=== PATIENT | female | born 1955 | race Caucasian/White ===

== ENCOUNTER 2019-11-24 07:33 | Outpatient (CLI) | payer MEDICARE, OTHER, SELFPAY ==
--- NOTE | 2019-11-24 07:39 | XR_ITS ---
WS: [id number] Lumbar spine, 3 views, 11/24/2019 Clinical Data: PAIN IN LEFT HIP Comparison: Lumbar spine, 05/01/2014. Findings: No compression fractures or subluxation is seen. Minimal disc space narrowing at T12-L1, L1-L2 and L5 -S1 is seen.. The transverse processes and SI joints are normal. The S1 vertebral body shows lumbar c haracteristics. Minimal osteoarthritic spurring of the L1 and L2 vertebral bodies seen. There are clips in the region of the abdominal aorta from surgery. There are clips in the right upper quadrant from a cholecystect linette. XR/XR lumbar spine 2-3V* [id number] Impression: Moderate osteoarthritis of the L1 and L2 vertebral bodies. Degenerative disc narrowing at T12-L1, L1-L2 and L5-S1.
--- NOTE | 2019-11-24 07:40 | CT_ITS ---
WS: [id number] NONCONTRAST CT LEFT HIP TECHNIQUE: Noncontrast CT left with coronal and sagittal reformatted images. CLINICAL INFORMATION: LEFT HIP PAIN COMPARISON: None. DLP: 313.[address] scans at [facility] use at least one of these dose optimization techniques: automat ed exposure control; mA and/or kV adjustment per patient size (includes targeted exams where dose is matched to clinical indication); or iterative reconstruction. FINDINGS: Normal anatomic alignment. Normal femoral head and femoral neck. Normal superior and inferior pubic r ami. Proximal femoral shaft appears normal. Normal acetabulum. No acute fractures. No evidence of AVN or subchondral collapse. Degenerative arthritis left sacroiliac joint. Vascular calcification. Surgi herb clips left groin. Diverticulosis. Partially visualized left femoral graft. CT/CT hip LT wo con* [id number] IMPRESSION: 1. Mild degenerative narrowing left hip. No acute fractures. 2. No evidence of AVN or subchondral collapse. 3. Normal pubic rami. 4. Diverticulosis.
== END 2019-11-24 07:34 | disposition home or self-care (01) ==
PROVIDERS: Family Provider Nurse Practitioner Family; PCP Nurse Practitioner Family; Visit Provider Nurse Practitioner Family
DX: M16.12 Unilateral primary osteoarthritis, left hip (principal); K57.90 Diverticulosis of intestine, part unspecified, without perforation or abscess without bleeding; M47.896 Other spondylosis, lumbar region; M47.897 Other spondylosis, lumbosacral region; R26.89 Other abnormalities of gait and mobility; M25.552 Pain in left hip
CPT/HCPCS: 72100; 73700

== ENCOUNTER 2020-02-16 08:24 | Outpatient (CLI) | payer MEDICARE, OTHER, SELFPAY ==
--- NOTE | 2020-02-16 08:34 | XR_ITS ---
WS: [id number] LATERAL CERVICAL SPINE: 3 view. Lateral radiographs are performed in upright neutral, flexion and extension to the patient's toleranc e. HISTORY: Neck pain COMPARISON: 05/01/2014 Mild straightening of the normal cervical lordosis. No fractures. Minimal hypertrophic bone formation along the anterior vertebral bodies. With flexion and extension no instability. XR/XR cervical spine fl/ex [id number] IMPRESSION: No cervical spine instability.
--- NOTE | 2020-02-16 08:45 | MR_ITS ---
WS: [id number] MRI CERVICAL SPINE HISTORY: Neck pain COMPARISON: 12/21/2013, CT cervical spine 06/21/2019 Normal cervical alignment with no compression fracture or significant disc space narrowing. Signal within the cervical cord is normal. Visualized posterior fossa is unremarkable. Craniocervical junction, C1 and C2 relationship, odontoid process and soft tissues are normal. C2-C3: Tiny central disc protrusion with no cord contact. C3-C4: Normal. C4-C5: Small central disc protrusion. Mild deformity of the ventral surface of the cord. Small amount of fluid still surrounds the cord. No significant stenosis. C5-C6: Shallow central disc protrusion with mild deformity the ventral cord. No significant stenosis. C6-C7: Mild disc bulge. Small central disc protrusion and/or osteophyte. No significant stenosis. C7-T1: Normal. Paraspinal soft tissue are normal. MR/MR cervical spin wo con* [id number] IMPRESSION: 1. No significant central or foraminal stenosis. 2. Small central disc protrusions at C3-4, C4-5, C5-6 and C6-7. No significant stenosis. Most significant at C4-5. Similar appearance to the prior CT of 06/21.
== END 2020-02-16 08:25 | disposition home or self-care (01) ==
LOC: RADWPI 08:30
PROVIDERS: Family Provider Nurse Practitioner Family; PCP Nurse Practitioner Family; Visit Provider Licensed Practical Nurse
DX: M50.21 Other cervical disc displacement, high cervical region (principal)
CPT/HCPCS: 72040; 72141

== ENCOUNTER 2020-11-25 10:24 | Outpatient (CLI) | payer MEDICARE, OTHER, SELFPAY ==
--- NOTE | 2020-11-25 11:45 | USCV_ITS ---
Fernando Gregoria Age: 65 Gender: F : 1955 Exam Date: 11/25/2020 10:33 Ordering Phys: Erika Portillo MD ([email or web address]) Technologist: María Kraft Exam Location[place] [facility] [place] Indication: dizziness Risk Factors: Previous Vascular Surgery: Right Brachial BP: / Left Brachial BP: / Right Left Velocity (cm/s) Spectral Plaque Velocity (cm/s) Spectral Plaque Syst/Diast Broadening Syst/Diast Broadening 73.80/ 11.70 Prox CCA 75.20 / 11.10 54.40/ 13.20 Mid CCA 60.70 / 12.80 60.60/ 13.20 Distal CCA 53.00 / 13.70 199.70/48.60 Prox ICA 170.90/ 46.80 105.20/30.20 Mid ICA 158.50/ 38.00 68.90/ 22.40 Distal ICA 68.40 / 23.90 127.50 ECA 102.20 2.71 ICA/CCA 2.27 Antegrade Vertebral Antegrade 45.10/ 7.80 cm/s 79.50/ 19.70 cm/s Tri Subclavian Tri 96.60 105.8 0 FINDINGS Moderate to heavy heterogeneous plaques of the right bifurcation and proximal internal carotid artery. Moderate to heavy plaques of the left bifurcation and proximal to mid internal carotid artery. Intimal thickening in the common carotid arteries bilaterally. Antegrade flow in the vertebral arteries bilaterally. Normal Doppler waveforms and velocities in the subclavian arteries bilaterally Normal Doppler flow velocities in the external carotid arteries bilaterally CONCLUSIONS Moderate to heavy heterogeneous plaques at the right bifurcation and proximal internal carotid artery with velocity elevation consistent with 50-79% stenosis. Moderate to heavy heterogeneous plaques at the left bifurcation and proximal to mid internal carotid arterywith velocity elevation consistent with 50-79% stenosis. No evidence of any significant stenosis in the external, vertebral or subclavian arteries bilaterally Dr Erika Portillo MD [facility] (Electronically Signed) Final Date: 26 November 2020 21:14 S
== END 2020-11-25 10:25 | disposition home or self-care (01) ==
LOC: US 10:25
PROVIDERS: PCP Nurse Practitioner Family; Visit Provider Internal Medicine Cardiovascular Disease
DX: I65.23 Occlusion and stenosis of bilateral carotid arteries (principal)
CPT/HCPCS: 93880

== ENCOUNTER 2021-07-25 06:44 | Outpatient (CLI) | payer MEDICARE, OTHER, SELFPAY ==
--- NOTE | 2021-07-25 07:15 | USCV_ITS ---
Fernando Gregoria Age: 66 Gender: F : 1955 Exam Date: 07/25/2021 07:02 Ordering Phys: Erika Portillo MD ([email or web address]) Technologist: Deanna Davies [place] [facility] [place]ication: SWELLING RT ANKLE HISTORY: Swelling Rt. Ankle PROCEDURES: Venous duplex imaging was performed in only the right lower extremity. The following venous structures were evaluated: common femoral vein, profunda vein, proximal portion of the greater saphenous vein, superficial femoral vein, and the popliteal vein. In addition, the posterior tibial and peroneal trunk were evaluated. Serial compression, augmentation maneuvers, and spectral Doppler flow evaluation were performed. FINDINGS: Normal 2-D Doppler and augmentation and compressibility throughout the lower extremity venous structures. Additional imaging through the proximal calf veins also reveals no thrombus. Limited evaluation of the greater saphenous vein is patent with no thrombus.. CONCLUSIONS No evidence of DVT in the above-mentioned identifiable veins. Dr Erika Portillo MD [facility] (Electronically Signed) Final Date: 25 July 2021 17:37 S
== END 2021-07-25 06:45 | disposition home or self-care (01) ==
LOC: RAD 06:52
PROVIDERS: PCP Nurse Practitioner Family; Visit Provider Internal Medicine Cardiovascular Disease
DX: M79.89 Other specified soft tissue disorders (principal)
CPT/HCPCS: 93971

== ENCOUNTER → 2021-09-19 08:35 | Outpatient (BNVA) | payer MEDICARE, OTHER, SELFPAY | PROVIDERS: PCP Nurse Practitioner Family; Visit Provider Surgery | DX: Z20.822 Contact with and (suspected) exposure to COVID-19 (principal) | CPT/HCPCS: 87635 ==

== ENCOUNTER 2021-11-21 10:40 | Outpatient (CLI) | payer MEDICARE, OTHER, SELFPAY ==
--- NOTE | 2021-11-21 10:49 | FL_ITS ---
WS: [id number] DOUBLE CONTRAST UPPER GI EXAMINATION HISTORY: GASTRO-ESOPHAGEAL REFLUX DISEASE WITHOUT ESOPHAGITIS COMPARISON: None available. FLUOROSCOPY TIME: 2.5 minutes. Larry Operator film reveals normal distribution of gas throughout the GI tract. Moderate constipation. No susp icious masses or calcifications. Prior cholecystectomy. Barium mixture traversed normally throughout the esophagus. No filling defects within the stomach. Du odenal bulb was normally distensible and pliable. There was a brief delay in transit of the barium ta blet through the distal esophagus. This may have been due to mild esophageal spasm. Otherwise the eso phagus appeared patent. There was a small reducible hiatal hernia noted. There is also a duodenal div erticulum noted during this examination which did fill with contrast. The duodenal diverticulum exten ded greater to the RIGHT. No gastroesophageal reflux FL/FL upper GI w air* [id number] IMPRESSION: 1. Very small reducible hiatal hernia. 2. Small duodenal diverticulum. 3. Very brief delay in transit of the barium tablet at the GE junction. May be en due to spasm. No significant distal esophageal stenosis identified at this t suha.
== END 2021-11-21 10:41 | disposition home or self-care (01) ==
PROVIDERS: PCP Nurse Practitioner Family; Visit Provider Nurse Practitioner
DX: K21.9 Gastro-esophageal reflux disease without esophagitis (principal); K44.9 Diaphragmatic hernia without obstruction or gangrene; K57.10 Diverticulosis of small intestine without perforation or abscess without bleeding
CPT/HCPCS: 74246

== ENCOUNTER → 2021-12-01 08:47 | Outpatient (BNVA) | payer MEDICARE, OTHER, SELFPAY | PROVIDERS: PCP Nurse Practitioner Family; Visit Provider Surgery | DX: R10.13 Epigastric pain (principal); K92.1 Melena | CPT/HCPCS: 87635 ==

== ENCOUNTER 2021-12-05 08:45 | Day surgery (SDC) | payer MEDICARE, OTHER, SELFPAY ==
[2021-09-23 14:34] VITALS: BMI 26.6
--- NOTE | 2021-12-05 09:21 | ANES.PREANE2 ---
Pre-Anesthetic Assessment Height/Weight: Height 1.57 m Weight 66.224 kg Preop Diagnosis: diagnostic Operation Date: 12/05/21 10:30 Proposed Procedures p EGD 60623 R10.13 K92.1(Not Applicable) - Tucker Armstrong MD Familial anesthetic complications: none Was Beta Lidia taken within 24 hours: Yes Was Clonidine taken within 24 hours: N/A Last intake: 12/04 Social Tobacco and No alcohol Exam alert, oriented x 3, clear to auscultation bilaterally and regular rate & rhythm Airway Submandibular: within normal limits Cervical ROM: within normal limits Mallampati: Class I Dentition: false Pulmonary Exertional Dyspnea Sjorgens CV/HEM Peripheral Vascular Disease Carotid disease Symptomatic lower extremity PVD s/p arterial bypass DLD PAD METS < 4 Carotid Doppler 11/28 CONCLUSIONS ?Moderate to heavy heterogeneous plaques at the right bifurcation ?and proximal internal carotid artery with velocity elevation ?consistent with 50-79% stenosis. ?Moderate to heavy heterogeneous plaques at the left bifurcation ?and proximal to mid internal carotid arterywith velocity ?elevation consistent with 50-79% stenosis. ?No evidence of any significant stenosis in the external, ?vertebral or subclavian arteries bilaterally Hydronephrosis GI Gastroesophageal Reflux Disease Did not complete bowel prep Metabolic None reported Musc/skel None reported Cervical myelopathy Neuropsych Neuropathy Anesthetic Plan ASA status: 3E (66 year old female with peripheral vascular disease s/p arterial bypass of LE, carotid stenosis, functional limations, SOUZA, hydronephrosis, GERD, and HTN) Anesthesia: Anesthesia Evaluation and MAC Other: I discussed with the patient risks, goals, and benefits of MAC and general anesthesia. We discussed spectrum of MAC anesthesia including conversion to general as well as possibility of recall of intraoperative stimuli including discomfort/pain. Patient agrees to proceed with MAC. Risk of > 500 ml blood loss (7ml/kg in children): No Other Pertinent Information Did not complete bowel prep. EGD only per patient . Medications/Allergies Home Medications Medication Instructions Recorded Confirmed Last Taken Type Diabetic shoes #1 ea 12/11/19 12/03/21 Unknown Rx lisinopril 20 mg tablet 20 mg PO DAILY 12/11/19 12/03/21 Unknown History pantoprazole 40 mg tablet,delayed 40 mg PO DAILY 12/11/19 12/03/21 Unknown History release rosuvastatin 10 mg tablet (Crestor) 10 mg PO BEDTIME 12/11/19 12/03/21 Unknown History alprazolam 0.25 mg tablet (Xanax) 0.25 mg PO BID PRN 02/08/20 12/03/21 Unknown History aspirin 81 mg tablet,delayed 81 mg PO DAILY 02/08/20 12/03/21 Unknown History release hyoscyamine sulfate 0.375 mg 0.375 mg PO Q12H 02/08/20 12/03/21 Unknown History tablet,extended release,12 hr (Symax-SR) glipizide 10 mg tablet 10 mg PO BID tab 05/22/21 12/03/21 Unknown History dulaglutide 3 mg/0.5 mL 3 mg SUBCUT DIRECTED 08/15/21 12/03/21 Unknown History subcutaneous pen injector (Trulicity) amlodipine 5 mg tablet 5 mg PO DAILY 09/23/21 12/03/21 Unknown History carvedilol 25 mg tablet 25 mg PO BID 09/23/21 12/03/21 Unknown History Allergies Allergy/AdvReac Type Severity Reaction Status Date / Time codeine AdvReac nausea Verified 09/23/21 14:33 propoxyphene AdvReac Nausea Verified 09/23/21 14:33 [From Osvaldo-N] [facility] Anesthesia Medical History 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 Benign essential HTN Carotid artery stenosis, asymptomatic Cervical disc disorder with myelopathy of mid-cervical region Chronic distal aortic occlusion Chronic headache Chronic neck pain Degeneration of cervical disc without myelopathy Dyslipidemia GERD (gastroesophageal reflux disease) Hydronephrosis, right Hypertension Mixed hyperlipidemia Neuropathy PAD (peripheral artery disease) Sjogren's syndrome with keratoconjunctivitis sicca Surgical History H/O abdominal hysterectomy H/O esophagogastroduodenoscopy History of arterial bypass of lower extremity History of colonoscopy with polypectomy History of tonsillectomy and adenoidectomy Hx of cholecystectomy Family History Father Lung disease Cancer Grandmother Cancer Daughter Anesthesia complication Mother CAD (coronary artery disease) Chronic kidney disease (CKD) Family/Other Diabetes Stroke Denies family history of Clotting disorder Dementia Bleeding disorder Social History Alcohol intake: never Household members: children and other Details: grandson Marital status: / Current occupational status: unemployed 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
[2021-12-05 09:40] VITALS: BP 133/65; PULSE 68; RESP 16; TEMP 36.6; O2SAT 97
[2021-12-05] MEDS: sodium chloride 0.9% 1,000 ML 30 ML IV (09:54)
--- NOTE | 2021-12-05 10:33 | W.PM.OPSFHP ---
Same Day Surgery H&P Indication for Procedure/HPI DATE OF PROCEDURE: December 05, 2021 CHIEF COMPLAINT/INDICATIONFOR SURGICAL PROCEDURE: Epigastric pain-EGD PREOP DIAGNOSIS: diagnostic PLANNED PROCEDURE: Operation Date: 12/05/21 10:30 Proposed Procedures p EGD 26524 R10.13 K92.1(Not Applicable) - Tucker Armstrong MD Medications/Allergies* Home Medications Medication Instructions Recorded Confirmed Type lisinopril 20 mg tablet 20 mg PO DAILY 12/11/19 12/05/21 History pantoprazole 40 mg tablet,delayed 40 mg PO DAILY 12/11/19 12/05/21 History release rosuvastatin 10 mg tablet (Crestor) 10 mg PO BEDTIME 12/11/19 12/05/21 History alprazolam 0.25 mg tablet (Xanax) 0.25 mg PO BID PRN 02/08/20 12/05/21 History aspirin 81 mg tablet,delayed 81 mg PO DAILY 02/08/20 12/05/21 History release hyoscyamine sulfate 0.375 mg 0.375 mg PO Q12H 02/08/20 12/05/21 History tablet,extended release,12 hr (Symax-SR) glipizide 10 mg tablet 10 mg PO BID tab 05/22/21 12/05/21 History dulaglutide 3 mg/0.5 mL 3 mg SUBCUT DIRECTED 08/15/21 12/05/21 History subcutaneous pen injector (Trulicity) amlodipine 5 mg tablet 5 mg PO DAILY 09/23/21 12/05/21 History carvedilol 25 mg tablet 25 mg PO BID 09/23/21 12/05/21 History Allergies/Adverse Reactions Allergy/AdvReac Type Severity Reaction Status Date / Time codeine AdvReac nausea Verified 12/05/21 09:37 propoxyphene AdvReac Nausea Verified 12/05/21 09:37 [From Charley] Current Medications: Generic Name Dose Route Start Last Admin Trade Name Freq PRN Reason Stop Dose Admin Sodium Chloride 1,000 mls @ 30 mls/hr 12/05/21 09:15 12/05/21 09:54 Sodium Chloride 0.9% IV 12/06/21 09:14 30 mls/hr .Q24H AURELIO Administration Pertinent History/Comorbid Conditions* Medical History (Updated 08/15/21 @ 08:26 by Tucker Armstrong MD) 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 Benign essential HTN Carotid artery stenosis, asymptomatic Cervical disc disorder with myelopathy of mid-cervical region Chronic distal aortic occlusion Chronic headache Chronic neck pain Degeneration of cervical disc without myelopathy Dyslipidemia GERD (gastroesophageal reflux disease) Hydronephrosis, right Hypertension Mixed hyperlipidemia Neuropathy PAD (peripheral artery disease) Sjogren's syndrome with keratoconjunctivitis sicca Surgical History (Updated 08/15/21 @ 08:30 by Tucker Armstrong MD) H/O abdominal hysterectomy H/O esophagogastroduodenoscopy History of arterial bypass of lower extremity History of colonoscopy with polypectomy History of tonsillectomy and adenoidectomy Hx of cholecystectomy Family History (Updated 11/13/20 @ 10:04 by Maddie Edmond RN) Diabetes Family/Other CAD (coronary artery disease) Mother Chronic kidney disease (CKD) Mother Anesthesia complication Daughter Lung disease Father Cancer Father Grandmother Stroke Family/Other Denies family history of Clotting disorder Dementia Bleeding disorder Social History Alcohol intake: never Household members: children and other Details: grandson Marital status: / Current occupational status: unemployed 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
[2021-12-05 10:59] VITALS: BP 113/58; PULSE 63; RESP 14; TEMP 36.5; O2SAT 92
[2021-12-05 11:15] VITALS: BP 123/60; PULSE 61; RESP 18; O2SAT 94
== END 2021-12-05 11:25 | disposition home or self-care (01) ==
PROVIDERS: PCP Nurse Practitioner Family; Visit Provider Surgery
PROC: 0DJ08ZZ Inspection of Upper Intestinal Tract, Via Natural or Artificial Opening Endoscopic (ICD-10-PCS; CPT 43235; principal; 2021-12-05 10:30)
DX: K92.1 Melena (principal); R10.13 Epigastric pain; K29.70 Gastritis, unspecified, without bleeding; K52.9 Noninfective gastroenteritis and colitis, unspecified; K21.9 Gastro-esophageal reflux disease without esophagitis; I25.110 Atherosclerotic heart disease of native coronary artery with unstable angina pectoris; I10 Essential (primary) hypertension; E78.2 Mixed hyperlipidemia; Z82.49 Family history of ischemic heart disease and other diseases of the circulatory system; Z83.3 Family history of diabetes mellitus; Z82.3 Family history of stroke
CPT/HCPCS: 43239; 88305; 88342; J2704; J7030

== ENCOUNTER → 2022-02-17 08:45 | Outpatient (BNVA) | payer MEDICARE, OTHER, SELFPAY | PROVIDERS: PCP Nurse Practitioner Family; Referring Provider Nurse Practitioner Family; Visit Provider Orthopaedic Surgery | DX: M25.512 Pain in left shoulder (principal); M54.2 Cervicalgia; G89.29 Other chronic pain | CPT/HCPCS: 72050; 99204 ==

== ENCOUNTER 2022-03-30 12:24 | Outpatient (CLI) | payer MEDICARE, OTHER, SELFPAY ==
--- NOTE | 2022-03-30 12:36 | USCV_ITS ---
Gregoria King Age: 66 Gender: F : 1955 Exam Date: 03/30/2022 13:01 Ordering Phys: Juliette Winchester Technologist: RENEA Exam Location: [facility] – [place] Indication: Dizziness, giddiness Risk Factors: Previous Vascular Surgery: Right Brachial BP: / Left Brachial BP: / Right Left Velocity (cm/s) Spectral Plaque Velocity (cm/s) Spectral Plaque Syst/Diast Broadening Syst/Diast Broadening 103.60/4.40 Prox CCA 70.30 / 6.00 50.00/ 10.50 Mid CCA 52.60 / 6.00 36.10/ 8.20 Distal CCA 41.10 / 8.50 174.70/32.20 Prox ICA 150.53/ 33.23 118.00/21.50 Mid ICA 144.20/ 39.55 56.30/ 13.20 Distal ICA 133.80/ 26.00 79.90 ECA 86.20 3.50 ICA/CCA 2.99 Antegrade Vertebral Antegrade 35.80/ 8.00 cm/s 82.00/ 17.90 cm/s Bi Subclavian Bi 84.90 99.10 FINDINGS Comparison:. 11/25/20. Diffuse bilateral scattered calcified plaque and intimal thickening throughout the common carotid arteries and extending through the bifurcation. Greatest plaque in the bifurcations. Antegrade vertebral arteries. CONCLUSIONS Right ICA stenosis 50-69%. Left ICA stenosis 50-69%. No interval change in stenosis since prior exam. Dr. Leyda Cui DO (Electronically Signed) Final Date: 30 Mar 2022 14:01 S
== END 2022-03-30 12:25 | disposition home or self-care (01) ==
LOC: RAD 12:27
PROVIDERS: PCP Nurse Practitioner Family; Visit Provider Nurse Practitioner Family
DX: M75.01 Adhesive capsulitis of right shoulder (principal); M75.02 Adhesive capsulitis of left shoulder; M25.512 Pain in left shoulder; M25.511 Pain in right shoulder; I65.23 Occlusion and stenosis of bilateral carotid arteries; I25.10 Atherosclerotic heart disease of native coronary artery without angina pectoris; M79.89 Other specified soft tissue disorders; I10 Essential (primary) hypertension; F17.200 Nicotine dependence, unspecified, uncomplicated
CPT/HCPCS: 73030; 93880; 99203; 99204; 99214

== ENCOUNTER 2022-04-02 08:06 | Outpatient (CLI) | payer MEDICARE, OTHER, SELFPAY ==
--- NOTE | 2022-04-02 08:00 | MR_ITS ---
WS: [id number] MRI LEFT SHOULDER NONCONTRAST TECHNIQUE: Sagittal T2, coronal T1, T2 and proton density imaging. Axial gradient PDE imaging. CLINICAL INFORMATION: left arm and shoulder numbness COMPARISON: None. FINDINGS: Moderate degenerative arthritis AC joint. Mild downsloping acromion. Slight subacromial spurring. Sma ll amount of subacromial/subdeltoid fluid. Intrasubstance tear involving the distal supraspinatus. Ad ditional tear at the supraspinatus insertion. No tendon retraction. Tendinopathy in the distal supraspinatus. Normal infraspinatus. Normal teres minor. Normal subscapula ris. Normal biceps tendon in the bicipital groove. Normal biceps labral anchor. Glenoid labrum is oneyda ssly normal. Normal bone marrow signal in the humerus and glenoid. MR/MR shoulder LT con* [id number] IMPRESSION: 1. Moderate degenerative arthritis AC joint with mild downsloping acromion. Sm all amount of subacromial spurring. 2. Intrasubstance tear involving the distal supraspinatus. Additional tear at the insertion. No tendon retraction. Tendinopathy distal supraspinatus. 3. Rotator cuff is otherwise intact. 4. Normal biceps tendon in the bicipital groove. Normal biceps labral anchor. 5. No other acute findings.
--- NOTE | 2022-04-02 08:45 | MR_ITS ---
WS: [id number] MRI CERVICAL SPINE noncontrast. HISTORY: Chronic pain LEFT shoulder and neck. Fell 1 week ago. COMPARISON: 02/16/2020 Technique: Multiplanar, multisequence noncontrast imaging of the cervical spine. Normal posterior alignment. No fracture or marrow edema. Facet joints are normally aligned. Signal within the cervical cord is normal. Visualized posterior fossa is unremarkable. Craniocervical junction, C1 and C2 relationship, odontoid process and soft tissues are normal. C2-C3: Tiny central disc protrusion with no stenosis. C3-C4: No disc protrusion identified today. No stenosis. C4-C5: Shallow central disc protrusion as seen on the prior study with near effacement of the CSF. Sl ight for many of the CSF but no contact on the ventral cord. Small bilateral foraminal osteophytes. C5-C6: Mild osteophytic ridging. No significant disc protrusion identified today. No stenosis. C6-C7: Mild osteophytic ridging with a small central disc protrusion as seen on the prior study. No s ignificant stenosis. C7-T1: Normal. Paraspinal soft tissue are normal. MR/MR cervical spin wo con* [id number] IMPRESSION: 1. No high-grade central stenosis or large disc protrusion. 2. Shallow central disc protrusion at C4-5 mild effacement of CSF. No cord con tact. 3. Small foraminal osteophytes at C4-5 with no high-grade stenosis. 4. Small central disc protrusion at C6-7 similar to the prior study. 5. No significant facet joint fluid or arthritis.
== END 2022-04-02 08:07 | disposition home or self-care (01) ==
LOC: RAD 08:14
PROVIDERS: PCP Nurse Practitioner Family; Visit Provider Orthopaedic Surgery
DX: M50.020 Cervical disc disorder with myelopathy, mid-cervical region, unspecified level (principal); M25.512 Pain in left shoulder; G89.29 Other chronic pain; M50.221 Other cervical disc displacement at C4-C5 level; M50.223 Other cervical disc displacement at C6-C7 level; M19.012 Primary osteoarthritis, left shoulder
CPT/HCPCS: 72141; 73221

== ENCOUNTER → 2022-04-14 07:22 | Outpatient (BNVA) | payer MEDICARE, OTHER, SELFPAY | PROVIDERS: PCP Nurse Practitioner Family; Visit Provider Physician Assistant | DX: M47.812 Spondylosis without myelopathy or radiculopathy, cervical region (principal); M75.42 Impingement syndrome of left shoulder; M47.22 Other spondylosis with radiculopathy, cervical region | CPT/HCPCS: 20610; 99213; J1100; J2795 ==

== ENCOUNTER → 2022-04-23 08:32 | Outpatient (BNVA) | payer MEDICARE, OTHER, SELFPAY | PROVIDERS: PCP Nurse Practitioner Family; Visit Provider Anesthesiology Pain Medicine | DX: G89.29 Other chronic pain (principal); M51.17 Intervertebral disc disorders with radiculopathy, lumbosacral region; M47.812 Spondylosis without myelopathy or radiculopathy, cervical region; M47.22 Other spondylosis with radiculopathy, cervical region; M50.90 Cervical disc disorder, unspecified, unspecified cervical region; M75.42 Impingement syndrome of left shoulder; M79.601 Pain in right arm; M79.602 Pain in left arm; F17.210 Nicotine dependence, cigarettes, uncomplicated | CPT/HCPCS: 99204 ==

== ENCOUNTER → 2022-05-06 12:26 | Outpatient (BNVA) | payer MEDICARE, OTHER, SELFPAY | PROVIDERS: PCP Nurse Practitioner Family; Visit Provider Anesthesiology Pain Medicine | DX: G89.29 Other chronic pain (principal); E11.42 Type 2 diabetes mellitus with diabetic polyneuropathy; F17.210 Nicotine dependence, cigarettes, uncomplicated; Z79.84 Long term (current) use of oral hypoglycemic drugs; M54.12 Radiculopathy, cervical region | CPT/HCPCS: 36416; 62321; 82962; J1100 ==

== ENCOUNTER → 2022-05-21 07:55 | Outpatient (BNVA) | payer MEDICARE, OTHER, SELFPAY | PROVIDERS: PCP Nurse Practitioner Family; Visit Provider Anesthesiology Pain Medicine | DX: G89.29 Other chronic pain (principal); M47.812 Spondylosis without myelopathy or radiculopathy, cervical region; M47.22 Other spondylosis with radiculopathy, cervical region; M50.90 Cervical disc disorder, unspecified, unspecified cervical region; M75.42 Impingement syndrome of left shoulder; M79.602 Pain in left arm; F17.210 Nicotine dependence, cigarettes, uncomplicated | CPT/HCPCS: 99214 ==

== ENCOUNTER → 2022-06-02 13:45 | Outpatient (BNVA) | payer MEDICARE, OTHER, SELFPAY | PROVIDERS: PCP Nurse Practitioner Family; Visit Provider Internal Medicine Cardiovascular Disease | DX: I25.118 Atherosclerotic heart disease of native coronary artery with other forms of angina pectoris (principal); I65.23 Occlusion and stenosis of bilateral carotid arteries; M79.89 Other specified soft tissue disorders; E78.2 Mixed hyperlipidemia; I10 Essential (primary) hypertension; I74.09 Other arterial embolism and thrombosis of abdominal aorta; F17.200 Nicotine dependence, unspecified, uncomplicated | CPT/HCPCS: 93005; 99214 ==

== ENCOUNTER 2022-07-02 06:40 | Outpatient (CLI) | payer MEDICARE, OTHER, SELFPAY ==
--- NOTE | 2022-07-02 | ECG_ITS ---
[facility] Test Date: 2022-07-02 Pat Name: Gregoria King Department: Room: Gender: Female Elevated Motorman: Morenaliya SquiresDiya : 1955 Requested By: Erika Portillo Order Number: [id number] Reading MD: Erika Portillo M.D. Interpretive Statements NAME OF STUDY: LEXISCAN SESTAMIBI STRESS TEST INDICATION: Chest Pain PROCEDURE: At the baseline, the EKG revealed normal sinus rhythm with a poor R wave progression. The baseline blood pressure was 117/65 mm Hg with a heart rate of 69 beats/min. Lexiscan was infused over a period of 20 seconds. A total of 0.4 milligrams of Lexiscan was infused. The stress phase was continued for a total of 5 minutes. Heart rate at the end of the stress phase was 76 with a blood pressure until over 58. The EKG at the peak infusion revealed no significant changes. Sestamibi was injected 20 seconds after the Lexiscan infusion. Blood pressure at the end of the recovery phase was 118/61 with a heart rate of 73 per minute. CONCLUSION: 1. No significant EKG changes with the LexiScan infusion 2. No LexiScan induced chest pain or cardiac arrhythmia 3. Normal blood pressure and heart rate response 4. Sestamibi/sestamibi perfusion scan pending; see separate report. Electronically Signed On 07-03-2022 16:08:19 CDT by Erika Portillo M.D. [id number]
[2022-07-02 07:08] VITALS: BMI 26.6
--- NOTE | 2022-07-02 07:09 | NMCV_ITS ---
NM sharri perf SPECT r/s* [id number] Gregoria King Age: 67 Gender: F : 1955 Exam Date: 07/02/2022 08:08 Ordering Phys: Erika Portillo MD ([email or web address]) Technologist: JULIANA Blackwood Exam Location: [facility] Indications: CORONARY ANGIOPLASTY STATUS STRESS TEST Please see separate stress test report in [facility] for full findings IMAGE PROTOCOL Rest/Stress 1 Lexiscan Day Radiopharmaceutical Dose (mCi) Administration Site Administered by Rest: Tc-99m 10.8 IV JULIANA Carey Sestamibi Stress:Tc-99m 32.9 IV JULIANA Carey Sestamibi Rest: 02-Jul-2022 60 Discovery 630 Stress: 02-Jul-2022 30 Discovery 630 0.4mg Lexiscan. Supine position only as patient was unable to lay prone. SPECT RESULTS Technical Quality: Excellent Raw Data Analysis: Normal Image Corrections: No attenuation or motion correction applied Summed Stress Score: 0 Summed Rest Score: 0 Summed Difference Score: 0 PERFUSION FINDINGS Fairly uniform myocardial tracer uptake. No significant perfusion normalities. FUNCTIONAL RESULTS (calculated via Gated SPECT) Stress Image LV EF (%): 77 Stress EDV (mL):64 TID: 1.16 Stress ESV (mL):15 FUNCTIONAL FINDINGS: Segmental wall motion analysis revealing no gross wall motion normalities. IMPRESSIONS 1. Myocardial perfusion imaging revealing fairly uniform myocardial tracer uptake with no significant perfusion abnormalities. 2. Normal LV ejection fraction. 3. LV wall motion analysis revealing no gross wall motion abnormalities. 4. Normal LV volume Slightly elevated transient ischemic dilatation ratio of 1.16 may suggest endocardial ischemia. But the positive predictive value of this isolated finding is low Low probability for coronary ischemia, based on the above findings Dr Erika Portillo MD [facility] (Electronically Signed) Final Date: 02 July 2022 21:10 S
[2022-07-02] MEDS: regadenoson 0.4 Mg/5 ml Syringe IVP (08:43)
[2022-07-02 08:53] VITALS: BP 118/61; PULSE 74
== END 2022-07-02 06:41 | disposition home or self-care (01) ==
LOC: CDL 06:41
PROVIDERS: PCP Nurse Practitioner Family; Visit Provider Internal Medicine Cardiovascular Disease
DX: R07.9 Chest pain, unspecified (principal); Z98.61 Coronary angioplasty status
CPT/HCPCS: 78452; 93017; A9500; J2785

== ENCOUNTER 2022-07-09 13:14 | Outpatient (CLI) | payer MEDICARE, OTHER, SELFPAY ==
--- NOTE | 2022-07-09 13:19 | XR_ITS ---
WS: [id number] DEXA (DUAL ENERGY X-RAY ABSORPTIOMETRY) Bone mineral density was performed using a Xunlei machine. HISTORY: ASYMPTOMATIC MENOPAUSAL STATE COMPARISON: None available. Lumbar spine BMD (L1-L4): 1.039 g/cm2 T score: -1.2 Z score: 0.3 Total hip BMD: Left: 0.682 g/cm2. T score: -2.6 Z score: -1.5 Right: 0.702 g/cm2. T score: -2.4 Z score: -1.3 10 year probability of a major osteoporotic fracture is 17.1%. XR/XR DEXA axial skeleton* [id number] IMPRESSION: OSTEOPOROSIS based upon the WHO classification for females.
== END 2022-07-09 13:15 | disposition home or self-care (01) ==
LOC: RAD 13:15
PROVIDERS: PCP Nurse Practitioner Family; Visit Provider Nurse Practitioner Family
DX: Z78.0 Asymptomatic menopausal state (principal); M81.0 Age-related osteoporosis without current pathological fracture; G89.29 Other chronic pain; M47.812 Spondylosis without myelopathy or radiculopathy, cervical region; M47.22 Other spondylosis with radiculopathy, cervical region; M50.90 Cervical disc disorder, unspecified, unspecified cervical region; M75.42 Impingement syndrome of left shoulder; F17.200 Nicotine dependence, unspecified, uncomplicated
CPT/HCPCS: 77080; 99213; 99214

== ENCOUNTER → 2022-09-03 14:20 | Outpatient (BNVA) | payer MEDICARE, OTHER, SELFPAY | PROVIDERS: PCP Nurse Practitioner Family; Visit Provider Nurse Practitioner Family | DX: K92.1 Melena (principal); Z86.010 Personal history of colon polyps; R19.7 Diarrhea, unspecified; I25.118 Atherosclerotic heart disease of native coronary artery with other forms of angina pectoris; I10 Essential (primary) hypertension | CPT/HCPCS: 99213; 99214 ==

== ENCOUNTER → 2022-10-26 14:54 | Outpatient (BNVA) | payer MEDICARE, OTHER, SELFPAY | PROVIDERS: PCP Nurse Practitioner Family; Visit Provider Surgery | DX: R19.7 Diarrhea, unspecified (principal) | CPT/HCPCS: 99212 ==

== ENCOUNTER → 2022-12-22 11:12 | Outpatient (BNVA) | payer MEDICARE, OTHER, SELFPAY | PROVIDERS: PCP Nurse Practitioner Family; Visit Provider Internal Medicine | DX: E11.42 Type 2 diabetes mellitus with diabetic polyneuropathy (principal); E78.2 Mixed hyperlipidemia; Z79.84 Long term (current) use of oral hypoglycemic drugs | CPT/HCPCS: 99204 ==

== ENCOUNTER 2022-12-24 06:54 | Outpatient (CLI) | payer MEDICARE, OTHER, SELFPAY ==
[2022-12-24 07:38] LABS: Estmated Average Glucose 157; Hemoglobin A1C 7.1 % (4.0-6.0)
[2022-12-24 07:40] LABS: Alanine Aminotransferase 9 U/L (0-33); Albumin Level 3.7 g/dL (3.5-5.2); Alkaline Phosphatase 131 U/L (35-105); Anion Gap 14.7 (5-19); Aspartate Amino Transferase 15 U/L (0-32); Blood Urea Nitrogen 12 mg/dL (8-23); Calcium 8.1 mg/dL (8.5-10.5); Carbon Dioxide 22 mmol/L (22-29); Chloride 106 mmol/L (98-107); Chol HDL Ratio 7.48 mg/dL (0.0-4.40); Cholesterol 187 mg/dL (0-200); Globulin 3.5 g/dL (1.3-4.6); Glucose 155 mg/dL (65-115); HDL Cholesterol 25 mg/dL (60-100); LDL Cholesterol Calculated 88 mg/dL (50-129); LDL HDL Ratio 3.52 RATIO (0.00-3.22); Osmolality Calculated 289 mOsm/kg (285-295); Potassium 4.7 mmol/L (3.5-5.1); Sodium 138 mmol/L (136-145); Total Bilirubin 0.2 mg/dL (0.15-1.2); Total Protein 7.2 g/dL (6.6-8.7); Triglycerides 372 mg/dL (0-150)
[2022-12-24 07:41] LABS: Creatinine Urine, Random 35 mg/dL (28-217); Microalbum Creatinine Ratio Ur 29 mg/dL (0-20)
[2022-12-24 07:42] LABS: Microalbumin Random Urine < 1 ug/dL (0-20)
== END 2022-12-24 06:55 | disposition home or self-care (01) ==
LOC: LAB 06:57
PROVIDERS: PCP Nurse Practitioner Family; Visit Provider Internal Medicine
DX: E11.42 Type 2 diabetes mellitus with diabetic polyneuropathy (principal)
CPT/HCPCS: 80053; 80061; 82044; 83036

== ENCOUNTER → 2023-01-06 09:30 | Outpatient (BNVA) | payer MEDICARE, OTHER, SELFPAY | PROVIDERS: PCP Nurse Practitioner Family; Visit Provider Nurse Practitioner Family | DX: R01.1 Cardiac murmur, unspecified (principal); I25.10 Atherosclerotic heart disease of native coronary artery without angina pectoris; I10 Essential (primary) hypertension; F17.200 Nicotine dependence, unspecified, uncomplicated; Z79.82 Long term (current) use of aspirin | CPT/HCPCS: 99214 ==

== ENCOUNTER → 2023-01-06 10:12 | Outpatient (BNVA) | payer MEDICARE, OTHER, SELFPAY | PROVIDERS: PCP Nurse Practitioner Family; Visit Provider Internal Medicine | DX: E11.42 Type 2 diabetes mellitus with diabetic polyneuropathy (principal); E78.2 Mixed hyperlipidemia; Z79.84 Long term (current) use of oral hypoglycemic drugs | CPT/HCPCS: 99214 ==

== ENCOUNTER → 2023-01-29 10:05 | Outpatient (BNVA) | payer MEDICARE, OTHER, SELFPAY | PROVIDERS: PCP Nurse Practitioner Family; Visit Provider Obstetrics & Gynecology | DX: Z12.6 Encounter for screening for malignant neoplasm of bladder (principal) | CPT/HCPCS: 88112 ==

== ENCOUNTER 2023-02-04 06:19 | Outpatient (CLI) | payer MEDICARE, OTHER, SELFPAY ==
--- NOTE | 2023-02-04 06:30 | USCV_ITS ---
Gregoria King Age: 67 Gender: F : 1955 Exam Date: 02/04/2023 06:43 Ordering Phys: Jolene Mendieta Technologist: DAYNE Exam Location: [facility] [place] Indication: NEW AORTIC MURMUR, CHEST PAIN, AND SHORTNESS OF BREATH BP: 110 / 61 HR: 55 Rhythm: Sinus Technical Quality: Adequate MEASUREMENTS (Male / Female) Normal Values 2D ECHO LVOT Diameter 2.0 cm LV Ejection Fraction MOD 2C 69.2 % LV Ejection Fraction 2C AL 74.3 % LA Diameter 3.4 cm LA Width 2.7 cm LA Height 4.9 cm RA Width 3.1 cm RA Height 4.5 cm Aorta at Sinotubular Diameter 2.0 cm IVC Diameter 1.3 cm M-MODE Aortic Annulus Diameter 2.0 cm LA Ao Ratio MM 1.5 MV E Point Septal Separation 0.2 cm DOPPLER AV Peak Velocity 191.7 cm/s LVOT Peak Velocity 147.0 cm/s AV Area Cont Eq vti 2.2 cm squared AV Area Cont Eq pk 2.3 cm squared MV Peak Velocity 142.0 cm/s MV Area PHT 2.3 cm squared Mitral E to A Ratio 0.9 MV E' Velocity 67.0 cm/s Mitral E to MV E' Ratio 11.8 Mitral E to LV E' Lateral Ratio 13.8 Mitral E to LV E' Septal Ratio 10.4 TR Peak Velocity 167.1 cm/s TR Peak Gradient 11.2 mmHg TR Mean Velocity 125.1 cm/s TR Mean Gradient 7.1 mmHg TR Velocity Time Integral 51.6 cm TV Peak E Velocity 40.0 cm/s Right Atrial Pressure 3.0 mmHg Pulmonary Artery Systolic Pressu 14.2 mmHg PV Peak Velocity 106.0 cm/s RV Acceleration Time 0.1 s RV Ejection Time 0.3 s RV AcT/ET 0.4 FINDINGS Left Ventricle Normal left ventricular size and systolic function, EF 71 %. No regional wall motion abnormalities. Grade I/IV diastolic dysfunction (abnormal relaxation filling pattern), normal to mildly elevated filling pressures. Right Ventricle The right ventricle is normal in size and function. Right Atrium The right atrium is normal in size. Left Atrium Mildly increased left atrial size. Mitral Valve Thickened mitral valve. Moderate calcification anterior mitral leaflet involving the leaflet margin and the chordal structures. Mild mitral valve regurgitation. Aortic Valve Thickened aortic valve. Tricuspid Valve No gross abnormalities noted Pulmonic Valve Pulmonic valve not well visualized. Pericardium Normal pericardium without effusion. Aorta Normal ascending aorta dimension. IVC Normal inferior vena cava. CONCLUSIONS Normal left ventricular size and systolic function, EF 71 %. No regional wall motion abnormalities. Grade I/IV diastolic dysfunction (abnormal relaxation filling pattern), normal to mildly elevated filling pressures. Mildly increased left atrial size. Thickened mitral valve. Moderate calcification anterior mitral leaflet involving the leaflet margin and the chordal structures. Mild mitral valve regurgitation. Thickened aortic valve. There is no pericardial effusion. There are no intracardiac masses. Compared to the previous study from 05/23/2014, there may not be a significant change Dr Erika Portillo MD FAC (Electronically Signed) Final Date: 05 February 2023 12:13 S
== END 2023-02-04 06:20 | disposition home or self-care (01) ==
LOC: RAD 06:21
PROVIDERS: PCP Nurse Practitioner Family; Visit Provider Nurse Practitioner Family
DX: R01.1 Cardiac murmur, unspecified (principal); I25.10 Atherosclerotic heart disease of native coronary artery without angina pectoris; R07.9 Chest pain, unspecified; R06.02 Shortness of breath
CPT/HCPCS: 93306; 99214

== ENCOUNTER 2023-02-25 06:25 | Outpatient (CLI) | payer MEDICARE, OTHER, SELFPAY | END 2023-02-25 06:26 | disposition home or self-care (01) | LOC: RT 06:27 | PROVIDERS: PCP Nurse Practitioner Family; Visit Provider Nurse Practitioner Family | DX: Z87.09 Personal history of other diseases of the respiratory system (principal); F17.200 Nicotine dependence, unspecified, uncomplicated; R06.02 Shortness of breath | CPT/HCPCS: 94010; 94726; 94729 ==

== ENCOUNTER 2023-03-31 10:20 | Outpatient (CLI) | payer MEDICARE, OTHER, SELFPAY ==
[2023-03-31 12:02] LABS: Alanine Aminotransferase 12 U/L (0-33); Albumin Level 3.5 g/dL (3.5-5.2); Alkaline Phosphatase 76 U/L (35-105); Anion Gap 12.5 (5-19); Aspartate Amino Transferase 20 U/L (0-32); Blood Urea Nitrogen 12 mg/dL (8-23); Calcium 8.7 mg/dL (8.5-10.5); Carbon Dioxide 22 mmol/L (22-29); Chloride 100 mmol/L (98-107); Chol HDL Ratio 5.87 mg/dL (0.0-4.40); Cholesterol 135 mg/dL (0-200); Globulin 3.8 g/dL (1.3-4.6); Glomerular Filtration Rate 44.9 mL/min (90-130); Glucose 184 mg/dL (65-115); HDL Cholesterol 23 mg/dL (60-100); LDL Cholesterol Calculated 54 mg/dL (50-129); LDL HDL Ratio 2.35 RATIO (0.00-3.22); Osmolality Calculated 275 mOsm/kg (285-295); Potassium 4.5 mmol/L (3.5-5.1); Sodium 130 mmol/L (136-145); Total Bilirubin 0.5 mg/dL (0.15-1.2); Total Protein 7.3 g/dL (6.6-8.7); Triglycerides 290 mg/dL (0-150)
[2023-03-31 12:15] LABS: Creatinine Urine, Random 88 mg/dL (28-217); Microalbum Creatinine Ratio Ur 11 mg/dL (0-20); Microalbumin Random Urine 1 ug/dL (0-20)
[2023-03-31 12:21] LABS: Estmated Average Glucose 174; Hemoglobin A1C 7.7 % (4.0-6.0)
== END 2023-03-31 10:21 | disposition home or self-care (01) ==
PROVIDERS: PCP Nurse Practitioner Family; Visit Provider Internal Medicine
DX: E11.42 Type 2 diabetes mellitus with diabetic polyneuropathy; E78.2 Mixed hyperlipidemia
CPT/HCPCS: 36415; 80053; 80061; 82044; 83036

== ENCOUNTER 2023-04-07 07:11 | Outpatient (CLI) | payer MEDICARE, OTHER, SELFPAY ==
[2023-04-07 07:53] LABS: Anion Gap 14.3 (5-19); Blood Urea Nitrogen 12 mg/dL (8-23); Calcium 8.4 mg/dL (8.5-10.5); Carbon Dioxide 22 mmol/L (22-29); Chloride 106 mmol/L (98-107); Glucose 208 mg/dL (65-115); Osmolality Calculated 292 mOsm/kg (285-295); Potassium 4.3 mmol/L (3.5-5.1); Sodium 138 mmol/L (136-145)
--- NOTE | 2023-04-07 08:08 | CT_ITS ---
WS: [id number] LDCT LUNG CANCER SCREENING HISTORY: HISTORY OF TOBACCO USE, NICOTINE DEPENDENCE, CIGARETTES TECHNIQUE: Axial imaging performed from the apices to 1 cm below the costophrenic angles. Coronal and sagittal reformats are submitted with axial MIP series. All CT scans at [facility] use at least one of these dose optimization techniques: automated exposure control; mA and/or kV adjustment per patient size (includes targeted exams where dose is matched to clinical indication); or iterativ e reconstruction. DLP: 53.61 mGy.cm DIvol: Mean CTDIvol: 1.00 (mGy) COMPARISON: 06/01/2011 Diagnostic quality: Satisfactory Lungs: Mild centrilobular emphysema. No mass or nodule. No endobronchial lesions. Heart: Normal size heart with no pericardial effusion.. Mitral annular valve calcifications and moder ate to severe coronary artery calcifications. Other findings: Moderate atherosclerotic plaque thoracic aorta. No aneurysm. No adenopathy. Prior cho lecystectomy. Mesenteric artery calcifications are advanced. CT/CT lung screening [id number] IMPRESSION: LUNG-RADS: 1S-Negative with Significant Findings FOLLOW UP: 12 Month: Continue annual screening with LDCT OTHER FINDINGS (S MODIFIER): Significant atherosclerotic plaque within the toña trish of the chest and upper abdomen. More than expected for a patient of this a ge. Coronary, aortic and mesenteric artery calcifications
== END 2023-04-07 07:12 | disposition home or self-care (01) ==
PROVIDERS: PCP Nurse Practitioner Family; Referring Provider Internal Medicine; Visit Provider Nurse Practitioner Family
DX: Z13.83 Encounter for screening for respiratory disorder NEC (principal); E78.2 Mixed hyperlipidemia
CPT/HCPCS: 36415; 71271; 80048

== ENCOUNTER → 2023-04-08 12:55 | Outpatient (BNVA) | payer MEDICARE, OTHER, SELFPAY | PROVIDERS: PCP Nurse Practitioner Family; Visit Provider Internal Medicine | DX: E11.42 Type 2 diabetes mellitus with diabetic polyneuropathy (principal); E78.2 Mixed hyperlipidemia; R42 Dizziness and giddiness; Z79.84 Long term (current) use of oral hypoglycemic drugs; Z87.440 Personal history of urinary (tract) infections | CPT/HCPCS: 99214 ==

== ENCOUNTER 2023-04-12 10:15 | Outpatient (CLI) | payer MEDICARE, OTHER, SELFPAY ==
--- NOTE | 2023-04-12 10:26 | MM_ITS ---
WS: [id number] BILATERAL SCREENING DIGITAL TOMOSYNTHESIS MAMMOGRAM WITH CAD HISTORY: SCREENING COMPARISON: 07/10/2014 Bilateral CC and MLO views with tomosynthesis and synthetic mammography submitted. Computer aided det ection analyzed. Breast composition: There are scattered areas of fibroglandular density. No suspicious masses, microc alcifications or architectural distortion. Benign breast arterial calcifications. MM/[place] [id number] IMPRESSION: BI-RADS: 2-Benign FOLLOW UP: 1 Year Follow-up
== END 2023-04-12 10:16 | disposition home or self-care (01) ==
LOC: RAD 10:19
PROVIDERS: PCP Nurse Practitioner Family; Visit Provider Nurse Practitioner Family
DX: Z12.31 Encounter for screening mammogram for malignant neoplasm of breast (principal)
CPT/HCPCS: 77063; 77067

== ENCOUNTER → 2023-04-26 10:01 | Outpatient (BNVA) | payer MEDICARE, OTHER, SELFPAY | PROVIDERS: PCP Nurse Practitioner Family; Visit Provider Internal Medicine Cardiovascular Disease | DX: I25.118 Atherosclerotic heart disease of native coronary artery with other forms of angina pectoris (principal); I65.23 Occlusion and stenosis of bilateral carotid arteries; I74.09 Other arterial embolism and thrombosis of abdominal aorta; E78.2 Mixed hyperlipidemia; E11.42 Type 2 diabetes mellitus with diabetic polyneuropathy; Z95.828 Presence of other vascular implants and grafts; R42 Dizziness and giddiness; I10 Essential (primary) hypertension; Z79.85 Long-term (current) use of injectable non-insulin antidiabetic drugs | CPT/HCPCS: 99214 ==

== ENCOUNTER 2023-05-05 14:10 | Observation (INO) | payer MEDICARE, OTHER, SELFPAY ==
[2023-05-03 10:40] VITALS: BMI 27.4
--- NOTE | 2023-05-03 11:07 | ANES.PREANE2 ---
Pre-Anesthetic Assessment Height/Weight: Height 1.57 m Weight 68.039 kg Operation Date: 05/05/23 08:30 Proposed Procedures p Anterior and posterior colporrhaphy with augmented allograft 75421, Single incision sling 92757,N81.10,N81.6(Not Applicable) - Asif Ferrer MD s Posterior Repair Posterior Colporrhaphy(Not Applicable) - Asif Ferrer MD s Sling Single Incision Sling(Not Applicable) - Asif Ferrer MD Familial anesthetic complications: None Social Tobacco and No alcohol Exam alert, oriented x 3, clear to auscultation bilaterally and regular rate & rhythm Airway Mallampati: Class II Dentition: false CV/HEM Hypertension and Peripheral Vascular Disease negative stress test Perfusions scan IMPRESSIONS ?1.? Myocardial perfusion imaging revealing fairly uniform myocardial tracer ?uptake with no significant perfusion abnormalities. ?2.? Normal LV ejection fraction. ?3.? LV wall motion analysis revealing no gross wall motion abnormalities. ?4.? Normal LV volume ?Slightly elevated transient ischemic dilatation ratio of 1.16 may suggest ?endocardial ischemia.? But the positive predictive value of this isolated ?finding is low ?Low probability for coronary ischemia, based on the above findings Chronic Renal Insufficiency Metabolic Diabetes Mellitus Anesthetic Plan ASA status: 3 Anesthesia: General Risk of > 500 ml blood loss (7ml/kg in children): No Medications/Allergies Home Medications Medication Instructions Recorded Confirmed Last Taken Type Diabetic shoes #1 ea 12/11/19 05/03/23 Unknown Rx rosuvastatin 10 mg tablet (Crestor) 10 mg PO BEDTIME 12/11/19 05/03/23 05/02/23 History aspirin 81 mg tablet,delayed 81 mg PO DAILY 02/08/20 05/03/23 05/02/23 History release hyoscyamine sulfate 0.375 mg 0.375 mg PO Q12H 02/08/20 05/03/23 05/02/23 History tablet,extended release,12 hr (Symax-SR) carvedilol 25 mg tablet 25 mg PO BID 09/23/21 05/03/23 05/02/23 History pantoprazole 40 mg tablet,delayed 40 mg PO DAILY #30 tabs 12/23/21 05/03/23 05/02/23 Rx release nitroglycerin 0.4 mg sublingual 0.4 mg sublingual Q5M PRN chest 06/02/22 05/03/23 10/13/22 Rx tablet pain 30 days #30 tabs cetirizine 10 mg tablet 10 mg PO DAILY 10/13/22 05/03/23 05/02/23 History dulaglutide 3 mg/0.5 mL 3 mg (0.5 mL) SUBCUT Q7D #2 mL 04/09/23 05/03/23 04/28/23 Rx subcutaneous pen injector (Trulicity) Allergies Allergy/AdvReac Type Severity Reaction Status Date / Time codeine AdvReac nausea Verified 05/03/23 08:13 propoxyphene AdvReac Nausea Verified 05/03/23 08:13 [From Osvaldo-Starla] [facility] Anesthesia Medical History 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 noncontrast. HISTORY: Chronic pain LEFT shoulder and neck. Fell 1 week ago. COMPARISON: 02/16/2020 Technique: Multiplanar, multisequence noncontrast imaging of the cervical spine. Normal posterior alignment. No fracture or marrow edema. Facet joints are normally aligned. Signal within the cervical cord is normal. Visualized posterior fossa is unremarkable. Craniocervical junction, C1 and C2 relationship, odontoid process and soft tissues are normal. C2-C3: Tiny central disc protrusion with no stenosis. C3-C4: No disc protrusion identified today. No stenosis. C4-C5: Shallow central disc protrusion as seen on the prior study with near effacement of the CSF. Slight for many of the CSF but no contact on the ventral cord. Small bilateral foraminal osteophytes. C5-C6: Mild osteophytic ridging. No significant disc protrusion identified today. No stenosis. C6-C7: Mild osteophytic ridging with a small central disc protrusion as seen on the prior study. No significant stenosis. C7-T1: Normal. Paraspinal soft tissue are normal. MR/MR cervical spin wo con* [id number] IMPRESSION: ? 1.? No high-grade central stenosis or large disc protrusion. 2.? Shallow central disc protrusion at C4-5 mild effacement of CSF. No cord contact. 3.? Small foraminal osteophytes at C4-5 with no high-grade stenosis. 4.? Small central disc protrusion at C6-7 similar to the prior study. 5.? No significant facet joint fluid or arthritis. ? ? ? Signed Date/Time: 04/02/22 0908 Degeneration of cervical disc without myelopathy Dyslipidemia GERD (gastroesophageal reflux disease) Hydronephrosis, right Hypertension Mixed hyperlipidemia Neuropathy PAD (peripheral artery disease) Sjogren's syndrome with keratoconjunctivitis sicca Surgical History H/O abdominal hysterectomy H/O esophagogastroduodenoscopy (12/05/21) History of arterial bypass of lower extremity History of colonoscopy with polypectomy History of tonsillectomy and adenoidectomy Hx of cholecystectomy Family History Father Lung disease Mother Heart disease Family/Other Diabetes Stroke Denies family history of Colon cancer Ovarian cancer Hypercholesteremia Breast cancer Hypertension Uterine cancer Thyroid disease Social History Alcohol intake: never Substance/Drug Use: never Marital status: / 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
[2023-05-03 11:08] LABS: Basophils # 0.1 10^3/uL (0.0-0.1); Basophils % 0.9 %; Eosinophils # 0.2 10^3/uL (0.0-0.8); Eosinophils % 2.7 %; Hematocrit 40.5 % (37.0-47.0); Hemoglobin 12.9 g/dL (11.5-15.3); Lymphocytes % 29.8 %; Mean Corpuscular HGB Conc 31.9 g/dL (30.0-36.0); Mean Corpuscular Hemoglobin 27.9 pg (28.0-34.0); Mean Corpuscular Volume 87.5 fl (81-99); Mean Platelet Volume 9.7 fL (7.4-10.4); Monocytes # 0.6 10^3/uL (0.2-0.9); Monocytes % 8.9 %; Neutrophils # 3.78 10^3/uL (1.8-7.7); Neutrophils % 57.4 %; Nucleated Red Blood Cells % 0 %; Platelet Count 197 10^3/cmm (130-400); Red Blood Count 4.63 10^6/uL (4.1-5.3); Red Cell Distribution Width 13.9 % (12.1-15.1); White Blood Count 6.6 10^3/uL (4.0-10.0)
--- NOTE | 2023-05-03 11:16 | ECG_ITS ---
[facility] Test Date: 2023-05-03 Pat Name: Gregoria King Department: Room: Gender: Female Director Life [employer]: : 1955 Requested By: Cherie Jo Order Number: [id number] Silvina MD: Ilan Richards M.D. Measurements Intervals Marcus Rate: 66 P: 74 AR: 175 QRS: 86 QRSD: 84 T: 76 QT: 389 QTc: 409 Interpretive Statements SINUS RHYTHM LOW QRS VOLTAGE [QRS DEFLECTION < 0.5/1.0 mV IN LIMB/CHEST LEADS] ST ELEVATION, CONSIDER INFERIOR INJURY [MARKED ST ELEVATION W/O NORMALLY INFLECTED T-WAVE IN II/aVF] ACUTE VT Compared to ECG 03/24/2016 20:48:54 Low QRS voltage now present ST (T wave) deviation now present Myocardial infarct finding now present Right-axis deviation no longer present Electronically Signed On 05-03-2023 17:26:11 CDT by Ilan Richards M.D. [id number]
[2023-05-03 11:23] LABS: Alanine Aminotransferase 9 U/L (0-33); Albumin Level 3.7 g/dL (3.5-5.2); Alkaline Phosphatase 74 U/L (35-105); Anion Gap 16.4 (5-19); Aspartate Amino Transferase 14 U/L (0-32); Blood Urea Nitrogen 11 mg/dL (8-23); Calcium 9.3 mg/dL (8.5-10.5); Carbon Dioxide 21 mmol/L (22-29); Chloride 102 mmol/L (98-107); Globulin 3.7 g/dL (1.3-4.6); Glomerular Filtration Rate 55.5 mL/min (90-130); Glucose 124 mg/dL (65-115); Osmolality Calculated 281 mOsm/kg (285-295); Potassium 4.4 mmol/L (3.5-5.1); Sodium 135 mmol/L (136-145); Total Bilirubin 0.3 mg/dL (0.15-1.2); Total Protein 7.4 g/dL (6.6-8.7)
[2023-05-03 11:27] LABS: Blood Urine 2+ (Negative); Glucose Urine UA Norm (Normal); Ketones Urine Negative (Negative); Protein Urine Neg (Negative); Urine Appearance Cloudy (CLEAR); Urine Color Yellow (Yellow); pH Urine 6 (5-7)
[2023-05-03 11:28] LABS: Add Urine Microscopic? YES; Bilirubin Urine Neg (Negative); Leukocyte Esterase Urine 2+ (Negative); Nitrate Urine Positive (Negative); Urobilinogen Urine Norm (Negative)
[2023-05-03 11:29] LABS: Add Urine Culture? Yes; Bacteria Urine 2+ /hpf; Squamous Epithelial Cell Urine 0-4 /hpf (0-5); WBC Urine >100 /hpf (0-5)
[2023-05-05] VITALS (17 sets, daily range): BP systolic 149–197; BP diastolic 64–112; PULSE 56–85; RESP 12–18; TEMP 36.2–37.1; O2SAT 90–100
--- NOTE | 2023-05-05 08:47 | ECG_ITS ---
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 Measurements Intervals [place] Rate: 80 P: 22 ND: 163 QRS: 11 QRSD: 94 T: 78 QT: 381 QTc: 439 Interpretive Statements SINUS RHYTHM LOW QRS VOLTAGE IN PRECORDIAL LEADS [QRS DEFLECTION < 1.0 mV IN CHEST LEADS] INFERIOR MYOCARDIAL INFARCTION , PROBABLY OLD [40+ ms Q WAVE AND/OR ST/T ABNORMALITY IN II/aVF] ANTEROLATERAL MYOCARDIAL INFARCTION , OF INDETERMINATE AGE [40+ ms Q WAVE IN I/aVL/V3-V6] Compared to ECG 05/03/2023 11:16:22 ST (T wave) deviation no longer present Myocardial infarct finding still present Electronically Signed On 05-06-2023 12:27:19 CDT by Natalie Romero M.D. [id number]
[2023-05-05] MEDS: sodium chloride 0.9% 1,000 ML 30 ML IV (09:30)
[2023-05-05] MEDS: scopolamine 1.5 Patch 1 PATCH TRANSDERMA (09:30)
[2023-05-05] MEDS: enoxaparin 40 mg/0.4 mL Syringe SUBCUT (09:32)
[2023-05-05 09:38] LABS: Glucose Point of Care 132 mg/dL (70-110)
--- NOTE | 2023-05-05 10:29 | ANES.PAUD2 ---
Pre-Anesthetic Update Pre-Anesthetic Assessment: Date of Surgery/Procedure: 05/05/23 Proposed Procedure: Operation Date: 05/05/23 10:20 Proposed Procedures p Anterior and posterior colporrhaphy with augmented allograft 41782, Single incision sling 85151,N81.10,N81.6(Not Applicable) - Asif Ferrer MD s Posterior Repair Posterior Colporrhaphy(Not Applicable) - Asif Ferrer MD s Sling Single Incision Sling(Not Applicable) - Asif Ferrer MD Any changes to Pre-Anesthetic Assessment?: No Last Intake: Intake Last Liquid Date 05/04/23 Last Liquid Time 19:00 Last Solid Date 05/04/23 Last Solid Time 19:00 Labs Last 48hrs: Short CBC 05/03/23 Range/Units 10:52 WBC 6.6 (4.0-10.0) 10^3/ uL Hgb 12.9 (11.5-15.3) g/dL Hct 40.5 (37.0-47.0) % MCV 87.5 (81-99) fl Plt Count 197 (130-400) 10^3/c mm Neut % (Auto) 57.4 % Neut # (Auto) 3.78 (1.8-7.7) 10^3/u L BMP 05/03/23 10:52 Sodium 135 L Potassium 4.4 Chloride 102 Carbon Dioxide 21 L BUN 11 Creatinine 1.0 H Glucose 124 H Calcium 9.3 Liver Function 05/03/23 Range/Units 10:52 Total Bilirubin 0.3 (0.15-1.2) mg/dL AST 14 (0-32) U/L ALT 9 (0-33) U/L Alkaline Phosphata se 74 (35-105) U/L Albumin 3.7 (3.5-5.2) g/dL Urine 05/03/23 Range/Units 10:30 Urine Color Yellow (Yellow) Urine Appearance Cloudy A (CLEAR) Urine pH 6 (5-7) Ur Specific Gravit y 1.010 (1.005-1.030) Urine Protein Neg (Negative) Urine Glucose (UA) Norm (Normal) Urine Ketones Negative (Negative) Urine Nitrate Positive H (Negative) Urine Bilirubin Neg (Negative) Ur Leukocyte Nola ase 2+ H (Negative) Urine RBC 5-10 H (0-2) /hpf Urine WBC >100 H (0-5) /hpf Blood Bank 05/03/23 10:52 Blood Type O Positive Rho(D) Type Positive Antibody Screen Negative Vitals: Temperature 98.7 F 05/05/23 09:11 Temperature Source Temporal Artery S can 05/05/23 09:11 Pulse Rate 70 05/05/23 09:11 Pulse Rhythm Regular 05/05/23 09:11 Pulse Strength 3+ Normal 05/05/23 09:11 Respiratory Rate 18 05/05/23 09:11 Blood Pressure 170/112 05/05/23 09:11 Blood Pressure Chanda n 131 05/05/23 09:11 Pulse Oximetry 97 05/05/23 09:11 Oxygen Delivery Me thod Room Air 05/05/23 09:11 Exam: Pre-Anes Outpt Exam: alert, oriented x 3, clear to auscultation bilaterally and regular rate & rhythm Cardiac Studies: Echocardiogram 02/04/23 Sestamibi Stress Test (Cardiology) 07/02/22
--- NOTE | 2023-05-05 10:36 | W.PM.OPSUD ---
Surgery/Procedure H&P Update DATE OF PROCEDURE: May 05, 2023 DATE H&P PERFORMED: 05/03/23 H&P UPDATE INFORMATION: I have reviewed H&P completed within last 30 days, I have examined patient prior to procedure and No changes to prior documentation PLANNED PROCEDURE: Operation Date: 05/05/23 10:20 Proposed Procedures p Anterior and posterior colporrhaphy with augmented allograft 15056, Single incision sling 89558,N81.10,N81.6(Not Applicable) - Asif Ferrer MD s Posterior Repair Posterior Colporrhaphy(Not Applicable) - Asif Ferrer MD s Sling Single Incision Sling(Not Applicable) - Asif Ferrer MD
[2023-05-05] MEDS: ceFAZolin 2,000 MG in sodium chloride 0.9% (plus) 50 ML 100 MG IV (11:56)
[2023-05-05] MEDS: estrogens Conjugated Cream 30 gm 1 APPLIC VAGINAL (12:38)
[2023-05-05] MEDS: lidocaine-epi 2% 20 mL INJ INJECTION (12:38)
--- NOTE | 2023-05-05 14:03 | P.OP_ITS ---
Operative Report Date of procedure: May 05, 2023 Pre-op diagnosis: Cystocele stage III. Rectocele stage II. Post-op diagnosis: Same as above Procedure done: Anterior colporrhaphy augmented with allograft. Posterior colporrhaphy. Cystoscopy. Implants: Coloplast allograft Surgeon: Asif Ferrer MD Estimated blood loss (mL): 50 IV fluids (mL): 1,300 Urine output (mL): 300 Complications: None Procedure: After obtaining informed consent, the patient was taken to the operating room and placed in the supine position, given general anesthesia, and prepped and draped in sterile fashion. The abdomen, vulva and vagina were prepped and draped in a sterile manner. A time out procedure was performed. The vaginal mucosa was then injected in the midline with normal saline. The vaginal mucosa was scored in the midline with the Bovie approximately 1 cm medial to the urethral meatus to 1 cm distal to the vaginal cuff. This vaginal mucosa was then undermined and then incised in the midline with the Metzenbaum scissors. The lateral aspects of the vaginal mucosa were then grasped with the Allis clamps and the vaginal mucosa was then dissected off the underlying fascia with the Metzenbaum scissors. Again, there was noted to be quite a bit of oozing at the incision, which was controlled with cautery. After adequate dissection was performed, bilaterally. The Coloplast allograft modified at time of application to fit spacea, 3 x 3 cm piece . The allograft placed in front of cystocele ready to be implanted facing the vagina mucosa. Suture is placed at distal end of graft and placed towards vaginal cuff. Final suture is placed on proximal portion of the graft to complete the placement overlying the bladder. T hen Interrupted vertical mattress sutures of 0 Vicryl were used to elevate the cystocele superiorly. The excessive vaginal mucosa was then trimmed with the Metzenbaum scissors and the vaginal mucosa was then reapproximated in the running interlocking fashion with 2-0 Vicryl. A dilute 2% lidocaine with epinephrine solution was infiltrated under the posterior vaginal mucosa midline and into the perineal body. An inverted triangle was cut in the perineum. The posterior vaginal wall was opened vertically and midline up to the apex of the rectocele. The cut edges were held and splayed laterally with a series of Allis clamps. The open vaginal mucosa was then dissected laterally with a combination of sharp and blunt dissection, exposing the perirectal fascia. The perirectal fascia was then reapproximated with interrupted #2-0 Vicryl sutures to draw the lateral folds together and tuck the rectocele back. Deep interrupted sutures of #0 Vicryl were used to reapproximate the fibers of the levator ani muscles. The excess vaginal mucosa was trimmed. The posterior vaginal wall was closed with a running locked #0 Vicryl to the hymenal tags. The superficial perineal muscles were closed with running unlocked #0 Vicryl and the perineal skin was closed with running subcuticular #2-0 Vicryl. Then the Chung catheter was removed and cystoscope was inserted. The bladder was filled with sterile water. Complete evaluation of the bladder mucosa was performed noting no lacerations, dimpling, tears, bleeding of the mucosa or muscular layers. Both ureteral orifices were identified. Prompt excretion of urine from both ureteral orifices was noted. Cystoscope was withdrawn. The Chung catheter was replaced. Excellent hemostasis was obtained. Sponge, lap, needle, and instrument counts were correct times three. The patient was taken to the recovery room, awake and in stable condition.
[2023-05-05] MEDS: ondansetron 2 mg/ML SDV 2 mL 4 MG IVP ×2 (14:34→14:40)
[2023-05-05] MEDS: dextrose 5%-lactated ringers 1,000 ML 125 ML IV ×2 (15:44→23:46)
[2023-05-05] MEDS: diphenhydrAMINE 50 mg/mL SDV 1mL 25 MG IVP (15:44)
--- NOTE | 2023-05-05 15:57 | ANE.PACU2 ---
Inpatient post-anesthesia follow up: Airway intact: Yes Vital signs: Temperature 97.2 F Pulse Rate 62 Respiratory Rate 17 Blood Pressure 168/72 Pulse Oximetry 96 Oxygen Delivery Me thod Nasal Cannula Oxygen Flow Rate 2 Fraction of Inspir ed Oxygen Hydration adequate: Yes Nausea and vomiting: No Pain level: 1 Mental status: Baseline
[2023-05-05] MEDS: docusate sodium 100 mg Capsule PO (18:53)
[2023-05-05] MEDS: carvedilol 25 mg Tablet PO (18:54)
[2023-05-05] MEDS: ketorolac 30 mg/mL INJ IVP (20:03)
[2023-05-05] MEDS: atorvastatin 40 mg Tablet PO (21:00)
[2023-05-06] MEDS: ketorolac 30 mg/mL INJ IVP ×2 (02:36→09:38)
[2023-05-06 02:54] VITALS: BP 155/74; PULSE 68; RESP 16; TEMP 36.6; O2SAT 99
[2023-05-06 05:16] VITALS: BP 174/74; PULSE 64; RESP 16; TEMP 36.7; O2SAT 99
[2023-05-06 05:33] LABS: Hematocrit 35.8 % (37.0-47.0); Hemoglobin 11.6 g/dL (11.5-15.3); Mean Corpuscular HGB Conc 32.4 g/dL (30.0-36.0); Mean Corpuscular Hemoglobin 28.2 pg (28.0-34.0); Mean Corpuscular Volume 87.1 fl (81-99); Mean Platelet Volume 10.2 fL (7.4-10.4); Platelet Count 176 10^3/cmm (130-400); Red Blood Count 4.11 10^6/uL (4.1-5.3); Red Cell Distribution Width 13.9 % (12.1-15.1); White Blood Count 12.3 10^3/uL (4.0-10.0)
[2023-05-06 06:31] VITALS: BP 128/51; PULSE 65; RESP 16
[2023-05-06] MEDS: carvedilol 25 mg Tablet PO (09:39)
[2023-05-06] MEDS: cetirizine 10 mg Tablet PO (09:39)
[2023-05-06] MEDS: docusate sodium 100 mg Capsule PO (09:39)
[2023-05-06] MEDS: pantoprazole DR 40 mg Tablet PO (09:39)
[2023-05-06] MEDS: aspirin 81 mg EC Tablet PO (09:39)
[2023-05-06 10:00] VITALS: BP 160/75; PULSE 57; RESP 16; TEMP 36.7; O2SAT 96
--- NOTE | 2023-05-06 11:44 | PM.OBGYDC ---
Discharge Providers IN STORE MARKETING ASSOCIATE Date of Admission: 05/05/23 14:10 Date of Discharge: 05/06/23 Attending Provider at Admission: Asif Ferrer MD Attending Provider at Discharge: Asif Ferrer MD Primary IN STORE MARKETING ASSOCIATE: Asif Ferrer MD Primary Care Provider: JER Jordan Reason for Visit Reason for Visit: Brief History: Mrs. King 63-year-old female with a symptomatic cystocele stage III and rectocele stage II Hospital Course Hospital Course Mrs. King 63-year-old female with a cystocele stage III and rectocele stage II, admitted for planned anterior colporrhaphy and posterior colporrhaphy. The procedures were performed without complication. Overnight observation significant for mild nausea. She is afebrile and hemodynamically stable postoperative day 1. Tolerating diet well. Ambulating without difficulty. PVR within normal limits. Patient was counseled regarding pelvic rest for 6 weeks (no sex, no tampons, no vaginal douches). Return to the emergency room if any fever, increased bleeding or pain. Physical Exam Narrative: GA: Alert and oriented ?3. HEENT: WNL. Heart: Regular rate and rhythm. Lungs: Clear to auscultation bilaterally. Abdomen: Bowel sounds present, nontender, minimal tenderness, incision clean and dry, no redness, pain or edema. ITEM PROCESSOR: No bleeding. Extremities: No edema, no cyanosis, no calves pain. Urinary Catheter Management: Chung: Cath Placed During This Visit: yes, but has since been removed by the nurse Reason for Continuing Indwelling Catheter: Decision to DC Catheter Urinary Catheter Date of Insertion: 05/05/23 Urinary Catheter Time of Insertion: 12:39 Date Urinary Catheter Removed: 05/06/23 Time Urinary Catheter Discontinued: 05:14 History History History 2 Term 1 0 Miscarriages/Ectopic 2 Living Children 1 Discharge Data Studies Completed and Pending Laboratory Results WBC 12.3 10^3/uL (4.0-10.0) H 05/06/23 05:10 RBC 4.11 10^6/uL (4.1-5.3) 05/06/23 05:10 Hgb 11.6 g/dL (11.5-15.3) 05/06/23 05:10 Hct 35.8 % (37.0-47.0) L 05/06/23 05:10 MCV 87.1 fl (81-99) 05/06/23 05:10 MCH 28.2 pg (28.0-34.0) 05/06/23 05:10 MCHC 32.4 g/dL (30.0-36.0) 05/06/23 05:10 RDW 13.9 % (12.1-15.1) 05/06/23 05:10 Plt Count 176 10^3/cmm (130-400) 05/06/23 05:10 MPV 10.2 fL (7.4-10.4) 05/06/23 05:10 Neut % (Auto) 57.4 % 05/03/23 10:52 Lymph % (Auto) 29.8 % 05/03/23 10:52 [place] % (Auto) 8.9 % 05/03/23 10:52 Eos % (Auto) 2.7 % 05/03/23 10:52 Baso % (Auto) 0.9 % 05/03/23 10:52 Neut # (Auto) 3.78 10^3/uL (1.8-7.7) 05/03/23 10:52 Lymph # (Auto) 2.0 10^3/uL (0.8-4.8) 05/03/23 10:52 [place] # (Auto) 0.6 10^3/uL (0.2-0.9) 05/03/23 10:52 Eos # (Auto) 0.2 10^3/uL (0.0-0.8) 05/03/23 10:52 Baso # (Auto) 0.1 10^3/uL (0.0-0.1) 05/03/23 10:52 Nucleated RBC % (auto) 0 % 05/03/23 10:52 Nucleated RBCs # 0.0 /100WBC 05/03/23 10:52 Sodium 135 mmol/L (136-145) L 05/03/23 10:52 Potassium 4.4 mmol/L (3.5-5.1) 05/03/23 10:52 Chloride 102 mmol/L (98-107) 05/03/23 10:52 Carbon Dioxide 21 mmol/L (22-29) L 05/03/23 10:52 Anion Gap 16.4 (5-19) 05/03/23 10:52 BUN 11 mg/dL (8-23) 05/03/23 10:52 Creatinine 1.0 mg/dL (0.5-0.9) H 05/03/23 10:52 GFR Calculation 55.5 mL/min (90-130) L 05/03/23 10:52 Glucose 124 mg/dL (65-115) H 05/03/23 10:52 POC Glucose 132 mg/dL (70-110) H 05/05/23 09:24 Calculated Osmolality 281 mOsm/kg (285-295) L 05/03/23 10:52 Calcium 9.3 mg/dL (8.5-10.5) 05/03/23 10:52 Total Bilirubin 0.3 mg/dL (0.15-1.2) 05/03/23 10:52 AST 14 U/L (0-32) 05/03/23 10:52 ALT 9 U/L (0-33) 05/03/23 10:52 Alkaline Phosphatase 74 U/L (35-105) 05/03/23 10:52 Total Protein 7.4 g/dL (6.6-8.7) 05/03/23 10:52 Albumin 3.7 g/dL (3.5-5.2) 05/03/23 10:52 Globulin 3.7 g/dL (1.3-4.6) 05/03/23 10:52 Urine Color Yellow (Yellow) 05/03/23 10:30 Urine Appearance Cloudy (CLEAR) A 05/03/23 10:30 Urine pH 6 (5-7) 05/03/23 10:30 Ur Specific [place] 1.010 (1.005-1.030) 05/03/23 10:30 Urine Protein Neg (Negative) 05/03/23 10:30 Urine Glucose (UA) Norm (Normal) 05/03/23 10:30 Urine Ketones Negative (Negative) 05/03/23 10:30 Urine Blood 2+ (Negative) H 05/03/23 10:30 Urine Nitrate Positive (Negative) H 05/03/23 10:30 Urine Bilirubin Neg (Negative) 05/03/23 10:30 Urine Urobilinogen Norm mg/dL (Negative) 05/03/23 10:30 Ur Leukocyte Esterase 2+ (Negative) H 05/03/23 10:30 Urine RBC 5-10 /hpf (0-2) H 05/03/23 10:30 Urine WBC >100 /hpf (0-5) H 05/03/23 10:30 Ur Squamous Epith Cells 0-4 /hpf (0-5) H 05/03/23 10:30 Amorphous Sediment Not Reportable 05/03/23 10:30 Urine Bacteria 2+ /hpf (NONE) H 05/03/23 10:30 Blood Type O Positive 05/03/23 10:52 Rho(D) Type Positive 05/03/23 10:52 Antibody Screen Negative 05/03/23 10:52 Vitals Last Vital Signs Temp 98.0 F 05/06/23 10:00 Pulse 57 L 05/06/23 10:00 Resp 16 05/06/23 10:00 BP 160/75 05/06/23 10:00 Pulse Ox 96 05/06/23 10:00 O2 Del Method Room Air 05/06/23 10:00 O2 Flow Rate 1 05/06/23 08:00 Discharge Plan Discharge Patient Disposition: Home Condition: Stable Prescriptions: New hydrocodone-acetaminophen 5-325 mg tablet 1 tab PO Q4H PRN (Reason: pain) Qty: 10 0RF ibuprofen 800 mg tablet 800 mg PO TID PRN (Reason: pain) Qty: 60 0RF acetaminophen 325 mg capsule 325 mg PO Q4H PRN (Reason: fever or pain) Qty: 60 0RF Continued rosuvastatin [Crestor] 10 mg tablet 10 mg PO BEDTIME (DME) Diabetic shoes Qty: 1 0RF Rx Instructions: As directed aspirin 81 mg tablet,delayed release (DR/EC) 81 mg PO DAILY hyoscyamine sulfate [Symax-SR] 0.375 mg tablet extended release 12 hr 0.375 mg PO Q12H pantoprazole 40 mg tablet,delayed release (DR/EC) 40 mg PO DAILY Qty: 30 2RF nitroglycerin 0.4 mg tablet, sublingual 0.4 mg sublingual Q5M PRN (Reason: chest pain) 30 Days Qty: 30 3RF Rx Instructions: until response; do not exceed 3 doses per episode Trulicity 3 mg/0.5 mL pen injector 3 mg SUBCUT Q7D Qty: 2 0RF carvedilol 25 mg tablet 25 mg PO BID Rx Instructions: TAKE 1 TABLET TWICE A DAY cetirizine 10 mg tablet 10 mg PO DAILY Discharge Orders: Discharge Order (Routine); Ordered 05/06/23 Ordered By: Asif Ferrer Referrals: Asif Ferrer MD [Physician] - 05/21/23 9:30 am (2 week post operative appointment with Dr. Ferrer: May 21 @9:30am 6 week post operative appointment with Dr. Ferrer: June 18 @2:30pm ) Discharge Diet: Soft Mechanical Discharge Activity: Limit activity as instructed Patient Instructions: Hydrocodone/Acetaminophen (By mouth), Ibuprofen (By mouth), Laxative, Stool Softeners (By mouth) (Doculax, Colace, Colace Clear, DSS), Cystoscopy (DC), Bladder Sling for Women (DC), Anterior Vaginal Repair (DC), Posterior Vaginal Repair (DC), OB Abdominal Surgery - WH, OB Food/Drug Interaction Guide, Opioid Safety Activity Restrictions/Additional Instructions: 1. Please call [facility] on next working day to make your post-operative appointment in 2 weeks. 2. Please stay home until you come back to the clinic on first post-hospatilization check up. 3. Please follow instructions on your medications CAREFULLY. 4. If you have abdominal incision, do not cover it unless dressing is necessary because of drainage. OK to shower, but avoid bath. Leave steri-strips until they fall off. If they are still on one week after surgery, you may remove them. 5. If you had vaginal surgery or vaginal repair, Dr. Ferrer may instruct you to take SITZ bath. 6. Yellow, blood tinged odorous vaginal discharge is usually normal after hysterectomy or vaginal surgeries. 7. No SEXUAL INTERCOURSE, tampons, or douches until you are completely released from the post-operative care. 8. Avoid constipation by eating right and maybe using some Metamucil or Milk of Magnesia. 9. All prescription refills are given during the working hours. Please do no wait till it runs out. Call the clinic at [phone] before your medication runs out. The clinic will get in touch with your doctor to prescribe medications if necessary. 10. Please remain within 40 mile radius from our hospital because emergencies do happen now and then during the post-operative period. 11. If you have stairs at home, take one step at a time slowly and minimize the number of trips. It helps to stay in one floor for the next few days. No lifting except what you can lift by one hand until you are released from the post-operative care. 12. Driving is discouraged until you are well healed. It may be 3-4 weeks before you feel strong enough to drive. You should be able to turn and look through the rear window without pain and you should be able to push the brake pedal very hard without pain before you drive. No fast rules, but SAFETY should be your primary concern. DO NOT drive if you are on sedating medications such as narcotics. 13. Call the clinic (during working hours) to make urgent appointment or go to the Emergency room, if any of the following occurs: i. Vaginal bleeding becomes heavy, more than a period. ii. Incision becomes red and sore, or drains pus. iii. Your TEMPERATURE is over 100.4F or you have chill. iv. IV site becomes red and swollen (a little ``knot?? is usually OK) v. Persistent nausea and vomiting vi. Persistent constipation or diarrhea vii. Rash or allergic reaction to medications. Discharge Attestations IN STORE MARKETING ASSOCIATE Time Spent in Discharge Care*: greater than 30 min Coding Level of Care Code Acute Code for Chg Fwd Diagnoses
[2023-05-06 13:00] VITALS: BP 142/84; PULSE 92; RESP 16; TEMP 36.7; O2SAT 97
== END 2023-05-06 13:00 | disposition home or self-care (01) ==
LOC: OBGYN 05-06 00:23
PROVIDERS: Admitting Provider Obstetrics & Gynecology; PCP Nurse Practitioner Family; Visit Provider Obstetrics & Gynecology
PROC: 0JQC0ZZ Repair Pelvic Region Subcutaneous Tissue and Fascia, Open Approach (ICD-10-PCS; CPT 57240; principal; 2023-05-05 10:10)
PROC: (CPT 57250; 2023-05-05 10:10)
PROC: 0TJB8ZZ Inspection of Bladder, Via Natural or Artificial Opening Endoscopic (ICD-10-PCS; CPT 52000; 2023-05-05 10:10)
DX: N81.10 Cystocele, unspecified (principal); N81.6 Rectocele; I73.9 Peripheral vascular disease, unspecified; I12.9 Hypertensive chronic kidney disease with stage 1 through stage 4 chronic kidney disease, or unspecified chronic kidney disease; E11.22 Type 2 diabetes mellitus with diabetic chronic kidney disease; N18.9 Chronic kidney disease, unspecified; Z79.85 Long-term (current) use of injectable non-insulin antidiabetic drugs; E78.2 Mixed hyperlipidemia; R94.39 Abnormal result of other cardiovascular function study
CPT/HCPCS: 57260; 57267; 36415; 36416; 51798; 80053; 81001; 82962; 85025; 85027; 86850; 86900; 87077; 87086; 87186; 93005; 96374; 96376; C1762; G0378; J0690; J1100; J1170; J1200; J1650; J1885; J2405; J2704; J2710; J3010; J3490; J7030; J7121; Q9968

== ENCOUNTER 2023-05-07 07:23 | Outpatient (CLI) | payer MEDICARE, OTHER, SELFPAY ==
--- NOTE | 2023-05-07 09:00 | USCV_ITS ---
Gregoria King Age: 67 Gender: F : 1955 Exam Date: 05/07/2023 07:41 Ordering Phys: Chaitanya Whipple MD ([email or web address]) Technologist: CIRA Exam Location: [facility] [place] Indication: Stenosis Risk Factors: Previous Vascular Surgery: Right Brachial BP: / Left Brachial BP: / Right Left Velocity (cm/s) Spectral Plaque Velocity (cm/s) Spectral Plaque Syst/Diast Broadening Syst/Diast Broadening 48.60/ 8.50 Prox CCA 61.50 / 10.60 43.50/ 10.00 Mid CCA 63.40 / 14.40 34.20/ 10.70 Distal CCA 69.90 / 14.80 145.90/38.30 Prox ICA 141.20/ 45.60 130.70/44.20 Mid ICA 139.80/ 23.30 77.60/ 25.00 Distal ICA 56.40 / 12.80 86.70 ECA 67.70 3.00 ICA/CCA 2.02 Antegrade Vertebral Antegrade 37.30/ 12.40 cm/s 83.90/ 22.00 cm/s Tri Subclavian Tri 55.90 97.00 FINDINGS Comparison:. 03/30/22. Mild elevation of ICA velocities but not progressed from the prior exam. Moderate irregular plaque in the bifurcations. Antegrade vertebral arteries. CONCLUSIONS Bilateral ICA stenosis less than 50%. No interval change in stenosis since prior exam. Dr. Leyda Cui DO (Electronically Signed) Final Date: 07 May 2023 08:30 S
== END 2023-05-07 07:24 | disposition home or self-care (01) ==
LOC: RAD 07:24
PROVIDERS: PCP Nurse Practitioner Family; Visit Provider Internal Medicine Cardiovascular Disease
DX: I65.23 Occlusion and stenosis of bilateral carotid arteries (principal); I65.29 Occlusion and stenosis of unspecified carotid artery
CPT/HCPCS: 93880

== ENCOUNTER 2023-05-07 16:39 | Emergency (ER) | payer MEDICARE, OTHER, SELFPAY ==
[2023-05-07 16:43] VITALS: PULSE 78; RESP 19; TEMP 36.6; O2SAT 94; BMI 27.4
--- NOTE | 2023-05-07 16:49 | XRR_ITS ---
PROCEDURE INFORMATION: Exam: XR Chest Exam date and time: 05/07/2023 5:26 PM Age: 67 years old Clinical indication: Pain; Chest pressure; Additional info: Chest pain TECHNIQUE: Imaging protocol: Radiologic exam of the chest. Views: 1 view. COMPARISON: CT lung screening [id number] 04/07/2023 8:21 AM FINDINGS: Lungs: Lungs are clear bilaterally. Pleural spaces: No pleural effusion. No pneumothorax. Heart/Mediastinum: The cardiac silhouette and mediastinal contours are unremarkable. Vasculature: Stable vascular calcifications in the aorta. Bones/joints: Unremarkable for age. XR/XR chest 1V portable [id number] IMPRESSION: 1. No acute cardiopulmonary process. 2. Incidental/nonacute findings are listed in the report.
--- NOTE | 2023-05-07 16:52 | ECG_ITS ---
[facility] Test Date: 2023-05-07 Pat Name: Gregoria King Department: Room: Gender: Female Mangle Roller: : 1955 Requested By: Angie Larsen Order Number: [id number] Silvina MD: Ilan Richards M.D. Measurements Intervals [place] Rate: 120 P: 0 [place]: 0 QRS: 66 QRSD: 89 T: 49 QT: 335 QTc: 473 Interpretive Statements ATRIAL FIBRILLATION WITH RAPID VENTRICULAR RESPONSE LOW QRS VOLTAGE IN EXTREMITY LEADS [QRS DEFLECTION < 0.5 mV IN LIMB LEADS] PATTERN CONSISTENT WITH PULMONARY DISEASE SEPTAL MYOCARDIAL INFARCTION , OF INDETERMINATE AGE [40+ ms Q WAVE IN V1/V2] Compared to ECG 05/05/2023 12:29:49 Sinus rhythm no longer present Myocardial infarct finding still present Electronically Signed On 05-08-2023 6:00:33 CDT by Ilan Richards M.D. [id number]
--- NOTE | 2023-05-07 17:16 | W.ED.CHESTPA ---
HPI - Chest Pain General: Chief Complaint: Chest Pain Stated Complaint: SOB Time Seen by Provider: 05/07/23 17:07 Source: patient Mode of arrival: ambulatory History of Present Illness: 67-year-old female presents emergency room complaining of left-sided chest pain radiating to the neck she had intermittently for the last 2 days she has had some relief with nitro she is also had a rapid heart rate and a little bit of orthopnea. 2 days ago she had some bladder surgery she has not had any difficulty getting her bladder to drain. She is no known history of arrhythmias is not on any anticoagulants. MD complaint: chest pain Onset (ago): minute(s) Timing of current episode: episodic Onset: during rest Pain location: substernal Pain radiation: none Quality: aching and heaviness Relieving factors: nothing Exacerbating factors: nothing Associated symptoms: Deny abdominal pain, diaphoresis, dyspnea, fever(s), leg edema, nausea, palpitations, sense of impending doom, syncope or vomiting Treatment prior to arrival: none Review of Systems Const: Denies: fever(s), chills or diaphoresis Card: Denies: chest pain, palpitations or syncope Resp: Denies: dyspnea or productive cough GI: Denies: abdominal pain, nausea or vomiting : Denies: flank pain, difficulty voiding, dysuria, urinary frequency or urinary urgency Skin/Breast: Denies: rash or pruritus PFSH ED PFSH: Medical History 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 noncontrast. HISTORY: Chronic pain LEFT shoulder and neck. Fell 1 week ago. COMPARISON: 02/16/2020 Technique: Multiplanar, multisequence noncontrast imaging of the cervical spine. Normal posterior alignment. No fracture or marrow edema. Facet joints are normally aligned. Signal within the cervical cord is normal. Visualized posterior fossa is unremarkable. Craniocervical junction, C1 and C2 relationship, odontoid process and soft tissues are normal. C2-C3: Tiny central disc protrusion with no stenosis. C3-C4: No disc protrusion identified today. No stenosis. C4-C5: Shallow central disc protrusion as seen on the prior study with near effacement of the CSF. Slight for many of the CSF but no contact on the ventral cord. Small bilateral foraminal osteophytes. C5-C6: Mild osteophytic ridging. No significant disc protrusion identified today. No stenosis. C6-C7: Mild osteophytic ridging with a small central disc protrusion as seen on the prior study. No significant stenosis. C7-T1: Normal. Paraspinal soft tissue are normal. MR/MR cervical spin wo con* [id number] IMPRESSION: ? 1.? No high-grade central stenosis or large disc protrusion. 2.? Shallow central disc protrusion at C4-5 mild effacement of CSF. No cord contact. 3.? Small foraminal osteophytes at C4-5 with no high-grade stenosis. 4.? Small central disc protrusion at C6-7 similar to the prior study. 5.? No significant facet joint fluid or arthritis. ? ? ? Signed Date/Time: 04/02/22 0908 Degeneration of cervical disc without myelopathy Dyslipidemia GERD (gastroesophageal reflux disease) Hydronephrosis, right Hypertension Mixed hyperlipidemia Neuropathy PAD (peripheral artery disease) Sjogren's syndrome with keratoconjunctivitis sicca Surgical History H/O abdominal hysterectomy H/O esophagogastroduodenoscopy (12/05/21) History of arterial bypass of lower extremity History of colonoscopy with polypectomy History of tonsillectomy and adenoidectomy Hx of cholecystectomy Family History Father Lung disease Mother Heart disease Family/Other Diabetes Stroke Denies family history of Colon cancer Ovarian cancer Hypercholesteremia Breast cancer Hypertension Uterine cancer Thyroid disease Social History Alcohol intake: never Substance/Drug Use: never Marital status: / 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 Physical Exam HENMT: COMMON NORMALS: normocephalic, atraumatic and hearing grossly normal bilaterally HEAD & SCALP: normocephalic and atraumatic Resp: COMMON NORMALS: normal respiratory effort, No retractions, No use of accessory muscles and clear to auscultation bilaterally AUSCULTATION: clear to auscultation bilaterally Cardio: COMMON NORMALS: No murmurs present (Cardio) RATE: tachycardic RHYTHM: abnormal rhythm irregularly irregular GI: COMMON NORMALS: Soft to palpation and No hepatosplenomegaly present AUSCULTATION: Yes normoactive bowel sounds PALPATION: Yes Soft to palpation, No Tenderness to palpation present (GI), No Guarding due to palpation present (GI) and Yes No hepatosplenomegaly present Extremity: COMMON NORMALS: normal to inspection, capillary refill normal, no clubbing, cyanosis or edema, no calf tenderness and no pedal edema Skin: COMMON NORMALS: no rashes or lesions noted GENERAL SKIN EXAM: no rashes or lesions noted Course Vital Signs: Vital signs: Vital Signs Temperature 97.9 F 05/07/23 16:43 Pulse Rate 110 H 05/07/23 18:20 Respiratory Rate 16 05/07/23 18:20 Blood Pressure 122/50 05/07/23 18:25 Pulse Oximetry 94 05/07/23 18:20 Oxygen Delivery Me thod Room Air 05/07/23 16:43 MDM - Chest Pain Medical Decision Making Patient has A-fib with RVR. This is new for her. She is on carvedilol she states she is continue to take it but it is not controlling her rate at this time she is on aspirin but no other anticoagulation no history of stroke. She recently tells me she stopped amlodipine lisinopril and glipizide. Discussed with her that none of these really should affect her heart rhythm. She also had some chest pain associated with this. Advised patient to be admitted for further evaluation rate control and consideration of anticoagulation. She declines she wants to go home lengthy discussion with her strongly encouraged her to stay expressed my concern about the risk for stroke development of heart failure also she has significant risk factors and the chest pain needs further evaluation this could be subacute coronary ischemia that may be precipitating the atrial fibrillation. She has known peripheral artery disease so she is at very significant risk for coronary artery disease. Despite all this and the knowledge that if these things were present there is a possibility if they advance they could be lethal if she wishes to go home. Further concern as she did get some relief with nitroglycerin. Encouraged the patient to reconsider and also encouraged her to come back at any time if she has any worsening or change but did warn her that some of these issues may precipitate rapid sudden decline and she may preclude her from returning safely. She expresses understanding of this and still wishes to leave AGAINST MEDICAL ADVICE Differential Diagnosis Likely acute myocardial infarction Medical Records I reviewed the patient's medical records. Lab Data I reviewed the patient's lab results. 05/07/23 17:06 05/07/23 17:06 Radiology Impressions Chest X-Ray 05/07/23 16:49 IMPRESSION: 1. No acute cardiopulmonary process. 2. Incidental/nonacute findings are listed in the report. Laboratory Results WBC 8.8 10^3/uL (4.0-10.0) 05/07/23 17:06 RBC 4.21 10^6/uL (4.1-5.3) 05/07/23 17:06 Hgb 11.7 g/dL (11.5-15.3) 05/07/23 17:06 Hct 36.6 % (37.0-47.0) L 05/07/23 17:06 MCV 86.9 fl (81-99) 05/07/23 17:06 MCH 27.8 pg (28.0-34.0) L 05/07/23 17:06 MCHC 32.0 g/dL (30.0-36.0) 05/07/23 17:06 RDW 14.2 % (12.1-15.1) 05/07/23 17:06 Plt Count 156 10^3/cmm (130-400) 05/07/23 17:06 MPV 11.1 fL (7.4-10.4) H 05/07/23 17:06 Neut % (Auto) 55.3 % 05/07/23 17:06 Lymph % (Auto) 33.1 % 05/07/23 17:06 [place] % (Auto) 8.1 % 05/07/23 17:06 Eos % (Auto) 2.4 % 05/07/23 17:06 Baso % (Auto) 0.8 % 05/07/23 17:06 Neut # (Auto) 4.85 10^3/uL (1.8-7.7) 05/07/23 17:06 Lymph # (Auto) 2.9 10^3/uL (0.8-4.8) 05/07/23 17:06 [place] # (Auto) 0.7 10^3/uL (0.2-0.9) 05/07/23 17:06 Eos # (Auto) 0.2 10^3/uL (0.0-0.8) 05/07/23 17:06 Baso # (Auto) 0.1 10^3/uL (0.0-0.1) 05/07/23 17:06 Nucleated RBC % (auto) 0 % 05/07/23 17:06 Nucleated RBCs # 0.0 /100WBC 05/07/23 17:06 Sodium 137 mmol/L (136-145) 05/07/23 17:06 Potassium 4.1 mmol/L (3.5-5.1) 05/07/23 17:06 Chloride 104 mmol/L (98-107) 05/07/23 17:06 Carbon Dioxide 22 mmol/L (22-29) 05/07/23 17:06 Anion Gap 15.1 (5-19) 05/07/23 17:06 BUN 18 mg/dL (8-23) 05/07/23 17:06 Creatinine 1.2 mg/dL (0.5-0.9) H 05/07/23 17:06 GFR Calculation 44.9 mL/min (90-130) L 05/07/23 17:06 Glucose 122 mg/dL (65-115) H 05/07/23 17:06 Calculated Osmolality 287 mOsm/kg (285-295) 05/07/23 17:06 Calcium 8.5 mg/dL (8.5-10.5) 05/07/23 17:06 Total Bilirubin 0.3 mg/dL (0.15-1.2) 05/07/23 17:06 AST 13 U/L (0-32) 05/07/23 17:06 ALT 7 U/L (0-33) 05/07/23 17:06 Alkaline Phosphatase 59 U/L (35-105) 05/07/23 17:06 Troponin T Baseline 12 ng/L (0-10) H 05/07/23 17:06 Total Protein 6.6 g/dL (6.6-8.7) 05/07/23 17:06 Albumin 3.7 g/dL (3.5-5.2) 05/07/23 17:06 Globulin 2.9 g/dL (1.3-4.6) 05/07/23 17:06 Discharge Plan Discharge Patient Disposition: Left Against Medical Advice Clinical Impression: Atrial fibrillation with rapid ventricular response Condition: Stable Prescriptions: No Action rosuvastatin [Crestor] 10 mg tablet 10 mg PO BEDTIME (DME) Diabetic shoes Qty: 1 0RF Rx Instructions: As directed aspirin 81 mg tablet,delayed release (DR/EC) 81 mg PO DAILY hyoscyamine sulfate [Symax-SR] 0.375 mg tablet extended release 12 hr 0.375 mg PO Q12H pantoprazole 40 mg tablet,delayed release (DR/EC) 40 mg PO DAILY Qty: 30 2RF nitroglycerin 0.4 mg tablet, sublingual 0.4 mg sublingual Q5M PRN (Reason: chest pain) 30 Days Qty: 30 3RF Rx Instructions: until response; do not exceed 3 doses per episode Trulicity 3 mg/0.5 mL pen injector 3 mg SUBCUT Q7D Qty: 2 0RF carvedilol 25 mg tablet 25 mg PO BID Rx Instructions: TAKE 1 TABLET TWICE A DAY ibuprofen 800 mg tablet 800 mg PO TID PRN (Reason: pain) Qty: 60 0RF hydrocodone-acetaminophen 5-325 mg tablet 1 tab PO Q4H PRN (Reason: pain) Qty: 10 0RF acetaminophen 325 mg capsule 325 mg PO Q4H PRN (Reason: fever or pain) Qty: 60 0RF cetirizine 10 mg tablet 10 mg PO DAILY Referrals: Winchester,JER Segovia [Primary Care Provider] - Discharge Diet: Usual diet Discharge Activity: Limit activity as instructed Patient Instructions: Opioid Safety, Pain Management Activity Restrictions/Additional Instructions: You were seen today in the emergency room for chest pain and were found to have atrial fibrillation rapid ventricular response which is a irregular heart rhythm. We had recommended that you be admitted to control the heart rate and evaluate further. Since you declined admission is difficult to treat your condition. Continue your current medications if your symptoms worsen or change you are welcome to return at any time we can reevaluate your condition. If you do not return it is highly recommended you follow-up with your primary care doctor within the next few days. Coding Level of Care Code ED Buckle Attacher for Swapna Oconnor
[2023-05-07 17:32] LABS: Basophils # 0.1 10^3/uL (0.0-0.1); Basophils % 0.8 %; Eosinophils # 0.2 10^3/uL (0.0-0.8); Eosinophils % 2.4 %; Hematocrit 36.6 % (37.0-47.0); Hemoglobin 11.7 g/dL (11.5-15.3); Lymphocytes # 2.9 10^3/uL (0.8-4.8); Lymphocytes % 33.1 %; Mean Corpuscular Hemoglobin 27.8 pg (28.0-34.0); Mean Corpuscular Volume 86.9 fl (81-99); Mean Platelet Volume 11.1 fL (7.4-10.4); Monocytes # 0.7 10^3/uL (0.2-0.9); Monocytes % 8.1 %; Neutrophils # 4.85 10^3/uL (1.8-7.7); Neutrophils % 55.3 %; Nucleated Red Blood Cells % 0 %; Platelet Count 156 10^3/cmm (130-400); Red Blood Count 4.21 10^6/uL (4.1-5.3); Red Cell Distribution Width 14.2 % (12.1-15.1); White Blood Count 8.8 10^3/uL (4.0-10.0)
[2023-05-07 17:37] VITALS: BP 98/71; PULSE 90; RESP 16; O2SAT 94
[2023-05-07 17:39] LABS: Troponin(5th) Baseline 12 ng/L (0-10)
[2023-05-07 17:40] LABS: Alanine Aminotransferase 7 U/L (0-33); Albumin Level 3.7 g/dL (3.5-5.2); Alkaline Phosphatase 59 U/L (35-105); Anion Gap 15.1 (5-19); Aspartate Amino Transferase 13 U/L (0-32); Blood Urea Nitrogen 18 mg/dL (8-23); Calcium 8.5 mg/dL (8.5-10.5); Carbon Dioxide 22 mmol/L (22-29); Chloride 104 mmol/L (98-107); Globulin 2.9 g/dL (1.3-4.6); Glomerular Filtration Rate 44.9 mL/min (90-130); Glucose 122 mg/dL (65-115); Osmolality Calculated 287 mOsm/kg (285-295); Potassium 4.1 mmol/L (3.5-5.1); Sodium 137 mmol/L (136-145); Total Bilirubin 0.3 mg/dL (0.15-1.2); Total Protein 6.6 g/dL (6.6-8.7)
[2023-05-07 18:10] VITALS: BP 130/81; PULSE 90; RESP 16; O2SAT 93
[2023-05-07 18:15] VITALS: BP 133/71; PULSE 95; RESP 17; O2SAT 93
[2023-05-07 18:20] VITALS: BP 157/85; PULSE 110; RESP 16; O2SAT 94
[2023-05-07 18:25] VITALS: BP 122/50
--- NOTE | 2023-05-07 18:35 | PC.NURSE ---
DR. JOHNSON GAVE VERBAL ORDER TO HOLD FLUID BOLUS
--- NOTE | 2023-05-07 18:42 | PC.NURSE ---
PT REQUESTED TO LEAVE AMA. PHYSICIAN NOTIFIED
== END 2023-05-07 18:46 | disposition left against medical advice (07) ==
PROVIDERS: Physician Assistant; Emergency Provider Family Medicine; PCP Nurse Practitioner Family
DX: I48.20 Chronic atrial fibrillation, unspecified (principal); Z53.21 Procedure and treatment not carried out due to patient leaving prior to being seen by health care provider; Z79.82 Long term (current) use of aspirin; Z79.85 Long-term (current) use of injectable non-insulin antidiabetic drugs; E78.5 Hyperlipidemia, unspecified; I10 Essential (primary) hypertension; E78.2 Mixed hyperlipidemia; I25.10 Atherosclerotic heart disease of native coronary artery without angina pectoris
CPT/HCPCS: 36415; 71045; 80053; 84484; 85025; 93005; 99285; J7030

== ENCOUNTER 2023-05-25 07:30 | Outpatient (CLI) | payer MEDICARE, OTHER, SELFPAY ==
--- NOTE | 2023-05-25 | ECG_ITS ---
[facility] Test Date: 2023-05-25 Pat Name: Gregoria Kign Department: Room: Gender: Female Brand Analyst: : 1955 Requested By: Juliette Winchester Order Number: [id number] Silvina MD: Erika Portillo M.D. Interpretive Statements NAME OF STUDY: LEXISCAN SESTAMIBI STRESS TEST INDICATION: Chest Pain; Coronary Artery Disease PROCEDURE: At the baseline, the EKG revealed normal sinus rhythm with poor R wave progression. Possible old anterior wall DE.. The baseline heart was 65 bpm with a blood pressue of 139/71 mm of Hg Lexiscan was infused over a period of 20 seconds. A total of 0.4 milligrams of Lexiscan was infused. The stress phase was continued for a total of 5 minutes. Heart rate at the end of the stress phase was 75 bpm with a blood pressure 134/80 mm of Hg. The EKG at the peak infusion revealed no significant changes. Sestamibi was injected 20 seconds after the Lexiscan infusion. Heart rate at the end of the recovery phase was 73 bpm with a blood pressure of 105/42 mm of Hg. CONCLUSION: 1. No significant EKG changes with the LexiScan infusion 2. No LexiScan induced chest pain or cardiac arrhythmia 3. Normal blood pressure and heart rate response 4. Sestamibi/sestamibi perfusion scan pending; see separate report. Electronically Signed On 05-25-2023 13:04:56 CDT by Erika Portillo M.D. [id number]
[2023-05-25 08:13] VITALS: BMI 28.1
--- NOTE | 2023-05-25 08:17 | NMCV_ITS ---
NM sharri perf SPECT r/s* [id number] Gregoria King Age: 67 Gender: F : 1955 Exam Date: 05/25/2023 08:17 Ordering Phys: Juliette Winchester BEEF CATTLE FARM MANAGER Technologist: JULIANA Blackwood Exam Location: [facility] Indications: ATHEROSCLEROTIC HEART DISEASE STRESS TEST Please [facility] IMAGE PROTOCOL Rest/Stress 1 Lexiscan Day Radiopharmaceutical Dose (mCi) Administration Site Administered by Rest: Tc-99m 10.6 IV Anatoly Bustos, MANAGER ADOBE Sestamibi Stress:Tc-99m 33.0 IV JULIANA Blackwood Sestamibi Rest: 25-May-2023 60 Discovery 630 Stress: 25-May-2023 30 Discovery 630 0.4mg Lexiscan. Supine position only as patient was unable to lay prone. SPECT RESULTS Technical Quality: Excellent Raw Data Analysis: Normal Image Corrections: No attenuation or motion correction applied Summed Stress Score: 0 Summed Rest Score: 0 Summed Difference Score: 0 PERFUSION FINDINGS Uniform myocardial tracer uptake with no significant perfusion abnormalities. FUNCTIONAL RESULTS (calculated via Gated SPECT) Stress Image LV EF (%): 79 Stress EDV (mL):57 TID: 1.17 Stress ESV (mL):12 FUNCTIONAL FINDINGS: Segmental wall motion analysis revealing no gross wall motion normalities. Slightly elevated transient ischemic dilatation ratio of 1.17 IMPRESSIONS 1. Myocardial perfusion imaging revealing uniform myocardial tracer uptake with no significant perfusion normalities. 2. Normal LV ejection fraction 78%. 3. LV wall motion analysis revealing no gross wall motion abnormalities.. 4. Normal LV volume. 5. Elevated transient ischemic dilatation ratio may assess interval ischemia. However the positive predictive value of this finding is limited especially in the absence of any other abnormal objective findings. Possibly no significant coronary ischemia, based on the above findings Clinical correlation is recommended Dr Erika Portillo MD FAC (Electronically Signed) Final Date: 25 May 2023 13:08 S
[2023-05-25] MEDS: regadenoson 0.4 Mg/5 ml Syringe IVP (09:57)
[2023-05-25 10:28] VITALS: BP 105/42; PULSE 72
== END 2023-05-25 07:31 | disposition home or self-care (01) ==
LOC: CDL 07:31
PROVIDERS: PCP Nurse Practitioner Family; Visit Provider Nurse Practitioner Family
DX: I25.10 Atherosclerotic heart disease of native coronary artery without angina pectoris (principal); R07.9 Chest pain, unspecified
CPT/HCPCS: 36415; 78452; 93017; 96374; A9500; J2785

== ENCOUNTER → 2023-10-20 10:08 | Outpatient (BNVA) | payer MEDICARE, OTHER, SELFPAY | PROVIDERS: PCP Nurse Practitioner Family; Visit Provider Internal Medicine Cardiovascular Disease | DX: E78.2 Mixed hyperlipidemia (principal); I74.09 Other arterial embolism and thrombosis of abdominal aorta; I65.23 Occlusion and stenosis of bilateral carotid arteries; I25.10 Atherosclerotic heart disease of native coronary artery without angina pectoris; F17.210 Nicotine dependence, cigarettes, uncomplicated; I12.9 Hypertensive chronic kidney disease with stage 1 through stage 4 chronic kidney disease, or unspecified chronic kidney disease; E11.22 Type 2 diabetes mellitus with diabetic chronic kidney disease; N18.30 Chronic kidney disease, stage 3 unspecified | CPT/HCPCS: 99214 ==

== ENCOUNTER → 2023-12-15 09:19 | Outpatient (BNVA) | payer MEDICARE, OTHER, SELFPAY | PROVIDERS: PCP Nurse Practitioner Family; Visit Provider Internal Medicine | DX: E11.9 Type 2 diabetes mellitus without complications (principal); E78.2 Mixed hyperlipidemia; R42 Dizziness and giddiness; Z79.85 Long-term (current) use of injectable non-insulin antidiabetic drugs | CPT/HCPCS: 99214 ==

== ENCOUNTER → 2023-12-30 13:51 | Outpatient (BNVA) | payer MEDICARE, OTHER, SELFPAY | PROVIDERS: PCP Nurse Practitioner Family; Visit Provider Internal Medicine Cardiovascular Disease | DX: I25.119 Atherosclerotic heart disease of native coronary artery with unspecified angina pectoris (principal); I12.9 Hypertensive chronic kidney disease with stage 1 through stage 4 chronic kidney disease, or unspecified chronic kidney disease; E11.22 Type 2 diabetes mellitus with diabetic chronic kidney disease; E11.42 Type 2 diabetes mellitus with diabetic polyneuropathy; N18.31 Chronic kidney disease, stage 3a; I74.09 Other arterial embolism and thrombosis of abdominal aorta; E78.2 Mixed hyperlipidemia; I65.23 Occlusion and stenosis of bilateral carotid arteries; R20.0 Anesthesia of skin; F17.210 Nicotine dependence, cigarettes, uncomplicated | CPT/HCPCS: 99214 ==

== ENCOUNTER 2023-12-31 12:28 | Outpatient (CLI) | payer MEDICARE, OTHER, SELFPAY ==
--- NOTE | 2023-12-31 13:30 | USCV_ITS ---
Gregoria King Age: 68 Gender: F : 1955 Exam Date: 12/31/2023 13:21 Ordering Phys: Erika Portillo MD ([email or web address]) Technologist: DAYNE [place] [facility] [place]: RUE WEAKNESS AND NUMBNESS Risk Factors: Previous Vascular Surgery: Right BP: 154.00 / 67.00 Left BP: 149.00 / 66.00 RIGHT LEFT PSV PSV (cm/s) (cm/s) Waveform Waveform Biphasic 115.0 Subclavian Proximal Biphasic 70.0 Subclavian Distal Biphasic 59.0 Axillary Biphasic 96.0 Brachial Proximal Biphasic 98.0 Brachial Mid Biphasic 97.0 Brachial at AC Monophasic 42.0 Radial Proximal Monophasic 35.0 Radial Mid Monophasic 34.0 Radial at Wrist Monophasic 43.0 Ulnar Proximal Monophasic 38.0 Ulnar Mid Monophasic 42.0 Ulnar at Wrist FINDINGS Monophasic waveforms in the ulnar and radial arteries on the right side No Doppler flow velocities in the radial and ulnar arteries CONCLUSIONS Abnormal Doppler waveforms and Doppler velocities in the radial and ulnar arteries on the right side, is suggestive of obstructive arterial disease. The radial and ulnar /brachial indicis were not performed Dr Erika Portillo MD [facility] (Electronically Signed) Final Date: 07 January 2024 16:51 S
== END 2023-12-31 12:29 | disposition home or self-care (01) ==
LOC: RAD 12:28
PROVIDERS: PCP Nurse Practitioner Family; Visit Provider Internal Medicine Cardiovascular Disease
DX: I25.10 Atherosclerotic heart disease of native coronary artery without angina pectoris (principal)
CPT/HCPCS: 93931

== ENCOUNTER → 2024-07-12 08:30 | Outpatient (BNVA) | payer MEDICARE, OTHER, SELFPAY | PROVIDERS: PCP Nurse Practitioner Family; Visit Provider Internal Medicine | DX: E11.9 Type 2 diabetes mellitus without complications (principal); E78.2 Mixed hyperlipidemia; R42 Dizziness and giddiness; Z79.4 Long term (current) use of insulin | CPT/HCPCS: 99214 ==

== ENCOUNTER → 2024-08-14 14:44 | Outpatient (BNVA) | payer MEDICARE, OTHER, SELFPAY | PROVIDERS: PCP Nurse Practitioner Family; Visit Provider Internal Medicine Cardiovascular Disease | DX: R06.02 Shortness of breath (principal) | CPT/HCPCS: 36415; 80048; 99214 ==

== ENCOUNTER 2024-09-05 07:05 | Outpatient (CLI) | payer MEDICARE, OTHER, SELFPAY ==
[2024-09-05 07:24] VITALS: BMI 26.5
--- NOTE | 2024-09-05 07:27 | ECG_ITS ---
[facility] Test Date: 2024-09-05 Pat Name: Gregoria King Department: Room: Gender: Female Automobile Bumper Straightener: : 1955 Requested By: Erika Portillo Order Number: [id number] Silvina MD: Erika Portillo M.D. Interpretive Statements PROCEDURE: At the baseline, the EKG revealed normal sinus rhythm with a poor R wave progression. Possible old septal PR.. The baseline heart was 62 bpm with a blood pressue of 139/76 mm of Hg Lexiscan was infused over a period of 20 seconds. A total of 0.4 milligrams of Lexiscan was infused. The stress phase was continued for a total of 5 minutes. Heart rate at the end of the stress phase was 60 bpm with a blood pressure 136/71 mm of Hg. The EKG at the peak infusion revealed no significant changes. Sestamibi was injected 20 seconds after the Lexiscan infusion. Heart rate at the end of the recovery phase was 58 bpm with a blood pressure of 159/66 mm of Hg. CONCLUSION: 1. No significant EKG changes with the LexiScan infusion 2. No LexiScan induced chest pain or cardiac arrhythmia 3. Normal blood pressure and heart rate response 4. Sestamibi/sestamibi perfusion scan pending; see separate report. Lung unchanged pre/post procedure Intraprocedure shortess of breath Symptoms resoled by discharge Electronically Signed On 09-07-2024 18:31:11 CDT by Erika Portillo M.D. [id number]
--- NOTE | 2024-09-05 07:28 | NMCV_ITS ---
NM sharri perf SPECT r/s* [id number] Gregoria King Age: 69 Gender: F : 1955 Exam Date: 09/05/2024 08:01 Ordering Phys: Dom Mares MD Technologist: JULIANA Jordan Exam Location: [facility] Indications: cp STRESS TEST Please see separate stress test report in [facility] for full findings IMAGE PROTOCOL Rest/Stress 1 Lexiscan Day Radiopharmaceutical Dose (mCi) Administration Site Administered by Rest: Tc-99m 9.1 IV JULIANA Carey Sestamibi Stress:Tc-99m 30 IV JULIANA Briseno Sestamibi Rest: 05-Sep-2024 45 Discovery 630 Stress: 05-Sep-2024 30 Discovery 630 0.4mg Lexiscan. Images obtained in supine and prone position. SPECT RESULTS Technical Quality: Good Raw Data Analysis: Normal Image Corrections: No attenuation or motion correction applied Summed Stress Score: 0 Summed Rest Score: 0 Summed Difference Score: 0 PERFUSION FINDINGS Uniform myocardial tracer uptake with no significant perfusion abnormalities FUNCTIONAL RESULTS (calculated via Gated SPECT) Stress Image LV EF (%): 82 Stress EDV (mL):68 TID: 1.21 Stress ESV (mL):12 FUNCTIONAL FINDINGS: Segmental wall motion analysis revealing no gross wall motion abnormalities IMPRESSIONS 1. Myocardial perfusion imaging revealing no significant Perfusion abnormalities 2. Normal LV ejection fraction of 82%. 3. LV wall motion analysis revealing no gross wall motion abnormalities. 4. Normal LV volume Low probability for coronary ischemia, based on the above findings Dr Erika Portillo MD FAC (Electronically Signed) Final Date: 07 September 2024 00:30 S
[2024-09-05] MEDS: regadenoson 0.4 Mg/5 ml Syringe IVP (08:45)
[2024-09-05] MEDS: aminophylline 25 mg/mL SDV 20 mL IVP (09:05)
[2024-09-05 09:12] VITALS: BP 155/64; PULSE 60
== END 2024-09-05 07:06 | disposition home or self-care (01) ==
PROVIDERS: PCP Nurse Practitioner Family; Visit Provider Internal Medicine Cardiovascular Disease
DX: Z98.61 Coronary angioplasty status (principal)
CPT/HCPCS: 36415; 78452; 93017; 96374; 96375; A9500; J0280; J2785

== ENCOUNTER → 2024-10-10 09:50 | Outpatient (BNVA) | payer MEDICARE, OTHER, SELFPAY | PROVIDERS: PCP Nurse Practitioner Family; Visit Provider Podiatrist Foot & Ankle Surgery | DX: R09.89 Other specified symptoms and signs involving the circulatory and respiratory systems (principal); M79.671 Pain in right foot; M79.672 Pain in left foot; E11.42 Type 2 diabetes mellitus with diabetic polyneuropathy | CPT/HCPCS: 99203 ==

== ENCOUNTER 2024-10-25 09:40 | Outpatient (CLI) | payer MEDICARE, OTHER, SELFPAY ==
--- NOTE | 2024-10-25 09:45 | USCV_ITS ---
Gregoria King Age: 69 Gender: F : 1955 Exam Date: 10/25/2024 10:28 Ordering Phys: Grayson De Souza DPM Technologist: [place] [facility] [place]: pain RIGHT LEFT Brachial 115.00 mmHg Brachial 127.00 mmHg Pressure (mmHg) Waveform Pressure (mmHg) Waveform 78.00 GRAPHIC DESIGN INTERN 71.00 81.00 DPA 77.00 0.64 Ankle/Brachial Index 0.61 38.00 Pre-Exercise Toe Pressure 42.00 FINDINGS Resting MARY of 0.64 on the right side and 0.6 on the left Resting TBI 0.3 on the right and 0.33 on the left CONCLUSIONS Abnormal resting ABIs and TBIs bilaterally suggesting moderately severe peripheral arterial disease Dr Erika Portillo MD [facility] (Electronically Signed) Final Date: 27 October 2024 15:56 S
== END 2024-10-25 09:41 | disposition home or self-care (01) ==
LOC: RAD 09:41
PROVIDERS: PCP Nurse Practitioner Family; Visit Provider Podiatrist Foot & Ankle Surgery
DX: I73.9 Peripheral vascular disease, unspecified (principal)
CPT/HCPCS: 93922

== ENCOUNTER 2024-10-30 07:43 | Outpatient (CLI) | payer MEDICARE, OTHER, SELFPAY ==
[2024-10-30 08:46] LABS: Estmated Average Glucose 229; Hemoglobin A1C 9.6 % (4.0-6.0)
[2024-10-30 08:50] LABS: Creatinine Urine, Random 93 mg/dL (28-217); Microalbumin Random Urine 13 ug/dL (0-20)
[2024-10-30 08:53] LABS: Microalbum Creatinine Ratio Ur 140 mg/dL (0-20)
[2024-10-30 08:55] LABS: Alanine Aminotransferase 11 U/L (0-33); Albumin Level 3.8 g/dL (3.5-5.2); Alkaline Phosphatase 152 U/L (35-105); Anion Gap 15.1 (5-19); Aspartate Amino Transferase 16 U/L (0-32); Blood Urea Nitrogen 11 mg/dL (8-23); Calcium 9.6 mg/dL (8.5-10.5); Carbon Dioxide 24 mmol/L (22-29); Chloride 104 mmol/L (98-107); Chol HDL Ratio 7.58 mg/dL (0.0-4.40); Cholesterol 235 mg/dL (0-200); Globulin 3.9 g/dL (1.3-4.6); Glomerular Filtration Rate 44.7 mL/min (90-130); Glucose 178 mg/dL (65-115); HDL Cholesterol 31 mg/dL (60-100); LDL Cholesterol Calculated 135 mg/dL (50-129); LDL HDL Ratio 4.35 RATIO (0.00-3.22); Osmolality Calculated 292 mOsm/kg (285-295); Potassium 4.1 mmol/L (3.5-5.1); Sodium 139 mmol/L (136-145); Total Bilirubin 0.3 mg/dL (0.15-1.2); Total Protein 7.7 g/dL (6.6-8.7); Triglycerides 347 mg/dL (0-150)
== END 2024-10-30 07:44 | disposition home or self-care (01) ==
LOC: LAB 07:46
PROVIDERS: PCP Nurse Practitioner Family; Visit Provider Internal Medicine
DX: E11.9 Type 2 diabetes mellitus without complications (principal); E78.2 Mixed hyperlipidemia
CPT/HCPCS: 36415; 80053; 80061; 82044; 82533; 83036

== ENCOUNTER 2024-11-12 06:23 | Emergency (ER) | payer MEDICARE, OTHER, SELFPAY ==
[2024-11-12] VITALS (11 sets, daily range): BP systolic 91–132; BP diastolic 55–90; PULSE 59–142; RESP 12–22; TEMP 36.2; O2SAT 92–99; BMI 27.1
--- NOTE | 2024-11-12 06:24 | ECG_ITS ---
[facility] Test Date: 2024-11-12 Pat Name: Gregoria King Department: Room: Gender: Female Distribution Coordinator: : 1955 Requested By: Landry Joseph Order Number: [id number] Silvina MD: Erika Portillo M.D. Measurements Intervals [place] Rate: 133 P: 0 OK: 0 QRS: 76 QRSD: 98 T: 42 QT: 307 QTc: 457 Interpretive Statements ATRIAL FIBRILLATION WITH RAPID VENTRICULAR RESPONSE SEPTAL MYOCARDIAL INFARCTION , PROBABLY OLD [40+ ms Q WAVE IN V1/V2] ST DEPRESSION, CONSIDER SUBENDOCARDIAL INJURY [0.1+ mV ST DEPRESSION] Compared to ECG 05/07/2023 16:52:57 ST (T wave) deviation now present Myocardial infarct finding still present Electronically Signed On 11-12-2024 13:29:27 GASOLINE TRUCK CRANE OPERATOR by Erika Portillo M.D. [id number]
--- NOTE | 2024-11-12 06:51 | XRR_ITS ---
PROCEDURE INFORMATION: Exam: XR Chest Exam date and time: 11/12/2024 7:18 AM Age: 69 years old Clinical indication: Pain; Angina pectoris; Additional info: Chest pain TECHNIQUE: Imaging protocol: Radiologic exam of the chest. Views: 1 view. COMPARISON: CR XR chest 1V portable [id number] 05/07/2023 5:26 PM FINDINGS: Lungs: Unremarkable. No consolidation. Pleural spaces: Unremarkable. No pleural effusion. No pneumothorax. Heart/Mediastinum: Unremarkable. No cardiomegaly. Vasculature: There are aortic arch calcifications. Bones/joints: The thoracic spine demonstrates mild degenerative changes at multiple levels. XR/XR chest 1V portable [id number] IMPRESSION: No acute cardiopulmonary process.
[2024-11-12 07:04] LABS: Basophils # 0.1 10^3/uL (0.0-0.1); Eosinophils # 0.1 10^3/uL (0.0-0.8); Hematocrit 46.8 % (36-47); Lymphocytes # 1.6 10^3/uL (0.8-4.8); Lymphocytes % 14.7 %; Mean Corpuscular HGB Conc 33.5 g/dL (30-55); Mean Corpuscular Hemoglobin 29.2 pg (27-33); Mean Corpuscular Volume 87.2 fl (85-98); Mean Platelet Volume 11.6 fL (7.4-10.4); Monocytes # 0.7 10^3/uL (0.2-0.9); Monocytes % 6.1 %; Neutrophils # 8.43 10^3/uL (1.8-7.7); Neutrophils % 76.8 %; Nucleated Red Blood Cells % 0 %; Platelet Count 129 10^3/cmm (157-399); Red Blood Count 5.37 10^6/uL (3.85-5.65); Red Cell Distribution Width 13.1 % (12.1-15.1); White Blood Count 10.97 10^3/uL (3.29-11.43)
[2024-11-12] MEDS: dilTIAZem 5 mg/mL SDV 5 mL IVP (07:11)
[2024-11-12] MEDS: dilTIAZem 100 MG in sodium chloride 0.9% (add-van) 100 ML IV (07:15)
[2024-11-12 07:21] LABS: Troponin(5th) Baseline 7 ng/L (0-10)
[2024-11-12 07:29] LABS: Blood Urea Nitrogen 17 mg/dL (8-23); Carbon Dioxide 19 mmol/L (22-29); Chloride 91 mmol/L (98-107); Creatinine Clr Calc Pharmacy 40.3132; Glomerular Filtration Rate 44.7 mL/min (90-130); Glucose 260 mg/dL (65-115); NT Pro B Type Natriuretic Pept 523 pg/mL (0-125); Osmolality Calculated 295 mOsm/kg (285-295); Sodium 137 mmol/L (136-145)
[2024-11-12 07:30] LABS: Partial Thromboplastin Time 24.8 SECONDS (23.9-36.7)
[2024-11-12 07:38] LABS: Anion Gap 31.1 (5-19); Potassium 4.1 mmol/L (3.5-5.1)
--- NOTE | 2024-11-12 08:49 | CTR_ITS ---
PROCEDURE INFORMATION: Exam: CTA Chest With Contrast Exam date and time: 11/12/2024 9:00 AM Age: 69 years old Clinical indication: Pain; Chest pressure; Additional info: Chest pain, new onset a fib TECHNIQUE: Imaging protocol: Computed tomographic angiography of the chest with contrast. Exam focused on the arteries. 3D rendering (Not supervised by radiologist): MIP and/or 3D reconstructed images were created by the technologist. Radiation optimization: All CT scans at this facility use at least one of these dose optimization techniques: automated exposure control; mA and/or kV adjustment per patient size (includes targeted exams where dose is matched to clinical indication); or iterative reconstruction. Contrast material: OMNIPAQUE 350; Contrast volume: 76 ml; Contrast route: INTRAVENOUS (IV); COMPARISON: CT lung screening [id number] 04/07/2023 8:21 AM RADIATION DOSE METRICS: Total DLP (mGy-cm): 358.14 FINDINGS: Pulmonary arteries: Dilated pulmonary artery, suggestive of pulmonary hypertension. Aorta: Unremarkable. No aortic aneurysm. No aortic dissection. Other arteries: Calcified atheromas of the visualized arteries. Lungs: No focal infiltrates. Calcified granulomas in the left lower lobe. Pleural spaces: Unremarkable. No pneumothorax. No pleural effusion. Heart: Unremarkable. No cardiomegaly. No pericardial effusion. Lymph nodes: Unremarkable. No enlarged lymph nodes. Liver: There is a nodular contour to the liver and hypertrophy of the caudate lobe, consistent with cirrhosis. Gallbladder and biliary ducts: Atheromas in the aortaThere has been a cholecystectomy. Spleen: There are multiple calcified granulomas of the spleen. Bones/joints: The thoracic spine demonstrates mild degenerative changes at multiple levels. Soft tissues: Unremarkable. CT/CT angio chest PE protcl [id number] IMPRESSION: 1. No pulmonary embolism. 2. No acute infiltrates.
--- NOTE | 2024-11-12 08:54 | ED_ITS ---
HPI - Chest Pain 2 General: Chief Complaint: Chest Pain Stated Complaint: CHEST DISCOMFORT Time Seen by Provider: 11/12/24 06:38 History of Present Illness: This patient is a 69-year-old white female who presents to the emergency department with chest pain. She states it started at 3:30 AM this morning. She describes it as a sharp/pressure sensation. She does have some radiation to the back. She does have some mild shortness of breath. She did take a nitroglycerin at home and the chest pain eased up somewhat. She does have a headache now. Patient did take 4 baby aspirin this morning. Her past medical history includes hypertension, hbh-czzcicx-irktrsddi diabetes and peripheral arterial disease. She states she has never had a heart attack. She states she has had a stress test recently by Dr. Portillo which was normal. No history of A- fib. Associated symptoms: Reports dyspnea Related Data Home Medications Medication Instructions Recorded Confirmed amlodipine 10 mg tablet 10 mg PO QAM 11/12/24 11/12/24 pantoprazole 40 mg tablet,delayed 40 mg PO DAILY 11/12/24 11/12/24 release Previous Rx's Medication Instructions Recorded Diabetic shoes #1 ea 12/11/19 blood-glucose meter (Accu-Chek #1 ea 07/12/24 Guide Glucose Meter) lancing device with lancets kit #1 ea 07/12/24 (Accu-Chek FastClix Lancing Device kit) blood sugar diagnostic (Accu-Chek #100 ea 07/14/24 Guide test strips) lancets (Accu-Chek Softclix #100 ea 08/20/24 Lancets) dulaglutide 4.5 mg/0.5 mL 4.5 mg (0.5 mL) SUBCUT Q7D 90 days 09/21/24 subcutaneous pen injector #6.5 mL (Trulicuc [facility]) metoprolol tartrate 50 mg tablet 50 mg PO Q12H #90 tabs 10/04/24 gabapentin 100 mg capsule 100 mg PO TID 30 days #90 caps 10/10/24 Allergies Allergy/AdvReac Type Severity Reaction Status Date / Time codeine AdvReac nausea Verified 11/03/24 07:33 propoxyphene AdvReac Nausea Verified 11/03/24 07:33 [From Charley] Review of Systems 2 General: Reports: 10 or more systems reviewed and unremarkable except in HPI and below Card: Reports: chest pain Resp: Reports: dyspnea PFSH ED 2 PFSH: Medical History CKD (chronic kidney disease) stage 3, GFR 30-59 ml/min Diabetes History of colon polyps Atherosclerotic heart disease of [place] coronary artery without angina pectoris Carotid artery stenosis, asymptomatic Chronic distal aortic occlusion Chronic headache Hypertension Degeneration of cervical disc without myelopathy Tailor's bunion of both feet Diabetic peripheral neuropathy associated with type 2 diabetes mellitus GERD (gastroesophageal reflux disease) PAD (peripheral artery disease) Sjogren's syndrome with keratoconjunctivitis sicca Mixed hyperlipidemia Surgical History History of esophagogastroduodenoscopy History of appendectomy History of cholecystectomy History of total abdominal hysterectomy and bilateral salpingo-oophorectomy History of colonoscopy with polypectomy History of arterial bypass of lower extremity History of tonsillectomy and adenoidectomy Family History Father Lung disease Cancer lung cancer (smoker) Mother Heart disease Family/Other Diabetes Stroke Grandmother Cancer stomach Denies family history of Colon cancer Ovarian cancer Hypercholesteremia Breast cancer Hypertension Uterine cancer Thyroid disease Social History Smoking and tobacco/nicotine status: never used tobacco/nicotine Quit status (tobacco/nicotine): has tried quititng Alcohol intake: never Substance/Drug Use: never Household members: other Details: grandson Marital status: / Number of children: 1 Number of grandchildren: 3 Current occupational status: unemployed 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/Anabaptism: Yazidism Special ninoska needs: No Agree to transfusion: Yes Physical Exam 2 Const: COMMON NORMALS: no acute distress, patient oriented x3 and no limitations GENERAL APPEARANCE: cooperative and comfortable HENMT: COMMON NORMALS: normocephalic, atraumatic, Normal nasal mucous membranes and turbinates present, moist oral mucous membranes and oropharynx normal HEAD & SCALP: normal to inspection, normocephalic and atraumatic F TIANNA & SINUS: normal facial exam NOSE: Normal nasal mucous membranes and turbinates present Eye: COMMON NORMALS: Equal, round and reactive pupils present, EOMs intact bilaterally and conjunctivae normal GENERAL EYE: appearance normal, both eyes and all related structures CONJUNCTIVA: Yes conjunctivae normal PUPIL: Yes Equal, round and reactive pupils present Neck/C-Spine: COMMON NORMALS: supple and no JVD Chest: COMMONS NORMALS: normal inspection of the chest Resp: COMMON NORMALS: normal respiratory effort and clear to auscultation bilaterally AUSCULTATION: clear to auscultation bilaterally Cardio: COMMON NORMALS: no JVD, No gallops present (Cardio), No murmurs present (Cardio) and No rub (Cardio) RATE: tachycardic RHYTHM: abnormal rhythm irregularly irregular GI: COMMON NORMALS: Normal to inspection, nondistended, normoactive bowel sounds present, Soft to palpation and non-tender AUSCULTATION: Yes normoactive bowel sounds PALPATION: Yes Soft to palpation : COMMON NORMALS: Yes no CVA tenderness BLADDER/KIDNEY EXAM: Yes no CVA tenderness Back/Pelvis: COMMON NORMALS: no CVA tenderness and thoracic and lumbar spine normal to inspection Extremity: COMMON NORMALS: normal to inspection Neuro: COMMON NORMALS: patient oriented x3 and CN's II-XII intact bilaterally Psych: COMMON NORMALS: mental status grossly normal, Normal thought process present and cooperative THOUGHT PROCESS: Normal thought process present Skin: COMMON NORMALS: no rashes or lesions noted, turgor normal and no jaundice GENERAL SKIN EXAM: no rashes or lesions noted and turgor normal Course 2 Vital Signs: Vital signs: Vital Signs Temperature 97.2 F L 11/12/24 06:25 Pulse Rate 128 H 11/12/24 07:35 Respiratory Rate 15 11/12/24 07:35 Blood Pressure 107/76 11/12/24 07:35 Pulse Oximetry 96 11/12/24 07:35 Oxygen Delivery Me thod Room Air 11/12/24 06:25 MDM - Chest Pain Medical Decision Making EKG reveals atrial fibrillation with a ventricular rate of 133. Chest x-ray was normal. CBC and BMP were normal. BNP was 523. Troponin was 7. Coags normal. Patient was given a Cardizem bolus of 5 mg and placed on a Cardizem drip. Heart rates down to 115-120 range. Chest pain has resolved. Patient will need to be admitted. I did discuss the case with Dr. Sawyer. He would like a CT angiogram to rule out PE and also COVID, influenza and RSV. I did add all of those tests. Patient will be transferred to the floor as soon as the bed is available. She is stable. Lab Data 11/12/24 06:40 11/12/24 06:40 Laboratory Results WBC 10.97 10^3/uL (3.29-11.43) 11/12/24 06:40 RBC 5.37 10^6/uL (3.85-5.65) 11/12/24 06:40 Hgb 15.70 g/dL (11.27-16.99) 11/12/24 06:40 Hct 46.8 % (36-47) 11/12/24 06:40 MCV 87.2 fl (85-98) 11/12/24 06:40 MCH 29.2 pg (27-33) 11/12/24 06:40 MCHC 33.5 g/dL (30-55) 11/12/24 06:40 RDW 13.1 % (12.1-15.1) 11/12/24 06:40 Plt Count 129 10^3/cmm (157-399) L 11/12/24 06:40 MPV 11.6 fL (7.4-10.4) H 11/12/24 06:40 Neut % (Auto) 76.8 % 11/12/24 06:40 Lymph % (Auto) 14.7 % 11/12/24 06:40 Frederick % (Auto) 6.1 % 11/12/24 06:40 Eos % (Auto) 1.0 % 11/12/24 06:40 Baso % (Auto) 1.0 % 11/12/24 06:40 Neut # (Auto) 8.43 10^3/uL (1.8-7.7) H 11/12/24 06:40 Lymph # (Auto) 1.6 10^3/uL (0.8-4.8) 11/12/24 06:40 Frederick # (Auto) 0.7 10^3/uL (0.2-0.9) 11/12/24 06:40 Eos # (Auto) 0.1 10^3/uL (0.0-0.8) 11/12/24 06:40 Baso # (Auto) 0.1 10^3/uL (0.0-0.1) 11/12/24 06:40 Nucleated RBC % (auto) 0 % 11/12/24 06:40 Nucleated RBCs # 0.0 /100WBC 11/12/24 06:40 PT 12.80 SECONDS (12.1-14.9) 11/12/24 06:40 INR 0.90 (0.8-1.2) 11/12/24 06:40 APTT 24.8 SECONDS (23.9-36.7) 11/12/24 06:40 Sodium 137 mmol/L (136-145) 11/12/24 06:40 Potassium 4.1 mmol/L (3.5-5.1) 11/12/24 06:40 Chloride 91 mmol/L (98-107) L 11/12/24 06:40 Carbon Dioxide 19 mmol/L (22-29) L 11/12/24 06:40 Anion Gap 31.1 (5-19) H 11/12/24 06:40 BUN 17 mg/dL (8-23) 11/12/24 06:40 Creatinine 1.2 mg/dL (0.5-0.9) H 11/12/24 06:40 GFR Calculation 44.7 mL/min (90-130) L 11/12/24 06:40 Glucose 260 mg/dL (65-115) H 11/12/24 06:40 Calculated Osmolality 295 mOsm/kg (285-295) 11/12/24 06:40 Calcium 10.0 mg/dL (8.5-10.5) 11/12/24 06:40 Troponin T Baseline 7 ng/L (0-10) 11/12/24 06:40 NT-Pro-B Natriuret Pep 523 pg/mL (0-125) H 11/12/24 06:40 All radiology interpretation(s) finalized by discharge Discharge Plan Discharge Patient Disposition: Admitted As Inpatient Clinical Impression: Atrial fibrillation with RVR, Chest pain Condition: Stable Prescriptions: No Action (DME) Diabetic shoes Qty: 1 0RF Rx Instructions: As directed gabapentin 100 mg capsule 100 mg PO TID 30 Days Qty: 90 2RF (DME) blood-glucose meter [Accu-Chek Guide Glucose Meter] Misc See Rx Instructions .Route Qty: 1 0RF Rx Instructions: please provide insurance preference (DME) lancing device with lancets [Accu-Chek FastClix Lancing Dev] Kit See Rx Instructions .Route Qty: 1 0RF Rx Instructions: please provide insurance preference (DME) Accu-Chek Guide test strips Strip See Rx Instructions .Route Qty: 100 2RF Rx Instructions: check blood sugar tidac and hs (DME) lancets [Accu-Chek Softclix Lancets] Misc See Rx Instructions .Route Qty: 100 0RF Rx Instructions: As directed Trulicity 4.5 mg/0.5 mL pen injector 4.5 mg SUBCUT Q7D 90 Days Qty: 6.5 1RF Rx Instructions: Wednesday metoprolol tartrate 50 mg tablet 50 mg PO Q12H Qty: 90 3RF pantoprazole 40 mg tablet,delayed release (DR/EC) 40 mg PO DAILY amlodipine 10 mg tablet 10 mg PO QAM Referrals: Ranulfo,JER Segovia [Primary Care Provider] - Coding Level of Care Code ED Rfid Manager for Rondag Anastasia
[2024-11-12] MEDS: iohexol 350 mg/mL 500 mL Btl (per mL) IV (09:01)
[2024-11-12 09:09] LABS: Troponin 5 2HR 12.67 ng/L (0-10); Troponin 5 2HR Delta 5.67 ABS# (0-10)
[2024-11-12] MEDS: acetaminophen 325 mg Tablet 650 MG PO (09:43)
--- NOTE | 2024-11-12 09:45 | ECG_ITS ---
[facility] Test Date: 2024-11-12 Pat Name: Gregoria King Department: Room: 101 Gender: Female Practice Physician: : 1955 Requested By: Keegan Jacob Order Number: [id number] Silvina MD: Erika Portillo M.D. Measurements Intervals [place] Rate: 124 P: 0 ME: 0 QRS: 65 QRSD: 88 T: 52 QT: 317 QTc: 456 Interpretive Statements ATRIAL FLUTTER/TACHYCARDIA WITH RAPID VENTRICULAR RESPONSE SEPTAL MYOCARDIAL INFARCTION , OF INDETERMINATE AGE [40+ ms Q WAVE IN V1/V2] Compared to ECG 11/12/2024 06:28:33 Atrial fibrillation no longer present ST (T wave) deviation no longer present Myocardial infarct finding still present Electronically Signed On 11-12-2024 13:34:12 SAP ARIBA CONSULTANT by Erika Portillo M.D. [id number]
[2024-11-12] MEDS: apixaban 5 mg Tablet PO (11:25)
== END 2024-11-12 11:46 | disposition home or self-care (01) ==
LOC: ER 09:01 → CSU 10:48
PROVIDERS: Emergency Provider Emergency Medicine; PCP Nurse Practitioner Family
DX: I48.20 Chronic atrial fibrillation, unspecified (principal); R07.9 Chest pain, unspecified; E11.22 Type 2 diabetes mellitus with diabetic chronic kidney disease; I12.9 Hypertensive chronic kidney disease with stage 1 through stage 4 chronic kidney disease, or unspecified chronic kidney disease; N18.9 Chronic kidney disease, unspecified
CPT/HCPCS: 71045; 71275; 80048; 83880; 84484; 85025; 85610; 85730; 93005; 96365; 96366; 96375; 99285; J3490

== ENCOUNTER 2024-11-15 07:33 | Outpatient (CLI) | payer MEDICARE, OTHER, SELFPAY ==
--- NOTE | 2024-11-15 08:30 | CTR_ITS ---
PROCEDURE INFORMATION: Exam: CTA Abdominal Aorta and Bilateral Lower Extremities (Run-off) With Contrast Exam date and time: 11/15/2024 8:40 AM Age: 69 years old Clinical indication: Condition or disease; Peripheral vascular disease; Prior surgery; Surgery date: 6+ months; Surgery type: Iliac bypass graft, gb, hyst, appy; Patient HX: Bilateral leg pain; Additional info: I73.9 - peripheral vascular disease, unspecified TECHNIQUE: Imaging protocol: Computed tomographic angiography of the of the abdominal aorta, pelvis and bilateral lower extremities with contrast. 3D rendering (Not supervised by radiologist): MIP and/or 3D reconstructed images were created by the technologist. Radiation optimization: All CT scans at this facility use at least one of these dose optimization techniques: automated exposure control; mA and/or kV adjustment per patient size (includes targeted exams where dose is matched to clinical indication); or iterative reconstruction. Contrast material: OMNIPAQUE 350; Contrast volume: 125 ml; Contrast route: INTRAVENOUS (IV); COMPARISON: US CV ankle brachial index 84978 10/25/2024 10:28 AM RADIATION DOSE METRICS: Total DLP (mGy-cm): 1766.13 FINDINGS: Aorta: The abdominal aorta is normal in caliber without aneurysm. No definite dissection is appreciated. There is a moderate amount of calcified and noncalcified plaque involving the aorta. 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 There may be an aorto bi-iliac bypass graft which is also occluded. Celiac trunk and mesenteric arteries: There is mild narrowing involving the celiac axis and SMA without high-grade stenosis. The SANDRA is not identified and presumably is occluded. Renal arteries: There are single renal arteries bilaterally. There is mild narrowing involving the origin of the right renal artery. There is more moderate narrowing involving the origin of the left renal artery. Right iliac arteries: There is reconstitution of a small distal right common iliac artery with a patent small right external iliac artery and a patent diseased right internal iliac artery. Right femoral/popliteal arteries: There is reconstitution of the right common femoral artery by abdominal wall collaterals. There is mild narrowing involving the distal right SFA and popliteal artery without high-grade stenosis. Right infrapopliteal arteries: The trifurcation vessels on the right are patent. There is three-vessel runoff to the right foot. Left iliac arteries: There is reconstitution of a small distal left common iliac artery with a small patent left external iliac artery and patent diseased left internal iliac artery. Left femoral/popliteal arteries: There is reconstitution of the left common femoral artery by abdominal wall collaterals. There is mild narrowing involving the distal left SFA without high-grade stenosis involving the left SFA or popliteal artery. Left infrapopliteal arteries: The proximal trifurcation vessels are somewhat diseased but patent. There appears to be two-vessel runoff to the left foot with a patent posterior tibial artery and peroneal artery. The anterior tibial artery occludes just above the ankle. Other arteries: There is a fem-fem bypass graft which is occluded. Liver: There is diffuse fatty infiltration of the liver. There are areas of arterial enhancement involving both the right and left lobes of the liver. These may represent vascular shunts. Exact etiology is uncertain. There is a slightly nodular contour to the liver suspicious for cirrhosis. Gallbladder and biliary ducts: The gallbladder is surgically absent. Pancreas: Unremarkable. No mass. No ductal dilation. Spleen: Normal. No splenomegaly. Adrenal glands: Normal. No mass. Kidneys and ureters: The kidneys have a nodular contour. There is focal area of atrophy involving the posterior cortex of the left kidney. No renal calculi are appreciated. No hydronephrosis is noted. Stomach and bowel: There are scattered colonic diverticula. No large bowel wall thickening is appreciated. No dilated loops of large or small bowel is appreciated. Appendix: The appendix is not identified. Urinary bladder: Unremarkable. No mass. Reproductive: The uterus is not identified. Intraperitoneal space: Unremarkable. No free air. No significant fluid collection. Lymph nodes: No lymphadenopathy. Bones/joints: No acute fracture. No dislocation. Soft tissues: There are multiple fat filled abdominal wall fenestrations. There appears to be a degree of pelvic laxity. CT/CT angio abd aorta runof 07001 IMPRESSION: 1. 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 There also appears to be an occluded aorto iliac bypass graft. Recommend clinical correlation as to prior surgeries performed. Fem-fem bypass graft is also occluded. 2. Atherosclerosis. Particulars are detailed above. 3. Slightly nodular contour to the liver suspicious for cirrhosis. There are multiple small focal areas of arterial enhancement within the liver a number of which likely represent vascular stents. There are multiple additional areas of enhancement which are indeterminate. Recommend clinical correlation. MRI with without IV contrast hepatic protocol may add additional information if desired. 4. Cortical scarring involving both kidneys worse on the left. 5. Diverticulosis. 6. Please see above comments for additional details.
[2024-11-15] MEDS: iohexol 350 mg/mL 500 mL Btl (per mL) IV (09:00)
== END 2024-11-15 07:34 | disposition home or self-care (01) ==
LOC: RAD 07:37
PROVIDERS: PCP Nurse Practitioner Family; Visit Provider Podiatrist Foot & Ankle Surgery
DX: I73.9 Peripheral vascular disease, unspecified (principal); I74.09 Other arterial embolism and thrombosis of abdominal aorta; T82.898A Other specified complication of vascular prosthetic devices, implants and grafts, initial encounter; X58.XXXA Exposure to other specified factors, initial encounter; I70.302 Unspecified atherosclerosis of unspecified type of bypass graft(s) of the extremities, left leg; R93.5 Abnormal findings on diagnostic imaging of other abdominal regions, including retroperitoneum; R93.2 Abnormal findings on diagnostic imaging of liver and biliary tract; R93.422 Abnormal radiologic findings on diagnostic imaging of left kidney; R93.421 Abnormal radiologic findings on diagnostic imaging of right kidney; K57.90 Diverticulosis of intestine, part unspecified, without perforation or abscess without bleeding; I70.1 Atherosclerosis of renal artery; I70.0 Atherosclerosis of aorta; K76.0 Fatty (change of) liver, not elsewhere classified; Z90.49 Acquired absence of other specified parts of digestive tract
CPT/HCPCS: 75635

== ENCOUNTER → 2024-11-29 09:30 | Outpatient (BNVA) | payer MEDICARE, OTHER, SELFPAY | PROVIDERS: PCP Nurse Practitioner Family; Visit Provider Internal Medicine Cardiovascular Disease | DX: I73.9 Peripheral vascular disease, unspecified (principal); I12.9 Hypertensive chronic kidney disease with stage 1 through stage 4 chronic kidney disease, or unspecified chronic kidney disease; N18.31 Chronic kidney disease, stage 3a; I25.119 Atherosclerotic heart disease of native coronary artery with unspecified angina pectoris; Z87.891 Personal history of nicotine dependence | CPT/HCPCS: 99204 ==

== ENCOUNTER → 2025-01-09 09:46 | Outpatient (BNVA) | payer MEDICARE, OTHER, SELFPAY | PROVIDERS: PCP Nurse Practitioner Family; Visit Provider Podiatrist Foot & Ankle Surgery | DX: E11.42 Type 2 diabetes mellitus with diabetic polyneuropathy (principal); R09.89 Other specified symptoms and signs involving the circulatory and respiratory systems | CPT/HCPCS: 99213 ==

== ENCOUNTER 2025-02-03 09:46 | Inpatient (IN) | payer MEDICARE, OTHER, SELFPAY ==
[2025-02-03] VITALS (11 sets, daily range): BP systolic 118–173; BP diastolic 50–102; PULSE 57–76; RESP 12–18; TEMP 36.6–36.7; O2SAT 91–96; BMI 26.9
--- OUTSIDE RECORDS SUMMARY | 2025-02-03 09:36 | XMS_ITS | Encounter Summary ---
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) Social History Tobacco Use Types Packs/Day Years Used Date Smoking Tobacco: Every Day Cigarettes 1.5 40 Smokeless Tobacco: Never Alcohol Use Standard Drinks/Week Comments No 0 (1 standard drink = 0.6 oz pur e alcohol) Comments No Sex and Gender Information Value Date Recorded Sex Assigned at Not on file Legal Sex Female 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 Gender Identity Not on file Sexual Orientation Not on file Occupation Industry Job Start Date Job End Date Not on file Not on file Not on file Not on file Not on file Not on file Not on file Not on file documented as of this encounter Plan of Treatment Not on file documented as of this encounter Results * XR CERVICAL SPINE 4 OR 5 VIEWS (12/18/2014 1:45 PM REFUSE LABORER) Anatomical Region Laterality Modality Spine Computed Radiogr aphy 12/18/2014 1:38 PM REFUSE LABORER Addenda Addendum by Christopher Franco MD on 12/21/2014 10:35 AM REFUSE LABORER ATTENTION: ??This replaces accession number [id number]. jaw ??T: ??12/21/2014 10:28 AM - transcribed in Epic - Impressions 12/21/2014 8:43 AM REFUSE LABORER normal cervical spine series with flexion and extension views Narrative 12/21/2014 8:43 AM REFUSE LABORER PROCEDURE CERVICAL SPINE SERIES, five views, 18 December 2014 DESCRIPTION AP, lateral, flexion and extension lateral, and open-mouth odontoid views of the cervical spine were obtained. ??Alignment is maintained. Vertebral body and disc space heights appear normal. No abnormal translation is appreciated on flexion and extension imaging. ?? On the open-mouth odontoid view, no loss of alignment is seen. us Elijah Hunter MD DIAGNOSTIC IMAGING ORDER [place] Edited Result - Final documented in this encounter Visit Diagnoses Diagnosis Displacement of cervical intervertebral disc without myelopathy- Primary Displacement of cervical intervertebral disc without myelopathy documented in this encounter Care Teams Supervisor Public Message Service Relationship Specialty Start Date End Date [place], JER [place] [place] [address] PCP - General NURSE PRACTITIONER 08/24/12 documented as of this encounter
--- OUTSIDE RECORDS SUMMARY | 2025-02-03 09:36 | XMS_ITS | Encounter Summary ---
Author Organization [facility] Address [address] [place] [address] Care Team Providers Care Impregnator Name Role Phone JER Berg Sr., Michael Dave Primary Care Pro vider Encounter Details Date Type Department Care Team (Latest Contact Info) Description 01/11/2001 Outpatient [facility] Medicine [place] [address] [facility] [address] [place] [phone] Ronnie Prasad MD [address] [facility] [address] [place] [phone] Need for prophylactic hormone replacement therapy (postmenopausal) (Primary Dx) Social History Tobacco Use Types Packs/Day Years Used Date Smoking Tobacco: Never Assessed Comments Unknown Sex and Gender Information Value Date Recorded Sex Assigned at Not on file 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
--- OUTSIDE RECORDS SUMMARY | 2025-02-03 09:36 | XMS_ITS | Encounter Summary ---
Author Organization [facility] Address [address] [place] [address] Care Team Providers Care Corn Miller Name Role Phone Unavailable Primary Care Provider Unavailabl e Encounter Details Date Type Department Care Team (Late st Contact Info) Description 01/16/2025 External Device Data [facility] ABSTRACTION Provider, Abstract NO ADDRESS ON FILE Social History Tobacco Use Types Packs/Day Years Used Date Smoking Tobacco: Former Cigarettes Smokeless Tobacco: Never Comments:Quit smoking: Curre ntly smokes, 1 ppd, 01/20/18 Alcohol Use Standard Drinks/Week Comments No 0 (1 standard drink = 0.6 oz pur e alcohol) Feeling Safe Answer Date Recorded Are you in a relationship wi th someone who hurts you emotionally and/or physically? No 12/21/2023 Comments No Sex and Gender Information Value Date Recorded Sex Assigned at Not on file Legal Sex Female 1:05 PM BRUSHER AND SHEARER Gender Identity Not on file Sexual Orientation Not on file documented as of this encounter Plan of Treatment Not on file documented as of this encounter Visit Diagnoses Not on filedocumented in this encounter
--- OUTSIDE RECORDS SUMMARY | 2025-02-03 09:36 | XMS_ITS | Encounter Summary ---
Author Organization [facility] Address [address] [place] [address] Care Team Providers Care Recovery Assistant Name Role Phone JER Berg Sr., Michael Dave Primary Care Pro vider Encounter Details Date Type Department Care Team (Latest Contact Info) Description 12/15/2000 Outpatient [facility] Medicine [place] [address] [place] [phone] Josh King, DO NO ADDRESS ON FILE Other specified menopausal and postmenopausal disorder (Primary Dx); Other and unspecified hyperlipidemia; Other specified anemias Social History Tobacco Use Types Packs/Day Years Used Date Smoking Tobacco: Never Assessed Comments Unknown Sex and Gender Information Value Date Recorded Sex Assigned at Not on file Legal Sex Female 4:25 AM TECHNICAL LEAD Gender Identity Not on file Sexual Orientation Not on file documented as of this encounter Plan of Treatment Not on file documented as of this encounter Visit Diagnoses Diagnosis Other specified menopausal and postmenopausal disorder- Primary Other and unspecified hyperlipidemia Other specified anemias documented in this encounter Care Teams Recovery Assistant Relationship Specialty Start Date End Date Alvaro Berg Sr., FNP [address] [place] [address] PCP - General NURSE PRACTITIONER 08/24/12 documented as of this encounter
--- OUTSIDE RECORDS SUMMARY | 2025-02-03 09:36 | XMS_ITS | Clinical Summary ---
Author Organization [facility] Address [address] 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 30 Capsule 2 9 Active hyoscyamine (Symax-SR) 0.375 mg Extended Release 12 hour tablet TAKE 1 TABLET TWICE A DAY 60 Tablet 1 8 Active carvediloL (COREG) 25 mg tablet Take 25 mg by mouth 2 times daily with meals. Active amLODIPine (NORVASC) 5 mg tablet Take 5 mg by mouth daily. Active lisinopriL (PRINIVIL) 10 mg tablet Take 10 mg by mouth daily. Active ALPRAZolam (XANAX) 0.25 mg tablet Take 0.25 mg by mouth 2 times daily as needed for Anxiety. Active rosuvastatin (CRESTOR) 10 mg tablet Take 10 mg by mouth daily. Active carvediloL (COREG) 25 mg tablet Take 0.5 Tablets (12.5 mg) by mouth 2 times daily with meals. 8 Active omeprazole (PriLOSEC) 20 mg Capsule, Delayed Release(E.C.) Take 40 mg by mouth daily . 8 Active gabapentin (NEURONTIN) 100 mg capsule Take 100 mg by mouth 3 times daily. Active dulaglutide (Trulicity) 0.75 mg/0.5 mL injection Inject 0.75 mg by subcutaneous injection. Active aspirin (ECOTRIN EC) 81 mg Tablet, Delayed Release (E.C.) Take 81 mg by mouth daily. Active nitrofurantoin macrocrystaL (MACRODANTIN) 100 mg Capsule Take 1 Capsule (100 mg) by mouth 2 times daily. 10 Capsule 2 Active lisinopriL (PRINIVIL) 20 mg tablet Take 30 mg by mouth 2 times daily . 6 Active glipiZIDE (GLUCOTROL XL) 10 mg Extended Release 24 hour tablet Take 10 mg by mouth 2 times daily. 6 Active metoprolol tartrate (LOPRESSOR) 50 mg tablet Take 50 mg by mouth 2 times daily. Active diphenhydrAMINE (BENADRYL) 25 mg tablet Take 25 mg by mouth. Active Active Problems Problem Noted Date Diagnosed Date COPD with exacerbation 10/25/2022 Senile nuclear cataract, bilateral 09/08/2017 Type 2 diabetes mellitus without ophthalmic korey festations 09/08/2017 Dry eyes, bilateral 09/08/2017 Milner's esophagus without dysplasia 04/28/2017 Duodenitis determined by biopsy 04/28/2017 Heartburn 04/20/2017 Non-cardiac chest pain 04/20/2017 Overview (03/06/2021): Patient has seen a Oxygen Tank Filler, who thought that this pain was cardiac. She reports seeing a Stitcher Special Machine who does not believe that the pain is cardiac in etiology. Family history of colonic polyps 09/21/2013 Preoperative examination, unspecified 09/21/2013 Tobacco abuse 01/21/2009 HTN (hypertension), benign PAD (peripheral artery disease) Encounters Date Type Department Care Team Description 02/02/2025 11:32 PM CDT - 02/03/2025 7:17 AM CDT Emergency [facility] Emergency Medicine [address] [place] [id number] Ritchie Fry DO Acute coronary syndrome (CMS/HCC) (Primary Dx); Paroxysmal atrial fibrillation with rapid ventricular response (CMS/HCC) Discharge Disposition: Acute Care Hospital 02/02/2025 Travel 01/24/2025 Transcribe Orders [facility] Pre-Registration [place] CALL TO MAKE APPOINTMENT ONLY [address] [place] [address] [place], JRE [place] Cigarette nicotine dependence, uncomplicated (Primary Dx); Encounter for screening for malignant neoplasm of respiratory organs 01/22/[address] Orders [address] [facility] Admitting [address] [place] [address] [place]inche[place], Juliette, JER Cigarette nicotine dependence, uncomplicated (Primary Dx); Screening for malignant neoplasm of respiratory organ 01/16/2025 External Device Data [facility] ABSTRACTION Provider, Abstract 01/16/2025 External Device Data [facility] ABSTRACTION Provider, Abstract 12/05/2024 External Device Data [facility] ABSTRACTION Provider, Abstract 12/05/2024 External Device Data [place] ABSTRACTION Provider, Abstract 12/05/2024 External Device Data [facility] ABSTRACTION Provider, Abstract 11/12/2024 - 11/12/2024 11:59 PM [facility] Encounter [facility] Emergency Medical Services [place] [address] [place] [id number] Ambulance, [facility] Discharge Disposition: Short term general hospital from Last 3 Months Immunizations Immunization Administration Dates Next Due (ADACEL/BOOSTRIX)(10 YR UP) TDAP VACCINE, 0.5ML, IM 08/21/2014 Family History Medical History Relation Name Comments Lung Cancer Father Cancer Maternal Grandmother Diabetes Maternal Grandmother Diabetes Maternal Uncle Heart Disease Mother Blindness Neg Hx Colon Cancer Neg Hx Glaucoma Neg Hx Macular Degen Neg Hx Relation Name Status Comments Father Maternal Grandmother Maternal Uncle Mother Social History Tobacco Use Types Packs/Day Years Used Date Smoking Tobacco: Former Cigarettes Smokeless Tobacco: Never Tobacco Cessation:Counseling Given: Not Answered Comments:Quit smoking: Currently smokes, 1 ppd, 01/20/18 Alcohol Use Standard Drinks/Week Comments No 0 (1 standard drink = 0.6 oz pur e alcohol) Feeling Safe Answer Date Recorded Are you in a relationship wi th someone who hurts you emotionally and/or physically? No 02/02/2025 Comments No Sex and Gender Information Value Date Recorded Sex Assigned at Not on file Legal Sex Female 1:05 PM [facility] Gender Identity Not on file Sexual Orientation Not on file Last Filed Vital Signs Vital Sign Reading Time Taken Comments Blood Pressure 126/68 02/03/2025 7:00 AM CDT Pulse 50 02/03/2025 7:00 AM CDT Temperature 36.2 ??C (97.1 ??F) 02/02/2025 1 1:36 PM CDT Respiratory Rate 13 02/03/2025 7:00 AM CDT Oxygen Saturation 93% 02/03/2025 7:00 AM CDT Inhaled Oxygen Concentration - - Weight 70.3 kg (154 lb 14.4 oz) 025 11:36 PM CDT Height 157.5 cm (5' 2 ) 02/02/2025 11:3 6 PM CDT Body Mass Index 28.33 02/02/2025 11:36 PM CDT Plan of Treatment Health Maintenance Due Date Last Done Comments DIABETES ANNUAL FOOT EXAM 1974 LDL CHOLESTEROL ANNUAL 1974 PNEUMOCOCCAL VACCINE 50+ YEA RS (1 of 2 - PCV) 1975 FIT-DNA Q 3 years 2001 FIT/FOBT Q 1 year 2001 Flex Sig/CT Colonography Q 5 years 2001 ZOSTER VACCINE (1 of 2) 2006 BREAST CANCER SCREENING 07/10/2015 07/10/2014, 01/15 RSV VACCINE (60+ or ) (1 - Risk 60-74 years 1-dose series) 2016 UPPER GI ENDOSCOPY 08/16/2018 08/16/2015 DIABETES ANNUAL RETINAL EXAM 09/08/201811/2016, 09/08/2017, 09/08/2017, Additional history exists COLORECTAL SCREENING 09/09/2020 09/09/2017, 08/16/20 15 Colorectal Cancer Screening 09/09/2020 OSTEOPOROSIS SCREENING 2021 DIABETES HBA1C Q 6 MONTHS 09/23/20232022, 12/28/2019, 09/27/2019, Additional history exists DIABETES MICROALBUMIN ANNUAL SCREEN 03/23/2024 03/23/2023 INFLUENZA VACCINE (#1) 2024 DTAP/TDAP/TD VACCINES (2 - T d or Tdap) 08/21/2024 08/21/2014 Medicare Advantage ([place]) Preventative Visit/Annual Wellness Visit 11/08/2024 05/24/2023 Procedures Procedure Name Priority Date/Time Associated Diagnosis Comments TROPONIN 6 HR, 5TH GEN Timed Study 02/03/2025 6:08 AM CDT TROPONIN 2 HR, 5TH GEN Timed Study 02/03/2025 2:23 AM CDT CTA CHEST + ABD/PEL W CONTRAST Stat 02/03/2025 1:12 AM CDT XR CHEST PA OR AP 1 VW Stat 02/03/2025 12:08 AM CDT EKG 12-LEAD Stat 02/02/2025 11:29 PM CDT TROPONIN BASELINE, 5TH GEN Stat 02/02/2025 11:28 PM CDT MAGNESIUM LEVEL Stat 02/02/2025 11:28 PM CDT LACTIC ACID Stat 02/02/2025 11:28 PM CDT BRAIN NATRIURETIC PEPTIDE, BNP OR PROBNP Stat 02/02/2025 11:28 PM CDT LIPASE Stat 02/02/2025 11:28 PM CDT COMPREHENSIVE METABOLIC PANEL Stat 02/02/2025 11:28 PM CDT D-DIMER Stat 02/02/2025 11:28 PM CDT PROTIME-INR Stat 02/02/2025 11:28 PM CDT CBC WITH DIFFERENTIAL Stat 02/02/2025 11:28 PM CDT MICROALBUMIN/CREATINI NE RATIO, RANDOM UR Routine 03/23/2023 10:40 AM CDT HEMOGLOBIN A1C Routine 03/23/2023 10:39 AM CDT from Last 3 Months or Most Recently Relevant to Health Maintenance Results * (ABNORMAL) TROPONIN 6 HR, 5TH GEN (02/03/2025 6:08 AM CDT) TROPONIN T, 6 HR 5TH GEN 25(H) <11 ng/L 02/03/2025 6:30 AM CDT [facility] DELTA 6HR TROPONIN T 19(HH) See Interp. 02/03/2025 6:30 AM CDT [facility] Blood BLOOD SPECIMEN / Unknown Collection / Unknown 02/03/2025 6:08 AM CDT 02/03/2025 6:10 AM CDT [facility] - 02/03/2025 6:30 AM CDT Troponin elevated. Delta significant change. Delay in collection of timed specimen beyond recommended collection interval. Results must be interpreted in clinical context. us Ritchie Fry DO CHEMISTRY ORDERABLES Final Result Performing Organization Address City/[facility]/ZIP Co de Phone Number [facility] CLIA # [id number] [address] [place] [address] * (ABNORMAL) TROPONIN 2 HR, 5TH GEN (02/03/2025 2:23 AM CDT) TROPONIN T, 2 HR 5TH GEN 13(H) <=10 ng/L 02/03/2025 2:46 AM CDT [facility] DELTA 2HR TROPONIN T 7 See Interp. 02/03/2025 2:46 AM CDT [facility] Blood BLOOD SPECIMEN / Unknown Collection / Unknown 02/03/2025 2:23 AM CDT 02/03/2025 2:26 AM CDT [facility] - 02/03/2025 2:46 AM CDT Troponin elevated. Delta indeterminate. Delay in collection of timed specimen beyond recommended collection interval. Results must be interpreted in clinical context. us Ritchie Fry DO CHEMISTRY ORDERABLES Final Result [facility] CLIA # [id number] [address] [place] [id number] * CTA CHEST + ABD/PEL W CONTRAST (02/03/2025 1:12 AM CDT) Anatomical Region Laterality Modality Chest, Abdomen, Pelvis Computed Tomography 02/03/2025 12:5 1 AM CDT Impressions 02/03/2025 1:50 AM CDT IMPRESSION: Please see below. Exam: CTA CHEST + ABD/PEL W CONTRAST Date/Time of Exam: 02/03/2025 1:12 AM Reason For Exam: Pulmonary embolism (PE) suspected, high prob. Diagnosis: See Reason for Exam. Technique: CTA of the chest, abdomen, and pelvis was performed following the administration of intravenous contrast. ??Post-processing was performed, including sagittal and coronal reformations. Contrast: IOPAMIDOL 61 % INTRAVENOUS SOLUTION (SINGLE USE VIAL) Given:100 mL. Comparison: CTA chest and CT of the abdomen and pelvis from 12/21/2023. FINDINGS: CHEST: Thoracic Inlet: The thyroid gland is enlarged and diffusely heterogeneous; thyroid ultrasound could assess further if clinically indicated. Lymph Nodes: There are no pathologic axillary, mediastinal or hilar lymph nodes by size criteria. Heart: The heart is on the upper limits of normal in size. There are coronary artery and valvular calcifications. There is no pericardial effusion. Thoracic Aorta: The aorta is normal in caliber. There is a prominent degree of atherosclerotic and atheromatous changes. Pulmonary Arteries: The pulmonary arteries are adequately opacified. There are no discrete pulmonary arterial filling defects to suggest pulmonary embolus. Tracheobronchial Tree: The tracheobronchial tree is clear. Lungs: There is a mild degree of emphysema. There is a mild degree of basilar predominant atelectasis. There is no pulmonary consolidation. There are no suspicious pulmonary lesions. ?? Pleura: There is no pleural effusion or pneumothorax. Subcutaneous Soft Tissues: There is no significant subcutaneous soft tissue pathology. Bones: The osseous structures appear grossly intact. No suspicious osseous lesions are identified. ABDOMEN: Aorta/Vasculature: There are apparent postsurgical changes of aortobifemoral and femoral to femoral bypass. There is a prominent degree of atherosclerotic and atheromatous changes. Lymph Nodes: There is no retroperitoneal, abdominal or pelvic lymphadenopathy. Liver: The liver has a cirrhotic morphology. Gallbladder and Biliary: The gallbladder is surgically absent. There is no biliary ductal dilatation. Spleen: The spleen is within normal limits. Pancreas: The pancreas is within normal limits. Adrenal Glands: The adrenal glands are within normal limits. Kidneys: The right kidney is within normal limits. There is a mild degree of left renal cortical scarring and atrophy. There is a small suspected left renal cyst. There is no obstructive uropathy. Stomach: The stomach is within normal limits. There are upper gastric varices compatible with elevated portal venous pressures. Bowel: The bowel loops are normal in position and caliber. There is colonic diverticulosis. There is a moderate amount of stool. There are no focal inflammatory changes. Appendix: The appendix is not definitively visualized. There are no secondary signs of acute appendicitis. Peritoneum: There is no free air or abnormal free fluid. Urinary Bladder: There is mucosal hyperemia suggestive of cystitis. Pelvic Reproductive Structures: There is no significant pelvic reproductive structure pathology status post hysterectomy. Subcutaneous Soft Tissues: There is no significant subcutaneous soft tissue pathology. Bones: The osseous structures appear grossly intact. No suspicious osseous lesions are identified. IMPRESSION: No evidence of pulmonary embolus. Mild emphysema without an acute infiltrate. 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 Bladder mucosal hyperemia suggestive of cystitis; clinical correlation is recommended. Additional incidental findings as above. Narrative Procedure Note Kiran Nj, DO - 02/03/2025 IMPRESSION: Please see below. Exam: CTA CHEST + ABD/PEL W CONTRAST Date/Time of Exam: 02/03/2025 1:12 AM Reason For Exam: Pulmonary embolism (PE) suspected, high prob. Diagnosis: See Reason for Exam. Technique: CTA of the chest, abdomen, and pelvis was performed following the administration of intravenous contrast. Post-processing was performed, including sagittal and coronal reformations. Contrast: IOPAMIDOL 61 % INTRAVENOUS SOLUTION (SINGLE USE VIAL) Given:100 mL. Comparison: CTA chest and CT of the abdomen and pelvis from 12/21/2023. FINDINGS: CHEST: Thoracic Inlet: The thyroid gland is enlarged and diffusely heterogeneous; thyroid ultrasound could assess further if clinically indicated. Lymph Nodes: There are no pathologic axillary, mediastinal or hilar lymph nodes by size criteria. Heart: The heart is on the upper limits of normal in size. There are coronary artery and valvular calcifications. There is no pericardial effusion. Thoracic Aorta: The aorta is normal in caliber. There is a prominent degree of atherosclerotic and atheromatous changes. Pulmonary Arteries: The pulmonary arteries are adequately opacified. There are no discrete pulmonary arterial filling defects to suggest pulmonary embolus. Tracheobronchial Tree: The tracheobronchial tree is clear. Lungs: There is a mild degree of emphysema. There is a mild degree of basilar predominant atelectasis. There is no pulmonary consolidation. There are no suspicious pulmonary lesions. Pleura: There is no pleural effusion or pneumothorax. Subcutaneous Soft Tissues: There is no significant subcutaneous soft tissue pathology. Bones: The osseous structures appear grossly intact. No suspicious osseous lesions are identified. ABDOMEN: Aorta/Vasculature: There are apparent postsurgical changes of aortobifemoral and femoral to femoral bypass. There is a prominent degree of atherosclerotic and atheromatous changes. Lymph Nodes: There is no retroperitoneal, abdominal or pelvic lymphadenopathy. Liver: The liver has a cirrhotic morphology. Gallbladder and Biliary: The gallbladder is surgically absent. There is no biliary ductal dilatation. Spleen: The spleen is within normal limits. Pancreas: The pancreas is within normal limits. Adrenal Glands: The adrenal glands are within normal limits. Kidneys: The right kidney is within normal limits. There is a mild degree of left renal cortical scarring and atrophy. There is a small suspected left renal cyst. There is no obstructive uropathy. Stomach: The stomach is within normal limits. There are upper gastric varices compatible with elevated portal venous pressures. Bowel: The bowel loops are normal in position and caliber. There is colonic diverticulosis. There is a moderate amount of stool. There are no focal inflammatory changes. Appendix: The appendix is not definitively visualized. There are no secondary signs of acute appendicitis. Peritoneum: There is no free air or abnormal free fluid. Urinary Bladder: There is mucosal hyperemia suggestive of cystitis. Pelvic Reproductive Structures: There is no significant pelvic reproductive structure pathology status post hysterectomy. Subcutaneous Soft Tissues: There is no significant subcutaneous soft tissue pathology. Bones: The osseous structures appear grossly intact. No suspicious osseous lesions are identified. IMPRESSION: No evidence of pulmonary embolus. Mild emphysema without an acute infiltrate. 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 Bladder mucosal hyperemia suggestive of cystitis; clinical correlation is recommended. Additional incidental findings as above. us Ritchie Fry DO CT ORDERABLES Final Result * XR CHEST PA OR AP 1 VW (02/03/2025 12:08 AM CDT) Anatomical Region Laterality Modality Chest Computed Radiogr aphy 02/03/2025 12:0 8 AM CDT Impressions 02/03/2025 12:19 AM CDT IMPRESSION: Nonspecific left basilar opacity which could reflect atelectasis and/or infiltrate. Narrative 02/03/2025 12:19 AM CDT Exam: XR CHEST PA OR AP 1 VW Date/Time of Exam: 02/03/2025 12:08 AM Reason For Exam: Chest Pain. Diagnosis: See Reason for Exam. Comparison: 12/21/2023. Findings: The cardiomediastinal structures are within normal limits. There is nonspecific hazy opacity within the left lung base which could reflect atelectasis and/or infiltrate. There is a mild degree of suspected atelectasis within the right lung base. There is no appreciable pleural fluid or pneumothorax. The osseous structures appear grossly intact. Procedure Note Kiran Nj, DO - 02/03/2025 Exam: XR CHEST PA OR AP 1 VW Date/Time of Exam: 02/03/2025 12:08 AM Reason For Exam: Chest Pain. Diagnosis: See Reason for Exam. Comparison: 12/21/2023. Findings: The cardiomediastinal structures are within normal limits. There is nonspecific hazy opacity within the left lung base which could reflect atelectasis and/or infiltrate. There is a mild degree of suspected atelectasis within the right lung base. There is no appreciable pleural fluid or pneumothorax. The osseous structures appear grossly intact. IMPRESSION: Nonspecific left basilar opacity which could reflect atelectasis and/or infiltrate. Ritchie Fry DO DIAGNOSTIC IMAGING OR DERABLES Final Result * EKG 12 lead (02/02/2025 11:29 PM CDT) Narrative Ritchie Fry DO - 02/02/2025 11:29 PM CDT Ritchie Fry, DO ? 02/03/2025 ??6:42 AM EKG 12 lead Date/Time: 02/02/2025 11:29 PM Performed by: Ritchie Fry DO Authorized by: Ritchie Fry, ?? ECG interpreted by ED Physician in the absence of a forest economist: yes ?? us Ritchie Fry DO ECG ORDERABLES Final Result * TROPONIN BASELINE, 5TH GEN (02/02/2025 11:28 PM CDT) [facility] TROPONIN T, BASELINE 5TH GEN 6 <=10 ng/L 02/03/2025 12:01 AM CDT [facility] Blood Collection / Unknown 02/02/2025 11:28 PM CDT 02/02/2025 11:33 PM CDT Narrative [facility] - 02/03/2025 12:01 AM CDT Troponin Detectable but normal range. us Ritchie Fry DO CHEMISTRY ORDERABLES Final Result Performing Organization Address City/[facility]/ZIP Co de Phone Number [facility] CLIA # [id number] [address] [place] [id number] * LACTIC ACID (02/02/2025 11:28 PM CDT) [facility] LACTIC ACID 2.0 <=2.0 mmol/L 02/02/2025 11:54 PM CDT [facility] Blood BLOOD SPECIMEN / Unknown Collection / Unknown 02/02/2025 11:28 PM CDT 02/02/2025 11:33 PM CDT us Ritchie Fry DO CHEMISTRY ORDERABLES Final Result Performing Organization Address City/[facility]/ZIP Co de Phone Number [facility] CLIA # [id number] [address] [place] [address] * (ABNORMAL) CBC WITH DIFFERENTIAL (02/02/2025 11:28 PM CDT) WBC 9.8 4.0 - 10.0 K/uL 02/02/2025 11:37 PM [facility] RBC 5.40(H) 3.93 - 5.22 M/uL 02/02/2025 11:37 PM [facility] HEMOGLOBIN 15.9(H) 11.2 - 15.7 g/dL 02/02/2025 11:37 PM [facility] HEMATOCRIT 46.2(H) 34.1 - 44.9 % 02/02/2025 11:37 PM [facility] MCV 85.6 79.4 - 94.8 fL 02/02/2025 11:37 PM [facility] MCH 29.4 25.6 - 32.2 pg 02/02/2025 11:37 PM [facility] MCHC 34.4 32.2 - 35.5 g/dL 02/02/2025 11:37 PM [facility] RDW 13.3 11.0 - 14.5 % 02/02/2025 11:37 PM [facility] RDW-STDEV 41.3 36.9 - 56.9 fL 02/02/2025 11:37 PM [facility] PLATELETS 270 163 - 337 K/uL 02/02/2025 11:37 PM [facility] MPV 9.8(L) 10.0 - 14.8 fL 02/02/2025 11:37 PM [facility] NEUTROPHILS 50 34 - 71 % 02/02/2025 11:37 PM [facility] LYMPHOCYTES 36 19 - 52 % 02/02/2025 11:37 PM [facility] MONOCYTES 9 5 - 13 % 02/02/2025 11:37 PM [facility] EOSINOPHILS 4 1 - 6 % 02/02/2025 11:37 PM [facility] BASOPHILS 1 0 - 1 % 02/02/2025 11:37 PM [facility] IMMATURE GRANULOCYTES 0 % 02/02/2025 11:37 PM [facility] NEUTROPHIL ABSOLUTE 4.92 1.56 - 6.13 K/uL 02/02/2025 11:37 PM CDT [facility] LYMPHOCYTE ABSOLUTE 3.52(H) 1.20 - 3.40 K/uL 02/02/2025 11:37 PM CDT [facility] MONOCYTE ABSOLUTE 0.83(H) 0.24 - 0.36 K/uL 02/02/2025 11:37 PM CDT [facility] EOSINOPHIL ABSOLUTE 0.41(H) 0.04 - 0.36 K/uL 02/02/2025 11:37 PM CDT [facility] BASOPHILS ABSOLUTE 0.11(H) 0.01 - 0.08 K/uL 02/02/2025 11:37 PM CDT [facility] IMMATURE GRANULOCYTES ABSOLUTE 0.03 K/uL 02/02/2025 11:37 PM CDT [facility] Blood Collection / Unknown 02/02/2025 11:28 PM CDT 02/02/2025 11:33 PM CDT us Ritchie Fry DO HEMATOLOGY ORDERABLES Final Result [facility] CLIA # [id number] [address] [place] [address] [id number] * PROTIME-INR (02/02/2025 11:28 PM CDT) PROTIME 13.1 11.9 - 14.6 Seconds 02/02/2025 11:54 PM CDT [facility] INR 1.0 0.9 - 1.1 02/02/2025 11:54 PM CDT [facility] Blood Collection / Unknown 02/02/2025 11:28 PM CDT 02/02/2025 11:33 PM CDT us Ritchie Fry DO HEMATOLOGY ORDERABLES Final Result [facility] CLIA # [id number] [address] [place] [address] * (ABNORMAL) D-DIMER (02/02/2025 11:28 PM CDT) D-DIMER QUANT 1.66(H) <0.50 ug/mL FEU 02/02/2025 11:54 PM CDT [facility] Blood Collection / Unknown 02/02/2025 11:28 PM CDT 02/02/2025 11:33 PM CDT [facility] - 02/02/2025 11:54 PM CDT D-Dimer assay cutoff value for exclusion of DVT and/or PE is <0.50 ug/mL FEU. As D-Dimer levels increase naturally with age, age stratification for patients over 50 is potentially more appropriate in determining whether a patient should undergo further evaluation for DVT and/or PE than a general cutoff of 0.50 ug/mL FEU. Clinical consideration is recommended. Age Stratified Cutoff Values: 50-60 years: 0.50-0.60 ug/mL FEU 61-70 years: 0.61-0.70 ug/mL FEU 71-80 years: 0.71-0.80 ug/mL FEU Ritchie Fry DO HEMATOLOGY ORDERABLES Final Result [facility] CLIA # [id number] [address] [place] [id number] * (ABNORMAL) BRAIN NATRIURETIC PEPTIDE, BNP OR PROBNP (02/02/2025 11:28 PM CDT) PROBNP, N TERMINAL 694(H) 0 - 125 pg/mL 02/03/2025 12:01 AM CDT [facility] [facility] Comment: INTERPRETIVE COMMENT based on diagnosis: Diagnostic NT pro-BNP cutoffs for Heart Failure in the absence of renal failure is suggested for the following ranges ?? <75 ??years: <125 pg/mL >=75 ??years: <450 pg/mL Exclusionary rule out cut-point for Acute Decompensated Heart Failure(ADHF) All ages: <300 pg/mL Diagnostic NT pro-BNP cutoffs for Acute Decompensated Heart Failure(ADHF) in the absence of renal failure is suggested for the following ages ?? <50 ??years: > 450 ??pg/mL 50-75 years: > 900 ??pg/mL ?? >75 ??years: >1800 pg/mL Blood Collection / Unknown 02/02/2025 11:28 PM CDT 02/02/2025 11:33 PM CDT Ritchie Fry DO CHEMISTRY ORDERABLES Final Result Performing Organization Address [facility] Phone Number [facility] CLIA # [id number] [address] [place] [address] * MAGNESIUM LEVEL (02/02/2025 11:28 PM CDT) MAGNESIUM 2.0 1.6 - 2.4 mg/dL 02/03/2025 12:01 AM CDT [facility] Blood Collection / Unknown 02/02/2025 11:28 PM CDT 02/02/2025 11:33 PM CDT Ritchie Fry DO CHEMISTRY ORDERABLES Final Result Performing Organization Address [facility] Phone Number [facility] CLIA # [id number] [address] [place] [place] [id number] * (ABNORMAL) LIPASE (02/02/2025 11:28 PM CDT) LIPASE 73(H) 13 - 60 U/L 02/03/2025 12:01 AM CDT [facility] Blood Collection / Unknown 02/02/2025 11:28 PM CDT 02/02/2025 11:33 PM CDT Ritchie Fry DO CHEMISTRY ORDERABLES Final Result Performing Organization Address [facility] Co [place] Phone Number [facility] CLIA # [id number] [address] [place] [id number] * (ABNORMAL) COMPREHENSIVE METABOLIC PANEL (02/02/2025 11:28 PM T) SODIUM 135(L) 136 - 145 mmol/L 02/03/2025 12:01 AM [facility] POTASSIUM 3.5 3.5 - 5.1 mmol/L 02/03/2025 12:01 AM [facility] CHLORIDE 98 98 - 107 mmol/L 02/03/2025 12:01 AM [facility] CO2 23 22 - 29 mmol/L 02/03/2025 12:01 AM [facility] CALCIUM 10.2 8.8 - 10.2 mg/dL 02/03/2025 12:01 AM [facility] BUN 13 8 - 23 mg/dL 02/03/2025 12:01 AM [facility] CREATININE 1.25(H) 0.51 - 0.95 mg/dL 02/03/2025 12:01 AM [facility] GLUCOSE 169(H) 74 - 99 mg/dL 02/03/2025 12:01 AM [facility] TOTAL PROTEIN 8.7 6.6 - 8.7 g/dL 02/03/2025 12:01 AM [facility] ALBUMIN 4.1 4.0 - 4.9 g/dL 02/03/2025 12:01 AM [facility] BILIRUBIN TOTAL 0.4 <=1.2 mg/dL 02/03/2025 12:01 AM [facility] ALKALINE PHOSPHATASE 170(H) 35 - 104 U/L 02/03/2025 12:01 AM [facility] AST 22 0 - 35 U/L 02/03/2025 12:01 AM [facility] ALT 9 0 - 35 U/L 02/03/2025 12:01 AM [facility] GFR 47(L) >=60 mL/min/1.7 3 sq meter 02/03/2025 12:01 AM CDT [facility] Comment:eGFR calculated with 2020 CKD-EPI equation. Vegetarian diet, extremely high or low muscle mass, and may affect results. Cystatin C with Glomerular Filtration Rate is a suitable alternative for these patients. ANION GAP 14 5 - 20 mmol/L 02/03/2025 12:01 AM CDT [facility] Blood Collection / Unknown 02/02/2025 11:28 PM CDT 02/02/2025 11:33 PM CDT us Ritchie Fry DO CHEMISTRY ORDERABLES Final Result [facility] CLIA # [id number] [address] [place] [address] * MICROALBUMIN/CREATININE RATIO, RANDOM UR (03/23/2023 10:40 AM CDT) ABSTRACTED MICROALBUMIN,UR INE 22.0 ABSTRACTED CREATININE, URINE 157.37 ABSTRACTED MICROALBUMIN/CR EATININE RATIO, URINE 14.0 Urine URINE SPECIMEN OBTAINED BY CLEAN CATCH PROCEDURE / Unknown Abstract Provider URINE ORDERABLES Edited Result - Final * HEMOGLOBIN A1C (03/23/2023 10:39 AM CDT) ABSTRACTED HGB A1C 7.6 Blood us Abstract Provider CHEMISTRY ORDERABLES Edited Re sult - Final from Last 3 Months or Most Recently Relevant to Health Maintenance Insurance [address] [facility] [id number]
--- OUTSIDE RECORDS SUMMARY | 2025-02-03 09:36 | XMS_ITS | Encounter Summary ---
Author Organization [facility] Address [address] [place]: [place] [address] Care Team Providers Care Tin Roller [employer] Mill Name Role Phone Unavailable Primary Care Provider Unavailabl e Encounter Details Date Type Department Care Team (Latest Contact Info) Description 02/02/2025 Travel Social History Tobacco Use Types Packs/Day Years Used Date Smoking Tobacco: Former Cigarettes Smokeless Tobacco: Never Comments:Quit smoking: Susan abrahamly smokes, 1 ppd, 01/20/18 Alcohol Use Standard Drinks/Week Comments No 0 (1 standard drink = 0.6 oz pur e alcohol) Feeling Safe Answer Date Recorded Are you in a relationship wi th someone who hurts you emotionally and/or physically? No 02/02/2025 Comments No Sex and Gender Information Value Date Recorded Sex Assigned at Not on file Legal Sex Female 1:05 PM RN PLASTIC SURGERY Gender Identity Not on file Sexual Orientation Not on file documented as of this encounter Plan of Treatment Not on file documented as of this encounter Visit Diagnoses Not on filedocumented in this encounter
--- OUTSIDE RECORDS SUMMARY | 2025-02-03 09:36 | XMS_ITS | Encounter Summary ---
Author Organization [facility] Address [address] [place] [address] Care Team Providers Care Retail Parts Pro Name Role Phone JER Berg Sr., Michael Dave Primary Care Pro vider Encounter Details Date Type Department Care Team (Latest Contact Info) Description 12/29/2000 Outpatient Historical [facility]- [place] [address] [place] [address] Josh King DO NO ADDRESS ON FILE Headache(784.0) (Primary Dx); Allergic rhinitis, cause unspecified Social History Tobacco Use Types Packs/Day Years Used Date Smoking Tobacco: Never Assessed Comments Unknown Sex and Gender Information Value Date Recorded Sex Assigned at Not on file 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
--- OUTSIDE RECORDS SUMMARY | 2025-02-03 09:36 | XMS_ITS | Encounter Summary ---
Author Organization [facility] Address [address] [place] [address] Care Team Providers Care Commercial Food Instructor Name Role Phone JER Berg Sr., Michael Dave Primary Care Pro vider Reason for Referral * Outpatient Services (Routine) - Closed Specialty Diagnoses / Procedures Referred By Contac t Referred To Contact Radiology Diagnoses PAD (peripheral artery disease) Procedures US DUPLEX ARTERIAL LEGS BILATERAL Alvaro Berg Sr., FNP [address] [place] [address] Phone: tel: fax: [facility] [address] [place] [address] Phone: tel: fax: Referral ID Status Reason Start Date Expiration Date V isits Requested Visits Authorized [id number] Closed [facility] CTS to Schedule (SGF) 02/20/2014 03/23/2015 1 1 Encounter Details Date Type Department Care Team (Latest Contact Info) Description 02/20/2014 Ancillary Orders [facility] Centralized Scheduling [address] [facility] [address] [address] [place] [phone] Alvaro Berg Sr., FNP [address] [place] [address] PAD (peripheral artery disease) (Primary Dx); Renal artery stenosis Social History Tobacco Use Types Packs/Day Years Used Date Smoking Tobacco: Every Day Cigarettes Alcohol Use Standard Drinks/Week Comments No 0 (1 standard drink = 0.6 oz pur e alcohol) Comments No Sex and Gender Information Value Date Recorded Sex Assigned at Not on file 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 Gender Identity Not on file Sexual Orientation Not on file Occupation Industry Job Start Date Job End Date Not on file Not on file Not on file Not on file Not on file Not on file Not on file Not on file documented as of this encounter Plan of Treatment Not on file documented as of this encounter Results * US DUPLEX ARTERIAL LEGS BILATERAL (02/20/2014 11:13 AM CDT) Anatomical Region Laterality Modality Lower Extremity Ultrasound 02/20/2014 10:1 1 AM CDT Narrative 02/20/2014 1:10 PM CDT PROCEDURE LOWER EXTREMITY ARTERIAL DOPPLER, 20 February 2014 DESCRIPTION 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 There is monophasic flow in the lower extremities without acceleration to suggest hemodynamically significant stenosis. ??Flow is demonstrated in the posterior tibial artery bilaterally. ??CTA or MRA may be considered for additional mapping and followup. ?? IMPRESSION 1. monophasic flow in the lower cavities 2. 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 There is monophasic flow in the lower extremities without acceleration to suggest hemodynamically significant stenosis. Flow is demonstrated in the posterior tibial artery bilaterally. CTA or MRA may be considered for additional mapping and followup. IMPRESSION 1. monophasic flow in the lower cavities 2. negative for ultrasound evidence of focal stenosis us JER Ocampo Sr. US ORDERABLES F inal Result documented in this encounter Visit Diagnoses Diagnosis PAD (peripheral artery disease)- Primary Unspecified disorders of arteries and arterioles Renal artery stenosis Atherosclerosis of renal artery PAD (peripheral artery disease) Unspecified disorders of arteries and arterioles documented in this encounter Care Teams Commercial Food Instructor Relationship Specialty Start Date End Date [place], JER Mendenhall [address] [place] [address] PCP - General NURSE PRACTITIONER 08/24/12 documented as of this encounter
--- OUTSIDE RECORDS SUMMARY | 2025-02-03 09:36 | XMS_ITS | Encounter Summary ---
Author Organization [facility] Address [address] [place] [address] Care Team Providers Care Tuck Pointer Helper Name Role Phone JER Berg Sr., Michael Dave Primary Care Pro vider Encounter Details Date Type Department Care Team (Latest Contact Info) Description 01/16/1999 Outpatient Historical [facility] Hayder Singh MD NO ADDRESS ON FILE Female stress incontinence (Primary Dx); Unspecified menopausal and postmenopausal disorder Social History Tobacco Use Types Packs/Day Years Used Date Smoking Tobacco: Never Assessed Comments Unknown Sex and Gender Information Value Date Recorded Sex Assigned at Not on file 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
--- OUTSIDE RECORDS SUMMARY | 2025-02-03 09:36 | XMS_ITS | Encounter Summary ---
Author Organization [facility] Address [address] [place] [address] Care Team Providers Care Shellfish Shucker Name Role Phone JER Berg Sr., Michael Dave Primary Care Pro vider Reason for Referral * Outpatient Services (Routine) - Closed Specialty Diagnoses / Procedures Referred By Controsaura t Referred To Contact Diagnoses Neck pain on right side Procedures US HEAD NECK TISSUES Alvaro Berg Sr., FNP [address] [place] [address] Phone: tel: fax: Referral ID Status Reason Start Date Expiration Date Visits Re quested Visits Authorized [id number] Closed 11/07/2013 12/08/2014 1 1 E GIFT WRAP ASSOCIATE Encounter Details Date Type Department Care Team (Late st Contact Info) Description 11/07/2013 Ancillary Orders [facility] Admitting [address] [place] [phone] Alvaro Berg Sr., FNP [address] [place] [address] Neck pain on right side (Primary Dx) Social History Tobacco Use Types Packs/Day Years Used Date Smoking Tobacco: Every Day Cigarettes Alcohol Use Standard Drinks/Week Comments No 0 (1 standard drink = 0.6 oz pur e alcohol) Comments No Sex and Gender Information Value Date Recorded Sex Assigned at Not on file Legal Sex Female 4:25 AM STORE GIFT WRAP 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 Gender Identity Not on file Sexual Orientation Not on file Occupation Industry Job Start Date Job End Date Not on file Not on file Not on file Not on file Not on file Not on file Not on file Not on file documented as of this encounter Plan of Treatment Not on file documented as of this encounter Results * US HEAD NECK TISSUES (11/07/2013 3:50 PM STORE GIFT WRAP ASSOCIATE) Anatomical Region Laterality Modality Head Ultrasound 11/07/2013 3:30 PM STORE GIFT WRAP ASSOCIATE Narrative 11/09/2013 8:44 AM STORE GIFT WRAP ASSOCIATE PROCEDURE US SOFT TISSUE NECK, 07 November 2013 DESCRIPTION There is a mixed echogenicity nodule lying anterior to the right common carotid artery showing blood flow and measuring 2.5 cm longitudinal x 6 mm AP x 1.6 cm transverse diameter. ??No other subcutaneous or deep soft tissue lesion is identified at this time. ?? IMPRESSION nonspecific mixed echogenicity soft tissue lesion as described Procedure Note Christopher Franco MD - 11/09/2013 PROCEDURE US SOFT TISSUE NECK, 07 November 2013 DESCRIPTION There is a mixed echogenicity nodule lying anterior to the right common carotid artery showing blood flow and measuring 2.5 cm longitudinal x 6 mm AP x 1.6 cm transverse diameter. No other subcutaneous or deep soft tissue lesion is identified at this time. IMPRESSION nonspecific mixed echogenicity soft tissue lesion as described us Alvaro Berg Sr., JER US ORDERABLES F inal Result documented in this encounter Visit Diagnoses Diagnosis Neck pain on right side- Primary Cervicalgia Neck pain on right side Cervicalgia documented in this encounter Care Teams Shellfish Shucker Relationship Specialty Start Date End Date Alvaro Berg Sr., FNP [address] [place] [address] PCP - General NURSE PRACTITIONER 08/24/12 documented as of this encounter
--- OUTSIDE RECORDS SUMMARY | 2025-02-03 09:36 | XMS_ITS | Encounter Summary ---
Author Organization [facility] Address [address] [place] [address] Care Team Providers Care Bilingual Middle School Teacher Name Role Phone JER Berg Sr., Michael Dave Primary Care Pro vider Encounter Details Date Type Department Care Team (Latest Contact Info) Description 06/04/2003 Outpatient Historical [facility] [address] 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
--- OUTSIDE RECORDS SUMMARY | 2025-02-03 09:36 | XMS_ITS | Encounter Summary ---
Author Organization [facility] Address [address] [place]: [place] [address] Care Team Providers Care Foam Rubber Mixer Name Role Phone [place], JER, Alvaro Tierney Primary Care Pro vider Encounter Details Date Type Department Care Team (Late st Contact Info) Description 11/25/2000 Outpatient Historical Verenice Santos NP NO ADDRESS ON FILE Social History Tobacco Use Types Packs/Day Years Used Date Smoking Tobacco: Never Assessed Comments Unknown Sex and Gender Information Value Date Recorded Sex Assigned at Not on file Legal Sex Female 4:25 AM INFORMATION OFFICER Gender Identity Not on file Sexual Orientation Not on file documented as of this encounter Plan of Treatment Not on file documented as of this encounter Visit Diagnoses Not on filedocumented in this encounter Care Teams Foam Rubber Mixer Relationship Specialty Start Date End Date Alvaro Berg Sr., FNP [address] [place] [address] PCP - General NURSE PRACTITIONER 08/24/12 documented as of this encounter
--- OUTSIDE RECORDS SUMMARY | 2025-02-03 09:36 | XMS_ITS | Encounter Summary ---
Author Organization [facility] Address [address] [place] [address] Care Team Providers Care Wool Shearer Name Role Phone JER Berg Sr., Alvaro Tierney Primary Care Pro vider Encounter Details Date Type Department Care Team (Late st Contact Info) Description 03/07/2016 Nurse Triage Report [id number] ABSTRACTION Therese Matson, RN [address] [place] [address] Social History Tobacco Use Types Packs/Day Years Used Date Smoking Tobacco: Every Day Cigarettes 1.5 40 Smokeless Tobacco: Never Alcohol Use Standard Drinks/Week Comments No 0 (1 standard drink = 0.6 oz pur e alcohol) Comments No Sex and Gender Information Value Date Recorded Sex Assigned at Not on file 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 <<<<<<<< TRIAGE NOTE >>>>>>>> Triage Note: Front Office Manager Bonnie Matson added this note on Mar 07 2016 5:20PM: Patient wants to know what lisinopril, isosorbide and ranexa are and what each medication does-reviewed each medication characteristics with patient and advised patient to f/u with non par provier if any additional questions regarding medication regiment-patient agrees to f/u as directed and denies any futher questions or concerns at this time-Note closed out. <<<<<<<< TRIAGE/OUTCOME >>>>>>>> Guideline Title: Medication Question Call (Pediatric) ; Medication Questions - Guideline Selection (Pediatric) Recommended Disposition: Provide Information or Advice Only Physician Contacted: No Caller has medication question, child has mild stable symptoms, and triager answers question ? YES documented in this encounter Plan of Treatment Not on file documented as of this encounter Visit Diagnoses Not on filedocumented in this encounter Care Teams Wool Shearer Relationship Specialty Start Date End Date [place], JER Mendenhall [address] [place] [address] PCP - General NURSE PRACTITIONER 08/24/12 documented as of this encounter
--- OUTSIDE RECORDS SUMMARY | 2025-02-03 09:36 | XMS_ITS | Encounter Summary ---
Author Organization [facility] Address [address] [place] [address] Care Team Providers Care Zoo Caretaker Name Role Phone Unavailable Primary Care Provider Unavailabl e Reason for Visit * Reason Comments Chest Pain Encounter Details Date Type Department Care Team (Late st Contact Info) Description 02/02/2025 11:32 PM CDT - 02/03/2025 7:17 AM CDT Emergency [facility] Emergency Medicine [address] [place] [address] Ritchie Fry, [address] [place] [address] Acute coronary syndrome (CMS/HCC) (Primary Dx); Paroxysmal atrial fibrillation with rapid ventricular response (CMS/HCC) Discharge Disposition: Acute Care Hospital Social History Tobacco Use Types Packs/Day Years Used Date Smoking Tobacco: Former Cigarettes Smokeless Tobacco: Never Comments:Quit smoking: Truptie leighly smokes, 1 ppd, 01/20/18 Alcohol Use Standard Drinks/Week Comments No 0 (1 standard drink = 0.6 oz pur e alcohol) Feeling Safe Answer Date Recorded Are you in a relationship wi th someone who hurts you emotionally and/or physically? 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 diphenhydrAMINE (BENADRYL) 25 mg tablet Take 25 mg by mouth. dulaglutide (Trulicity) 0.75 mg/0.5 mL injection Inject 0.75 mg by subcutaneous injection. aspirin (ECOTRIN EC) 81 mg Tablet, Delayed Release (E.C.) Take 81 mg by mouth daily. amLODIPine (NORVASC) 5 mg tablet Take 5 mg by mouth daily. gabapentin (NEURONTIN) 100 mg capsule Take 100 mg by mouth 3 times daily. nitrofurantoin macrocrystaL (MACRODANTIN) 100 mg Capsule Take 1 Capsule (100 mg) by mouth 2 times daily. 10 Capsule 05/18/2022 carvediloL (COREG) 25 mg tablet Take 25 mg by mouth 2 times daily with meals. lisinopriL (PRINIVIL) 10 mg tablet Take 10 mg by mouth daily. ALPRAZolam (XANAX) 0.25 mg tablet Take 0.25 mg by mouth 2 times daily as needed for Anxiety. rosuvastatin (CRESTOR) 10 mg tablet Take 10 mg by mouth daily. esomeprazole (NexIUM) 40 mg Capsule, Delayed Release(E.C.) Take 1 Capsule (40 mg) by mouth daily. 30 Capsule 2 05/02/2019 hyoscyamine (Symax-SR) 0.375 mg Extended Release 12 hour tablet TAKE 1 TABLET TWICE A DAY 60 Tablet 1 05/12/2018 carvediloL (COREG) 25 mg tablet Take 0.5 Tablets (12.5 mg) by mouth 2 times daily with meals. 03/05/2018 omeprazole (PriLOSEC) 20 mg Capsule, Delayed Release(E.C.) Take 40 mg by mouth daily . 01/20/2018 lisinopriL (PRINIVIL) 20 mg tablet Take 30 mg by mouth 2 times daily . 10/13/2016 glipiZIDE (GLUCOTROL XL) 10 mg Extended Release 24 hour tablet Take 10 mg by mouth 2 times daily. 10/13/2016 documented as of this encounter ED Notes * Dahiana Owens RN - 02/03/2025 4:32 AM CDT Cardizem drip stopped. * Dahiana Owens RN - 02/03/2025 2:15 AM CDT Debbi converted to normal sinus rhythm. Almost immediately her chest pain resolved. * Dahaina Owens RN - 02/02/2025 11:50 PM CDT Debbi arrived by POV and was assisted to the treatment room with a w/c. She reports that she started having severe chest pain right after she went to bed. She reports that she got up and came right in. EKG done immediately and showed Afib with RVR. She is in distress and reports that her pain is off the top of the pain scale. IV started and labs drawn. * Sara Davies RCP - 02/02/2025 10:59 PM CDT EKG completed. Results given to Dr. Fry and scanned into [employer]. * Ritchie Fry DO - 02/02/2025 10:55 PM CDTAssociated Order(s): EKG 12 lead HISTORY OF PRESENT ILLNESS Gregoria King, a 69 y.o. female presents to the ED with a Chief Complaint of Chest Pain Subjective 69-year-old lady with a past medical history significant for COPD with exacerbation, diabetes mellitus type 2, hypertension, heartburn with Milner's esophagitis, noncardiac/atypical chest pain, peripheral arterial disease, tobacco abuse at home medications and include Trulicity, gabapentin, baby as pirin, carvedilol, amlodipine, lisinopril, alprazolam, Crestor, Nexium, hyoscyamine, and glipizide came to the emergency department because of chest pain. Patient is in significant distress at this time. She complains of severe left- sided chest pain but cannot describe it. She feels short of breath and nauseous but has not vomited. She states that she has a history of atrial fibrillation but has not taken her Eliquis in several weeks because she has not been able to get it refilled. HPI REVIEW OF SYSTEMS Review of Systems PAST MEDICAL HISTORY REVIEWED MEDICAL: Patient has a past medical history of Depression, Diabetes mellitus (CMS/HCC), PAD (peripheral artery disease), and Unspecified essential hypertension. SURGICAL: Patient has a past surgical history that includes back surgery; appendectomy; hysterectomy; pr ostectomy complete 1st metatarsal head (Right, 08/30/2015); pr egd transoral biopsy single/multiple (N/A, 04/20/2017); pr esophagogastroduodenoscopy transoral diagnostic (N/A, 05/02/2019); pr colonoscopy flx dx w/collj spec when pfrmd (N/A, 09/09/2017); pr esophagogastroduodenoscopy transoral diagnostic (N/A, 09/09/2017); and surgical other. FAMILY: Patient's family history includes Cancer in her maternal grandmother; Diabetes in her maternal grandmother and maternal uncle; Heart Disease in her mother; Lung Cancer in her father. SOCIAL: reports that she has quit smoking. Her smoking use included cigarettes. She has never used smokeless tobacco. She reports that she does not drink alcohol and does not use drugs. No history on file. Social History Other Topics Concern Not on file ALLERGIES Baclofen, Codeine, and Propoxyphene n-acetaminophen HOME MEDICATIONS Patient's Home Medications Current Home Medications ALPRAZOLAM (XANAX) 0.25 MG TABLET AMLODIPINE (NORVASC) 5 MG TABLET ASPIRIN (ECOTRIN EC) 81 MG TABLET, DELAYED RELEASE (E.C.) CARVEDILOL (COREG) 25 MG TABLET CARVEDILOL (COREG) 25 MG TABLET DIPHENHYDRAMINE (BENADRYL) 25 MG TABLET DULAGLUTIDE (TRULICITY) 0.75 MG/0.5 ML INJECTION ESOMEPRAZOLE (NEXIUM) 40 MG CAPSULE, DELAYED RELEASE(E.C.) GABAPENTIN (NEURONTIN) 100 MG CAPSULE GLIPIZIDE (GLUCOTROL XL) 10 MG EXTENDED RELEASE 24 HOUR TABLET HYOSCYAMINE (SYMAX-SR) 0.375 MG EXTENDED RELEASE 12 HOUR TABLET LISINOPRIL (PRINIVIL) 10 MG TABLET LISINOPRIL (PRINIVIL) 20 MG TABLET METOPROLOL TARTRATE (LOPRESSOR) 50 MG TABLET NITROFURANTOIN MACROCRYSTAL (MACRODANTIN) 100 MG CAPSULE OMEPRAZOLE (PRILOSEC) 20 MG CAPSULE, DELAYED RELEASE(E.C.) ROSUVASTATIN (CRESTOR) 10 MG TABLET Medications Modified during this Encounter No medications on file Medications Discontinued during this Encounter No medications on file Objective PHYSICAL EXAM INITIAL VS BP: (!) 154/101 (02/02/252335), Heart Rate: (!) 131 bpm (02/02/252335), Resp: 20 (02/02/252335),Pulse: 83 (02/03/25 0000), Temp: 97.1 ??F (36.2 ??C) (02/02/252335), Temp src: Temporal (02/02/252335), SpO2: 98 % (02/02/252335), Height: 5' 2 (157.5 cm) (02/02/252335), Weight: 70.3 kg (154 lb14.4 oz) (02/02/252335), BMI (Calculated): (!) 28.34 (02/02/252335) No LMP recorded. Patient has had a hysterectomy. Physical Exam DIAGNOSTICS LAB: CBC WITH DIFFERENTIAL - Abnormal Result Value WBC 9.8 RBC 5.40 (*) HEMOGLOBIN 15.9 (*) HEMATOCRIT 46.2 (*) MCV 85.6 MCH 29.4 MCHC 34.4 RDW 13.3 RDW-STDEV 41.3 PLATELETS 270 MPV 9.8 (*) NEUTROPHILS 50 LYMPHOCYTES 36 MONOCYTES 9 EOSINOPHILS 4 BASOPHILS 1 IMMATURE GRANULOCYTES 0 NEUTROPHIL ABSOLUTE 4.92 LYMPHOCYTE ABSOLUTE 3.52 (*) MONOCYTE ABSOLUTE 0.83 (*) EOSINOPHIL ABSOLUTE 0.41 (*) BASOPHILS ABSOLUTE 0.11 (*) IMMATURE GRANULOCYTES ABSOLUTE 0.03 D-DIMER - Abnormal D-DIMER QUANT 1.66 (*) COMPREHENSIVE METABOLIC PANEL - Abnormal SODIUM 135 (*) POTASSIUM 3.5 CHLORIDE 98 CO2 23 CALCIUM 10.2 BUN 13 CREATININE 1.25 (*) GLUCOSE 169 (*) TOTAL PROTEIN 8.7 ALBUMIN 4.1 BILIRUBIN TOTAL 0.4 ALKALINE PHOSPHATASE 170 (*) AST 22 ALT 9 GFR 47 (*) ANION GAP 14 LIPASE - Abnormal LIPASE 73 (*) BRAIN NATRIURETIC PEPTIDE, BNP OR PROBNP - Abnormal PROBNP, N TERMINAL 694 (*) TROPONIN 2 HR, 5TH GEN - Abnormal TROPONIN T, 2 HR 5TH GEN 13 (*) DELTA 2HR TROPONIN T 7 TROPONIN 6 HR, 5TH GEN - Abnormal TROPONIN T, 6 HR 5TH GEN 25 (*) DELTA 6HR TROPONIN T 19 (*) PROTIME-INR - Normal PROTIME 13.1 INR 1.0 LACTIC ACID - Normal LACTIC ACID 2.0 MAGNESIUM LEVEL - Normal MAGNESIUM 2.0 TROPONIN BASELINE, 5TH GEN - Normal TROPONIN T, BASELINE 5TH GEN 6 RADIOLOGY: CTA CHEST + ABD/PEL W CONTRAST Radiologist Impression IMPRESSION: Please see below. Exam: CTA CHEST [...] is recommended. Additional incidental findings as above. XR CHEST PA OR AP 1 VW Radiologist Impression IMPRESSION: Nonspecific left basilar opacity which could reflect atelectasis and/or infiltrate. EKG: PROCEDURES EKG 12 lead Date/Time: 02/02/2025 11:29 PM Performed by: Ritchie Fry DO Authorized by: Ritchie Fry DO ECG interpreted by ED Physician in the absence of a motor boss: yes MEDICAL DECISION MAKING AND PLAN OF CARE ED Course as of 02/03/25 0641 Sat Feb 03, 2025 0019 Pseudohyponatremia with sodium 135 and glucose 169. Creatinine mildly elevated at 1.25 with EGFR 47 -patient has chronic stage IIIb/IIIa chronic kidney disease. Potassium within normal limits. Lipase mildly elevated at 73. Magnesium normal at 2.0 Hemoglobin/hematocrit mildly elevated at 15.9/46.2. Platelets are normal at 270. There is no leukocytosis or left shift. PT/INR within normal limits. Lactic acid upper limit of normal at 2.0. Initial troponin 6. [TH] 0020 D-dimer elevated at 166. proBNP mildly elevated at 694 and has been elevated in the past in the mid 500s. [TH] 0048 Appreciate radiology review of chest x-ray: Nonspecific left basilar opacity which could reflect atelectasis and/or infiltrate. [TH] 0235 Appreciate radiology review chest CT: IMPRESSION: No evidence of pulmonary embolus. Mild emphysema without an acute infiltrate. 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 Bladder mucosal hyperemia suggestive of cystitis; clinical correlation is recommended. Additional incidental findings as above. [TH] 0249 2-hour troponin is now 13. Initial troponin was 6. This is a doubling of troponin. [TH] 0631 6-hour troponin has again increased and is now 25. This is a delta of 19 from the initial troponin and another doubling from the 2-hour troponin. [TH] 0637 Patient absolutely refuses EMS transport. Nursing will remove her IVs. She has been accepted at [facility]. She understands the risk including further cardiac damage. Patient will go by POV and has been accepted and has a room available at [facility] for further evaluation including cardiology. [TH] ED Course User Index [TH] Ritchie Fry DO Medical Decision Making Cardizem drip was stopped after starting diltiazem 30 mg p.o. Amount and/or Complexity of Data Reviewed Labs: ordered. Radiology: ordered. ECG/medicine tests: ordered and independent interpretation performed. Risk OTC drugs. Prescription drug management. Clinical Scoring & Consults Medications Administered During the ED Stay from 02/02/2025 2255 to 02/03/2025 0641 Date/Time Order Dose Route Action 02/03/2025 0010 CDT sodium chloride flush injection 5 mL 5 mL IV Given 02/03/2025 0008 CDT sodium chloride flush injection 5 mL 5 mL IV Given 02/03/2025 0005 CDT sodium chloride flush injection 5 mL 5 mL IV Given 02/02/2025 2358 CDT sodium chloride flush injection 5 mL 5 mL IV Given 02/02/2025 2355 CDT sodium chloride flush injection 5 mL 5 mL IV Given 02/02/2025 2339 CDT aspirin (BALJINDER CHEWABLE) chewable tablet 243 mg 243 mg Oral Given 02/02/20252354 CDT dilTIAZem (CARDIZEM) 5 mg/mL BOLUS injection 10 mg 10 mg IV Given 02/03/2025 0005 CDT ondansetron (ZOFRAN) 4 mg/2 mL injection 4 mg 4 mg IV Given 02/03/2025 0008 CDT morphine 4 mg/mL injection 4 mg 4 mg IV Given 02/03/20256 CDT aluminum - magnesium - simethicone (MYLANTA) 200-200-20 mg/5 mL oral [id number] mL 20 mL Oral Given 02/03/2025105 CDT lidocaine (XYLOCAINE) 2 % viscous oral solution 10 mL 10 mL Oral Given 02/03/2025 0110 CDT dilTIAZem (CARDIZEM) 125 mg in sodium chloride 0.9 % 125 mL infusion 5 mg/hr IVNew Bag 02/03/2025110 CDT iopamidoL (ISOVUE-300) 61% injection (single-use vial) 100 mL 100 mL IV Contrast Given 02/03/2025 0111 CDT sodium chloride bacteriostatic 0.9 % injection 10 mL 10 mL IV Given 02/03/2025 0200 CDT fentaNYL PF (SUBLIMAZE) 50 mcg/mL injection 25 mcg 25 mcg IV Not Given 02/03/2025 0307 CDT dilTIAZem (CARDIZEM) tablet 30 mg 30 mg Oral Given . New Prescriptions for this Encounter LAST VS BP: 134/66 (02/03/25599), Heart Rate: 61 bpm (02/03/25599), Resp: 12 (02/03/25599), Pulse: 61(02/03/25599), Temp: 97.1 ??F (36.2 ??C) (02/02/252335), Temp src: Temporal (02/02/252335), SpO2: 94 % (02/03/25599) CLINICAL IMPRESSION Final diagnoses: [I24.9] Acute coronary syndrome (CMS/HCC) (Primary) [I48.0] Paroxysmal atrial fibrillation with rapid ventricular response (CMS/HCC) DISPOSITION, EDUCATION AND MEDICATION RECONCILIATION Medications reconciled. See after visit summary for patient education on discharged patients. ED Disposition ED Disposition Transfer Condition Stable User Ritchie Fry DO Date/Time Sat Feb 03, 2025 6:38 AM Comment -- ATTESTATION STATEMENTS documented in this encounter Plan of Treatment Not on file documented as of this encounter Procedures Procedure Name Priority Date/Time Associated Diagnosis [...] 5TH GEN Stat 02/02/2025 11:28 PM CDT LACTIC ACID Stat 02/02/2025 11:28 PM CDT CBC WITH DIFFERENTIAL Stat 02/02/2025 11:28 PM CDT PROTIME-INR Stat 02/02/2025 11:28 PM CDT D-DIMER Stat 02/02/2025 11:28 PM CDT BRAIN NATRIURETIC PEPTIDE, BNP OR PROBNP Stat 02/02/2025 11:28 PM CDT MAGNESIUM LEVEL Stat 02/02/2025 11:28 PM CDT LIPASE Stat 02/02/2025 11:28 PM CDT COMPREHENSIVE METABOLIC PANEL Stat 02/02/2025 11:28 PM CDT documented in this encounter Results * (ABNORMAL) TROPONIN 6 HR, 5TH GEN (02/03/2025 6:08 AM CDT) TROPONIN T, 6 HR 5TH GEN 25(H) <11 ng/L 02/03/2025 6:30 AM CDT [facility] DELTA 6HR TROPONIN T 19(HH) See Interp. 02/03/2025 6:30 AM CDT [facility] Blood BLOOD SPECIMEN / Unknown Collection / Unknown 02/03/2025 6:08 AM CDT 02/03/2025 6:10 AM CDT Narrative [facility] - 02/03/2025 6:30 AM CDT Troponin elevated. Delta significant change. Delay in collection of timed specimen beyond recommended collection interval. Results must be interpreted in clinical context. us Ritchie Fry DO CHEMISTRY ORDERABLES Final Result [facility] CLIA # [id number] [address] [place] [address] * (ABNORMAL) TROPONIN 2 HR, 5TH GEN (02/03/2025 2:23 AM CDT) TROPONIN T, 2 HR 5TH GEN 13(H) <=10 ng/L 02/03/2025 2:46 AM CDT [facility] DELTA 2HR TROPONIN T 7 See Interp. 02/03/2025 2:46 AM CDT [facility] Blood BLOOD SPECIMEN / Unknown Collection / Unknown 02/03/2025 2:23 AM CDT 02/03/2025 2:26 AM CDT Narrative [facility] - 02/03/2025 2:46 AM CDT Troponin elevated. Delta indeterminate. Delay in collection of timed specimen beyond recommended collection interval. Results must be interpreted in clinical context. us Ritchie Fry DO CHEMISTRY ORDERABLES Final Result [id number] [address] [place] [phone] * CTA CHEST + ABD/PEL W CONTRAST [...] incidental findings as above. Narrative Procedure Note NjKiran ernst Starla, DO - 02/03/2025 IMPRESSION: Please see below. [...] Additional incidental findings as above. us Ritchie Fredrick Fry DO CT ORDERABLES Final Result * [...] structures appear grossly intact. Procedure Note Kiran Nj DO - 02/03/2025 Exam: XR CHEST PA [...] opacity which could reflect atelectasis and/or infiltrate. us Ritchie Fry DO DIAGNOSTIC IMAGING OR DERABLES Final Result * EKG 12 lead (02/02/2025 11:29 PM CDT) Narrative Ritchie Fry DO - 02/02/2025 11:29 PM CDT Ritchie Fry, ? 02/03/2025 ??6:42 AM EKG 12 lead Date/Time: 02/02/2025 11:29 PM Performed by: Ritchie Fry DO Authorized by: Ritchie Fry DO ?? ECG interpreted by ED Physician in the absence of a motor boss: yes ?? us Ritchie Fry DO ECG ORDERABLES Final Result * TROPONIN BASELINE, 5TH GEN (02/02/2025 11:28 PM CDT) TROPONIN T, BASELINE 5TH GEN 6 <=10 ng/L 02/03/2025 12:01 AM CDT [facility] Blood Collection / Unknown 02/02/2025 11:28 PM CDT 02/02/2025 11:33 PM CDT Narrative [facility] - 02/03/2025 12:01 AM CDT Troponin Detectable but normal range. us Ritchie Fry DO CHEMISTRY ORDERABLES Final Result [facility] CLIA # [id number] [address] [place] [address] * MAGNESIUM LEVEL (02/02/2025 11:28 PM CDT) MAGNESIUM 2.0 1.6 - 2.4 mg/dL 02/03/2025 12:01 AM CDT [facility] Blood Collection / Unknown 02/02/2025 11:28 PM CDT 02/02/2025 11:33 PM CDT Ritchie Fry DO CHEMISTRY ORDERABLES Final Result Performing Organization Address [facility]/ZIP Co de Phone Number [facility] CLIA # [id number] [address] [place] [phone] * LACTIC ACID (02/02/2025 11:28 PM CDT) LACTIC ACID 2.0 <=2.0 mmol/L 02/02/2025 11:54 PM CDT [facility] Blood BLOOD SPECIMEN / Unknown Collection / Unknown 02/02/2025 11:28 PM CDT 02/02/2025 11:33 PM CDT us Ritchie Fry DO CHEMISTRY ORDERABLES Final Result Performing Organization Address City/[facility]/ZIP Co de Phone Number [facility] CLIA # [id number] [address] [place] [address] * (ABNORMAL) BRAIN NATRIURETIC PEPTIDE, BNP OR PROBNP (02/02/2025 11:28 PM CDT) PROBNP, N TERMINAL 694(H) 0 - 125 pg/mL 02/03/2025 12:01 AM CDT [facility] Comment: INTERPRETIVE COMMENT based on diagnosis: [...] CHEMISTRY ORDERABLES Final Result Performing Organization Address [facility] Co de Phone Number [facility] CLIA # [id number] [address] [place] [address] * (ABNORMAL) LIPASE (02/02/2025 11:28 PM CDT) LIPASE 73(H) 13 - 60 U/L 02/03/2025 12:01 AM CDT [facility] Blood Collection / Unknown 02/02/2025 11:28 PM CDT 02/02/2025 11:33 PM CDT us Ritchie Fry DO CHEMISTRY ORDERABLES Final Result Performing Organization Address [facility] Co de Phone Number [facility] CLIA # [id number] [address] [place] [phone] * (ABNORMAL) COMPREHENSIVE METABOLIC PANEL (02/02/2025 11:28 PM CDT) SODIUM 135(L) 136 - 145 mmol/L 02/03/2025 12:01 AM T [facility] POTASSIUM 3.5 3.5 - 5.1 mmol/L 02/03/2025 12:01 AM T [facility] CHLORIDE 98 98 - 107 mmol/L 02/03/2025 12:01 AM T [facility] CO2 23 22 - 29 mmol/L 02/03/2025 12:01 AM T [facility] CALCIUM 10.2 8.8 - 10.2 mg/dL 02/03/2025 12:01 AM [facility] BUN 13 8 - 23 mg/dL 02/03/2025 12:01 AM [facility] CREATININE 1.25(H) 0.51 - 0.95 mg/dL 02/03/2025 12:01 AM [facility] GLUCOSE 169(H) 74 - 99 mg/dL 02/03/2025 12:01 AM [facility] TOTAL PROTEIN 8.7 6.6 - 8.7 g/dL 02/03/2025 12:01 AM [facility] ALBUMIN 4.1 4.0 - 4.9 g/dL 02/03/2025 12:01 AM [facility] BILIRUBIN TOTAL 0.4 <=1.2 mg/dL 02/03/2025 12:01 AM [facility] ALKALINE PHOSPHATASE 170(H) 35 - 104 U/L 02/03/2025 12:01 AM [facility] AST 22 0 - 35 U/L 02/03/2025 12:01 AM [facility] ALT 9 0 - 35 U/L 02/03/2025 12:01 AM [facility] GFR 47(L) >=60 mL/min/1.7 3 sq meter 02/03/2025 12:01 AM [facility] Comment:eGFR calculated with 2020 CKD-EPI equation. Vegetarian diet, extremely high or low muscle mass, and may affect results. Cystatin C with Glomerular Filtration Rate is a suitable alternative for these patients. ANION GAP 14 5 - 20 mmol/L 02/03/2025 12:01 AM [facility] Blood Collection / Unknown 02/02/2025 11:28 PM CDT 02/02/2025 11:33 PM CDT us Ritchie Fry DO CHEMISTRY ORDERABLES Final Result [facility] CLIA # [id number] [address] [place] [address] * (ABNORMAL) D-DIMER (02/02/2025 11:28 PM CDT) D-DIMER QUANT 1.66(H) <0.50 ug/mL FEU 02/02/2025 11:54 PM CDT [facility] Blood Collection / Unknown 02/02/2025 11:28 PM CDT 02/02/2025 11:33 PM CDT Narrative [facility] - 02/02/2025 11:54 PM CDT D-Dimer assay [...] Ritchie Fry DO HEMATOLOGY ORDERABLES Final Result [facility] CLIA # [id number] [address] [address] * PROTIME-INR (02/02/2025 11:28 PM CDT) PROTIME 13.1 11.9 - 14.6 Seconds 02/02/2025 11:54 PM CDT [facility] INR 1.0 0.9 - 1.1 02/02/2025 11:54 PM CDT [facility] Blood Collection / Unknown 02/02/2025 11:28 PM CDT 02/02/2025 11:33 PM CDT Ritchie Fry DO HEMATOLOGY ORDERABLES Final Result [facility] CLIA # [id number] [address] [place] [address] * (ABNORMAL) CBC WITH DIFFERENTIAL (02/02/2025 11:28 PM CDT) WBC 9.8 4.0 - 10.0 K/uL 02/02/2025 11:37 PM CDT [facility] RBC 5.40(H) 3.93 - 5.22 M/uL 02/02/2025 11:37 PM [facility] HEMOGLOBIN 15.9(H) 11.2 - 15.7 g/dL 02/02/2025 11:37 PM [facility] HEMATOCRIT 46.2(H) 34.1 - 44.9 % 02/02/2025 11:37 PM [facility] MCV 85.6 79.4 - 94.8 fL 02/02/2025 11:37 PM T [facility] MCH 29.4 25.6 - 32.2 pg 02/02/2025 11:37 PM [facility] MCHC 34.4 32.2 - 35.5 g/dL 02/02/2025 11:37 PM [facility] RDW 13.3 11.0 - 14.5 % 02/02/2025 11:37 PM [facility] RDW-STDEV 41.3 36.9 - 56.9 fL 02/02/2025 11:37 PM [facility] PLATELETS 270 163 - 337 K/uL 02/02/2025 11:37 PM [facility] MPV 9.8(L) 10.0 - 14.8 fL 02/02/2025 11:37 PM [facility] NEUTROPHILS 50 34 - 71 % 02/02/2025 11:37 PM [facility] LYMPHOCYTES 36 19 - 52 % 02/02/2025 11:37 PM [facility] MONOCYTES 9 5 - 13 % 02/02/2025 11:37 PM CDT [facility] EOSINOPHILS 4 1 - 6 % 02/02/2025 11:37 PM CDT [facility] BASOPHILS 1 0 - 1 % 02/02/2025 11:37 PM [facility] IMMATURE GRANULOCYTES 0 % 02/02/2025 11:37 PM T [facility] NEUTROPHIL ABSOLUTE 4.92 1.56 - 6.13 K/uL 02/02/2025 11:37 PM T [facility] LYMPHOCYTE ABSOLUTE 3.52(H) 1.20 - 3.40 K/uL 02/02/2025 11:37 PM T [facility] MONOCYTE ABSOLUTE 0.83(H) 0.24 - 0.36 K/uL 02/02/2025 11:37 PM [facility] EOSINOPHIL ABSOLUTE 0.41(H) 0.04 - 0.36 K/uL 02/02/2025 11:37 PM [facility] BASOPHILS ABSOLUTE 0.11(H) 0.01 - 0.08 K/uL 02/02/2025 11:37 PM T [facility] IMMATURE GRANULOCYTES ABSOLUTE 0.03 K/uL 02/02/2025 11:37 PM [facility] Blood Collection / Unknown 02/02/2025 11:28 PM CDT 02/02/2025 11:33 PM CDT Ritchie Fry DO HEMATOLOGY ORDERABLES Final Result [facility] CLIA # [id number] [address] [place] [phone] documented in this encounter Visit Diagnoses Diagnosis Acute coronary syndrome (CMS/HCC)- Primary Intermediate coronary syndrome Paroxysmal atrial fibrillation with rapid ventricular response (CMS/HCC) documented in this encounter Administered Medications Inactive Administered Medications - up to 3 most recent administrations Medication Order MAR Action Action Date Dose Rate Site aluminum - magnesium - simethicone (MYLANTA) 200-200-20 mg/5 mL oral suspension 20 mL 20 mL, Oral, ONE TIME ONLY, 1 dose, On 02/03/25 at 0045, Routine Given 02/03/2025 1:06 AM CDT 20 mL aspirin (BALJINDER CHEWABLE) chewable tablet 243 mg 243 mg, Oral, ONE TIME ONLY, 1 dose, On Wed02/02/25 at 2345, Routine Given 02/02/2025 11:39 PM CDT 243 mg dilTIAZem (CARDIZEM) 125 mg in sodium chloride 0.9 % 125 mL infusion 0-15 mg/hr (0-15 mL/hr), IV, TITRATE, Starting on Wed02/03/25 at 0045, Until Wed02/03/25 at 0917, Should this infusion be titrated? Yes, Initial infusion dose? 5 mg/hr, Titration Dose Increment? 2.5 mg/hr, Titration Interval? 30 minutes, Heart Rate Goal? Equal to or Less than 120 New Bag 02/03/2025 1:10 AM CDT 5 mg/hr 5 mL/hr dilTIAZem (CARDIZEM) 5 mg/mL BOLUS injection 10 mg 10 mg, IV, ONE TIME ONLY, 1 dose, On Wed02/02/25 at 2345, Routine Given 02/02/2025 11:55 PM CDT 10 mg dilTIAZem (CARDIZEM) tablet 30 mg 30 mg, Oral, EVERY 8 HOURS, First dose (after last modification) on Wed02/03/25 at 0300, Until Discontinued, Routine Given 02/03/2025 3:07 AM CDT 30 mg iopamidoL (ISOVUE-300) 61% injection (single-use vial) 100 mL 100 mL, IV, INTRA-PROCEDURE ONCE, 1 dose, Starting on Wed02/03/25 at 0110, Until Wed02/03/25 at 0111, Routine Contrast Given 02/03/2025 1:11 AM CDT 100 mL lidocaine (XYLOCAINE) 2 % viscous oral solution 10 mL 10 mL, Oral, ONE TIME ONLY, 1 dose, On Wed02/03/25 at 0045, Routine Given 02/03/2025 1:06 AM CDT 10 mL morphine 4 mg/mL injection 4 mg 4 mg, IV, ONE TIME ONLY, 1 dose, On Wed02/03/25 at 0000, Routine Given 02/03/2025 12:08 AM CDT 4 mg ondansetron (ZOFRAN) 4 mg/2 mL injection 4 mg 4 mg, IV, ONE TIME ONLY, 1 dose, On 02/03/25 at 0000, Routine Given 02/03/2025 12:05 AM CDT 4 mg sodium chloride bacteriostatic 0.9 % injection 10 mL 10 mL, IV, SEE ADMIN INSTRUCTIONS, Starting on 02/03/25 at 0110, Until 02/03/25 at 0917, Routine Given 02/03/2025 1:11 AM CDT 10 mL sodium chloride flush injection 5 mL 5 mL, IV, SEE ADMIN INSTRUCTIONS, Starting on 02/02/25 at 2326, Until 02/03/25 at 0917, Routine Given 02/03/2025 12:10 AM CDT 5 mL Given 02/03/2025 12:08 AM CDT 5 mL Given 02/03/2025 12:05 AM CDT 5 mL documented in this encounter Active and Recently Administered Medications Times are shown in CDT. Scheduled Medication Order 02/01/2025 02/02/2025 02/03/2025 aluminum - magnesium - simethicone (MYLANTA) 200-200-20 mg/5 mL oral suspension 20 mL (COMPLETED)(Linked Group 1) 20 mL, Oral, ONE TIME ONLY, 1 dose, On 02/03/25 at 0045, Routine 0106 (Given - Provid er: Dahiana Owens RN) aspirin (BALJINDER CHEWABLE) chewable tablet 243 mg (COMPLETED) 243 mg, Oral, ONE TIME ONLY, 1 dose, On Wed02/02/25 at 2345, Routine 2339 (Given - Provider: Dahiana Owens RN) dilTIAZem (CARDIZEM) 5 mg/mL BOLUS injection 10 mg (COMPLETED) 10 mg, IV, ONE TIME ONLY, 1 dose, On 02/02/25 at 2345, Routine 2355 (Given - Provider: Dahiana Owens RN) dilTIAZem (CARDIZEM) tablet 30 mg 30 mg, Oral, EVERY 8 HOURS, First dose (after last modification) on 02/03/25 at 0300, Until Discontinued, Routine 0307 (Given - Provid er: Dahiana Owens RN) fentaNYL PF (SUBLIMAZE) 50 mcg/mL injection 25 mcg 25 mcg, IV, ONE TIME ONLY, 1 dose, On 02/03/25 at 0200, Routine 0200 (Not Given - Provider: Dahiana Owens RN - Reason: Patient condition) iopamidoL (ISOVUE-300) 61% injection (single-use vial) 100 mL (COMPLETED) 100 mL, IV, INTRA-PROCEDURE ONCE, 1 dose, Starting on 02/03/25 at 0110, Until 02/03/25 at 0111, Routine 0111 (Contrast Given - Provider: Priscila Narayan, RT) lidocaine (XYLOCAINE) 2 % viscous oral solution 10 mL (COMPLETED)(Linked Group 1) 10 mL, Oral, ONE TIME ONLY, 1 dose, On 02/03/25 at 0045, Routine 0106 (Given - Provid er: Dahiana Owens RN) morphine 4 mg/mL injection 4 mg (COMPLETED) 4 mg, IV, ONE TIME ONLY, 1 dose, On 02/03/25 at 0000, Routine 0008 (Given - Provid er: Dahiana Owens RN) ondansetron (ZOFRAN) 4 mg/2 mL injection 4 mg (COMPLETED) 4 mg, IV, ONE TIME ONLY, 1 dose, On 02/03/25 at 0000, Routine 0005 (Given - Provid er: Dahiana Owens RN) sodium chloride bacteriostatic 0.9 % injection 10 mL 10 mL, IV, SEE ADMIN INSTRUCTIONS, Starting on 02/03/25 at 0110, Until 02/03/25 at 0917, Routine 0111 (Given - Provid er: Priscila Narayan, RT) sodium chloride flush injection 5 mL(Linked Group 2) 5 mL, IV, SEE ADMIN INSTRUCTIONS, Starting on 02/02/25 at 2326, Until 02/03/25 at 0917, Routine 2355 (Given - Provider: Dahiana Owens RN)2358 (Given - Provider: Dahaina Owens RN) 0005 (Given - Provider: Dahiana Owens RN)0008 (Given - Provider: Dahiana Owens RN)0010 (Given - Provider: Dahiana Owens RN) Continuous Medication Order 02/01/2025 02/02/2025 02/03/2025 dilTIAZem (CARDIZEM) 125 mg in sodium chloride 0.9 % 125 mL infusion 0-15 mg/hr (0-15 mL/hr), IV, TITRATE, Starting on 02/03/25 at 0045, Until 02/03/25 at 09, Should this infusion be titrated? Yes, Initial infusion dose? 5 mg/hr, Titration Dose Increment? 2.5 mg/hr, Titration Interval? 30 minutes, Heart Rate Goal? Equal to or Less than 120 0110 (New Bag - Prov ider: Dahiana Owens, TAM)0434 (Stopped - Provider: Dahiana Owens RN) Linked Groups Order Group 1: aluminum - magnesium - simethicone (MYLANTA) 200-200-20 mg/5 mL oral suspension 20 mL (COMPLETED)Jump to med 20 mL, Oral, ONE TIME ONLY, 1 dose, On 02/03/25 at 0045, Routine And lidocaine (XYLOCAINE) 2 % viscous oral solution 10 mL (COMPLETED)Jump to med 10 mL, Oral, ONE TIME ONLY, 1 dose, On 02/03/25 at 0045, Routine Group 2: SALINE LOCK IV Now (COMPLETED) Routine, ONE TIME, On Wed02/02/25 at 2330, For 1 occurrence, When: Now And sodium chloride flush injection 5 mLJump to med 5 mL, IV, SEE ADMIN INSTRUCTIONS, Starting on Wed02/02/25 at 2326, Until 02/03/25 at 0917, Routine documented in this encounter
--- OUTSIDE RECORDS SUMMARY | 2025-02-03 09:36 | XMS_ITS | Encounter Summary ---
Author Organization [facility] Address [address] [place] [address] Care Team Providers Care Learning Facilitator Name Role Phone JER Berg Sr., Alvaro Tierney Primary Care Pro vider Reason for Referral * Outpatient Services (Routine) - Closed Specialty Diagnoses / Procedures Referred By Contac t Referred To Contact Radiology Diagnoses Swelling Mass of neck Procedures CT SOFT TISSUE NECK W CONTRAST Neo Casper MD [address] [place] [address] Phone: tel: fax: [facility] CT Scan [place] [address] [facility] [address] [place] [address] Phone: tel: fax: Referral ID Status Reason Start Date Expiration Date V isits Requested Visits Authorized [id number] Closed [facility] View CTS to Schedule (SGF) 11/17/2013 12/18/2014 1 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 Encounter Details Date Type Department Care Team (Late st Contact Info) Description 11/17/2013 Ancillary Orders [facility] CT Scan [place] [address] [address] Neo Casper MD [address] [place] [address] Swelling (Primary Dx); Mass of neck Social History Tobacco Use Types Packs/Day Years Used Date Smoking Tobacco: Every Day Cigarettes Alcohol Use Standard Drinks/Week Comments No 0 (1 standard drink = 0.6 oz pur e alcohol) Comments No Sex and Gender Information Value Date Recorded Sex Assigned at Not on file 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 Gender Identity Not on file Sexual Orientation Not on file Occupation Industry Job Start Date Job End Date Not on file Not on file Not on file Not on file Not on file Not on file Not on file Not on file documented as of this encounter Plan of Treatment Not on file documented as of this encounter Results * CT SOFT TISSUE NECK W CONTRAST (11/20/2013 1:17 PM 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 ??Helical axial imaging was obtained from the skull base into the upper thorax at 3 mm increments for 73 axial images. Sagittal and coronal reconstructions are also obtained. DESCRIPTION There is a prominent node anterior to the left sternocleidomastoid inferior to the tip of salivary gland and posterior to the submandibular glands bilaterally measuring 1 cm short axis diameter transversely x 1.1 cm AP x 1.8 cm craniocaudal. ??There is a similarly located node on the right measuring 7 mm short axis transverse diameter by 1.9 cm craniocaudal x 9 mm AP diameter. ??Several smaller nodes in the posterior triangle are also present bilaterally. ?? There is normal appearance of the parapharyngeal soft tissues and of the pharynx, hypopharynx, valleculae, piriform sinuses, larynx, and visualized portion of trachea. ??There is normal appearance of the thyroid and salivary glands. ?? There is normal appearance and appropriate symmetry of the cervical vasculature. IMPRESSION 1. borderline enlarged left cervical node 2. otherwise unremarkable study Procedure Note Christopher Franco MD - 11/20/[address] SOFT TISSUE NECK, IV contrast-enhanced, 20 November 2013 TECHNIQUE 100 mL Optiray nonionic contrast material was administered intravenously. Helical axial imaging was obtained from the skull base into the upper thorax at 3 mm increments for 73 axial images. Sagittal and coronal reconstructions are also obtained. DESCRIPTION There is a prominent node anterior to the left sternocleidomastoid inferior to the tip of salivary gland and posterior to the submandibular glands bilaterally measuring 1 cm short axis diameter transversely x 1.1 cm AP x 1.8 cm craniocaudal. There is a similarly located node on the right measuring 7 mm short axis transverse diameter by 1.9 cm craniocaudal x 9 mm AP diameter. Several smaller nodes in the posterior triangle are also present bilaterally. There is normal appearance of the parapharyngeal soft tissues and of the pharynx, hypopharynx, valleculae, piriform sinuses, larynx, and visualized portion of trachea. There is normal appearance of the thyroid and salivary glands. There is normal appearance and appropriate symmetry of the cervical vasculature. IMPRESSION 1. borderline enlarged left cervical node 2. otherwise unremarkable study Neo Casper MD CT ORDERABLES Final Result documented in this encounter Visit Diagnoses Diagnosis Swelling- Primary Edema Mass of neck Swelling, mass, or lump in head and neck Swelling Edema Mass of neck Swelling, mass, or lump in head and neck documented in this encounter Care Teams Learning Facilitator Relationship Specialty Start Date End Date [place], JER [address] [place] [address] PCP - General NURSE PRACTITIONER 08/24/12 documented as of this encounter
--- OUTSIDE RECORDS SUMMARY | 2025-02-03 09:36 | XMS_ITS | Encounter Summary ---
Author Organization [facility] Address [address] [place] [address] Care Team Providers Care Video Game Technician Name Role Phone JER Berg Sr., Michael Dave Primary Care Pro vider Encounter Details Date Type Department Care Team (Latest Contact Info) Description 11/24/2000 Outpatient Historical [facility]- [place] [address] [place] [address] Ronnie Prasad MD [address] [address] Vaginitis and vulvovaginitis, unspecified (Primary Dx); Acute sinusitis, unspecified; Symptomatic menopausal or female climacteric states; Screening for malignant neoplasm of the rectum Social History Tobacco Use Types Packs/Day Years Used Date Smoking Tobacco: Never Assessed Comments Unknown Sex and Gender Information Value Date Recorded Sex Assigned at Not on file 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
--- OUTSIDE RECORDS SUMMARY | 2025-02-03 09:36 | XMS_ITS | Encounter Summary ---
Author Organization [facility] Address [address] [place] [address] Care Team Providers Care Full Stack Software Developer Name Role Phone JER Berg Sr., Michael Dave Primary Care Pro vider Encounter Details Date Type Department Care Team (Latest Contact Info) Description 02/09/2001 Outpatient Historical [facility] [place] [address] [place] [phone] Josh King, DO NO ADDRESS ON FILE Contusion of lower leg (Primary Dx) Social History Tobacco Use Types Packs/Day Years Used Date Smoking Tobacco: Never Assessed Comments Unknown Sex and Gender Information Value Date Recorded Sex Assigned at Not on file 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
--- OUTSIDE RECORDS SUMMARY | 2025-02-03 09:36 | XMS_ITS | Encounter Summary ---
Author Organization [facility] Address [address] [place] [address] Care Team Providers Care Technical Research Scientist Name Role Phone Unavailable Primary Care Provider Unavailabl e Encounter Details Date Type Department Care Team (Late st Contact Info) Description 01/22/2025 Orders Only [facility] Admitting [address] [place] [address] [place], [facility] [address] [place] [phone] Cigarette nicotine dependence, uncomplicated (Primary Dx); Screening for malignant neoplasm of respiratory organ Social History Tobacco Use Types Packs/Day Years [...] on file Legal Sex Female 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
--- OUTSIDE RECORDS SUMMARY | 2025-02-03 09:36 | XMS_ITS | Encounter Summary ---
Author Organization [facility] Address [address] [place] [address] Care Team Providers Care Adult Probation Officer Name Role Phone JER Berg Sr., Michael Dave Primary Care Pro vider Encounter Details Date Type Department Care Team (Late st Contact Info) Description 05/24/2015 Ancillary Orders [facility] Admitting [address] [place] [address] Odilon Martins, RAJ [address], [place] [address] Foot pain (Primary Dx) Social History Tobacco Use Types Packs/Day Years Used Date Smoking Tobacco: Every Day Cigarettes 1.5 40 Smokeless Tobacco: Never Alcohol Use Standard Drinks/Week Comments No 0 (1 standard drink = 0.6 oz pur e alcohol) Comments No Sex and Gender Information Value Date Recorded Sex Assigned at Not on file 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 ?? Repeat AP, oblique, and lateral weight-bearing views show flattening of the plantar arch on weight bearing lateral projection. ??No dislocation is seen. ?? IMPRESSION 1. flattening of the plantar arch with weight-bearing 2. no acute changes seen LIAM Narrative 05/24/2015 9:50 AM CDT PROCEDURE XR RIGHT FOOT, 3 views, 24 May 2015 DESCRIPTION AP, oblique, and lateral views of the right foot show no acute fracture, dislocation, or deformity. ??No soft tissue gas or radiopaque foreign body is seen. ?? IMPRESSION normal right foot views Procedure Note Christopher Franco MD - 05/24/2015 PROCEDURE XR RIGHT FOOT, 3 views, 24 May 2015 DESCRIPTION AP, oblique, and lateral views of the right foot show no acute fracture, dislocation, or deformity. No soft tissue gas or radiopaque foreign body is seen. IMPRESSION normal right foot views Odilon [facility] ORDERABLE S Edited Result - Final documented in this encounter Visit Diagnoses Diagnosis Foot pain- Primary Pain in limb Foot pain Pain in limb documented in this encounter Care Teams Adult Probation Officer Relationship Specialty Start Date End Date [place], JER [address] [place] [address] PCP - General NURSE PRACTITIONER 08/24/12 documented as of this encounter
--- OUTSIDE RECORDS SUMMARY | 2025-02-03 09:36 | XMS_ITS | Encounter Summary ---
Author Organization [facility] Address [address] [place] [address] Care Team Providers Care Director Of Counseling Name Role Phone Unavailable Primary Care Provider Unavailabl e Reason for Referral * CT Scan (Routine) - Open Specialty Diagnoses / Procedures Referred By Nabila serna Referred To Contact Diagnoses Cigarette nicotine dependence, uncomplicated Encounter for screening for malignant neoplasm of respiratory organs Procedures CT LUNG SCREENING (LDCT BASELINE OR ANNUAL) Juliette Winchester FNP [address] [place] [address] Phone: tel: fax: [address] [address] Phone: tel: fax: Referral ID Status Reason Start Date Expiration Date Visits Re quested Visits Authorized [id number] Open 01/24/2025 02/24/2026 1 1 Encounter Details Date Type Department Care Team (Latest Contact Info) Description 01/24/2025 Transcribe Orders [facility] Pre-Registration [facility] CALL TO MAKE APPOINTMENT ONLY [address] [place] [address] Juliette Winchester FNP [address] [place] [address] Cigarette nicotine dependence, uncomplicated (Primary Dx); Encounter for screening for malignant neoplasm of respiratory organs Social History Tobacco Use Types Packs/Day Years Used Date Smoking Tobacco: Former Cigarettes Smokeless Tobacco: Never Comments:Quit smoking: Susan earl smokes, 1 ppd, 01/20/18 Alcohol Use Standard Drinks/Week Comments No 0 (1 standard drink = 0.6 oz pur e alcohol) Feeling Safe Answer Date Recorded Are you in a relationship wi th someone who hurts you emotionally and/or physically? 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 Gender Identity Not on file Sexual Orientation Not on file documented as of this encounter Plan of Treatment Scheduled Orders Name Type Priority Associated Diagnoses Orde r Schedule CT LUNG SCREENING (LDCT BASELINE OR ANNUAL) Imaging Routine Cigarette nicotine dependence, uncomplicated Encounter for screening for malignant neoplasm of respiratory organs 1 Occurrences starting 01/24/2025 until 01/24/2026 documented as of this encounter Visit Diagnoses Diagnosis Cigarette nicotine dependence, uncomplicated- Primary Tobacco use disorder Encounter for screening for malignant neoplasm of respiratory organs Special screening for malignant neoplasm of the respiratory organs documented in this encounter
--- OUTSIDE RECORDS SUMMARY | 2025-02-03 09:36 | XMS_ITS | Encounter Summary ---
Author Organization [facility] Address 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
--- OUTSIDE RECORDS SUMMARY | 2025-02-03 09:36 | XMS_ITS | Clinical Summary ---
Author Organization [facility] Address [address] [place] [address] Care Team Providers Care Seeing Eye Dog Trainer Name Role Phone JER Berg Sr., Michael Dave Primary Care Pro vider Allergies Active Allergy Reactions Criticality Noted Date Comments Baclofen Nausea and Vomiting Low 08/11/2017 Codeine Nausea and Vomiting Low 08/24/2012 Propoxyphene N-Acetaminophen Nausea and Vomiting Low 08/24/2012 Medications aspirin (BALJINDER) 81 mg Oral Tab Take 81 mg by mouth daily at bedtime . Active glipiZIDE (GLUCOTROL XL) 10 mg Extended Release 24 hour tablet Take 10 mg by mouth 2 times daily. Active lisinopril (PRINIVIL) 20 mg tablet Take 30 mg by mouth 2 times daily . Active omeprazole (PriLOSEC) 20 mg Capsule, Delayed Release(E.C.) Take 40 mg by mouth daily . Active carvedilol (COREG) 25 mg tablet Take 0.5 Tablets (12.5 mg) by mouth 2 times daily with meals. 03/05/2018 Active SYMAX-SR 0.375 mg Extended Release 12 hour tablet TAKE 1 TABLET TWICE A DAY 60 Tablet 1 05/12/2018 Active esomeprazole (NexIUM) 40 mg Capsule, Delayed Release(E.C.) Take 1 Capsule (40 mg) by mouth daily. 30 Capsule 2 05/02/2019 Active fluconazole (DIFLUCAN) 100 mg tablet Take 1 Tablet (100 mg) by mouth daily. 10 Tablet 1 05/10/2019 Active Active Problems Problem Noted Date Diagnosed Date Type 2 diabetes mellitus without ophthalmic korey festations 09/08/2017 Dry eyes, bilateral 09/08/2017 Senile nuclear cataract, bilateral 09/08/2017 Milner's esophagus without dysplasia 04/28/2017 Duodenitis determined by biopsy 04/28/2017 Heartburn 04/20/2017 Non-cardiac chest pain 04/20/2017 Overview (04/20/2017): Patient has seen a Photo Journalist, who thought that this pain was cardiac. She reports seeing a Angle Shearer who does not believe that the pain is cardiac in etiology. Preoperative examination, unspecified 09/21/2013 Family history of colonic polyps 09/21/2013 Tobacco abuse 01/21/2009 HTN (hypertension), benign PAD (peripheral artery disease) Immunizations Immunization Administration Dates Next Due (ADACEL/BOOSTRIX)(10 [...] Used Date Smoking Tobacco: Every Day Cigarettes 2 50 Smokeless Tobacco: Never Tobacco Cessation:Ready to Q uit: No; Counseling Given: No Comments:Currently smokes, 1 ppd, 01/20/18 Alcohol Use Standard Drinks/Week Comments No 0 (1 standard drink = 0.6 oz pur e alcohol) Comments No Sex and Gender Information Value Date Recorded Sex Assigned at Not on file 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 Gender Identity Not on file Sexual Orientation Not on file Occupation Industry Job Start Date Job End Date Not on file Not on file Not on file Not on file Not on file Not on file Not on file Not on file Last Filed Vital Signs Vital Sign Reading Time Taken Comments Blood Pressure 138/46 05/02/2019 10:34 AM CDT Pulse 64 05/02/2019 10:34 AM CDT Temperature 36.2 ??C (97.2 ??F) 05/02/2019 10:30 AM C DT Respiratory Rate 15 05/02/2019 10:34 AM CDT Oxygen Saturation 96% 05/02/2019 10:34 AM CDT Inhaled Oxygen Concentration - - Weight 75.8 kg (167 lb) 04/24/2019 11:28 AM CDT Height 157.5 cm (5' 2 ) 04/24/2019 11:28 AM CDT Body Mass Index 30.54 04/24/2019 11:28 AM CDT Plan of Treatment Health Maintenance Due Date Last Done Comments DIABETES ANNUAL FOOT EXAM 1974 DIABETES MICROALBUMIN ANNUAL SCREEN 1974 LDL CHOLESTEROL ANNUAL 1974 PNEUMOCOCCAL VACCINE 50+ YEA RS (1 of 2 - PCV) 1975 FIT-DNA Q 3 years 2001 Flex Sig/CT Colonography Q 5 years 2001 FIT/FOBT Q 1 year 11/24/2001 11/24/2000 ZOSTER VACCINE (1 of 2) 2006 BREAST CANCER SCREENING 07/10/2015 07/10/2014, 01/15 DIABETES ANNUAL RETINAL EXAM 09/08/201811/2016, 09/08/2017, 09/08/2017, Additional history exists DIABETES HBA1C Q 6 MONTHS 06/27/20202019, 09/27/2019, 05/17/2019, Additional history exists COLORECTAL SCREENING 09/09/2020 09/09/2017, 08/16/20 15 Colorectal Cancer Screening 09/09/2020 OSTEOPOROSIS SCREENING 2021 UPPER GI ENDOSCOPY 05/02/2022 05/02/2019, 1 11/09/2016, 04/20/2017, Additional history exists INFLUENZA VACCINE (#1) 2024 DTAP/TDAP/TD VACCINES (2 - T d or Tdap) 08/21/2024 08/21/2014 RSV VACCINE (60+ or ) (1 - 1-dose 75+ series) 2031 Insurance MEDICARE PART A AND B FOR LIFE MEDICARE PART A AND B FOR LIFE Advance Directives For more information, please contact: [phone] Documents on File Type Date Recorded Patient Accredited Legal Secretary Expl anation Advance Directive Living Will 11/07/2013 3:17 PM * Full Code (Latest Code Status on File) Date Activated Date Inactivated Comments 05/02/2019 9:00 AM 05/02/2019 1:08 PM * Full Code Date Activated Date Inactivated Comments 09/09/2017 11:33 AM 09/09/2017 3:17 PM * Full Code Date Activated Date Inactivated Comments 04/20/2017 11:47 AM 04/20/2017 2:13 PM * Full Code Date Activated Date Inactivated Comments 04/20/2017 11:00 AM 04/20/2017 11:47 AM Care Teams Seeing Eye Dog Trainer Relationship Specialty Start Date End Date [place], JER [address] [place] [address] PCP - General NURSE PRACTITIONER 08/24/12
--- OUTSIDE RECORDS SUMMARY | 2025-02-03 09:36 | XMS_ITS | Encounter Summary ---
Author Organization [facility] Address [address] [place] [address] Care Team Providers Care Svp Innovation Partnerships Name Role Phone JER Berg Sr., Michael Dave Primary Care Pro vider Encounter Details Date Type Department Care Team (Latest Contact Info) Description 02/22/2001 Outpatient Historical [facility] Medicine [place] [address] [facility] [address] [place] [phone] Ronnie Prasda MD [address] [facility] [address] [place] [phone] Acute sinusitis, unspecified (Primary Dx); Cramp of limb Social History Tobacco Use Types Packs/Day Years Used Date Smoking Tobacco: Never Assessed Comments Unknown Sex and Gender Information Value Date Recorded Sex Assigned at Not on file Legal Sex Female 4:[address] 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
--- OUTSIDE RECORDS SUMMARY | 2025-02-03 09:36 | XMS_ITS | Encounter Summary ---
Author Organization [facility] Address [address] [place] [address] Care Team Providers Care Sales And Service Engineer Name Role Phone JER Berg Sr., Michael Dave Primary Care Pro vider Encounter Details Date Type Department Care Team (Latest Contact Info) Description 02/08/2001 Outpatient Historical [facility] Medicine [place] [address] [place] [phone] Josh King, NO ADDRESS ON FILE Allergic rhinitis due to other allergen (Primary Dx); Sleep disturbance, unspecified Social History Tobacco Use Types Packs/Day Years Used Date Smoking Tobacco: Never Assessed Comments Unknown Sex and Gender Information Value Date Recorded Sex Assigned at Not on file 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
--- OUTSIDE RECORDS SUMMARY | 2025-02-03 09:36 | XMS_ITS | Encounter Summary ---
Author Organization [facility] Address [address] [place] [address] Care Team Providers Care Grinder Name Role Phone JER Berg Sr., Michael Dave Primary Care Pro vider Encounter Details Date Type Department Care Team (Latest Contact Info) Description 04/07/[address] 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
--- OUTSIDE RECORDS SUMMARY | 2025-02-03 09:36 | XMS_ITS | Encounter Summary ---
Author Organization [facility] Address [address] [place] [address] Care Team Providers Care Personal Finance Instructor Name Role Phone JER Berg Sr., Michael Dave Primary Care Pro vider Encounter Details Date Type Department Care Team (Latest Contact Info) Description 02/07/2001 Outpatient [facility] Medicine [place] [address] [facility] [address] [place] [phone] Ronnie Prasad MD [address] [facility] [address] [place] [phone] Other specified menopausal and postmenopausal disorder (Primary Dx) Social History Tobacco Use Types Packs/Day Years Used Date Smoking Tobacco: Never Assessed Comments Unknown Sex and Gender Information Value Date Recorded Sex Assigned at Not on file 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
--- OUTSIDE RECORDS SUMMARY | 2025-02-03 09:36 | XMS_ITS | Encounter Summary ---
Author Organization [facility] Address [address] [place] [address] Care Team Providers Care Networking Technician Name Role Phone JER Berg Sr., Michael Dave Primary Care Pro vider Encounter Details Date Type Department Care Team (Latest Contact Info) Description 03/02/2001 Outpatient Historical [facility] Medicine [place] [address] [facility] [address] [place] [phone] Josh King, DO NO ADDRESS ON FILE Other specified menopausal and postmenopausal disorder (Primary Dx) Social History Tobacco Use Types Packs/Day Years Used Date Smoking Tobacco: Never Assessed Comments Unknown Sex and Gender Information Value Date Recorded Sex Assigned at Not on file 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
--- OUTSIDE RECORDS SUMMARY | 2025-02-03 09:36 | XMS_ITS | Encounter Summary ---
Author Organization [facility] Address [address] [place] [address] Care Team Providers Care Mechanical Integrity Engineer Name Role Phone JER Berg Sr., Michael Dave Primary Care Pro vider Reason for Referral * Outpatient Services (Routine) - Closed Specialty Diagnoses / Procedures Referred By Contac t Referred To Contact Radiology Diagnoses Dyspnea on effort Procedures CT CHEST WO CONTRAST Alvaro Berg Sr., FNP [address] [place] [address] Phone: tel: fax: [facility] Scan [place] [address] [place] [address] Phone: tel: fax: Referral ID Status Reason Start Date Expiration Date V isits Requested Visits Authorized [id number] Closed [facility] View CTS to Schedule (SGF) 10/28/2015 11/27/2016 1 1 CH OPERATIONS SPECIALIST Encounter Details Date Type Department Care Team (Latest Contact Info) Description 10/28/2015 Ancillary Orders 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 Gender Identity Not on file Sexual Orientation Not on file Occupation Industry Job Start Date Job End Date Not on file Not on file Not on file Not on file Not on file Not on file Not on file Not on file documented as of this encounter Plan of Treatment Not on file documented as of this encounter Results * CT CHEST WO CONTRAST (10/30/2015 8:29 AM BRANCH OPERATIONS SPECIALIST) Anatomical Region Laterality Modality Chest Computed Tomogra phy 10/30/2015 7:44 AM BRANCH OPERATIONS SPECIALIST Narrative 10/30/2015 8:47 AM BRANCH OPERATIONS SPECIALIST PROCEDURE CHEST CT, IV noncontrast, 30 October [address] helical axial CT was obtained from the base of the neck into the abdomen and imaged at 5 mm increments for 64 axial images. Sagittal and coronal reconstructions are also obtained. ?? DESCRIPTION On lung window imaging the lungs appear clear. ??No infiltrate or atelectasis is seen. ??No pleural effusion is seen. ??No pulmonary nodules are identified. There are a few small peripheral bullous changes in the lung bases. ?? Mediastinal window settings show no mediastinal mass or adenopathy apparent on noncontrast study. ??No hilar adenopathy is seen. There is mild aortic arch and descending aortic atherosclerosis. ??The chest wall appears intact without axillary adenopathy. The partially visualized liver, spleen, and pancreas appear unremarkable. Gallbladder is surgically absent, metallic clips noted. ?? The adrenal glands and visualized portions of the upper poles the kidneys appear unremarkable. ?? The stomach is nondistended. ?? There is moderate fecal artifact in the colon. ?? 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 no acute changes of the chest seen 2. no pulmonary or mediastinal masses or adenopathy seen Procedure Note Christopher Franco MD - 10/30/[address], IV noncontrast, 30 October 2015 TECHNIQUE Noncontrast helical axial CT was obtained from the base of the neck into the abdomen and imaged at 5 mm increments for 64 axial images. Sagittal and coronal reconstructions are also obtained. DESCRIPTION On lung window imaging the lungs appear clear. No infiltrate or atelectasis is seen. No pleural effusion is seen. No pulmonary nodules are identified. There are a few small peripheral bullous changes in the lung bases. Mediastinal window settings show no mediastinal mass or adenopathy apparent on noncontrast study. No hilar adenopathy is seen. There is mild aortic arch and descending aortic atherosclerosis. The chest wall appears intact without axillary adenopathy. The partially visualized liver, spleen, and pancreas appear unremarkable. Gallbladder is surgically absent, metallic clips noted. The adrenal glands and visualized portions of the upper poles the kidneys appear unremarkable. The stomach is nondistended. There is moderate fecal artifact in the colon. 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 no acute changes of the chest seen 2. no pulmonary or mediastinal masses or adenopathy seen JER Ocampo Sr. CT ORDERABLES F inal Result documented in this encounter Visit Diagnoses Diagnosis Dyspnea on effort- Primary Other dyspnea and respiratory abnormality Dyspnea on effort Other dyspnea and respiratory abnormality documented in this encounter Care Teams Mechanical Integrity Engineer Relationship Specialty Start Date End Date Alvaro Berg Sr., FNP [address] [place] [address] PCP - General NURSE PRACTITIONER 08/24/12 documented as of this encounter
--- NOTE | 2025-02-03 10:07 | XRR_ITS ---
PROCEDURE INFORMATION: Exam: XR Chest Exam date and time: 02/03/2025 10:08 AM Age: 69 years old Clinical indication: Pain; Chest pressure; Additional info: Chest pain TECHNIQUE: Imaging protocol: Radiologic exam of the chest. Views: 1 view. COMPARISON: CT angio chest PE protcl [id number] 11/12/2024 9:00 AM FINDINGS: Lungs: Unremarkable. No consolidation or mass. Pleural spaces: Unremarkable. No pleural effusion. No pneumothorax. Heart/Mediastinum: Unremarkable. No cardiomegaly. Bones/joints: Unremarkable. XR/XR chest 1V portable [id number] IMPRESSION: No acute findings.
--- NOTE | 2025-02-03 10:07 | ECG_ITS ---
[employer] Test Date: 2025-02-03 Pat Name: Gregoria King Department: Room: Gender: Female Non Destructive Testing Engineer: : [id number] Requested By: Ronel Rodriguez Order Number: [id number] Silvina MD: JOSEPH PETER Measurements Intervals [place] Rate: 56 P: 59 LA: 181 QRS: 66 QRSD: 94 T: 72 QT: 438 QTc: 425 Interpretive Statements SINUS BRADYCARDIA POSSIBLE LEFT ATRIAL ENLARGEMENT [-0.1mV P-WAVE IN V1/V2] SEPTAL MYOCARDIAL INFARCTION , OF INDETERMINATE AGE [40+ ms Q WAVE IN V1/V2] Compared to ECG 11/12/2024 09:45:34 Atrial flutter no longer present Myocardial infarct finding still present Electronically Signed On 02-11-2025 21:39:09 CDT by JOSEPH PETER [email or web address]
--- NOTE | 2025-02-03 10:20 | ED_ITS ---
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 Apparently she had gone to [place] with chest pains yesterday. She says usually when she has chest pain it is from her A-fib acting up. She said her heart rate was all over the place yesterday. It is improved today and she is no longer having the pain. She says the doctor there wanted to transfer her to [place] but she did not want to go there so she left and came here today. She does follow with field marketer here. Related Data Home Medications ?Medication ?Instructions ?Recorded ?Confirmed aspirin 81 mg tablet,delayed 81 mg PO DAILY 02/03/25 0 02/03/25 release Previous Rx's ?Medication ?Instructions ?Recorded Diabetic shoes #1 ea 12/11/19 blood-glucose meter (Accu-Chek #1 ea 07/12/24 Guide Glucose Meter) lancing device with lancets kit #1 ea 07/12/24 (Accu-Chek FastClix Lancing Device kit) blood sugar diagnostic (Accu-Chek #100 ea 07/14/24 Guide test strips) lancets (Accu-Chek Softclix #100 ea 08/20/24 Lancets) dulaglutide 4.5 mg/0.5 mL 4.5 mg (0.5 mL) SUBCUT Q7D 9 0 days 09/21/24 subcutaneous [facility] apixaban 5 mg tablet (Eliquis) 5 mg PO BID #60 tabs amlodipine 5 mg tablet 5 mg PO DAILY #90 tabs 12/13 metoprolol tartrate 75 mg tablet 75 mg PO BID #180 tab s 01/03/25 Allergies Allergy/AdvReac Type Severity Reaction Status Date / Time codeine AdvReac nausea Verified 01/09/25 10:21 propoxyphene (From AdvReac Nausea Verified 01/09/25 10:21 Darvocet-N) Review of Systems 2 Narrative: Constitutional symptoms: Negative except as documented in HPI. Skin symptoms: Negative except as documented in HPI. Eye symptoms: Negative except as documented in HPI. ENMT symptoms: Negative except as documented in HPI. Respiratory symptoms: Negative except as documented in HPI. Cardiovascular symptoms: Negative except as documented in HPI. Gastrointestinal symptoms: Negative except as documented in HPI. Genitourinary symptoms: Negative except as documented in HPI. Musculoskeletal symptoms: Negative except as documented in HPI. Neurologic symptoms: Negative except as documented in HPI. Psychiatric symptoms: Negative except as documented in HPI. Endocrine symptoms: Negative except as documented in HPI. PFSH ED 2 PFSH: Medical History (Updated 02/03/25 @ 11:37 by Ronel Retana MD) CKD (chronic kidney disease) stage 3, GFR 30-59 ml/min Diabetes History of colon polyps Atherosclerotic heart disease of [place] coronary artery without angina pectoris Carotid artery stenosis, asymptomatic Chronic distal aortic occlusion Chronic headache Hypertension Degeneration of cervical disc without myelopathy Tailor's bunion of both feet Diabetic peripheral neuropathy associated with type 2 diabetes mellitus GERD (gastroesophageal reflux disease) PAD (peripheral artery disease) Sjogren's syndrome with keratoconjunctivitis sicca Mixed hyperlipidemia Surgical History History of esophagogastroduodenoscopy History of appendectomy History of cholecystectomy History of total abdominal hysterectomy and bilateral salpingo-oophorectomy History of colonoscopy with polypectomy History of arterial bypass of lower extremity History of tonsillectomy and adenoidectomy Family History Father Lung disease Cancer lung cancer (smoker) Mother Heart disease Family/Other Diabetes Stroke Grandmother Cancer stomach Denies family history of Colon cancer Ovarian cancer Hypercholesteremia Breast cancer Hypertension Uterine cancer Thyroid disease Social History Smoking and tobacco/nicotine status: former use of tobacco/nicotine Quit status (tobacco/nicotine): has tried quititng Alcohol intake: never Substance/Drug Use: never Household members: other Details: grandson Marital status: / Number of children: 1 Number of grandchildren: 3 Current occupational status: unemployed 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 Skin: Warm, dry. Head: Normocephalic, atraumatic. Neck: Supple, trachea midline. Eye: Extraocular movements are intact. Ears, nose, mouth and throat: mucosa moist. Cardiovascular: Regular, Normal peripheral perfusion. Respiratory: Lungs are clear to auscultation, respirations are non-labored, breath sounds are equal, Symmetrical chest wall expansion. Gastrointestinal: Soft, Nontender, Non distended Musculoskeletal: Normal ROM, no deformity. Neurological: Alert and oriented, No focal neurological deficit observed. Psychiatric: Cooperative, appropriate mood & affect. Course 2 Vital Signs: Vital signs: Vital Signs Temperature 98.1 F 02/03/25 10:00 Pulse Rate 68 02/03/25 10:00 Respiratory Rate 18 02/03/25 10:00 Blood Pressure 137/69 02/03/25 10:00 Pulse Oximetry 96 02/03/25 10:00 Oxygen Delivery Me thod Room Air 02/03/25 10:00 Clincial Decision Support The following clinical decision support tools were used to aid in care of the patient HEART Score -> History: Highly Suspicious, EKG: Non-specific Changes, Age: 65 or more yrs, Risk Factors: >/=3 Risk Factors, Troponin: Baseline Trop 16-45 ng/L. Resulting HEART Score: 8. [facility] - General Adult Medical Decision Making Differential diagnosis for patient with chest pain includes but is not limited to and based on the above HPI, review of systems and physical exam: Pneumonia. unstable angina. angina. Acute coronary syndrome / TN. Pulmonary embolism. Costochondritis / musculoskeletal. Pleurisy. Pericarditis. Esophageal spasm. Pancreatis. Cholecystitis. Orders placed to evaluate differential diagnosis based on the above differential, HPI and physical exam EKG: Time 1032. Rate 56. Sinus bradycardia, No ST-T changes, no ectopy, normal [place] & QRS intervals, This was reviewed and interpreted by myself the ER physician at 1038. Compared to EKG done at [facility] last night she is now in a sinus bradycardia rather than A-fib with RVR as she was then. Chest x-ray: No acute process. No infiltrate. No pneumothorax. This was reviewed and interpreted by myself the emergency room physician. I also reviewed the radiology report. Lab Review: Laboratory results were reviewed and interpreted by myself the emergency room physician. No leukocytosis. No anemia. Slightly elevated BUN and creatinine at 14 and 1.4 over her baseline which is normally around 1.2. Troponin is 32 which is elevated above her baseline as well as above troponin that was checked at [facility] last night. I think this may be significant. Either way her heart score would indicate admission I reviewed the patient's medical record. Patient arrives with her records from [facility] last night. She has an EKG that shows a heart rate of 134 with A-fib. Her troponin was less than 10 there. The patient did not want to be transferred to [place] and so she had left with the understanding that she was going to [place] but she came here because this is where her field marketer is. She waited till this morning. I also reviewed cardiology notes. He discussed a plan vascular procedure to look at her peripheral vascular disease. I did not see mention of the heart cath that is planned but she says that he told her he was going to go through his wrist to look at her heart. She has never had a heart cath in the past she says. HEART Pathway for Early Discharge in Acute Chest Pain from [employer] on 02/03/2025 All calculations should be rechecked by clinician prior to use RESULT SUMMARY: 8 points HEART Pathway Score High risk 12-65% 30-day MACE Cardiology consultation and admission recommended. Further testing indicated. INPUTS: History ?> 2 = Highly suspicious EKG ?> 1 = Non-specific repolarization disturbance Age ?> 2 = >=5 Risk factors ?> 2 = >= risk factors or history of atherosclerotic disease Initial troponin ?> 1 = 1-3x normal limit WENDIE?DS?-VASc Score for Atrial Fibrillation Stroke Risk from [employer] on 02/03/2025 All calculations should be rechecked by clinician prior to use RESULT SUMMARY: 4 points Stroke risk was 4.8% per year in >90,000 patients (the [place] Atrial Fibrillation Cohort Study) and 6.7% risk of stroke/TIA/systemic embolism. INPUTS: Age ?> 1 = 65-74 Sex ?> 1 = Female CHF history ?> 0 = No Hypertension history ?> 1 = Yes Stroke/TIA/thromboembolism history ?> 0 = No Vascular disease history (prior TN, peripheral artery disease, or aortic plaque) ?> 1 = Yes Diabetes history ?> 0 = No Reexamination: Patient remained stable. No increased work of breathing. No altered mental status. No focal motor deficits. She has had no chest pain while she has been here. She is remained in sinus bradycardia. Consultation: I spoke with Dr. Richards who is assistant tennis professional for the hospitalist service. He recommends Lovenox at this time and holding Eliquis as he may catheter tomorrow. Consultation: I spoke with Dr. Weinstein who is on-call for the hospitalist service who agrees to admission to the cardiac stepdown unit. Assessment and plan: Unstable angina Tobacco dependence Atrial fibrillation Peripheral vascular disease Elevated troponin ?Lovenox given. Patient has been out of Eliquis. [id number] or 4. She is going in and out of A-fib so she should be anticoagulated. -Heart score of 8. Recommend admission. Also cardiology agrees with admission. -I discussed the patient with the hospitalist on-call who is admitting the patient. - Discussed findings and plan with patient. Answered any questions. - All laboratory values were reviewed and interpreted personally by myself, the ER physician - All imaging was reviewed and interpreted personally by myself, the ER physician. - Evaluation and treatment of this problem were appropriate in the emergency setting Lab Data 02/03/25 10:22 02/03/25 10:22 Radiology Impressions Chest X-Ray 02/03/25 10:07 IMPRESSION: No acute findings. Laboratory Results WBC 9.24 10^3/uL (3.29-11.43) 02/03/25 10:22 RBC 5.18 10^6/uL (3.85-5.65) 02/03/25 10:22 Hgb 15.00 g/dL (11.27-16.99) 02/03/25 10:22 Hct 45.5 % (36-47) 02/03/25 10:22 MCV 87.8 fl (85-98) 02/03/25 10:22 MCH 29.0 pg (27-33) 02/03/25 10:22 MCHC 33.0 g/dL (30-55) 02/03/25 10:22 RDW 13.2 % (12.1-15.1) 02/03/25 10:22 Plt Count 254 10^3/cmm (157-399) 02/03/25 10:22 MPV 9.8 fL (7.4-10.4) 02/03/25 10:22 Neut % (Auto) 61.2 % 02/03/25 10:22 Lymph % (Auto) 28.7 % 02/03/25 10:22 [place] % (Auto) 7.4 % 02/03/25 10:22 Eos % (Auto) 1.6 % 02/03/25 10:22 Baso % (Auto) 0.9 % 02/03/25 10:22 Neut # (Auto) 5.66 10^3/uL (1.8-7.7) 02/03/25 10:22 Lymph # (Auto) 2.7 10^3/uL (0.8-4.8) 02/03/25 10:22 [place] # (Auto) 0.7 10^3/uL (0.2-0.9) 02/03/25 10:22 Eos # (Auto) 0.2 10^3/uL (0.0-0.8) 02/03/25 10:22 Baso # (Auto) 0.1 10^3/uL (0.0-0.1) 02/03/25 10:22 Nucleated RBC % (auto) 0 % 02/03/25 10:22 Nucleated RBCs # 0.0 /100WBC 02/03/25 10:22 Sodium 134 mmol/L (136-145) L 02/03/25 10:22 Potassium 4.1 mmol/L (3.5-5.1) 02/03/25 10:22 Chloride 97 mmol/L (98-107) L 02/03/25 10:22 Carbon Dioxide 23 mmol/L (22-29) 02/03/25 10:22 Anion Gap 18.1 (5-19) 02/03/25 10:22 BUN 14 mg/dL (8-23) 02/03/25 10:22 Creatinine 1.4 mg/dL (0.5-0.9) H 02/03/25 10:22 GFR Calculation 37.4 mL/min (90-130) L 02/03/25 10:22 Glucose 163 mg/dL (65-115) H 02/03/25 10:22 Calculated Osmolality 282 mOsm/kg (285-295) L 02/03/25 10:22 Calcium 9.6 mg/dL (8.5-10.5) 02/03/25 10:22 Total Bilirubin 0.4 mg/dL (0.15-1.2) 02/03/25 10:22 AST 16 U/L (0-32) 02/03/25 10:22 ALT 10 U/L (0-33) 02/03/25 10:22 Alkaline Phosphatase 162 U/L (35-105) H 02/03/25 10:22 Troponin T Baseline 32 ng/L (0-10) H 02/03/25 10:22 NT-Pro-B Natriuret Pep 1889 pg/mL (0-125) H 02/03/25 10:22 Total Protein 7.9 g/dL (6.6-8.7) 02/03/25 10:22 Albumin 4.0 g/dL (3.5-5.2) 02/03/25 10:22 Globulin 3.9 g/dL (1.3-4.6) 02/03/25 10:22 Influenza A (PCR) Negative (Negative) 02/03/25 11:13 Influenza Type B (PCR) Negative (Negative) 02/03/25 11:13 RSV (PCR) Negative (Negative) 02/03/25 11:13 SARS-CoV-2 (PCR) Negative (Negative) 02/03/25 11:13 All radiology interpretation(s) finalized by discharge Discharge Plan Discharge Patient Disposition: Admitted As Inpatient Admit Provider: Perry Dangelo Clinical Impression: Unstable angina, Elevated troponin, Peripheral vascular disease, Tobacco dependence, Atrial fibrillation Condition: Stable Coding Level of Care Code ED Maintenance Dispatcher for Swapna Oconnor
[2025-02-03 10:28] LABS: Basophils # 0.1 10^3/uL (0.0-0.1); Basophils % 0.9 %; Eosinophils # 0.2 10^3/uL (0.0-0.8); Eosinophils % 1.6 %; Hematocrit 45.5 % (36-47); Lymphocytes # 2.7 10^3/uL (0.8-4.8); Lymphocytes % 28.7 %; Mean Corpuscular Volume 87.8 fl (85-98); Mean Platelet Volume 9.8 fL (7.4-10.4); Monocytes # 0.7 10^3/uL (0.2-0.9); Monocytes % 7.4 %; Neutrophils # 5.66 10^3/uL (1.8-7.7); Neutrophils % 61.2 %; Nucleated Red Blood Cells % 0 %; Platelet Count 254 10^3/cmm (157-399); Red Blood Count 5.18 10^6/uL (3.85-5.65); Red Cell Distribution Width 13.2 % (12.1-15.1); White Blood Count 9.24 10^3/uL (3.29-11.43)
[2025-02-03 10:45] LABS: Troponin(5th) Baseline 32 ng/L (0-10)
[2025-02-03 11:01] LABS: Alanine Aminotransferase 10 U/L (0-33); Alkaline Phosphatase 162 U/L (35-105); Anion Gap 18.1 (5-19); Aspartate Amino Transferase 16 U/L (0-32); Blood Urea Nitrogen 14 mg/dL (8-23); Calcium 9.6 mg/dL (8.5-10.5); Carbon Dioxide 23 mmol/L (22-29); Chloride 97 mmol/L (98-107); Globulin 3.9 g/dL (1.3-4.6); Glomerular Filtration Rate 37.4 mL/min (90-130); Glucose 163 mg/dL (65-115); NT Pro B Type Natriuretic Pept 1889 pg/mL (0-125); Osmolality Calculated 282 mOsm/kg (285-295); Potassium 4.1 mmol/L (3.5-5.1); Sodium 134 mmol/L (136-145); Total Bilirubin 0.4 mg/dL (0.15-1.2); Total Protein 7.9 g/dL (6.6-8.7)
[2025-02-03 11:59] LABS: Influenza A NEGATIVE (Negative); Influenza B NEGATIVE (Negative); Respiratory Syncytial Virus Ce NEGATIVE (Negative); SARS-CoV-2 PCR NEGATIVE (Negative)
--- NOTE | 2025-02-03 12:07 | ECG_ITS ---
Datapipe Test Date: 2025-02-03 Pat Name: Gregoria King Department: Room: 111 Gender: Female Senior Qualitative Researcher: : 1955 Requested By: Ronel Rodriguez Order Number: [id number] Reading MD: JOSEPH PETER Measurements Intervals [place] Rate: 55 P: 64 RI: 181 QRS: 75 QRSD: 89 T: 69 QT: 442 QTc: 425 Interpretive Statements SINUS BRADYCARDIA POSSIBLE LEFT ATRIAL ENLARGEMENT [-0.1mV P-WAVE IN V1/V2] SEPTAL MYOCARDIAL INFARCTION , OF INDETERMINATE AGE [40+ ms Q WAVE IN V1/V2] Compared to ECG 02/03/2025 10:32:40 No significant changes Electronically Signed On 02-11-2025 21:46:44 CDT by JOSEPH PETER [id number]
[2025-02-03 12:44] LABS: Troponin 5 2HR 33.63 ng/L (0-10); Troponin 5 2HR Delta 1.63 ABS# (0-10)
[2025-02-03] MEDS: enoxaparin 80 mg/0.8 mL Syringe 70 MG SUBCUT (12:54)
--- NOTE | 2025-02-03 13:01 | P.HP_ITS ---
Providers/Chief Complaint 2 Admitting Physician: Perry Dangelo MD Primary Care Provider: JER Jordan Chief Complaint: high heart rate History of Present Illness Gregoria King is a 69 year old female with a past medical history of atrial fibrillation, on Eliquis therapy, history of peripheral vascular disease, with plans on peripheral angiogram on 12 February, type 2 diabetes mellitus, who presents [facility] for chest pain. Patient reports chest pain, no diaphoresis, nonradiating, that comes and goes, no lightheadedness, no dizziness, anterior chest, she was seen at [facility], she is found to have an elevated troponin of 25 with a delta of 19, EKG had no reported acute ST-T wave changes, CTA chest abdomen pelvis no pulm embolism, but did show evidence of cirrhotic liver morphology, with upper gastric varices, it was recommended for her to be transferred to [facility] for cardiac evaluation however patient declined, she arrived in the ER on her own after taking care of her dogs at home, she arrives in the emergency room, currently chest pain-free, 120-minute troponin 33.63, BNP over 1800, she tells me that she does not have any lower extremity pain, no pulselessness, no pallor, no cochlear thermia Review of Systems 2 Card: Reports: chest pain Resp: Denies: dyspnea Medications/Allergies Home Medications ?Medication ?Instructions ?Recorded ?Confirmed ?Last Taken ?Type Diabetic shoes #1 ea 12/11/19 02/03/25 Unkn own Rx blood-glucose meter (Accu-Chek #1 ea 07/12/24 02/03/25 Unknown Rx Guide Glucose Meter) lancing device with lancets kit #1 ea 07/12/24 5 Unknown Rx (Accu-Chek FastClix Lancing Device kit) blood sugar diagnostic (Accu-Chek #100 ea 07/14/24 Unknown Rx Guide test strips) lancets (Accu-Chek Softclix #100 ea 08/20/24 02/03/25 Unknown Rx Lancets) dulaglutide 4.5 mg/0.5 mL 4.5 mg (0.5 mL) SUBCUT Q7D 9 0 days 09/21/24 02/03/25 01/31/25 Rx subcutaneous pen inject[facility]6.5 [facility] apixaban 5 mg tablet (Eliquis) 5 mg PO BID #60 tabs 02/03/25 Unknown Rx amlodipine 5 mg tablet 5 mg PO DAILY #90 tabs 12/1302/03/25 02/03/25 Rx metoprolol tartrate 75 mg tablet 75 mg PO BID #180 tab s 01/03/25 02/03/25 02/03/25 Rx aspirin 81 mg tablet,delayed 81 mg PO DAILY 02/03/25 0 02/03/25 02/03/25 History release Allergies Allergy/AdvReac Type Severity Reaction Status Date / Time codeine AdvReac nausea Verified 01/09/25 10:21 propoxyphene (From AdvReac Nausea Verified 01/09/25 10:21 Darvocet-N) PFSH Acute 2 PFSH: Medical History CKD (chronic kidney disease) stage 3, GFR 30-59 ml/min Diabetes History of colon polyps Atherosclerotic heart disease of [place] coronary artery without angina pectoris Carotid artery stenosis, asymptomatic Chronic distal aortic occlusion Chronic headache Hypertension Degeneration of cervical disc without myelopathy Tailor's bunion of both feet Diabetic peripheral neuropathy associated with type 2 diabetes mellitus GERD (gastroesophageal reflux disease) PAD (peripheral artery disease) Sjogren's syndrome with keratoconjunctivitis sicca Mixed hyperlipidemia Surgical History History of esophagogastroduodenoscopy History of appendectomy History of cholecystectomy History of total abdominal hysterectomy and bilateral salpingo-oophorectomy History of colonoscopy with polypectomy History of arterial bypass of lower extremity History of tonsillectomy and adenoidectomy Family History (Updated 02/03/25 @ 13:08 by Perry Dangelo MD) Father Lung disease Cancer lung cancer (smoker) Mother Heart disease Family/Other Diabetes Stroke Grandmother Cancer stomach Other Crohn's disease Denies family history of Colon cancer Ovarian cancer Hypercholesteremia Breast cancer Hypertension Uterine cancer Thyroid disease Social History Smoking and tobacco/nicotine status: former use of tobacco/nicotine Quit status (tobacco/nicotine): has tried quititng Alcohol intake: never Substance/Drug Use: never Household members: other Details: grandson Marital status: / Number of children: 1 Number of grandchildren: 3 Current occupational status: unemployed 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/Episcopalian: Quaker Special ninoska needs: No Agree to transfusion: Yes Vitals/I&O/Wt Last Vital Signs Temp 98.1 F 02/03/25 10:00 Pulse 68 02/03/25 10:00 Resp 18 02/03/25 10:00 BP 137/69 02/03/25 10:00 Pulse Ox 96 02/03/25 10:00 O2 Del Method Room Air 02/03/25 10:00 Weight last 48 hrs Weight 66.678 kg Physical Exam 2 Const: COMMON NORMALS: no acute distress and patient oriented x3 Eye: COMMON NORMALS: Equal, round and reactive pupils present Resp: COMMON NORMALS: normal respiratory effort, No retractions, No use of accessory muscles and clear to auscultation bilaterally AUSCULTATION: clear to auscultation bilaterally Cardio: COMMON NORMALS: no JVD, regular rate, regular rhythm, S1 normal heart sound present and S2 normal heart sound present RATE: regular rate RHYTHM: regular rhythm HEART SOUNDS: S1 normal heart sound present and S2 normal heart sound present GI: COMMON NORMALS: Normal to inspection, nondistended, normoactive bowel sounds present, Soft to palpation and No hepatosplenomegaly present Extremity: COMMON NORMALS: no pedal edema NARRATIVE EXTREMITY EXAM: DP PT are palpable, good cap refill, no mottling, no overlying skin changes Neuro: COMMON NORMALS: patient oriented x3, CN's II-XII intact bilaterally and moves all extremities Psych: COMMON NORMALS: mental status grossly normal Data 02/03/25 10:22 02/03/25 10:22 A&P Assessment and plan (1) Elevated troponin: (2) Chest pain: (3) Peripheral vascular disease: Plan Chest pain -Serial EKGs, serial troponins, telemetry monitoring Plan -Aspirin, statin, beta-michelle -Therapeutic Lovenox -Cardiac echo -Cardiology consulted Peripheral vascular disease, with plans on peripheral angiogram as outpatient, no current evidence of acute limb ischemia -Continue to monitor pulse ox closely -Anticoagulation, and aspirin as above Type 2 diabetes mellitus, low-dose Lantus, Atrial fibrillation PDMP PDMP Reviewed: Not Reviewed Attestations 2 Medical Necessity Statement*: Patient requires hospitalization, inpatient, greater than 2 midnights for chest pain Diagnoses Elevated troponin R79.89 Chest pain R07.9 Peripheral vascular disease I73.9
[2025-02-03 13:02] LABS: Glucose Point of Care 149 mg/dL (70-110)
--- NOTE | 2025-02-03 13:09 | USCV_ITS ---
Gregoria King Age: 69 Gender: F : 1955 Exam Date: 02/03/2025 16:10 Ordering Phys: Perry Dangelo MD Technologist: CASSIE Exam Location: [facility] [place] Indication: sob BP: 173 / 67 HR: 63 Rhythm: Sinus Technical Quality: Adequate MEASUREMENTS (Male / Female) Normal Values 2D ECHO LV Diastolic Diameter PLAX 4.7 cm 4.2 - 5.9 / 3.9 - 5.3 cm IVS Diastolic Thickness 1.1 cm 0.6 - 1.0 / 0.6 - 0.9 cm IVS Systolic Thickness 1.4 cm LVPW Diastolic Thickness 1.5 cm 0.6 - 1.0 / 0.6 - 0.9 cm LVPW Systolic Thickness 2.2 cm LVOT Diameter 2.0 cm LV Ejection Fraction 2D Teich 78.7 % LV Ejection Fraction MOD 4C 69.5 % LV Ejection Fraction MOD 2C 69.3 % LV Ejection Fraction 2C AL 71.8 % LA Diameter 3.6 cm RA Systolic Volume 4C AL 33.2 ml RA Systolic Volume 4C MOD 30.0 ml LA Sys Volume AL 41.9 cm cubed LA Sys Volume Index AL 24.3 cm cubed/m squared Aorta at Sinotubular Diameter 2.3 cm IVC Diameter 1.5 cm M-MODE LA Ao Ratio MM 1.5 AV Cusp Separation MM 0.9 cm DOPPLER AV Peak Velocity 146.0 cm/s LVOT Peak Velocity 134.0 cm/s AV Area Cont Eq vti 2.9 cm squared AV Area Cont Eq pk 2.9 cm squared MV Peak Velocity 155.0 cm/s MV Area PHT 2.7 cm squared Mitral E to A Ratio 0.9 TV Peak Velocity 254.7 cm/s TR Peak Velocity 320.0 cm/s TR Peak Gradient 41.0 mmHg TR Mean Velocity 264.0 cm/s TR Mean Gradient 29.2 mmHg TR Velocity Time Integral 89.9 cm PV Peak Velocity 92.0 cm/s RV Ejection Time 0.3 s FINDINGS Left Ventricle Left ventricle is normal in size. LV systolic function is normal with EF of 60-65%. No regional wall motion abnormalities are seen Right Ventricle Normal in size and function Right Atrium Normal in size Left Atrium Normal in size Mitral Valve Moderate mitral annular calcification. Mild mitral regurgitation. Mild mitral stenosis with mean gradient of 4.3 mmHg. Aortic Valve Aortic valve is thickened. No significant stenosis or regurgitation. Tricuspid Valve Mild tricuspid regurgitation. Insufficient TR jet to evaluate RVSP Pulmonic Valve Trace pulmonic regurgitation. Pericardium Normal Aorta Normal in size IVC Appears to be normal. CONCLUSIONS LV systolic function is normal with EF of 60-65% Mild mitral regurgitation. Mild mitral stenosis with mean gradient of 4.3 mmHg. Mild tricuspid regurgitation Trace pulmonic regurgitation. Compared to prior echocardiogram from 2022, patient has mild mild stenosis. Ilan Richards MD (Electronically Signed) Final Date: 04 February 2025 11:30 S
[2025-02-03 13:36] LABS: Estmated Average Glucose 180; Hemoglobin A1C 7.9 % (4.0-6.0)
[2025-02-03 13:48] LABS: Chol HDL Ratio 9.31 mg/dL (0.0-4.40); Cholesterol 270 mg/dL (0-200); HDL Cholesterol 29 mg/dL (60-100); LDL Cholesterol Calculated 164 mg/dL (50-129); LDL HDL Ratio 5.66 RATIO (0.00-3.22); Thyroid Stimulating Hormone 1.41 uIU/mL (0.27-4.20); Triglycerides 384 mg/dL (0-150)
[2025-02-03] MEDS: nicotine 21 mg Patch 1 PATCH TRANSDERMA (15:09)
--- NOTE | 2025-02-03 15:43 | ECG_ITS ---
Pythian Test Date: 2025-02-03 Pat Name: Gregoria King Department: Room: 111 Gender: Female C Unix Developer: : 1955 Requested By: Ronel Rodriguez Order Number: [id number] Silvina MD: JOSEPH PETER Measurements Intervals [place] Rate: 68 P: 69 MT: 162 QRS: 69 QRSD: 96 T: 71 QT: 432 QTc: 462 Interpretive Statements SINUS RHYTHM POSSIBLE LEFT ATRIAL ENLARGEMENT [-0.1mV P-WAVE IN V1/V2] SEPTAL MYOCARDIAL INFARCTION , OF INDETERMINATE AGE [40+ ms Q WAVE IN V1/V2] Compared to ECG 02/03/2025 13:23:57 Sinus bradycardia no longer present Myocardial infarct finding still present Electronically Signed On 02-11-2025 21:47:12 CDT by JOSEPH PETER [email or web address] [id number]
[2025-02-03 16:56] LABS: Glucose Point of Care 208 mg/dL (70-110)
[2025-02-03 17:43] LABS: Troponin 5 6HR 31.37 ng/L (0-10)
[2025-02-03 17:44] LABS: Troponin 5 6HR Delta -0.63 ng/L (0-12)
[2025-02-03] MEDS: atorvastatin 40 mg Tablet PO (21:56)
[2025-02-04] VITALS (7 sets, daily range): BP systolic 122–150; BP diastolic 52–72; PULSE 68–79; RESP 13–26; TEMP 36.4–36.8; O2SAT 91–98
[2025-02-04] MEDS: enoxaparin 80 mg/0.8 mL Syringe 70 MG SUBCUT ×2 (00:56→14:31)
[2025-02-04 03:52] LABS: Basophils # 0.1 10^3/uL (0.0-0.1); Basophils % 1.3 %; Eosinophils # 0.4 10^3/uL (0.0-0.8); Eosinophils % 4.6 %; Hematocrit 42.4 % (36-47); Lymphocytes # 2.9 10^3/uL (0.8-4.8); Lymphocytes % 37.6 %; Mean Corpuscular Hemoglobin 29.2 pg (27-33); Mean Corpuscular Volume 88.3 fl (85-98); Mean Platelet Volume 10.3 fL (7.4-10.4); Monocytes # 0.7 10^3/uL (0.2-0.9); Monocytes % 8.5 %; Neutrophils # 3.66 10^3/uL (1.8-7.7); Neutrophils % 47.9 %; Nucleated Red Blood Cells % 0 %; Platelet Count 181 10^3/cmm (157-399); Red Cell Distribution Width 13.2 % (12.1-15.1); White Blood Count 7.65 10^3/uL (3.29-11.43)
[2025-02-04 04:20] LABS: Alanine Aminotransferase 9 U/L (0-33); Albumin Level 3.4 g/dL (3.5-5.2); Alkaline Phosphatase 143 U/L (35-105); Anion Gap 14.1 (5-19); Aspartate Amino Transferase 17 U/L (0-32); Blood Urea Nitrogen 18 mg/dL (8-23); Calcium 9.3 mg/dL (8.5-10.5); Carbon Dioxide 25 mmol/L (22-29); Chloride 102 mmol/L (98-107); Globulin 4.1 g/dL (1.3-4.6); Glomerular Filtration Rate 34.5 mL/min (90-130); Glucose 174 mg/dL (65-115); Osmolality Calculated 290 mOsm/kg (285-295); Potassium 4.1 mmol/L (3.5-5.1); Sodium 137 mmol/L (136-145); Total Bilirubin 0.3 mg/dL (0.15-1.2); Total Protein 7.5 g/dL (6.6-8.7)
[2025-02-04] MEDS: acetaminophen 325 mg Tablet 650 MG PO (04:36)
--- NOTE | 2025-02-04 08:20 | PC.NURSE ---
patient refused to take her insulin per sliding scale. Pt stated, I don't want to take anything that will mess up what i was doing at home. I usually keep me blood sugar under control around 200. I take trulicity once a week. Pt stated to me she just took all her home meds that she has at bedside and refused our meds.
[2025-02-04 08:24] LABS: Glucose Point of Care 167 mg/dL (70-110)
--- NOTE | 2025-02-04 08:27 | PC.NURSE ---
0056- This nurse is educating patient on what lovenox is and why she is receiving medication. Patient pulled out medication from bag and showed this nurse her medications she takes. Per patient she only takes a red bottle OTC supplement to aid in my blood circulation . Patient also showed this nurse her amlodipine and metoprolol. Patient educated to not take medications until they are verified by pharmacy. Patient wants to keep at bedside at this time.
--- NOTE | 2025-02-04 09:58 | PM.CONSULT ---
Providers/Reason For Consult Consulting Physician/Specialty*: Ilan Richards MD/ Cardiology Reason for Consult*: Chest pain Requesting Physician: Dr Retana Attending Physician: Perry Dangelo MD Primary Care Provider: JER Jordan History of Present Illness History of Present Illness Gregoria King is a 69 year old female with past medical history of peripheral artery disease with occluded distal aorta, atrial fibrillation on Eliquis however not using it recently who was seen in [place] emergency room the day before yesterday with chest pain. Was found to be in A-fib with RVR. EKG from today demonstrates A-fib with RVR and heart rate of [address] depressions. Once she converted back to sinus rhythm, chest pain resolved. Came to our emergency room yesterday. Her troponin is mildly elevated but has not trended up significantly. EKG not showing acute ST T wave changes. Review of Systems Card: Reports: chest pain Resp: Denies: dyspnea Medications/Allergies Home Medications ?Medication ?Instructions ?Recorded ?Confirmed ?Last Taken ?Type Diabetic shoes #1 ea 12/11/19 02/03/25 Unknown Rx blood-glucose meter (Accu-Chek #1 ea 07/12/24 02/03/25 Unknown Rx Guide Glucose Meter) lancing device with lancets kit #1 ea 07/12/24 02/03/25 Unknown Rx (Accu-Chek FastClix Lancing Device kit) blood sugar diagnostic (Accu-Chek #100 ea 07/14/24 02/03/25 Unknown Rx Guide test strips) lancets (Accu-Chek Softclix #100 ea 08/20/24 02/03/25 Unknown Rx Lancets) dulaglutide 4.5 mg/0.5 mL 4.5 mg (0.5 mL) SUBCUT Q7D 90 days 09/21/24 02/03/25 01/31/25 Rx subcutaneous pen injector #6.5 mL (Trulicity) apixaban 5 mg tablet (Eliquis) 5 mg PO BID #60 tabs 11/12/24 02/03/25 Unknown Rx amlodipine 5 mg tablet 5 mg PO DAILY #90 tabs 12/13/24 02/03/25 02/03/25 Rx metoprolol tartrate 75 mg tablet 75 mg PO BID #180 tabs 01/03/25 02/03/25 02/03/25 Rx aspirin 81 mg tablet,delayed 81 mg PO DAILY 02/03/25 02/03/25 02/03/25 History release Allergies Allergy/AdvReac Type Severity Reaction Status Date / Time codeine AdvReac nausea Verified 01/09/25 10:21 propoxyphene (From AdvReac Nausea Verified 01/09/25 10:21 Darvocet-N) Current Medications Generic Name Dose Route Start Last Admin Trade Name Freq PRN Reason Stop Dose Admin Acetaminophen 650 mg 02/03/25 13:09 02/04/25 04:36 Acetaminophen 325 Mg Tablet PO 650 mg Q6H PRN Administration Mild/Mod Pain Or Temp >/= 101 Atorvastatin Calcium 40 mg 02/03/25 21:00 02/03/25 21:56 Atorvastatin 40 Mg Tablet PO 40 mg BEDTIME AURELIO Administration Enoxaparin Sodium 70 mg 02/04/25 01:00 02/04/25 00:56 Enoxaparin 80 Mg/0.8 Ml Syringe SUBCUT 70 mg Q12H AURELIO Administration Insulin Human Lispro 0 unit 02/03/25 18:00 02/04/25 08:26 Insulin Lispro 100 Unit/1 Ml SUBCUT Not Given TIDWM AURELIO Protocol Metoprolol Tartrate 75 mg 02/03/25 18:00 02/03/25 17:01 Metoprolol Tartrate 50 Mg Tablet PO Not Given BID AURELIO Nicotine 1 patch 02/03/25 15:00 02/03/25 15:09 Nicotine 21 Mg Patch TRANSDERMA 1 patch DAILY AURELIO Administration PFSH Acute PFSH: Medical History CKD (chronic kidney disease) stage 3, GFR 30-59 ml/min Diabetes History of colon polyps Atherosclerotic heart disease of [place] coronary artery without angina pectoris Carotid artery stenosis, asymptomatic Chronic distal aortic occlusion Chronic headache Hypertension Degeneration of cervical disc without myelopathy Tailor's bunion of both feet Diabetic peripheral neuropathy associated with type 2 diabetes mellitus GERD (gastroesophageal reflux disease) PAD (peripheral artery disease) Sjogren's syndrome with keratoconjunctivitis sicca Mixed hyperlipidemia Surgical History History of esophagogastroduodenoscopy History of appendectomy History of cholecystectomy History of total abdominal hysterectomy and bilateral salpingo-oophorectomy History of colonoscopy with polypectomy History of arterial bypass of lower extremity History of tonsillectomy and adenoidectomy Family History (Updated 02/03/25 @ 13:08 by Perry Dangelo MD) Father Lung disease Cancer lung cancer (smoker) Mother Heart disease Family/Other Diabetes Stroke Grandmother Cancer stomach Other Crohn's disease Denies family history of Colon cancer Ovarian cancer Hypercholesteremia Breast cancer Hypertension Uterine cancer Thyroid disease Social History Smoking and tobacco/nicotine status: former use of tobacco/nicotine Quit status (tobacco/nicotine): has tried quititng Alcohol intake: never Substance/Drug Use: never Household members: other Details: grandson Marital status: / Number of children: 1 Number of grandchildren: 3 Current occupational status: unemployed 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 [] NECK: No jugular vein distension. [] HEENT: No cyanosis. No icterus. No pallor. [] HEART: Regular S1 and S2. No murmur, rub or gallop. [] LUNGS: Clear to auscultate bilaterally. [] CENTRAL NERVOUS SYSTEM: Grossly nonfocal. [] EXTREMITIES: Lower extremities with 1+ edema bilaterally. Data 02/05/25 02:40 02/05/25 02:40 A&P Assessment and plan (1) Elevated troponin: (2) Chest pain: (3) Peripheral vascular disease: (4) Atrial fibrillation: Plan Patient's mild troponin elevation with no significant uptrend is likely secondary to demand ischemia in setting of A-fib with RVR when she was seen in [place] emergency room. However she has risk factors for CAD. We will proceed with stress test to rule out ischemia. Echo shows normal LV systolic function. Mildly increased gradients across mitral valve seen. Thank you for involving us with care of this patient. We will continue to follow. Please call with questions. PDMP PDMP Reviewed: Not Reviewed Consult Attestations Medical Necessity Statement: Care expected to cross 2 midnights. Coding Level of Care Code Acute Code for Chg Fwd Diagnoses Elevated troponin R79.89 Chest pain R07.9 Peripheral vascular disease I73.9 Atrial fibrillation I48.91
[2025-02-04 11:03] LABS: Reticulocyte % 1.1 % (0.5-2.0)
[2025-02-04 11:19] LABS: Ferritin 115 ng/mL (15-150); Iron 52 ug/dL (37-145); Percent Saturation 24.2 % (20-50); Total Iron Binding Capacity 214 mcg/dl; Unsaturated Iron Binding 162 ug/dL (112-347)
[2025-02-04 11:23] LABS: HIV 1 & 2 Antibody Non-Reactive (Non-Reactiv); HIV 1 & 2 Antigen Non-Reactive (Non-Reactiv)
[2025-02-04 11:39] LABS: Hepatitis A Antibody IgM Non-Reactive (Nonreactive); Hepatitis B Core IgM Non-Reactive (Nonreactive); Hepatitis B Surface Antigen Non-Reactive (Nonreactive); Hepatitis C Virus Antibody Non-Reactive (Nonreactive)
[2025-02-04 11:49] LABS: Glucose Point of Care 261 mg/dL (70-110)
--- NOTE | 2025-02-04 11:59 | ECG_ITS ---
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 Interpretive Statements Lung unchanged pre/post procedure; Intraprocedure shortess of breath; Symptoms resoled by discharge [id number] [id number]
[2025-02-04 16:26] LABS: Glucose Point of Care 225 mg/dL (70-110)
--- NOTE | 2025-02-04 16:43 | PC.NURSE ---
pt refused IV doxucycline. Notified Dr Lisa on pt's refusal on iv doxycycline. Ask if she can transition now to oral. said yes. Awaiting for his orders.
--- NOTE | 2025-02-04 17:54 | PC.NURSE ---
home meds Pt's pill bottles from home are labeled now from our pharmacy. Dr Dangelo notified on them and he is okay to let pt take her own home meds that are labeled. Dr Dangelo is aware that pt has been refusing her insulin.
[2025-02-04] MEDS: atorvastatin 40 mg Tablet PO (21:15)
[2025-02-04] MEDS: trazodone 50 mg Tablet PO (22:45)
[2025-02-05] VITALS: BP 127/53; PULSE 67; RESP 21; TEMP 36.7; O2SAT 96
[2025-02-05] MEDS: enoxaparin 80 mg/0.8 mL Syringe 70 MG SUBCUT (00:37)
[2025-02-05 03:22] LABS: Basophils # 0.1 10^3/uL (0.0-0.1); Basophils % 1.1 %; Eosinophils # 0.3 10^3/uL (0.0-0.8); Hematocrit 41.1 % (36-47); Lymphocytes # 2.5 10^3/uL (0.8-4.8); Lymphocytes % 39.9 %; Mean Corpuscular HGB Conc 32.4 g/dL (30-55); Mean Corpuscular Hemoglobin 29.2 pg (27-33); Mean Corpuscular Volume 90.3 fl (85-98); Mean Platelet Volume 10.6 fL (7.4-10.4); Monocytes # 0.8 10^3/uL (0.2-0.9); Monocytes % 12.1 %; Neutrophils # 2.64 10^3/uL (1.8-7.7); Neutrophils % 42.6 %; Nucleated Red Blood Cells % 0 %; Platelet Count 189 10^3/cmm (157-399); Red Blood Count 4.55 10^6/uL (3.85-5.65); Red Cell Distribution Width 13.2 % (12.1-15.1); White Blood Count 6.21 10^3/uL (3.29-11.43)
[2025-02-05 03:46] LABS: Alanine Aminotransferase 14 U/L (0-33); Albumin Level 3.2 g/dL (3.5-5.2); Alkaline Phosphatase 135 U/L (35-105); Blood Urea Nitrogen 15 mg/dL (8-23); Carbon Dioxide 24 mmol/L (22-29); Chloride 102 mmol/L (98-107); Globulin 3.9 g/dL (1.3-4.6); Glomerular Filtration Rate 37.4 mL/min (90-130); Glucose 173 mg/dL (65-115); Osmolality Calculated 287 mOsm/kg (285-295); Sodium 136 mmol/L (136-145); Total Bilirubin 0.3 mg/dL (0.15-1.2); Total Protein 7.1 g/dL (6.6-8.7)
[2025-02-05 03:50] LABS: Anion Gap 13.6 (5-19); Aspartate Amino Transferase 18 U/L (0-32); Potassium 3.6 mmol/L (3.5-5.1)
[2025-02-05 04:00] VITALS: BP 136/63; PULSE 63; RESP 18; TEMP 36.3; O2SAT 95
[2025-02-05 06:00] VITALS: PULSE 71
[2025-02-05 06:31] LABS: Glucose Point of Care 150 mg/dL (70-110)
[2025-02-05] MEDS: regadenoson 0.4 Mg/5 ml Syringe IVP (06:58)
[2025-02-05] MEDS: ondansetron 2 mg/ML SDV 2 mL 4 MG IVP (07:05)
[2025-02-05 07:12] VITALS: BP 141/80; PULSE 80
[2025-02-05 08:00] VITALS: BP 137/71; PULSE 52; RESP 18; TEMP 36.6; O2SAT 100
[2025-02-05] MEDS: ASPIRIN 81 MG TAB 1 EACH PO (08:18)
[2025-02-05] MEDS: nicotine 21 mg Patch 1 PATCH TRANSDERMA (08:20)
--- NOTE | 2025-02-05 10:55 | P.PN_ITS ---
<Statement entered by Ilan Richards M.D - 02/06/25 12:06> Patient was cared for in conjunction with an advanced practice practitioner.? I reviewed the chart and all pertinent data including imaging, telemetry, and laboratory results.? I discussed the patient in detail with the advanced practice practitioner.? Please see? their note for progress note, testing results and agreed upon plan of care for the patient. Subjective 2 Subjective: Patient denies any chest pain or shortness of breath. She had her stress test this morning Vitals/I&O/Wt Last Vital Signs Temp 97.9 F 02/05/25 08:00 Pulse 52 L 02/05/25 08:00 Resp 18 02/05/25 08:00 BP 137/71 02/05/25 08:00 Pulse Ox 100 02/05/25 08:00 O2 Del Method Room Air 02/05/25 08:00 02/04/25 02/05/25 02/05/25 22:59 06:59 14:59 Intake Total 118 / 714 240 / 240 Balance 118 / 714 240 / 240 Weight last 48 hrs Weight 150 lb 9.6 oz Weight 147 lb 14.4 oz Physical Exam 2 Narrative: General: No apparent distress, healthy appearing, well nourished HENMT: normoceophalic Lymphatic: no lymphedema noted Respiratory: Normal respiratory effort, clear to auscultation bilaterally throughout all lung nieto, no use of accessory muscles Cardio: No JVD, regular rate, regular rhythm, S1 S2 normal, no murmurs, peripheral pulses 2+ radial palpated bilaterally GI: Normal to inspection, nondistended Extremities: Full ROM, normal, normal capillary refill, no cyanosis or edema Neuro: Alert and oriented x4, no focal motor deficits Psych: Affect normal, denies suicidal ideation, mental status grossly normal Skin: No rashes or lesions noted, no wounds Data 02/05/25 02:40 02/05/25 02:40 A&P Assessment and plan (1) Elevated troponin: (2) Chest pain: (3) Peripheral vascular disease: (4) Atrial fibrillation: Plan Patient stress test was normal. From a heart perspective may be discharged home with follow-up in 1 week on current medications as well as her home Eliquis 5 twice daily. PDMP PDMP Reviewed: Not Reviewed Attestations 2 Medical Necessity Statement*: May be discharged from cardiology standpoint Coding Level of Care Code Acute Code for Chg Fwd Diagnoses Elevated troponin R79.89 Chest pain R07.9 Peripheral vascular disease I73.9 Atrial fibrillation I48.91
--- NOTE | 2025-02-05 11:28 | PC.SOCIAL ---
IMM Update pg 2 of IMM updated and reviewed w/ patient. Copy provided and copy dated, initialed and placed in chart.
--- NOTE | 2025-02-05 11:59 | NMCV_ITS ---
NM sharri perf SPECT r/s* [id number] Gregoria King Age: 69 Gender: F : 1955 Exam Date: 02/05/2025 06:24 Ordering Phys: Perry Dangelo MD Technologist: JULIANA Jordan Exam Location: [facility] Indications: cp STRESS TEST Please see separate stress test report in [facility] for full findings IMAGE PROTOCOL Rest/Stress 1 Lexiscan Day Radiopharmaceutical Dose (mCi) Administration Site Administered by Rest: Tc-99m 11 IV Michalea Bloom, LAND DEGRADATION ANALYST Sestamibi Stress:Tc-99m 32.6 IV Michaela Raymondgle, LAND DEGRADATION ANALYST Sestamibi Rest: 05-Feb-2025 60 Discovery 630 Stress: 05-Feb-2025 30 Discovery 630 0.4mg Lexiscan. Supine position only as patient was unable to lay prone. SPECT RESULTS Technical Quality: Good Raw Data Analysis: Normal Image Corrections: No attenuation or motion correction applied Summed Stress Score: 0 Summed Rest Score: 0 Summed Difference Score: 0 PERFUSION FINDINGS SPECT images demonstrate homogeneous tracer distribution throughout the myocardium. FUNCTIONAL RESULTS (calculated via Gated SPECT) Stress Image LV EF (%): 72 Stress EDV (mL):64 TID: 1.79 Stress ESV (mL):18 FUNCTIONAL FINDINGS: There is normal left ventricular systolic function. TID ratio is elevated IMPRESSIONS 1. Normal myocardial perfusion imaging with no evidence of ischemia 2. LV systolic function is normal 3. TID ratio is elevated. In absence of significant perfusion abnormality, significance of this finding is equivocal. Ilan Richards MD (Electronically Signed) Final Date: 05 February 2025 08:32 S
[2025-02-05 12:00] VITALS: BP 134/64; PULSE 51; RESP 18; TEMP 36.5; O2SAT 100
[2025-02-05 12:02] LABS: Glucose Point of Care 177 mg/dL (70-110)
--- NOTE | 2025-02-05 12:47 | PC.NURSE ---
patient is refusing humalog. physician notified.
--- NOTE | 2025-02-05 12:58 | P.DS_ITS ---
Discharge Providers Date of Admission: 02/03/25 11:53 Date of Discharge: February 05, 2025 Attending Provider at Admission: Perry Dangelo MD Attending Provider at Discharge: Perry Dangelo MD Primary Care Provider: JER Jordan Diagnoses at Discharge Discharge Diagnosis (1) Elevated troponin: Status: Acute (2) Chest pain: Status: Resolved (3) Peripheral vascular disease: Status: Acute (4) Atrial fibrillation: Status: Acute Reason for Visit Reason for Visit: high heart rate Hospital Course Hospital Course Gregoria King is a 69 year old female with a past medical history of atrial fibrillation, on Eliquis therapy, history of peripheral vascular disease, with plans on peripheral angiogram on 12 February, type 2 diabetes mellitus, who presents [facility] for chest pain. Patient reports chest pain, no diaphoresis, nonradiating, that comes and goes, no lightheadedness, no dizziness, anterior chest, she was seen at [facility], she is found to have an elevated troponin of 25 with a delta of 19, EKG had no reported acute ST-T wave changes, CTA chest abdomen pelvis no pulm embolism, but did show evidence of cirrhotic liver morphology, with upper gastric varices, it was recommended for her to be transferred to [facility] for cardiac evaluation however patient declined, she arrived in the ER on her own after taking care of her dogs at home, she arrives in the emergency room, currently chest pain-free, 120-minute troponin 33.63, BNP over 1800, she tells me that she does not have any lower extremity pain, no pulselessness, no pallor, Patient was admitted to [facility] for chest pain, cardiology was consulted, underwent testing as below CONCLUSIONS LV systolic function is normal with EF of 60-65% Mild mitral regurgitation. Mild mitral stenosis with mean gradient of 4.3 mmHg. Mild tricuspid regurgitation Trace pulmonic regurgitation. Compared to prior echocardiogram from 2022, patient has mild mild stenosis. Cardiac stress test IMPRESSIONS 1. Normal myocardial perfusion imaging with no evidence of ischemia 2. LV systolic function is normal 3. TID ratio is elevated. In absence of significant perfusion abnormality, significance of this finding is equivocal. -She remains chest pain-free -Please follow-up with cardiology as outpatient -If any recurrent chest pain please go to emergency room During her admission, imaging from [facility] was reviewed, she has evidence of liver cirrhosis on CT imaging, also evidence of gastric varices. She denies any hemoptysis, no bloody or black stools, no history of alcoholism. Her ferritin was within normal limits, acute hep panel was within normal limits, she does have a a lupus-like rash on bilateral Buccae, MARK panel ordered, she has a appointment with GI physician at [facility] next month. Please follow- up with gastroenterology for consideration of liver biopsy. Patient also has peripheral vascular disease, is supposed to have a peripheral angiogram on February 12, clinically there is no significant evidence of acute limb ischemia. On discharge no significant evidence of acute limb ischemia, no pain, no pulselessness, no pallor, no poikilothermia. Discussed with patient if she does develop any acute symptoms of limb ischemia to immediately call 911, Physical Exam Const: COMMON NORMALS: no acute distress and patient oriented x3 Resp: COMMON NORMALS: normal respiratory effort, No retractions, No use of accessory muscles and clear to auscultation bilaterally AUSCULTATION: clear to auscultation bilaterally Cardio: COMMON NORMALS: regular rate, regular rhythm, S1 normal heart sound present and S2 normal heart sound present RATE: regular rate RHYTHM: regular rhythm HEART SOUNDS: S1 normal heart sound present and S2 normal heart sound present GI: COMMON NORMALS: Normal to inspection, nondistended, normoactive bowel sounds present and non-tender Extremity: COMMON NORMALS: no pedal edema Neuro: COMMON NORMALS: patient oriented x3 Psych: COMMON NORMALS: mental status grossly normal Discharge Data Studies Completed and Pending Completed Studies During Hospitalization Category Date Time Status Sestamibi Stress Test Request Routine Exams 02/04/25 11:59 Draft XR chest 1V portable [id number] Stat Exams 02/03/25 10:07 Completed NM sharri perf SPECT r/s* [id number] Routine Nuc Med 02/05/25 11:59 Completed CV. echo complete* [id number] Routine Ultrasound 02/03/25 13:09 Completed Pending at discharge Category Date Time Status MARK Profile Rheumatology Stat Lab 02/04/25 10:32 Received Complete Blood Count w/Auto AM LABS Lab 02/06/25 04:00 Ordered Comprehensive Metabolic Panel AM LABS Lab 02/06/25 04:00 Ordered Radiology Impressions Chest X-Ray 02/03/25 10:07 IMPRESSION: No acute findings. Laboratory Results WBC 6.21 10^3/uL (3.29-11.43) 02/05/25 02:40 RBC 4.55 10^6/uL (3.85-5.65) 02/05/25 02:40 Hgb 13.30 g/dL (11.27-16.99) 02/05/25 02:40 Hct 41.1 % (36-47) 02/05/25 02:40 MCV 90.3 fl (85-98) 02/05/25 02:40 MCH 29.2 pg (27-33) 02/05/25 02:40 MCHC 32.4 g/dL (30-55) 02/05/25 02:40 RDW 13.2 % (12.1-15.1) 02/05/25 02:40 Plt Count 189 10^3/cmm (157-399) 02/05/25 02:40 MPV 10.6 fL (7.4-10.4) H 02/05/25 02:40 Neut % (Auto) 42.6 % 02/05/25 02:40 Lymph % (Auto) 39.9 % 02/05/25 02:40 Frontier % (Auto) 12.1 % 02/05/25 02:40 Eos % (Auto) 4.0 % 02/05/25 02:40 Baso % (Auto) 1.1 % 02/05/25 02:40 Reticulocyte % (Auto) 1.1 % (0.5-2.0) 02/04/25 03:42 Neut # (Auto) 2.64 10^3/uL (1.8-7.7) 02/05/25 02:40 Lymph # (Auto) 2.5 10^3/uL (0.8-4.8) 02/05/25 02:40 Frontier # (Auto) 0.8 10^3/uL (0.2-0.9) 02/05/25 02:40 Eos # (Auto) 0.3 10^3/uL (0.0-0.8) 02/05/25 02:40 Baso # (Auto) 0.1 10^3/uL (0.0-0.1) 02/05/25 02:40 Nucleated RBC % (auto) 0 % 02/05/25 02:40 Nucleated RBCs # 0.0 /100WBC 02/05/25 02:40 Sodium 136 mmol/L (136-145) 02/05/25 02:40 Potassium 3.6 mmol/L (3.5-5.1) 02/05/25 02:40 Chloride 102 mmol/L (98-107) 02/05/25 02:40 Carbon Dioxide 24 mmol/L (22-29) 02/05/25 02:40 Anion Gap 13.6 (5-19) 02/05/25 02:40 BUN 15 mg/dL (8-23) 02/05/25 02:40 Creatinine 1.4 mg/dL (0.5-0.9) H 02/05/25 02:40 GFR Calculation 37.4 mL/min (90-130) L 02/05/25 02:40 Glucose 173 mg/dL (65-115) H 02/05/25 02:40 POC Glucose 177 mg/dL (70-110) H 02/05/25 11:04 Estimat Average Glucose 180 02/03/25 10:22 Hemoglobin A1c 7.9 % (4.0-6.0) H 02/03/25 10:22 Calculated Osmolality 287 mOsm/kg (285-295) 02/05/25 02:40 Calcium 9.0 mg/dL (8.5-10.5) 02/05/25 02:40 Iron 52 ug/dL (37-145) 02/04/25 03:42 TIBC 214 mcg/dl 02/04/25 03:42 % Saturation 24.2 % (20-50) 02/04/25 03:42 Unsat Iron Binding 162 ug/dL (112-347) 02/04/25 03:42 Ferritin 115 ng/mL (15-150) 02/04/25 03:42 Total Bilirubin 0.3 mg/dL (0.15-1.2) 02/05/25 02:40 AST 18 U/L (0-32) 02/05/25 02:40 ALT 14 U/L (0-33) 02/05/25 02:40 Alkaline Phosphatase 135 U/L (35-105) H 02/05/25 02:40 Troponin T Baseline 32 ng/L (0-10) H 02/03/25 10:22 Troponin T 120 Minute 33.63 ng/L (0-10) H 02/03/25 12:15 Delta Troponin T 1.63 ABS# (0-10) 02/03/25 12:15 Troponin T Hi Sens 6Hr 31.37 ng/L (0-10) H 02/03/25 17:15 Troponin T Hi Sens 6Hr Delta -0.63 ng/L (0-12) L 02/03/25 17:15 NT-Pro-B Natriuret Pep 1889 pg/mL (0-125) H 02/03/25 10:22 Total Protein 7.1 g/dL (6.6-8.7) 02/05/25 02:40 Albumin 3.2 g/dL (3.5-5.2) L 02/05/25 02:40 Globulin 3.9 g/dL (1.3-4.6) 02/05/25 02:40 Triglycerides 384 mg/dL (0-150) H 02/03/25 10:22 Cholesterol 270 mg/dL (0-200) H 02/03/25 10:22 LDL Cholesterol, Calc 164 mg/dL (50-129) H 02/03/25 10:22 HDL Cholesterol 29 mg/dL (60-100) L 02/03/25 10:22 LDL/HDL Ratio 5.66 RATIO (0.00-3.22) H 02/03/25 10:22 Cholesterol/HDL Ratio 9.31 mg/dL (0.0-4.40) H 02/03/25 10:22 TSH 1.41 uIU/mL (0.27-4.20) 02/03/25 10:22 Hepatitis A IgM Ab Non-reactive (Nonreactive) 02/04/25 03:42 Hep Bs Antigen Non-reactive (Nonreactive) 02/04/25 03:42 Hep B Core IgM Ab Non-reactive (Nonreactive) 02/04/25 03:42 Hepatitis C Antibody Non-reactive (Nonreactive) 02/04/25 03:42 HIV 1&2 Ab & HIV 1 Ag Non-reactive (Non-Reactiv) 02/04/25 03:42 HIV 1&2 Antibody Non-reactive (Non-Reactiv) 02/04/25 03:42 Influenza A (PCR) Negative (Negative) 02/03/25 11:13 Influenza Type B (PCR) Negative (Negative) 02/03/25 11:13 RSV (PCR) Negative (Negative) 02/03/25 11:13 SARS-CoV-2 (PCR) Negative (Negative) 02/03/25 11:13 Vitals Last Vital Signs Temp 97.7 F 02/05/25 12:00 Pulse 51 L 02/05/25 12:00 Resp 18 02/05/25 12:00 BP 134/64 02/05/25 12:00 Pulse Ox 100 02/05/25 12:00 O2 Del Method Room Air 02/05/25 12:00 Discharge Plan Discharge Patient Disposition: Home Condition: Stable Prescriptions: New nitroglycerin 0.4 mg Tablet, Sublingual 0.4 mg sublingual Q5M PRN (Reason: Chest Pain) 30 Days Qty: 30 0RF atorvastatin 40 mg Tablet 40 mg PO BEDTIME 30 Days Qty: 30 0RF Continued (DME) Diabetic shoes Qty: 1 0RF Rx Instructions: As directed (DME) blood-glucose meter [Accu-Chek Guide Glucose Meter] Misc See Rx Instructions .Route Qty: 1 0RF Rx Instructions: please provide insurance preference (DME) lancing device with lancets [Accu-Chek FastClix Lancing Dev] Kit See Rx Instructions .Route Qty: 1 0RF Rx Instructions: please provide insurance preference (DME) Accu-Chek Guide test strips Strip See Rx Instructions .Route Qty: 100 2RF Rx Instructions: check blood sugar tidac and hs (DME) lancets [Accu-Chek Softclix Lancets] Misc See Rx Instructions .Route Qty: 100 0RF Rx Instructions: As directed Trulicity 4.5 mg/0.5 mL pen injector 4.5 mg SUBCUT Q7D 90 Days Qty: 6.5 1RF Rx Instructions: Wednesday amlodipine 5 mg tablet 5 mg PO DAILY Qty: 90 3RF metoprolol tartrate 75 mg tablet 75 mg PO BID Qty: 180 3RF Eliquis 5 mg tablet 5 mg PO BID Qty: 60 2RF aspirin [Aspir-81] 81 mg Tablet,Delayed Release (Dr/Ec) 81 mg PO DAILY Discharge Orders: Discharge Order (Routine); Ordered 02/05/25 Ordered By: Perry Dangelo Referrals: Woodbridge,Jolene, PROSTHETICS LAB TECHNICIAN [Nurse Practitioner] - 02/21/25 8:30 am Winchetser,Juliette PROSTHETICS LAB TECHNICIAN [Primary Care Provider] - 02/09/25 1:30 pm Discharge Diet: Cardiac Discharge Activity: Resume usual activity Patient Instructions: Nitroglycerin (By mouth), Atorvastatin (By mouth) (Lipitor, Atorvaliq), A-fib (Atrial Fibrillation) (DC), Peripheral Vascular Disease (DC), Opioid Safety Activity Restrictions/Additional Instructions: - Please follow-up with your GI physician in [place] -Your CT scan shows evidence of liver cirrhosis, and gastric varices, -AST 18, ALT 14, alk phos 135, albumin 3.2, INR 0.9, bili 0.3 -Your acute hepatitis panel was negative, your ferritin was within normal limits -I have ordered an acute lupus panel which is pending on discharge -Other causes could be fatty liver disease -Please keep up with your appointment GI physician in [place] for con sideration of liver biopsy -Please abstain from alcohol use -If you have recurrent chest pain please go to emergency room -Please follow-up February 12 for your peripheral angiogram Discharge Attestations Time Spent in Discharge Care*: greater than 30 min Quality Metrics Clinical Quality Measures [ No reported AMI, CVA or VTE this stay] Coding Level of Care Code 57352 Total time (in minutes) for Discharge: 45 Diagnoses Elevated troponin R79.89 Chest pain R07.9 Peripheral vascular disease I73.9 Atrial fibrillation I48.91
--- NOTE | 2025-02-05 13:14 | P.PN_ITS ---
Subjective 2 Subjective: This is a progress note from 02/04/2025, patient denies any chest pain overnight, denies any history of alcoholism, no history of hepatitis C, denies a history of fatty liver disease, she does have a rash on bilateral cheeks, we discussed her CT scan findings from [facility] with evidence of liver cirrhosis,, gastric varices, denies any blood or black stools, no hemoptysis, hematemesis, discussed morbidity mortality associated. She has an appointment with GI physician at [facility] in about a month, discuss stress testing tomorrow, she is in agreement denies any lower extremity pain, Vitals/I&O/Wt Last Vital Signs Temp 97.7 F 02/05/25 12:00 Pulse 51 L 02/05/25 12:00 Resp 18 02/05/25 12:00 BP 134/64 02/05/25 12:00 Pulse Ox 100 02/05/25 12:00 O2 Del Method Room Air 02/05/25 12:00 02/04/25 02/05/25 02/05/25 22:59 06:59 14:59 Intake Total 118 / 714 240 / 240 Balance 118 / 714 240 / 240 Weight last 48 hrs Weight 68.311 kg Weight 67.086 kg Physical Exam 2 Const: COMMON NORMALS: no acute distress and patient oriented x3 Resp: COMMON NORMALS: normal respiratory effort, No retractions, No use of accessory muscles and clear to auscultation bilaterally AUSCULTATION: clear to auscultation bilaterally Cardio: COMMON NORMALS: regular rate, regular rhythm, S1 normal heart sound present and S2 normal heart sound present RATE: regular rate RHYTHM: r egular rhythm HEART SOUNDS: S1 normal heart sound present and S2 normal heart sound present GI: COMMON NORMALS: Normal to inspection, nondistended, normoactive bowel sounds present and non-tender Extremity: COMMON NORMALS: no pedal edema Neuro: COMMON NORMALS: patient oriented x3 Psych: COMMON NORMALS: mental status grossly normal Skin: NARRATIVE SKIN EXAM: Bilateral extremities DP PT pulses palpable, no skin changes, no pallor Data 02/05/25 02:40 02/05/25 02:40 A&P Assessment and plan (1) Elevated troponin: (2) Chest pain: (3) Peripheral vascular disease: Plan Chest pain -Serial EKGs, serial troponins, telemetry monitoring Plan -Aspirin, statin, beta-michelle -Therapeutic Lovenox -Cardiac echo -Cardiology consulted -N.p.o. midnight for cardiac stress test tomorrow Peripheral vascular disease, with plans on peripheral angiogram as outpatient, no current evidence of acute limb ischemia -Continue to monitor pulse ox closely -Anticoagulation, and aspirin as above Type 2 diabetes mellitus, low-dose Lantus, Atrial fibrillation PDMP PDMP Reviewed: Not Reviewed Attestations 2 Medical Necessity Statement*: Patient requires hospitalization for chest pain Diagnoses Elevated troponin R79.89 Chest pain R07.9 Peripheral vascular disease I73.9
[2025-02-05 15:54] LABS: COMPLEMENT COMPONENT C3C 117 mg/dL (83-193); COMPLEMENT COMPONENT C4C 17 mg/dL (15-57); COMPLEMENT, TOTAL (CH50) >60 U/mL (31-60)
[2025-02-06 03:31] LABS: CENTROMERE B ANTIBODY <1.0 NEG AI (<1.0 NEG); JO-1 ANTIBODY <1.0 NEG AI (<1.0 NEG); SCL-70 ANTIBODY <1.0 NEG AI (<1.0 NEG); SJOGREN'S ANTIBODY (SS-A) >8.0 POS AI (<1.0 NEG); SM ANTIBODY <1.0 NEG AI (<1.0 NEG); SS-B <1.0 NEG AI (<1.0 NEG)
[2025-02-07 10:00] LABS: THYROID PEROXIDASE ANTIBODIES 212 IU/mL (<9)
[2025-02-07 11:43] LABS: ANA PATTERN Nuclear, Homogeneous; ANA SCREEN, IFA POSITIVE (NEGATIVE)
[2025-02-09 02:05] LABS: DNA AB (DS) CRITHIDIA,IFA NEGATIVE (NEGATIVE)
== END 2025-02-05 13:17 | disposition home or self-care (01) | DRG 313 ==
LOC: ER 11:37 → CSU 12:13
PROVIDERS: Admitting Provider Family Medicine; Emergency Provider Emergency Medicine; PCP Nurse Practitioner Family; Visit Provider Family Medicine
DX: R07.9 Chest pain, unspecified (principal); I24.89 Other forms of acute ischemic heart disease; E11.51 Type 2 diabetes mellitus with diabetic peripheral angiopathy without gangrene; E11.22 Type 2 diabetes mellitus with diabetic chronic kidney disease; I12.9 Hypertensive chronic kidney disease with stage 1 through stage 4 chronic kidney disease, or unspecified chronic kidney disease; E11.40 Type 2 diabetes mellitus with diabetic neuropathy, unspecified; N18.9 Chronic kidney disease, unspecified; I48.91 Unspecified atrial fibrillation; K74.60 Unspecified cirrhosis of liver; F17.210 Nicotine dependence, cigarettes, uncomplicated; I25.10 Atherosclerotic heart disease of native coronary artery without angina pectoris; I65.29 Occlusion and stenosis of unspecified carotid artery; K21.9 Gastro-esophageal reflux disease without esophagitis; M35.01 Sjogren syndrome with keratoconjunctivitis; E78.2 Mixed hyperlipidemia; I86.4 Gastric varices; Z79.01 Long term (current) use of anticoagulants; Z79.82 Long term (current) use of aspirin; Z86.0100 Personal history of colon polyps, unspecified
CPT/HCPCS: 36415; 36416; 71045; 78452; 80053; 80061; 80074; 82728; 82962; 83036; 83540; 83550; 83880; 84443; 84484; 85025; 85045; 86160; 86162; 86235; 86255; 86376; 87637; 87806; 93005; 93017; 93306; 94664; 96372; 96375; 99285; A9500; J1650; J2405; J2785; J9999

== ENCOUNTER 2025-02-07 07:46 | Outpatient (CLI) | payer MEDICARE, OTHER, SELFPAY | END 2025-02-07 07:47 | disposition home or self-care (01) | LOC: LAB 07:48 | PROVIDERS: PCP Nurse Practitioner Family; Visit Provider Internal Medicine | DX: E11.9 Type 2 diabetes mellitus without complications (principal); E78.2 Mixed hyperlipidemia | CPT/HCPCS: 36415; 80053; 80061; 82044; 83036 ==

== ENCOUNTER 2025-02-09 09:19 | Outpatient (CLI) | payer MEDICARE, OTHER, SELFPAY ==
[2025-02-07 08:30] LABS: Estmated Average Glucose 180; Hemoglobin A1C 7.9 % (4.0-6.0)
[2025-02-07 08:36] LABS: Alanine Aminotransferase 12 U/L (0-33); Albumin Level 3.8 g/dL (3.5-5.2); Alkaline Phosphatase 146 U/L (35-105); Anion Gap 13.9 (5-19); Aspartate Amino Transferase 22 U/L (0-32); Blood Urea Nitrogen 12 mg/dL (8-23); Calcium 9.5 mg/dL (8.5-10.5); Carbon Dioxide 26 mmol/L (22-29); Chloride 99 mmol/L (98-107); Cholesterol 231 mg/dL (0-200); Globulin 4.3 g/dL (1.3-4.6); Glomerular Filtration Rate 37.4 mL/min (90-130); Glucose 221 mg/dL (65-115); HDL Cholesterol 30 mg/dL (60-100); LDL Cholesterol Calculated 127 mg/dL (50-129); LDL HDL Ratio 4.23 RATIO (0.00-3.22); Osmolality Calculated 287 mOsm/kg (285-295); Potassium 3.9 mmol/L (3.5-5.1); Sodium 135 mmol/L (136-145); Total Bilirubin 0.4 mg/dL (0.15-1.2); Total Protein 8.1 g/dL (6.6-8.7); Triglycerides 370 mg/dL (0-150)
[2025-02-07 08:40] LABS: Creatinine Urine, Random 54 mg/dL (28-217); Microalbumin Random Urine 15 ug/dL (0-20)
[2025-02-07 08:46] LABS: Microalbum Creatinine Ratio Ur 278 mg/dL (0-20)
--- NOTE | 2025-02-09 09:23 | CT_ITS ---
WS: [id number] LDCT LUNG CANCER SCREENING HISTORY: NICOTINE DEPENDENCE,CIGARETTES TECHNIQUE: Axial imaging performed from the apices to 1 cm below the costophrenic angles. Coronal and sagittal reformats are submitted with axial MIP series. All CT scans at [facility] use at least one of these dose optimization techniques: automated exposure control; mA and/or kV adjustment per patient size (includes targeted exams where dose is matched to clinical indication); or iterative reconstruction. DLP: 56.70 mGy.cm DIvol: Mean CTDIvol: 1.10 (mGy) COMPARISON: 11/12/2024, 04/07/2023 Diagnostic quality: Satisfactory Lungs: No pulmonary mass or nodule. Small cyst LEFT lower lobe. No endobronchial lesions. Heart: Normal size heart with no pericardial effusion.. Extensive coronary artery calcifications. Other findings: Marked atherosclerosis thoracic aorta and suprarenal aorta. No adenopathy. Small hiatal hernia. Prior cholecystectomy. No adrenal mass. CT/CT lung screening [id number] IMPRESSION: LUNG-RADS: 1-Negative FOLLOW UP: 12 Month: Continue annual screening with LDCT OTHER FINDINGS (S MODIFIER): None.
== END 2025-02-09 09:20 | disposition home or self-care (01) ==
PROVIDERS: Internal Medicine; PCP Nurse Practitioner Family; Visit Provider Nurse Practitioner Family
DX: Z12.2 Encounter for screening for malignant neoplasm of respiratory organs (principal); F17.210 Nicotine dependence, cigarettes, uncomplicated; J98.4 Other disorders of lung; I25.10 Atherosclerotic heart disease of native coronary artery without angina pectoris; I70.0 Atherosclerosis of aorta; K44.9 Diaphragmatic hernia without obstruction or gangrene; Z90.49 Acquired absence of other specified parts of digestive tract
CPT/HCPCS: 36415; 71271; 80053; 80061; 82044; 83036

== ENCOUNTER 2025-02-12 05:26 | Outpatient (CLI) | payer MEDICARE, OTHER, SELFPAY ==
[2025-02-12] VITALS (12 sets, daily range): BP systolic 137–168; BP diastolic 59–105; PULSE 62–66; RESP 13–16; TEMP 36.8; O2SAT 91–97; BMI 26.9
--- NOTE | 2025-02-12 05:31 | XACV_ITS ---
Ht: 157 cm Wt: 67 kg BSA: 1.73 m2 Any Known Allergies: Other Gender: Female : 1955 Exam Type: Invasive Peripheral Vascular Procedure(s): Procedure Description: Peripheral Cath Diagnostic Procedure Procedure Description: Iliac arterial aortic angiography Exam Priority: Routine [id number], Villarreal; Conclusions Indication for peripheral angiogram: Bilateral lifestyle limiting claudication Catheters used: Radial 6 Nepali short sheath. Pigtail catheterAbdominal aortogram: Through left radial approach long pigtail catheter was parked at the level of renal arteries peripheral angiogram was performed via abdominal aortogram and runoff Abdominal aorta: 100% chronically occluded in the midsegment soon after giving right and left renal arteriesRight renal artery: Patent Left renal artery: PatentRight common iliac: Chronically occluded Right external iliac: Chronically occluded Right internal iliac: Chronically occluded Right common femoral artery: Chronically occluded Right profundofemoral artery: Chronically occluded Right SFA: Not well-visualized due to running out of contrast Right popliteal artery: Not well-visualized: Not evaluated Right tibioperoneal trunk: Normal valvular Right anterior tibial artery: Not very Right anterior tibial artery: Not well-visualized Right peroneal artery: Not well-visualized due to running out of contrast Please refer to CT angiogram with abdominal runoff for further detailLeft common iliac artery: Chronically occluded Left external iliac artery: Chronically Left internal iliac artery: Chronically Left common femoral artery: Chronically occluded Left profundofemoral artery: Patent Left SFA artery: Patent proximal to mid segment beyond that due to running out of contrast may not be visualized Left popliteal artery: Not well-visualized Left tibioperoneal artery: Not measured Left anterior tibial artery: Not readily Left posterior tibial artery: Not well-visualized Left peroneal arteryFor iliac common femoral femoral profundofemoral popliteal and below the knee arteries review CT angiogram with runoff in the [facility]. Recommendations 1-Return to recovery for close monitoring and routine PCI care 2-Refer to vascular surgery to consider bypass graft 3-Statin with LDL goal of 70 mg/dl, aspirin 81 mg p.o. daily for life long 4-CTA with runoff in the [facility] to assess the anatomy in both legs and below the knee should be considered since timing out of contrast from radial to abdominal aorta may have not revealed accurate angiogram in both lower extremity 5-Optimal medical management for AR 6-Follow up with Dr. Villarreal in four weeks and establish care with primary care physician. Hemodynamic Data Phase:Rest AO : 137.0 / 64.0 ( 93.0 ) @ 9:22:00 AM Access Site Site: Left Radial artery Sheath Size: 5 Fr Hemost... Method: TR Band Hemost... Success: Successful Procedure Details Findings Procedure Consent Obtained. Pre-Procedure Time Out. Identified patient by full name and date of as verbalized by the patient/guarantor. Does the consent match the physician's order: Yes. Accurate & Complete Informed Consent: Yes. Inpatient/Outpatient History & Physical on Chart: Yes. If H&P is completed, is and addenduem needed: Yes; If yes, is the addendum complete: Yes. Visualize and Verify Site with Patient/Guarantor: N/A. Relevant Radiology Images available: Yes. The risks, benefits, and alternatives of sedation and/or procedure were discussed by physician. The patient agrees to continue. Procedure started. Current diagnosis: PVD. PERRLA. Strong, equal hand collection agent bilaterally. Lungs clear x 5 lobes. IV Site on Arrival: 20 gauge in the right anticubital. IV Fluids: 0.9% NaCl at KVO. 0 mL infused prior to labor conciliator. Pre Procedural Pulses: bilateral dorsalis pedis was Doppled. Pre Procedural Pulses: bilateral posterior tibial was Doppled. Pre Procedural Pulses: left radial was 2+. Oxygen started at 2liters/min via nasal canula. bilateral groins was prepped with chloroprep then draped in the usual sterile fashion. left radial was prepped with chloroprep then draped in the usual sterile fashion. Physician notified. Baseline sample Acquired. HR: 66 BPM. Patient's family unavailable. Equipment: 6F - Radial. Cardiac Cath Pack. ACIST Manifold Kit Model BT 2000. Heparinized Saline (2 units/mL), 1000 mL bag. Physician arrived. Physician scrubbed in. Immediate Pre-Procedure Time Out. Correct Patient: Yes; Correct Procedure: Yes; Correct Site: Yes; Correct Patient Position: Yes; Correct Supplies: Yes; Dried Flammable Prep: Yes; Blood Products Available: N/A;. Lidocaine 1% infiltrated to the left radial. Arterial access obtained. A 5 swiss 125cm Straight Pig catheter in over the exchange J wire. Pigtail postioned above the bifurcation of the iliacs. Aortagram performed @ 10 mL/sec for a total of 30 mL. Catheter removed over the exchange J wire. Dr. Villarreal scrubbed out. A TR Band was successful obtaining hemostatsis at the Left Radial artery insertion site. Post Procedure: Pulses reassessed and unchanged. PERRLA. Strong, equal hand collection agent bilaterally. No VTE prophylaxis required. Medication's Wasted: Lidocaine 1% = 18 mL. Medication's Wasted: Nitro = 49.7 mg. Medication's Wasted: Heparin = 1000 units. Medication's Wasted: Other = Versed 1 mg. Medication's Wasted: Other = Fentanyl 25 mcg. Total IV fluids: 30 mL. Post-op diagnosis: Distally occluded aorta. Complications: none'. Estimated blood loss: 5mL-10mL. Responsiveness - Normal response to verbal stimuli; alert and oriented, PERRLA. Airway - Unaffected, no intervention required; spontaneous ventilation. Circulation: W/N/L, pulses unchanged. Nausea/Vomiting: No. Procedure completed. Patient transferred by wheelchair to CPRU. Vital chart was stopped. Procedure Medications Start: 8:05 AM Stop: 8:05 AM Medication: Versed Amount: 1 mg Route: I.V. Start: 8:05 AM Stop: 8:05 AM Medication: Fentanyl Amount: 50 mcg Route: I.V. Start: 8:12 AM Stop: 8:12 AM Medication: Nitrogylcerin Amount: 100 mcg Route: S.Q. Start: 8:14 AM Stop: 8:14 AM Medication: Versed Amount: 1 mg Route: I.V. Start: 8:15 AM Stop: 8:15 AM Medication: Fentanyl Amount: 25 mcg Route: I.V. Start: 8:18 AM Stop: 8:18 AM Medication: Nitrogylcerin Amount: 200 mcg Route: I.A. Start: 8:19 AM Stop: 8:19 AM Medication: Versed Amount: 1 mg Route: I.V. Start: 8:27 AM Stop: 8:27 AM Medication: Heparin Amount: 5000 units Route: I.V. I, the attending physician, have reviewed and verified all procedure medications. Yes, all medications given per verbal order History/Risk Factors Hypertension: Yes Dyslipidemia: Yes Peripheral Arterial Disease (PAD): Yes Obesity: No Renal Disease: No Tobacco Use: Former Prior Interventions PCI: No CABG: No Valve Surgery: No Report Signatures Finalized by Christina Villarreal MD on 02/27/2025 07:09 PM
[2025-02-12] MEDS: aspirin 325 mg Tablet PO (07:04)
[2025-02-12] MEDS: diphenhydrAMINE 50 mg Capsule PO (07:04)
--- NOTE | 2025-02-12 08:02 | W.PM.OPSFHP ---
Same Day Surgery H&P Indication for Procedure/HPI DATE OF PROCEDURE: February 12, 2025 CHIEF COMPLAINT/INDICATIONFOR SURGICAL PROCEDURE: Lifestyle-limiting claudication with severe peripheral arterial disease Abnormal CTA PREOP DIAGNOSIS: Lifestyle limiting claudication with severe peripheral arterial disease PLANNED PROCEDURE: Operation Date: 02/12/25 07:00 Proposed Procedures p Cardiac Catheterization radial approach(Not Applicable) - Christina Villarreal MD 69-year-old female past medical history significant for hypertension hyperlipidemia severe peripheral arterial disease history of continuous tobacco abuse, history of aorto Mike and femorofemoral occluded bypass was struggling with worsening of cramps pain in both legs now occasionally comes at rest as well, she underwent CTA which showed severe peripheral vascular disease of distal aorta iliacs and occluded aortofemoral femorofemoral bypasses it is the reason patient is here for peripheral angiogram and possible intervention. Medications/Allergies* Home Medications ?Medication ?Instructions ?Recorded ?Confirmed ?Type aspirin 81 mg tablet,delayed 81 mg PO DAILY 02/03/25 02/09/25 History release Allergies/Adverse Reactions Allergy/AdvReac Type Severity Reaction Status Date / Time codeine AdvReac nausea Verified 02/12/25 06:30 propoxyphene (From AdvReac Nausea Verified 02/12/25 06:30 Darvocet-N) Current Medications: Generic Name Dose Route Start Last Admin Trade Name Freq PRN Reason Stop Dose Admin Sodium Chloride 1,000 mls @ 50 mls/hr 02/12/25 05:32 02/12/25 07:04 Sodium Chloride 0.9% IV 02/13/25 01:31 Not Given .Q20H ONE Pertinent History/Comorbid Conditions* Medical History (Updated 02/06/25 @ 00:01 by NORA Miller) CKD (chronic kidney disease) stage 3, GFR 30-59 ml/min Diabetes History of colon polyps Atherosclerotic heart disease of [place] coronary artery without angina pectoris Carotid artery stenosis, asymptomatic Chronic distal aortic occlusion Chronic headache Hypertension Degeneration of cervical disc without myelopathy Tailor's bunion of both feet Diabetic peripheral neuropathy associated with type 2 diabetes mellitus GERD (gastroesophageal reflux disease) PAD (peripheral artery disease) Sjogren's syndrome with keratoconjunctivitis sicca Mixed hyperlipidemia Surgical History (Updated 06/21/23 @ 11:13 by Vita Capone MD) History of esophagogastroduodenoscopy History of appendectomy History of cholecystectomy History of total abdominal hysterectomy and bilateral salpingo-oophorectomy History of colonoscopy with polypectomy History of arterial bypass of lower extremity History of tonsillectomy and adenoidectomy Family History (Updated 02/03/25 @ 13:08 by Perry Dangelo MD) Diabetes Family/Other Crohn's disease Heart disease Mother Lung disease Father Cancer Father lung cancer (smoker) Grandmother stomach Stroke Family/Other Denies family history of Colon cancer Ovarian cancer Hypercholesteremia Breast cancer Hypertension Uterine cancer Thyroid disease Social History Smoking and tobacco/nicotine status: former use of tobacco/nicotine Quit status (tobacco/nicotine): has tried quititng Alcohol intake: never Substance/Drug Use: never Household members: other Details: grandson Marital status: / Number of children: 1 Number of grandchildren: 3 Current occupational status: unemployed 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 Patient understand 2% risk of stroke major bleed contrast induced nephropathy, patient understand 6% risk of minor bleeding infection hematoma vascular injury urgent or emergent vascular surgery limb threatening ischemia worst-case scenario amputation. She would like to proceed with it. Recommendations Surgery/Procedure today Coding Level of Care Code Acute Code for Chg Anastasia
--- NOTE | 2025-02-12 08:45 | SUR.PHASEII ---
POST CATH NOTE Received patient from quality assurance qa lab analyst. Status post peripheral angiogram via the left radial approach. TR Band in place- 16 ml in the band. Site is hemostatic and no s/s of hematoma formation noted. Verbal post cath instuctions went over with the patient/family. They understood well. Call light within reach. Informed to call for needs. Vitals and assessments per flowsheet.
--- NOTE | 2025-02-12 09:01 | SUR.PHASEII ---
iv fluids Post cath fluids set at 100 ml/hr post cath as ordered verbally from Dr Villarreal.
== END 2025-02-12 11:28 | disposition home or self-care (01) ==
PROVIDERS: PCP Nurse Practitioner Family; Visit Provider Internal Medicine Cardiovascular Disease
DX: I70.213 Atherosclerosis of native arteries of extremities with intermittent claudication, bilateral legs (principal); I74.09 Other arterial embolism and thrombosis of abdominal aorta; I74.5 Embolism and thrombosis of iliac artery; I74.3 Embolism and thrombosis of arteries of the lower extremities; E78.5 Hyperlipidemia, unspecified; Z87.891 Personal history of nicotine dependence; Z79.82 Long term (current) use of aspirin; E11.22 Type 2 diabetes mellitus with diabetic chronic kidney disease; I12.9 Hypertensive chronic kidney disease with stage 1 through stage 4 chronic kidney disease, or unspecified chronic kidney disease; N18.30 Chronic kidney disease, stage 3 unspecified; K21.9 Gastro-esophageal reflux disease without esophagitis
CPT/HCPCS: 36415; 75625; 96374; 99152; 99153; C1769; C1887; C1894; J1644; J2250; J3010; J3490; J7030; J9999; Q0163; Q9967

== ENCOUNTER → 2025-02-26 08:42 | Outpatient (BNVA) | payer MEDICARE, OTHER, SELFPAY | PROVIDERS: PCP Nurse Practitioner Family; Visit Provider Internal Medicine | DX: E11.9 Type 2 diabetes mellitus without complications (principal); E78.2 Mixed hyperlipidemia; R42 Dizziness and giddiness; R10.9 Unspecified abdominal pain; K59.00 Constipation, unspecified | CPT/HCPCS: 99214 ==

== ENCOUNTER 2025-03-10 19:43 | Emergency (ER) | payer MEDICARE, OTHER, SELFPAY ==
[2025-03-10 20:01] VITALS: BP 200/76; PULSE 63; RESP 15; TEMP 36.5; O2SAT 97; BMI 26.9
--- NOTE | 2025-03-10 20:40 | ED_ITS ---
HPI - Abdominal Pain 2 General: Chief Complaint: Abdominal Pain Stated Complaint: ABD Pain Time Seen by Provider: 03/10/25 20:10 History of Present Illness: 69-year-old female presenting with periu mbilical/epigastric abdominal pain. She says it has been pretty consistent since 02/12. She states that she had an angiogram of her lower extremities at that point, and has had abdominal pain ever since. She was seen at an outside facility, [facility] in [place], a few days ago and had a CAT scan without contrast showing pancreatitis. She was given some pain medication, nausea medication. She says she cannot eat due to the pain. She is nauseated constantly. She is concerned she may be dehydrated. Related Data Home Medications ?Medication ?Instructions ?Recorded ?Confirmed aspirin 81 mg tablet,delayed 81 mg PO DAILY 02/03/25 0 02/15/25 release Previous Rx's ?Medication ?Instructions ?Recorded Diabetic shoes #1 ea 12/11/19 blood-glucose meter (Accu-Chek #1 ea 07/12/24 Guide Glucose Meter) lancing device with lancets kit #1 ea 07/12/24 (Accu-Chek FastClix Lancing Device kit) blood sugar diagnostic (Accu-Chek #100 ea 07/14/24 Guide test strips) lancets (Accu-Chek Softclix #100 ea 08/20/24 Lancets) amlodipine 5 mg tablet 5 mg PO DAILY #90 tabs 12/13 metoprolol tartrate 75 mg tablet 75 mg PO BID #180 tab s 01/03/25 apixaban 5 mg tablet (Eliquis) 5 mg PO BID 30 days #60 tabs 02/05/25 hydrocodone 5 mg-acetaminophen 325 1 tab PO Q8H PRN pa in #10 tabs 03/10/25 mg tablet lactulose 10 gram/15 mL oral 20 g (30 mL) PO TID #1,50 0 mL 03/10/25 solution ondansetron 4 mg disintegrating 4 mg PO Q6H PRN nausea and 03/10/25 tablet vomiting #14 tabs Allergies Allergy/AdvReac Type Severity Reaction Status Date / Time codeine AdvReac nausea Verified 02/13/25 15:24 propoxyphene (From AdvReac Nausea Verified 02/13/25 15:24 Darvocet-N) PFS ED 2 PFSH: Medical History CKD (chronic kidney disease) stage 3, GFR 30-59 ml/min Diabetes History of colon polyps Atherosclerotic heart disease of [place] coronary artery without angina pectoris Carotid artery stenosis, asymptomatic Chronic distal aortic occlusion Chronic headache Hypertension Degeneration of cervical disc without myelopathy Tailor's bunion of both feet Diabetic peripheral neuropathy associated with type 2 diabetes mellitus GERD (gastroesophageal reflux disease) PAD (peripheral artery disease) Sjogren's syndrome with keratoconjunctivitis sicca Mixed hyperlipidemia Surgical History History of esophagogastroduodenoscopy History of appendectomy History of cholecystectomy History of total abdominal hysterectomy and bilateral salpingo-oophorectomy History of colonoscopy with polypectomy History of arterial bypass of lower extremity History of tonsillectomy and adenoidectomy Family History Father Lung disease Cancer lung cancer (smoker) Mother Heart disease Family/Other Diabetes Stroke Grandmother Cancer stomach Other Crohn's disease Denies family history of Colon cancer Ovarian cancer Hypercholesteremia Breast cancer Hypertension Uterine cancer Thyroid disease Social History Smoking and tobacco/nicotine status: former use of tobacco/nicotine Quit status (tobacco/nicotine): has tried quititng Alcohol intake: never Substance/Drug Use: never Household members: other Details: grandson Marital status: / Number of children: 1 Number of grandchildren: 3 Current occupational status: unemployed 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/Restoration: [employer] Special ninoska needs: No Agree to transfusion: Yes Physical Exam 2 Const: COMMON NORMALS: no acute distress GENERAL APPEARANCE: cooperative and frail appearing (Mildly) HENMT: COMMON NORMALS: normocephalic, atraumatic and Normal external nose present HEAD & SCALP: normocephalic and atraumatic FACE & SINUS: normal facial exam and face symmetric NOSE: Normal external nose present Eye: COMMON NORMALS: Equal, round and reactive pupils present and EOMs intact bilaterally PUPIL: Yes Equal, round and reactive pupils present Neck/C-Spine: GENERAL: Yes trachea midline Chest: CHEST: Yes Symmetrical chest wall rise Resp: COMMON NORMALS: normal respiratory effort, No retractions, No use of accessory muscles and clear to auscultation bilaterally AUSCULTATION: clear to auscultation bilaterally Cardio: COMMON NORMALS: regular rate and regular rhythm RATE: regular rate RHYTHM: regular rhythm GI: COMMON NORMALS: Soft to palpation PALPATION: Yes Soft to palpation and Yes Tenderness to palpation present (GI) (Epigastric) Extremity: COMMON NORMALS: no pedal edema Neuro: LILIA COMA SCALE: document GCS findings [place] coma scale eye opening: Spontaneous Lilia coma scale verbal response: Orientated Lilia coma scale motor response: Obey commands Lilia coma scale total score: 15 S ENSORY EXAM: Yes extremities (intact) Psych: COMMON NORMALS: speech normal SPEECH: Yes normal speech Skin: COMMON NORMALS: no rashes or lesions noted GENERAL SKIN EXAM: no rashes or lesions noted Course 2 Vital Signs: Vital signs: Vital Signs Temperature 97.7 F 03/10/25 20:01 Pulse Rate 74 03/10/25 23:39 Respiratory Rate 16 03/10/25 23:39 Blood Pressure 179/87 03/10/25 23:39 Pulse Oximetry 96 03/10/25 23:39 Oxygen Delivery Me thod Room Air 03/10/25 23:08 MDM - Abdominal Pain Medical Decision Making Blood pressure is improved after medication. Her bicarbonate is 19. Sodium is 133. Her creatinine is 3.4 with a BUN of 39. She received a fluid bolus. CBC is normal. Lipase is only 76. CRP is 9.3. CT T scan from 3 days ago from outside hospital was obtained. Results show no acute findings. No evidence of pancreatitis by CT. There is a moderate stool burden. Pain likely related to constipation. Nausea and feeling unwell likely related to acute on chronic kidney injury, which may be related to contrast dye load from angiogram. She is feeling somewhat improved after pain medication and hydration here. Will treat her pain. Will use magnesium citrate followed by lactulose for constipation. She is instructed to stay hydrated. Scheduled Zofran for this. She needs repeat renal function testing. She has follow-up available. Return for any problems. Lab Data 03/10/25 20:27 03/10/25 20:27 Labs/Radiology: Laboratory Results WBC 11.26 10^3/uL (3.29-11.43) 03/10/25 20: RBC 4.84 10^6/uL (3.85-5.65) 03/10/25 20: Hgb 14.20 g/dL (11.27-16.99) 03/10/25 20: Hct 41.2 % (36-47) 03/10/25 20: MCV 85.1 fl (85-98) 03/10/25 20: MCH 29.3 pg (27-33) 03/10/25 20: MCHC 34.5 g/dL (30-55) 03/10/25 20: RDW 13.2 % (12.1-15.1) 03/10/25: Plt Count 236 10^3/cmm (157-399) 03/10/25 MPV 11.1 fL (7.4-10.4) H 03/10/25 20: Neut % (Auto) 58.0 % 03/10/25 20: Lymph % (Auto) 23.3 % 03/10/25 20: [place] % (Auto) 7.3 % 03/10/25 20: Eos % (Auto) 9.9 % 03/10/25 20: Baso % (Auto) 1.1 % 03/10/25: Neut # (Auto) 6.54 10^3/uL (1.8-7.7) 03/10/25: Lymph # (Auto) 2.6 10^3/uL (0.8-4.8) 03/10/25: [place] # (Auto) 0.8 10^3/uL (0.2-0.9) 03/10/25 20: Eos # (Auto) 1.1 10^3/uL (0.0-0.8) H 03/10/25: Baso # (Auto) 0.1 10^3/uL (0.0-0.1) 03/10/25: Nucleated RBC % (auto) 0 % 03/10/25: Nucleated RBCs # 0.0 /100WBC 03/10/25 20: Sodium 133 mmol/L (136-145) L 03/10/25 20: Potassium 4.2 mmol/L (3.5-5.1) 03/10/25 20:27 Chloride 97 mmol/L (98-107) L 03/10/25 20: Carbon Dioxide 19 mmol/L (22-29) L 03/10/25 20: Anion Gap 21.2 (5-19) H 03/10/25 20:27 BUN 39 mg/dL (8-23) H 03/10/25 20: Creatinine 3.4 mg/dL (0.5-0.9) H 03/10/25 20: GFR Calculation 13.4 mL/min (90-130) L 03/10/25 20: Glucose 168 mg/dL (65-115) H 03/10/25 20: Calculated Osmolality 289 mOsm/kg (285-295) 03/10/25 20: Lactic Acid 1.8 mmol/L (0.5-2.2) 03/10/25 20: Calcium 9.5 mg/dL (8.5-10.5) 03/10/25 20: Total Bilirubin 0.5 mg/dL (0.15-1.2) 03/10/25 20: AST 17 U/L (0-32) 03/10/25 20: ALT 9 U/L (0-33) 03/10/25 20: Alkaline Phosphatase 138 U/L (35-105) H 03/10/25 20: C-Reactive Protein 9.3 mg/L (0.0-4.9) H 03/10/25 20: Total Protein 7.9 g/dL (6.6-8.7) 03/10/25 20: Albumin 3.7 g/dL (3.5-5.2) 03/10/25 20: Globulin 4.2 g/dL (1.3-4.6) 03/10/25 20: Lipase 76 U/L (13-60) H 03/10/25 20: Urine Color Yellow (Yellow) 03/10/25 22:17 Urine Appearance Clear (CLEAR) 03/10/25 22:17 Urine pH 6.0 (5-7) 03/10/25 22:17 Ur Specific [place] 1.011 (1.005-1.030) 03/10/25 22:17 Urine Protein 2+ (Negative) A 03/10/25 22:17 Urine Glucose (UA) Trace (Normal) H 03/10/25 22:17 Urine Ketones Negative (Negative) 03/10/25 22:17 Urine Blood Trace (Negative) A 03/10/25 22:17 Urine Nitrate Negative (Negative) 03/10/25 22:17 Urine Bilirubin Negative (Negative) 03/10/25 22:17 Urine Urobilinogen 1.0 mg/dL (Negative) 03/10/25 22:17 Ur Leukocyte Esterase 1+ (Negative) A 03/10/25 22:17 Urine RBC 0-2 /hpf (0-2) 03/10/25 22:17 Urine WBC 21-50 /hpf (0-5) H 03/10/25 22:17 Ur Squamous Epith Cells 0-5 /hpf (0-5) 03/10/25 22:17 Amorphous Sediment Not Reportable 03/10/25 22:17 Urine Bacteria None seen /hpf (NONE) 03/10/25 22:17 Hyaline Casts 4.52 /lpf 03/10/25 22:17 No radiology studies performed this visit Discharge Plan Discharge Patient Disposition: Home Clinical Impression: Constipation, Abdominal pain, BYRON (acute kidney injury) Condition: Stable Prescriptions: New hydrocodone-acetaminophen 5-325 mg tablet 1 tab PO Q8H PRN (Reason: pain) Qty: 10 0RF lactulose 10 gram/15 mL solution 20 g PO TID Qty: 1500 0RF ondansetron 4 mg tablet,disintegrating 4 mg PO Q6H PRN (Reason: nausea and vomiting) Qty: 14 0RF No Action (DME) Diabetic shoes Qty: 1 0RF Rx Instructions: As directed (DME) blood-glucose meter [Accu-Chek Guide Glucose Meter] Misc See Rx Instructions .Route Qty: 1 0RF Rx Instructions: please provide insurance preference (DME) lancing device with lancets [Accu-Chek FastClix Lancing Dev] Kit See Rx Instructions .Route Qty: 1 0RF Rx Instructions: please provide insurance preference (DME) Accu-Chek Guide test strips Strip See Rx Instructions .Route Qty: 100 2RF Rx Instructions: check blood sugar tidac and hs (DME) lancets [Accu-Chek Softclix Lancets] Misc See Rx Instructions .Route Qty: 100 0RF Rx Instructions: As directed amlodipine 5 mg tablet 5 mg PO DAILY Qty: 90 3RF metoprolol tartrate 75 mg tablet 75 mg PO BID Qty: 180 3RF aspirin 81 mg Tablet,Delayed Release (Dr/Ec) 81 mg PO DAILY Eliquis 5 mg tablet 5 mg PO BID 30 Days Qty: 60 0RF Discharge Orders: Discharge ED (Routine); Ordered 03/10/25 Ordered By: Landry Majano Referrals: Ranulfo,RASHAWN SegoviaP [Primary Care Provider, Nurse Practitioner] Patient Instructions: Constipation (ED), Dehydration (ED), Acute Kidney Injury (DC), Abdominal Pain (ED), Opioid Safety, Pain Management Activity Restrictions/Additional Instructions: Make sure you stay hydrated. Take nausea medication every 4 hours while awake scheduled for the next 48 hours, then as needed following that. Take the medication you were dispensed for constipation, followed by lactulose 3 times daily until stools are regular and soft. Then you may decrease usage. Pain medication as needed. See your doctor this coming week. Call Wednesday for an appointment. Return for any worsening symptoms despite treatment. Print Language: Telugu Coding Level of Care Code ED Cement Car Dumper for Swapna Oconnor
[2025-03-10 20:41] LABS: Basophils # 0.1 10^3/uL (0.0-0.1); Basophils % 1.1 %; Eosinophils # 1.1 10^3/uL (0.0-0.8); Eosinophils % 9.9 %; Hematocrit 41.2 % (36-47); Lymphocytes # 2.6 10^3/uL (0.8-4.8); Lymphocytes % 23.3 %; Mean Corpuscular HGB Conc 34.5 g/dL (30-55); Mean Corpuscular Hemoglobin 29.3 pg (27-33); Mean Corpuscular Volume 85.1 fl (85-98); Mean Platelet Volume 11.1 fL (7.4-10.4); Monocytes # 0.8 10^3/uL (0.2-0.9); Monocytes % 7.3 %; Neutrophils # 6.54 10^3/uL (1.8-7.7); Nucleated Red Blood Cells % 0 %; Platelet Count 236 10^3/cmm (157-399); Red Blood Count 4.84 10^6/uL (3.85-5.65); Red Cell Distribution Width 13.2 % (12.1-15.1); White Blood Count 11.26 10^3/uL (3.29-11.43)
[2025-03-10 20:43] VITALS: RESP 16; O2SAT 95
[2025-03-10] MEDS: ondansetron 2 mg/ML SDV 2 mL 4 MG IVP (20:43)
[2025-03-10] MEDS: morphine 4 mg/mL SDV 1 mL IVP (20:43)
[2025-03-10] MEDS: sodium chloride 0.9% 1,000 ML 999 ML IV (20:48)
[2025-03-10 20:56] LABS: Lactic Sepsis W/Reflex 1.8 mmol/L (0.5-2.2)
[2025-03-10 20:57] LABS: Alanine Aminotransferase 9 U/L (0-33); Albumin Level 3.7 g/dL (3.5-5.2); Alkaline Phosphatase 138 U/L (35-105); Blood Urea Nitrogen 39 mg/dL (8-23); C Reactive Protein 9.3 mg/L (0.0-4.9); Calcium 9.5 mg/dL (8.5-10.5); Carbon Dioxide 19 mmol/L (22-29); Chloride 97 mmol/L (98-107); Globulin 4.2 g/dL (1.3-4.6); Glomerular Filtration Rate 13.4 mL/min (90-130); Glucose 168 mg/dL (65-115); Lipase 76 U/L (13-60); Osmolality Calculated 289 mOsm/kg (285-295); Sodium 133 mmol/L (136-145); Total Bilirubin 0.5 mg/dL (0.15-1.2); Total Protein 7.9 g/dL (6.6-8.7)
[2025-03-10 21:03] LABS: Anion Gap 21.2 (5-19); Aspartate Amino Transferase 17 U/L (0-32); Potassium 4.2 mmol/L (3.5-5.1)
[2025-03-10] MEDS: amlodipine 10 mg Tablet PO (21:38)
[2025-03-10] MEDS: metoprolol tartrate 1 mg/1 mL SDV 5 mL 5 MG IVP (21:38)
[2025-03-10 22:01] VITALS: BP 141/111; PULSE 69; RESP 18; O2SAT 97
[2025-03-10 22:30] LABS: Bacteria Urine None Seen /hpf; Hyaline Casts Urine 4.52 /lpf; RBC Urine 0-2 /hpf (0-2); Squamous Epithelial Cell Urine 0-5 /hpf (0-5); WBC Urine 21-50 /hpf (0-5)
[2025-03-10 22:37] LABS: Add Urine Microscopic? YES; Bilirubin Urine Negative (Negative); Blood Urine Trace (Negative); Glucose Urine UA Trace (Normal); Ketones Urine Negative (Negative); Leukocyte Esterase Urine 1+ (Negative); Nitrate Urine Negative (Negative); Protein Urine 2+ (Negative); Specific Gravity, Urine 1.011 (1.005-1.030); Urine Appearance Clear (CLEAR); Urine Color Yellow (Yellow)
[2025-03-10 22:39] LABS: Add Urine Culture? Yes
[2025-03-10 23:08] VITALS: BP 182/84; PULSE 63; RESP 18; O2SAT 98
[2025-03-10 23:39] VITALS: BP 179/87; PULSE 74; RESP 16; O2SAT 96
[2025-03-10] MEDS: magnesium citrate Btl 296 mL PO (23:55)
[2025-03-10] MEDS: oxyCODONE-APAP 5-325 mg Tablet 2 TAB PO (23:55)
== END 2025-03-10 23:56 | disposition home or self-care (01) ==
PROVIDERS: Emergency Provider Emergency Medicine; PCP Nurse Practitioner Family
DX: K59.00 Constipation, unspecified (principal); R10.13 Epigastric pain; N17.9 Acute kidney failure, unspecified; Z79.01 Long term (current) use of anticoagulants; Z79.82 Long term (current) use of aspirin; Z87.891 Personal history of nicotine dependence; E78.2 Mixed hyperlipidemia; E11.22 Type 2 diabetes mellitus with diabetic chronic kidney disease; I12.9 Hypertensive chronic kidney disease with stage 1 through stage 4 chronic kidney disease, or unspecified chronic kidney disease; N18.30 Chronic kidney disease, stage 3 unspecified
CPT/HCPCS: 80053; 81001; 83605; 83690; 85025; 86140; 87086; 96361; 96374; 96375; 99284; J2270; J2405; J3490; J7030; J9999

== ENCOUNTER 2025-03-13 17:55 | Inpatient (IN) | payer MEDICARE, OTHER, SELFPAY ==
[2025-03-13] VITALS (11 sets, daily range): BP systolic 109–156; BP diastolic 51–98; PULSE 71–156; RESP 13–28; TEMP 36.1–37; O2SAT 92–97; BMI 25.2; BMI 27.6
--- NOTE | 2025-03-13 17:58 | ECG_ITS ---
[facility]25[facility]13 Pat Name: Gregoria King Department: Room: Gender: Female Sas Clinical Programmer: : [id number] Requested By: Jacob Fish Order Number: [id number] Silvina MD: Erika Portillo M.D. Measurements Intervals [place] Rate: 151 P: 0 SD: 0 QRS: 93 QRSD: 89 T: 25 QT: 283 QTc: 449 Interpretive Statements ATRIAL FIBRILLATION WITH RAPID VENTRICULAR RESPONSE BORDERLINE RIGHT AXIS DEVIATION [QRS AXIS > 90] ST DEPRESSION, CONSIDER SUBENDOCARDIAL INJURY [0.1+ mV ST DEPRESSION] CRITICAL TEST RESULT Compared to ECG 02/03/2025 15:43:03 ST (T wave) deviation now present Sinus rhythm no longer present Myocardial infarct finding no longer present Electronically Signed On 03-14-2025 17:44:51 CDT by Erika Portillo M.D. [email or web address]
--- NOTE | 2025-03-13 18:09 | XRR_ITS ---
PROCEDURE INFORMATION: Exam: XR Chest Exam date and time: 03/13/2025 6:11 PM Age: 69 years old Clinical indication: Pain; Chest pressure; Additional info: Chest pain TECHNIQUE: Imaging protocol: Radiologic exam of the chest. Views: 1 view. COMPARISON: CT lung screening [id number] 02/09/2025 9:29 AM FINDINGS: Lungs: Left lung base atelectasis/consolidation. This may be from infiltrate. Pleural spaces: Small left-sided pleural effusion. No sizable pneumothorax. Heart/Mediastinum: Unremarkable. No cardiomegaly. Bones/joints: Unremarkable. XR/XR chest 1V portable [id number] IMPRESSION: As above
--- NOTE | 2025-03-13 18:11 | W.ED.CHESTPA ---
HPI - Chest Pain General: Chief Complaint: Chest Pain Stated Complaint: Chest Pain Time Seen by Provider: 03/13/25 18:05 History of Present Illness: Patient presents emerged part with complaint of chest pain. She has had a history of A-fib. She does take Eliquis. She states that she took nitro and the pain improved. She did become nauseated and vomit. She has a history of recurrent pancreatitis and bowel obstruction per her report recently. Has been in and out of the hospital quite frequently. Denies any fever or cough. Denies any abdominal pain at present. Denies any diarrhea or constipation or dysuria. Related Data Home Medications ?Medication ?Instructions ?Recorded ?Confirmed aspirin 81 mg tablet,delayed 81 mg PO DAILY 02/03/25 02/15/25 release Previous Rx's ?Medication ?Instructions ?Recorded Diabetic shoes #1 ea 12/11/19 blood-glucose meter (Accu-Chek #1 ea 07/12/24 Guide Glucose Meter) lancing device with lancets kit #1 ea 07/12/24 (Accu-Chek FastClix Lancing Device kit) blood sugar diagnostic (Accu-Chek #100 ea 07/14/24 Guide test strips) lancets (Accu-Chek Softclix #100 ea 08/20/24 Lancets) amlodipine 5 mg tablet 5 mg PO DAILY #90 tabs 12/13/24 metoprolol tartrate 75 mg tablet 75 mg PO BID #180 tabs 01/03/25 apixaban 5 mg tablet (Eliquis) 5 mg PO BID 30 days #60 tabs 02/05/25 hydrocodone 5 mg-acetaminophen 325 1 tab PO Q8H PRN pain #10 tabs 03/10/25 mg tablet lactulose 10 gram/15 mL oral 20 g (30 mL) PO TID #1,500 mL 03/10/25 solution ondansetron 4 mg disintegrating 4 mg PO Q6H PRN nausea and 03/10/25 tablet vomiting #14 tabs Allergies Allergy/AdvReac Type Severity Reaction Status Date / Time codeine AdvReac nausea Verified 02/13/25 15:24 propoxyphene (From AdvReac Nausea Verified 02/13/25 15:24 Darvocet-N) PFSH ED PFSH: Medical History CKD (chronic kidney disease) stage 3, GFR 30-59 ml/min Diabetes History of colon polyps Atherosclerotic heart disease of [place] coronary artery without angina pectoris Carotid artery stenosis, asymptomatic Chronic distal aortic occlusion Chronic headache Hypertension Degeneration of cervical disc without myelopathy Tailor's bunion of both feet Diabetic peripheral neuropathy associated with type 2 diabetes mellitus GERD (gastroesophageal reflux disease) PAD (peripheral artery disease) Sjogren's syndrome with keratoconjunctivitis sicca Mixed hyperlipidemia Surgical History History of esophagogastroduodenoscopy History of appendectomy History of cholecystectomy History of total abdominal hysterectomy and bilateral salpingo-oophorectomy History of colonoscopy with polypectomy History of arterial bypass of lower extremity History of tonsillectomy and adenoidectomy Family History Father Lung disease Cancer lung cancer (smoker) Mother Heart disease Family/Other Diabetes Stroke Grandmother Cancer stomach Other Crohn's disease Denies family history of Colon cancer Ovarian cancer Hypercholesteremia Breast cancer Hypertension Uterine cancer Thyroid disease Social History Smoking and tobacco/nicotine status: former use of tobacco/nicotine Quit status (tobacco/nicotine): has tried quititng Alcohol intake: never Substance/Drug Use: never Household members: other Details: grandson Marital status: / Number of children: 1 Number of grandchildren: 3 Current occupational status: unemployed 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/Alevism: [employer] Special ninoska needs: No Agree to transfusion: Yes Physical Exam Const: COMMON NORMALS: no acute distress and patient oriented x3 ORIENTATION/CONSCIOUSNESS: Yes awake, Yes oriented to person, Yes oriented to place and Yes oriented to time HENMT: COMMON NORMALS: normocephalic and atraumatic HEAD & SCALP: normocephalic and atraumatic FACE & SINUS: normal facial exam Resp: COMMON NORMALS: normal respiratory effort, No retractions, No use of accessory muscles, clear to auscultation bilaterally and percussion normal AUSCULTATION: clear to auscultation bilaterally PERCUSSION: percussion normal Cardio: COMMON NORMALS: negative for regular rate and negative for regular rhythm RATE: abnormal rate RHYTHM: abnormal rhythm OTHER: Tachycardic and irregularly irregular rhythm GI: COMMON NORMALS: Normal to inspection, nondistended, normoactive bowel sounds present, Soft to palpation, non-tender, No hepatosplenomegaly present, no masses and no bruits PALPATION: Yes Soft to palpation and Yes No hepatosplenomegaly present Neuro: COMMON NORMALS: patient oriented x3 SENSORIUM/ORIENTATION: Yes oriented to person, Yes oriented to place and Yes oriented to time Course Vital Signs: Vital signs: Vital Signs Temperature 97.9 F 03/13/25 17:56 Pulse Rate 100 03/13/25 19:09 Respiratory Rate 20 H 03/13/25 19:09 Blood Pressure 109/62 03/13/25 19:09 Pulse Oximetry 92 03/13/25 19:09 Oxygen Delivery Me thod Nasal Cannula 03/13/25 19:09 Oxygen Flow Rate 2 03/13/25 19:09 MDM - Chest Pain Medical Decision Making Patient presents emerged part with complaint of chest pain and nausea and vomiting and palpitations. Chest pain and nausea have resolved. Patient's EKG does show atrial fibrillation with RVR. No acute ischemic changes. Patient is anticoagulated on Eliquis. Has been taking metoprolol for rate control at home. Started on Cardizem drip here. Rate has improved significantly and is now between 80-1 10. Patient is otherwise asymptomatic and feels much better. Discussed with Dr. Dillard. Will admit patient to the hospitalist for A-fib with RVR. Lab Data 03/13/25 18:20 03/13/25 18:20 Radiology Impressions Chest X-Ray 03/13/25 18:09 IMPRESSION: As above Laboratory Results WBC 11.00 10^3/uL (3.29-11.43) 03/13/25 18:20 RBC 4.26 10^6/uL (3.85-5.65) 03/13/25 18:20 Hgb 12.50 g/dL (11.27-16.99) 03/13/25 18:20 Hct 37.5 % (36-47) 03/13/25 18:20 MCV 88.0 fl (85-98) 03/13/25 18:20 MCH 29.3 pg (27-33) 03/13/25 18:20 MCHC 33.3 g/dL (30-55) 03/13/25 18:20 RDW 13.6 % (12.1-15.1) 03/13/25 18:20 Plt Count 213 10^3/cmm (157-399) 03/13/25 18:20 MPV 10.5 fL (7.4-10.4) H 03/13/25 18:20 Neut % (Auto) 66.9 % 03/13/25 18:20 Lymph % (Auto) 18.0 % 03/13/25 18:20 [place] % (Auto) 8.5 % 03/13/25 18:20 Eos % (Auto) 5.2 % 03/13/25 18:20 Baso % (Auto) 0.9 % 03/13/25 18:20 Neut # (Auto) 7.36 10^3/uL (1.8-7.7) 03/13/25 18:20 Lymph # (Auto) 2.0 10^3/uL (0.8-4.8) 03/13/25 18:20 [place] # (Auto) 0.9 10^3/uL (0.2-0.9) 03/13/25 18:20 Eos # (Auto) 0.6 10^3/uL (0.0-0.8) 03/13/25 18:20 Baso # (Auto) 0.1 10^3/uL (0.0-0.1) 03/13/25 18:20 Nucleated RBC % (auto) 0 % 03/13/25 18:20 Nucleated RBCs # 0.0 /100WBC 03/13/25 18:20 Sodium 133 mmol/L (136-145) L 03/13/25 18:20 Potassium 3.9 mmol/L (3.5-5.1) 03/13/25 18:20 Chloride 99 mmol/L (98-107) 03/13/25 18:20 Carbon Dioxide 16 mmol/L (22-29) L 03/13/25 18:20 Anion Gap 21.9 (5-19) H 03/13/25 18:20 BUN 41 mg/dL (8-23) H 03/13/25 18:20 Creatinine 4.0 mg/dL (0.5-0.9) H 03/13/25 18:20 GFR Calculation 11.1 mL/min (90-130) L 03/13/25 18:20 Glucose 159 mg/dL (65-115) H 03/13/25 18:20 Calculated Osmolality 289 mOsm/kg (285-295) 03/13/25 18:20 Calcium 8.8 mg/dL (8.5-10.5) 03/13/25 18:20 Total Bilirubin 0.3 mg/dL (0.15-1.2) 03/13/25 18:20 AST 13 U/L (0-32) 03/13/25 18:20 ALT 7 U/L (0-33) 03/13/25 18:20 Alkaline Phosphatase 135 U/L (35-105) H 03/13/25 18:20 Troponin T Baseline 21 ng/L (0-10) H 03/13/25 18:20 Total Protein 6.7 g/dL (6.6-8.7) 03/13/25 18:20 Albumin 3.5 g/dL (3.5-5.2) 03/13/25 18:20 Globulin 3.2 g/dL (1.3-4.6) 03/13/25 18:20 Lipase 46 U/L (13-60) 03/13/25 18:20 All radiology interpretation(s) finalized by discharge Discharge Plan Discharge Patient Disposition: Placed in Observation Clinical Impression: Atrial fibrillation with RVR, Chest pain Discharge Diet: Cardiac Coding Level of Care Code ED Forming Process Worker for Swapna Oconnor
[2025-03-13 18:27] LABS: Basophils # 0.1 10^3/uL (0.0-0.1); Basophils % 0.9 %; Eosinophils # 0.6 10^3/uL (0.0-0.8); Eosinophils % 5.2 %; Hematocrit 37.5 % (36-47); Mean Corpuscular HGB Conc 33.3 g/dL (30-55); Mean Corpuscular Hemoglobin 29.3 pg (27-33); Mean Platelet Volume 10.5 fL (7.4-10.4); Monocytes # 0.9 10^3/uL (0.2-0.9); Monocytes % 8.5 %; Neutrophils # 7.36 10^3/uL (1.8-7.7); Neutrophils % 66.9 %; Nucleated Red Blood Cells % 0 %; Platelet Count 213 10^3/cmm (157-399); Red Blood Count 4.26 10^6/uL (3.85-5.65); Red Cell Distribution Width 13.6 % (12.1-15.1)
[2025-03-13] MEDS: dilTIAZem 5 mg/mL SDV 5 mL 20 MG IVP (18:31)
[2025-03-13] MEDS: aspirin 81 mg Chew Tablet 324 MG PO (18:32)
[2025-03-13] MEDS: dilTIAZem 100 MG in sodium chloride 0.9% (add-van) 100 ML IV (18:34)
[2025-03-13 18:44] LABS: Troponin(5th) Baseline 21 ng/L (0-10)
[2025-03-13 18:52] LABS: Alanine Aminotransferase 7 U/L (0-33); Albumin Level 3.5 g/dL (3.5-5.2); Alkaline Phosphatase 135 U/L (35-105); Anion Gap 21.9 (5-19); Aspartate Amino Transferase 13 U/L (0-32); Blood Urea Nitrogen 41 mg/dL (8-23); Calcium 8.8 mg/dL (8.5-10.5); Carbon Dioxide 16 mmol/L (22-29); Chloride 99 mmol/L (98-107); Creatinine Clr Calc Pharmacy 12.6419; Globulin 3.2 g/dL (1.3-4.6); Glomerular Filtration Rate 11.1 mL/min (90-130); Glucose 159 mg/dL (65-115); Lipase 46 U/L (13-60); Osmolality Calculated 289 mOsm/kg (285-295); Potassium 3.9 mmol/L (3.5-5.1); Sodium 133 mmol/L (136-145); Total Bilirubin 0.3 mg/dL (0.15-1.2); Total Protein 6.7 g/dL (6.6-8.7)
--- NOTE | 2025-03-13 19:06 | PC.NURSE ---
NURSE CONSULTED DR BROOKE AT 1906 ABOUT CARDIZEM DRIP BEING KEPT AT 5 OR TITRATED, PROVIDER GAVE VERBAL ORDER TO KEEP DRIP AT 5.
--- NOTE | 2025-03-13 19:07 | PC.NURSE ---
ASSUMED CARE OF PT AT 1900.
--- NOTE | 2025-03-13 19:33 | P.HP_ITS ---
Providers/Chief Complaint 2 Primary Care Provider: JER Jordan Chief Complaint: Chest Pain History of Present Illness Gregoria King is a 69 year old female with past medical history significant for paroxysmal atrial fibrillation on metoprolol and apixaban, pancreatitis, bowel obstruction, hypertension, peripheral vascular disease, and multiple other comorbidities who presents the emergency department with chest pains and palpitations with onset today. Denies fevers, chills, abdominal pains, or cough. Exertion worsens symptoms. Denies alleviating factors. She endorses associated nausea and vomiting. She reports the nausea and vomiting has been present for the past month. States symptoms started shortly after peripheral angiogram which was performed on February 12. States she has been able to hold down minimal food since that time. She states that the contrast injured her kidneys. Patient states that she does not want IV fluids tonight as she is concerned it would make her symptoms worse. She states she used to see a building illuminating engineer with pancreatitis symptoms but was too sick to go to [facility]. Patient also endorses generalized weakness and fatigue. She states she tried to set up home health but was unable to see her provider to get this set up. In the emergency department, patient was found to have atrial fibrillation with left ventricular rate. She was started on Cardizem drip. She has a known history of atrial fibrillation. She is on apixaban as well as metoprolol tartrate 75 mg twice daily. She has a recent cardiac stress test in January 2025 that was negative for signs of reversible ischemia. Echocardiogram from January 2025 showed preserved left ventricular ejection fraction of 60 to 65% with no significant aortic stenosis or regurgitation present. Review of Systems 2 Narrative: A complete review of systems was obtained and is negative except as stated in HPI. Medications/Allergies Home Medications ?Medication ?Instructions ?Recorded ?Confirmed ?Last Taken ?Type Diabetic shoes #1 ea 12/11/19 02/15/25 Unkn own Rx blood-glucose meter (Accu-Chek #1 ea 07/12/24 02/15/25 Unknown Rx Guide Glucose Meter) lancing device with lancets kit #1 ea 07/12/24 5 Unknown Rx (Accu-Chek FastClix Lancing Device kit) blood sugar diagnostic (Accu-Chek #100 ea 07/14/2409/01 Unknown Rx Guide test strips) lancets (Accu-Chek Softclix #100 ea 08/20/24 02/15/25 Unknown Rx Lancets) amlodipine 5 mg tablet 5 mg PO DAILY #90 tabs 12/1302/15/25 02/12/25 04:00 Rx metoprolol tartrate 75 mg tablet 75 mg PO BID #180 tab s 01/03/25 02/15/25 02/12/25 04:00 Rx aspirin 81 mg tablet,delayed 81 mg PO DAILY 02/03/25 0 02/15/25 02/10/25 19:00 History release apixaban 5 mg tablet (Eliquis) 5 mg PO BID 30 days #60 tabs 02/05/25 02/15/25 02/10/25 07:00 Rx hydrocodone 5 mg-acetaminophen 325 1 tab PO Q8H PRN pa in #10 tabs 03/10/25 Unknown Rx mg tablet lactulose 10 gram/15 mL oral 20 g (30 mL) PO TID #1,50 0 mL 03/10/25 Unknown Rx solution ondansetron 4 mg disintegrating 4 mg PO Q6H PRN nausea and 03/10/25 Unknown Rx tablet vomiting #14 tabs Allergies Allergy/AdvReac Type Severity Reaction Status Date / Time codeine AdvReac nausea Verified 02/13/25 15:24 propoxyphene (From AdvReac Nausea Verified 02/13/25 15:24 Darvocet-N) PFSH Acute 2 PFSH: Medical History CKD (chronic kidney disease) stage 3, GFR 30-59 ml/min Diabetes History of colon polyps Atherosclerotic heart disease of [place] coronary artery without angina pectoris Carotid artery stenosis, asymptomatic Chronic distal aortic occlusion Chronic headache Hypertension Degeneration of cervical disc without myelopathy Tailor's bunion of both feet Diabetic peripheral neuropathy associated with type 2 diabetes mellitus GERD (gastroesophageal reflux disease) PAD (peripheral artery disease) Sjogren's syndrome with keratoconjunctivitis sicca Mixed hyperlipidemia Surgical History History of esophagogastroduodenoscopy History of appendectomy History of cholecystectomy History of total abdominal hysterectomy and bilateral salpingo-oophorectomy History of colonoscopy with polypectomy History of arterial bypass of lower extremity History of tonsillectomy and adenoidectomy Family History Father Lung disease Cancer lung cancer (smoker) Mother Heart disease Family/Other Diabetes Stroke Grandmother Cancer stomach Other Crohn's disease Denies family history of Colon cancer Ovarian cancer Hypercholesteremia Breast cancer Hypertension Uterine cancer Thyroid disease Social History Smoking and tobacco/nicotine status: former use of tobacco/nicotine Quit status (tobacco/nicotine): has tried quititng Alcohol intake: never Substance/Drug Use: never Household members: other Details: grandson Marital status: / Number of children: 1 Number of grandchildren: 3 Current occupational status: unemployed 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 Appears fatigued. Head: Normocephalic. Atraumatic. EOM intact. Neck: No JVD. Cardiovascular: Irregularly irregular rhythm. Tachycardic. No gallops. No murmurs. 1+ lower extremity edema. Lungs: Clear to auscultation, no use of accessory muscles, no crackles or wheezes. Skin: No jaundice. No rashes. Abdomen: Normal bowel sounds, abdomen soft and nontender. Genito Urinary: Genital exam not performed since complaints not related. Rectal: Rectal exam not performed since no symptoms indicated blood loss. Extremities: No cyanosis or clubbing. Musculoskeletal: No swollen or erythematous joints. Neurological: Moves all 4 extremities. No myoclonus. Data 03/13/25 18:20 03/13/25 18:20 A&P Assessment and plan (1) Hypertension: (2) Chest pain: (3) Atrial fibrillation with RVR: (4) PAD (peripheral artery disease): (5) Mixed hyperlipidemia: (6) Metabolic acidosis: Plan Paroxysmal atrial fibrillation with rapid ventricular rate - Continue Cardizem drip - Continuous telemetry monitoring - Monitor electrolytes - Continue home metoprolol - Continue home apixaban for stroke prophylaxis Chest pains - Recent negative stress testing reviewed - Trend troponins - Telemetry monitoring High anion gap metabolic acidosis Acute kidney injury on CKD stage III - Patient reports onset of symptoms after contrast exposure, DANIA is within differential - Patient also reports persistent nausea/vomiting, prerenal/ATN also within differential - After extended discussion with patient, she will allow low-dose IV fluids tonight, utilize bicarb drip - Urine electrolytes - Renal ultrasound - Renally dose medications - She has sitter nephrology consult pending clinical course Nausea/vomiting History of recent pancreatitis reportedly diagnosed at [facility] - Currently denies any abdominal pain - Low-dose IV fluids as above - Antiemetics as needed - CT abdomen and pelvis without contrast ordered Type 2 diabetes mellitus - Sliding-scale insulin correction Peripheral arterial disease - Continue DOAC DVT ppx: Apixaban Code: Full PDMP PDMP Reviewed: Not Reviewed Attestations 2 Medical Necessity Statement*: Patient presents with palpitations and chest pain found to have atrial fibrillation with rapid ventricular rate started on Cardizem drip with hospital course not expected to cross 2 midnights for treatment. Coding Level of Care Code Acute Code for [facility] Fwd Diagnoses Essential hypertension I10 Hypertension type: essential hypertension Chest pain R07.89 Chest pain type: other chest pain Atrial fibrillation with RVR I48.91 PAD (peripheral artery disease) I73.9 Mixed hyperlipidemia E78.2 Metabolic acidosis E87.20
--- NOTE | 2025-03-13 20:03 | USR_ITS ---
PROCEDURE INFORMATION: Exam: US Retroperitoneal, Complete, Kidneys and Bladder Exam date and time: 03/13/2025 8:26 PM Age: 69 years old Clinical indication: Other: Elevated bun and creatinine; Additional info: Jaxson TECHNIQUE: Imaging protocol: Real-time ultrasound of the retroperitoneum with image documentation. Complete exam focused on the bilateral kidneys and urinary bladder. COMPARISON: CT angio abd aorta runof [id number] 11/15/2024 8:40 AM FINDINGS: Right kidney: Normal. No stones. No hydronephrosis. Left kidney: Normal. No stones. No hydronephrosis. Urinary bladder: Can not evaluate for ureteral jets at this time due to nonvisualization. Otherwise the urinary bladder is unremarkable. US/US renal BI* [id number] IMPRESSION: As above.
--- NOTE | 2025-03-13 20:03 | CTR_ITS ---
PROCEDURE INFORMATION: Exam: CT Abdomen And Pelvis Without Contrast Exam date and time: 03/13/2025 9:15 PM Age: 69 years old Clinical indication: Nausea and vomiting; Additional info: Intractable n/v; HX of pancreatitis; Jaxson TECHNIQUE: Imaging protocol: Computed tomography of the abdomen and pelvis without contrast. Radiation optimization: All CT scans at this facility use at least one of these dose optimization techniques: automated exposure control; mA and/or kV adjustment per patient size (includes targeted exams where dose is matched to clinical indication); or iterative reconstruction. COMPARISON: CT angio abd aorta runof [id number] 11/15/2024 8:40 AM RADIATION DOSE METRICS: Total DLP (mGy-cm): 470.4 FINDINGS: Lungs: Volv-rhwtuqc-hkjw-right areas of mid to lower lung atelectasis or scarring. Pleural spaces: Tiny left pleural effusion. Diaphragm: Tiny hiatal hernia. Liver: Liver is mildly heterogenous. Liver may be cirrhotic. Gallbladder and biliary ducts: Absent gallbladder. Pancreas: Minimal surrounding fat stranding possible with no suspicious mass. No ductal dilation. Spleen: The spleen is not enlarged. No suspicious mass is noted. Adrenal glands: Normal. No mass. Kidneys and ureters: No solid renal mass or hydronephrosis. Stomach and bowel: The colon is rather fecal filled. No small bowel obstruction, abscess or free air. Moderate sigmoid diverticulosis. Appendix: No evidence of appendicitis. Intraperitoneal space: Minimal pelvic free fluid. No abscess or free air. There may be minimal diffuse mesenteric edema. Vasculature: Advanced diffuse vascular calcification noted. Markedly vasculopathic patient with evidence of aortoiliac and bifem bypasses. Lymph nodes: No enlarged lymph nodes. Urinary bladder: Unremarkable as visualized. Reproductive: Absent uterus. Bones/joints: No acute or aggressive bone lesion. Soft tissues: Small fat ventral hernias. No bowel hernia. CT/CT abdomen pelvis wo con [id number] IMPRESSION: 1. No small bowel obstruction, abscess or free air. 2. Cannot exclude minimal pancreatitis. Nothing overt or severe on CT. 3. Mild diffuse fluid third-spacing. 4. Numerous chronic/incidental findings above. Markedly vasculopathic patient. Similar to 11/15/2024.
--- NOTE | 2025-03-13 20:09 | ECG_ITS ---
[facility] Test Date: 2025-03-13 Pat Name: Gregoria King Department: Room: 106 Gender: Female Broadcast Operations Engineer: : 1955 Requested By: Jacob Fish Order Number: [id number] Silvina MD: Erika Portillo M.D. Measurements Intervals [place] Rate: 85 P: 60 ND: 180 QRS: 62 QRSD: 94 T: 32 QT: 371 QTc: 442 Interpretive Statements SINUS RHYTHM WITH FREQUENT SUPRAVENTRICULAR PREMATURE COMPLEXES ABNORMAL RHYTHM ECG Compared to ECG 03/13/2025 17:58:57 Atrial fibrillation no longer present ST (T wave) deviation no longer present Electronically Signed On 03-14-2025 23:37:57 CDT by Erika Portillo M.D. [id number] [id number]
[2025-03-13 20:26] LABS: Creatine Phosphokinase 17 U/L (26-192); Magnesium 2.4 mg/dL (1.7-2.3)
[2025-03-13 20:27] LABS: Troponin 5 2HR 25.86 ng/L (0-10); Troponin 5 2HR Delta 4.86 ABS# (0-10)
--- NOTE | 2025-03-13 20:35 | PC.NURSE ---
ATTEMPTED TO CALL REPORT AT 2033
[2025-03-13 20:41] LABS: 25 Hydroxy Vitamin D 21 ng/mL (30-100); Procalcitonin 0.19 ng/mL (0-0.5)
--- NOTE | 2025-03-13 20:44 | PC.NURSE ---
PROVIDER WAS CALLED AT 2045 FOR CARDIZEM DRIP RATE, DR YOUNG ADVISED THAT NURSE SHOULD TITRATE PT DOWN TO 2.5.
[2025-03-13 21:46] LABS: Glucose Point of Care 188 mg/dL (70-110)
[2025-03-13] MEDS: lactulose oral liq 20 gm/30 mL UDC PO (21:54)
[2025-03-13] MEDS: dilTIAZem 30 mg Tablet PO (21:55)
[2025-03-13] MEDS: sodium bicarbonate 150 MEQ in dextrose 5% 1,000 ML 50 MEQ IV (22:24)
--- NOTE | 2025-03-13 22:37 | PC.NURSE ---
Patient arrived to unit in sinus rhythm with 3-4 beat runs of afib. physician ordered oral cardizem and other home medications. Patient refused Senna Lax because she was getting lactulose, and refused insuling because she is a doctor carlyle patient and just stopped jardiance. They agreed that if she stayed under 300 to not take insulin as she does not want to become insulin dependent. Patient had a vomiting episode and sustained a rate of 160, contacted physician and we decided to keep the drip going for now.
--- NOTE | 2025-03-13 23:48 | PC.NURSE ---
Patient is sustaining in the 70-100 rang ein sinus rhythm with occasional 3-4 beat runs of afib and short pauses. Cardizem is at 5mg. Notified physician and he ordered to turn the drip to 2.5
--- NOTE | 2025-03-14 00:09 | ECG_ITS ---
[employer] Test Date: 2025-03-14 Pat Name: Gregoria King Department: Room: 106 Gender: Female Documentation Clerk: : 1955 Requested By: Jacob Fish Order Number: [id number] Silvina MD: Erika Portillo M.D. Measurements Intervals [place] Rate: 55 P: 53 AR: 164 QRS: 77 QRSD: 98 T: 60 QT: 418 QTc: 402 Interpretive Statements SINUS BRADYCARDIA SEPTAL MYOCARDIAL INFARCTION , PROBABLY OLD [40+ ms Q WAVE IN V1/V2] Compared to ECG 03/13/2025 20:53:58 Myocardial infarct finding now present Sinus rhythm no longer present Electronically Signed On 03-14-2025 23:36:49 CDT by Erika Portillo M.D. [id number]
[2025-03-14 00:51] LABS: Basophils # 0.1 10^3/uL (0.0-0.1); Basophils % 0.9 %; Eosinophils # 0.5 10^3/uL (0.0-0.8); Eosinophils % 4.7 %; Hematocrit 35.5 % (36-47); Lymphocytes # 2.3 10^3/uL (0.8-4.8); Mean Corpuscular Volume 88.1 fl (85-98); Mean Platelet Volume 10.6 fL (7.4-10.4); Monocytes # 0.6 10^3/uL (0.2-0.9); Monocytes % 6.2 %; Neutrophils # 6.55 10^3/uL (1.8-7.7); Neutrophils % 64.8 %; Nucleated Red Blood Cells % 0 %; Platelet Count 212 10^3/cmm (157-399); Red Blood Count 4.03 10^6/uL (3.85-5.65); Red Cell Distribution Width 13.6 % (12.1-15.1)
[2025-03-14 01:06] LABS: Troponin 5 6HR 30.78 ng/L (0-10); Troponin 5 6HR Delta 9.78 ng/L (0-12)
[2025-03-14 01:10] LABS: Anion Gap 18.2 (5-19); Blood Urea Nitrogen 41 mg/dL (8-23); Calcium 8.8 mg/dL (8.5-10.5); Carbon Dioxide 21 mmol/L (22-29); Chloride 98 mmol/L (98-107); Creatinine Clr Calc Pharmacy 10.6204; Glomerular Filtration Rate 9.5 mL/min (90-130); Glucose 196 mg/dL (65-115); Magnesium 2.5 mg/dL (1.7-2.3); Osmolality Calculated 292 mOsm/kg (285-295); Phosphorus 5.1 mg/dL (2.5-4.5); Potassium 4.2 mmol/L (3.5-5.1); Sodium 133 mmol/L (136-145)
[2025-03-14 04:00] VITALS: BP 170/63; PULSE 56; RESP 11; TEMP 36.7; O2SAT 93
[2025-03-14 04:26] LABS: Bilirubin Urine Negative (Negative); Blood Urine Non-haemolysed trace (Negative); Glucose Urine UA Negative (Normal); Ketones Urine Negative (Negative); Leukocyte Esterase Urine 1+ (Negative); Nitrate Urine Negative (Negative); Protein Urine 2+ (Negative); Specific Gravity, Urine 1.016 (1.005-1.030); Urine Appearance Cloudy (CLEAR); Urine Color Yellow (Yellow)
[2025-03-14 04:31] LABS: Bacteria Urine 4+ /hpf; Hyaline Casts Urine 12.41 /lpf; RBC Urine 0-2 /hpf (0-2); WBC Urine 21-50 /hpf (0-5)
[2025-03-14 04:33] LABS: Add Urine Culture? No; UA Slide Review UA Slide Review Perf
[2025-03-14 04:42] LABS: Creatinine Urine, Random 136 mg/dL (28-217); Potassium, Radom Urine 31 mmol/L
[2025-03-14 04:43] LABS: Urine Random Chloride 13 mmol/L; Urine Random Sodium 17 mmol/L
[2025-03-14] MEDS: cefTRIAXone 1,000 mg SDV 1000 MG IVP (05:32)
[2025-03-14 05:51] LABS: Glucose Point of Care 269 mg/dL (70-110)
[2025-03-14 08:00] VITALS: BP 170/60; PULSE 68; RESP 20; TEMP 36.9; O2SAT 95
[2025-03-14 08:47] LABS: Anion Gap 17.7 (5-19); Blood Urea Nitrogen 39 mg/dL (8-23); Calcium 8.6 mg/dL (8.5-10.5); Carbon Dioxide 23 mmol/L (22-29); Chloride 95 mmol/L (98-107); Glucose 274 mg/dL (65-115); Osmolality Calculated 293 mOsm/kg (285-295); Potassium 3.7 mmol/L (3.5-5.1); Sodium 132 mmol/L (136-145)
[2025-03-14] MEDS: aspirin 81 mg EC Tablet PO (08:55)
[2025-03-14] MEDS: apixaban 5 mg Tablet PO ×2 (08:55→17:15)
[2025-03-14] MEDS: metoprolol tartrate 50 mg Tablet 75 MG PO ×2 (08:57→17:15)
--- NOTE | 2025-03-14 10:20 | PM.CONSULT ---
Providers/Reason For Consult Consulting Physician/Specialty*: kommana/Nephrology Reason for Consult*: ESRD Attending Physician: Perry Dangelo MD Primary Care Provider: JER Jordan History of Present Illness History of Present Illness rGegoria King is a 69 year old female Patient is a 61-year-old female with past medical history significant for paroxysmal A-fib, hypertension, peripheral vascular disease history of pancreatitis presented to the emergency department due to chest pain and palpitations. Patient was noted to be in A-fib with RVR on presentation. Patient underwent left heart cath about a month ago. Patient also reports having nausea vomiting and decreased p.o. intake for the last few weeks. Baseline creatinine seems to be in the 1.2-1.5 range but creatinine on presentation was 3.4 that has gotten worse to 4.6. Patient was started on Cardizem drip. Her blood pressures have fluctuated during the hospital stay. No IV contrast exposure. Review of Systems Narrative: nEGATIVE Medications/Allergies Home Medications ?Medication ?Instructions ?Recorded ?Confirmed ?Last Taken ?Type Diabetic shoes #1 ea 12/11/19 03/14/25 Unknown Rx blood-glucose meter (Accu-Chek #1 ea 07/12/24 03/14/25 Unknown Rx Guide Glucose Meter) lancing device with lancets kit #1 ea 07/12/24 03/14/25 Unknown Rx (Accu-Chek FastClix Lancing Device kit) blood sugar diagnostic (Accu-Chek #100 ea 07/14/24 03/14/25 Unknown Rx Guide test strips) lancets (Accu-Chek Softclix #100 ea 08/20/24 03/14/25 Unknown Rx Lancets) amlodipine 5 mg tablet 5 mg PO DAILY #90 tabs 12/13/24 03/14/25 03/13/25 Rx metoprolol tartrate 75 mg tablet 75 mg PO BID #180 tabs 01/03/25 03/14/25 03/13/25 Rx aspirin 81 mg tablet,delayed 81 mg PO DAILY 02/03/25 03/14/25 03/13/25 History release apixaban 5 mg tablet (Eliquis) 5 mg PO BID 30 days #60 tabs 02/05/25 03/14/25 03/13/25 Rx hydrocodone 5 mg-acetaminophen 325 1 tab PO Q8H PRN pain #10 tabs 03/10/25 03/14/25 Unknown Rx mg tablet lactulose 10 gram/15 mL oral 20 g (30 mL) PO TID #1,500 mL 03/10/25 03/14/25 03/13/25 Rx solution ondansetron 4 mg disintegrating 4 mg PO Q6H PRN nausea and 03/10/25 03/14/25 Unknown Rx tablet vomiting #14 tabs Nitric Oxide Blood Flow 1 cap PO DAILY 03/14/25 03/14/25 03/13/25 History nitroglycerin 0.4 mg sublingual See Rx Instructions .Route .COMPLEX 03/14/25 03/14/25 Unknown History tablet Allergies Allergy/AdvReac Type Severity Reaction Status Date / Time codeine AdvReac nausea Verified 02/13/25 15:24 propoxyphene (From AdvReac Nausea Verified 02/13/25 15:24 Darvocet-N) Current Medications Generic Name Dose Route Start Last Admin Trade Name Freq PRN Reason Stop Dose Admin Apixaban 5 mg 03/14/25 09:00 03/14/25 08:55 Apixaban 5 Mg Tablet PO 5 mg BID AURELIO Administration Aspirin 81 mg 03/14/25 09:00 03/14/25 08:55 Aspirin 81 Mg Ec Tablet PO 81 mg DAILY AURELIO Administration Ceftriaxone Sodium 1,000 mg 03/14/25 04:45 03/14/25 05:32 Ceftriaxone 1,000 Mg Sdv IVP 1,000 mg Q24H AURELIO Administration Protocol Diltiazem HCl 30 mg 03/13/25 22:00 03/14/25 03:43 Diltiazem 30 Mg Tablet PO Not Given Q6H AURELIO Diltiazem HCl 100 mg/ Sodium 100 mls @ 0 mls/hr 03/13/25 18:30 03/14/25 01:12 Chloride IV 0 mg/hr .Q0M AURELIO 0 mls/hr Protocol Titration Per Protocol Sodium Bicarbonate 150 meq/ 1,150 mls @ 50 mls/hr 03/13/25 20:03 03/13/25 22:24 Dextrose IV 50 mls/hr .Q23H AURELIO Administration Insulin Human Lispro 0 unit 03/13/25 21:00 03/14/25 08:58 Insulin Lispro 100 Unit/1 Ml SUBCUT Not Given WM&BEDTIME AURELIO Protocol Lactulose 20 gm 03/13/25 21:00 03/14/25 08:58 Lactulose Oral Liq 20 Gm/30 Ml Udc PO Not Given TID [facility] Metoprolol Tartrate 75 mg 03/14/25 09:00 03/14/25 08:57 Metoprolol Tartrate 50 Mg Tablet PO 75 mg BID AURELIO Administration Senna 17.2 mg 03/13/25 21:00 03/13/25 21:55 Sennosides 8.6 Mg Tablet PO Not Given BEDTIME AURELIO PFSH Acute PFSH: Medical History CKD (chronic kidney disease) stage 3, GFR 30-59 ml/min Diabetes History of colon polyps Atherosclerotic heart disease of [place] coronary artery without angina pectoris Carotid artery stenosis, asymptomatic Chronic distal aortic occlusion Chronic headache Hypertension Degeneration of cervical disc without myelopathy Tailor's bunion of both feet Diabetic peripheral neuropathy associated with type 2 diabetes mellitus GERD (gastroesophageal reflux disease) PAD (peripheral artery disease) Sjogren's syndrome with keratoconjunctivitis sicca Mixed hyperlipidemia Surgical History History of esophagogastroduodenoscopy History of appendectomy History of cholecystectomy History of total abdominal hysterectomy and bilateral salpingo-oophorectomy History of colonoscopy with polypectomy History of arterial bypass of lower extremity History of tonsillectomy and adenoidectomy Family History Father Lung disease Cancer lung cancer (smoker) Mother Heart disease Family/Other Diabetes Stroke Grandmother Cancer stomach Other Crohn's disease Denies family history of Colon cancer Ovarian cancer Hypercholesteremia Breast cancer Hypertension Uterine cancer Thyroid disease Social History Smoking and tobacco/nicotine status: former use of tobacco/nicotine Quit status (tobacco/nicotine): has tried quititng Alcohol intake: never Substance/Drug Use: never Household members: other Details: grandson Marital status: / Number of children: 1 Number of grandchildren: 3 Current occupational status: unemployed 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/Nondenominational: Muslim Special ninoska needs: No Agree to transfusion: Yes Vitals/I&O/Wt Last Vital Signs Temp 98.5 F 03/14/25 08:00 Pulse 68 03/14/25 08:00 Resp 20 H 03/14/25 08:00 BP 170/60 03/14/25 08:00 Pulse Ox 95 03/14/25 08:00 O2 Del Method Room Air 03/14/25 08:00 O2 Flow Rate 2 03/13/25 20:14 03/13/25 03/14/25 03/14/25 22:59 06:59 14:59 Intake Total 16.458 / 16.458 212.583 / 229.041 360 / 360 Output Total 200 / 200 Balance 16.458 / 16.458 12.583 / 29.041 360 / 360 Weight last 48 hrs Weight 71.849 kg Weight 68.538 kg Weight 68.538 kg Weight 66.678 kg Physical Exam Narrative: Awake , alert , N distress On room air S1S2 RRR per report Lungs clear per report Abd soft, non tender , No tenderness per report No edema Data 03/14/25 00:37 03/14/25 08:16 A&P Assessment and plan (1) BYRON (acute kidney injury): 1. Acute on chronic kidney disease stage III: Baseline creatinine 1.2-1.5 range, patient now has BYRON with a peak creatinine of 4.6 likely due to fluctuating blood pressures and prerenal in the setting of decreased p.o. intake in the last few weeks. Has mild metabolic acidosis, volume status stable. Agree with sodium bicarbonate drip at 50 cc an hour for now. Creatinine seems to have peaked, continue to monitor closely and no acute indication for dialysis today. No hydronephrosis on renal ultrasound. UA with positive protein no blood. 2. Hypertension: Blood pressure fluctuating, on metoprolol 3. A-fib with RVR, on beta-blockers 4. Recent history of pancreatitis 5.? UTI, management per primary team 6. Metabolic acidosis: Likely from diarrhea and decreased oral intake, bicarb drip as above for now Patient evaluated using audiovisual cart. Time spent 40 minutes. (2) CKD (chronic kidney disease): PDMP PDMP Reviewed: Not Reviewed Consult Attestations Medical Necessity Statement: per dipti Coding Level of Care Code Acute Code for [facility] Diagnoses BYRON (acute kidney injury) N17.9 CKD (chronic kidney disease) N18.9
[2025-03-14 11:50] LABS: Glucose Point of Care 299 mg/dL (70-110)
[2025-03-14 12:00] VITALS: BP 168/62; PULSE 63; RESP 18; TEMP 36.9; O2SAT 93
--- NOTE | 2025-03-14 12:19 | PC.NURSE ---
patient is refusing all insulin (humalog) and lactulose. Patient states she doesn't want to become insulin dependent and lactulose makes her throw up.
--- NOTE | 2025-03-14 12:31 | P.PN_ITS ---
Subjective 2 Subjective: Patient was seen this morning, she is alert oriented x 3, following all commands, denies any fevers, chills, no cough does report epigastric discomfort, no nausea, does report poor appetite, she tells me that her abdominal pain complaints started after she had her peripheral angiogram about a month ago, she has not followed up with vascular surgery as there is been discussions about bypass graft Vitals/I&O/Wt Last Vital Signs Temp 98.5 F 03/14/25 08:00 Pulse 68 03/14/25 08:00 Resp 20 H 03/14/25 08:00 BP 170/60 03/14/25 08:00 Pulse Ox 95 03/14/25 08:00 O2 Del Method Room Air 03/14/25 08:00 O2 Flow Rate 2 03/13/25 20:14 03/13/25 03/14/25 03/14/25 22:59 06:59 14:59 Intake Total 16.458 / 16.458 212.583 / 229.041 360 / 360 Output Total 200 / 200 Balance 16.458 / 16.458 12.583 / 29.041 360 / 360 Weight last 48 hrs Weight 71.849 kg Weight 68.538 kg Weight 68.538 kg Weight 66.678 kg Physical Exam 2 Const: COMMON NORMALS: no acute distress and patient oriented x3 Resp: COMMON NORMALS: normal respiratory effort, No retractions, No use of accessory muscles and clear to auscultation bilaterally AUSCULTATION: clear to auscultation bilaterally Cardio: COMMON NORMALS: regular rate, regular rhythm, S1 normal heart sound present and S2 normal heart sound present RATE: regular rate RHYTHM: r egular rhythm HEART SOUNDS: S1 normal heart sound present and S2 normal heart sound present GI: COMMON NORMALS: Normal to inspection, nondistended, normoactive bowel sounds present and non-tender Extremity: COMMON NORMALS: no pedal edema Neuro: COMMON NORMALS: patient oriented x3 Psych: COMMON NORMALS: mental status grossly normal Data 03/14/25 00:37 03/14/25 08:16 A&P Assessment and plan (1) Hypertension: (2) Chest pain: (3) Atrial fibrillation with RVR: (4) PAD (peripheral artery disease): (5) Mixed hyperlipidemia: (6) Metabolic acidosis: (7) BYRON (acute kidney injury): (8) Abdominal pain: Plan Paroxysmal atrial fibrillation with rapid ventricular rate - Continue Cardizem drip, p.o. Cardizem - Continuous telemetry monitoring - Monitor electrolytes - Continue home metoprolol - Continue home apixaban for stroke prophylaxis Chest pain: - Recent negative stress testing IMPRESSIONS 1. Normal myocardial perfusion imaging with no evidence of ischemia 2. LV systolic function is normal 3. TID ratio is elevated. In absence of significant perfusion abnormality, significance of this finding is equivocal. 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 Possibly chronic mesenteric ischemia, order lactic acid History of peripheral vascular disease, patient was referred to vascular surgery for bypass graft - No complaints of lower extremity pain - DP PT pulses palpable although diminished bilaterally, no mottling, no overlying skin changes History of liver cirrhosis on CT imaging, evidence of gastric varices Type 2 diabetes mellitus - Sliding-scale insulin correction Peripheral arterial disease - Continue DOAC DVT ppx: Apixaban Code: Full PDMP PDMP Reviewed: Not Reviewed Attestations 2 Medical Necessity Statement*: Patient requires hospitalization, inpatient, greater than 2 midnights for acute kidney injury, Metabolic acidosis Diagnoses Essential hypertension I10 Hypertension type: essential hypertension Chest pain R07.89 Chest pain type: other chest pain Atrial fibrillation with RVR I48.91 PAD (peripheral artery disease) I73.9 Mixed hyperlipidemia E78.2 Metabolic acidosis E87.20 BYRON (acute kidney injury) N17.9 Abdominal pain R10.9
[2025-03-14 14:00] VITALS: PULSE 55
[2025-03-14 16:00] VITALS: BP 166/64; PULSE 62; RESP 20; TEMP 37.2; O2SAT 90
[2025-03-14 17:17] LABS: Glucose Point of Care 284 mg/dL (70-110)
[2025-03-14] MEDS: dilTIAZem 30 mg Tablet PO ×2 (17:24→22:33)
[2025-03-14] MEDS: sodium bicarbonate 150 MEQ in dextrose 5% 1,000 ML 50 MEQ IV (18:56)
[2025-03-14 19:10] VITALS: BP 152/55; PULSE 66; RESP 17; TEMP 36.6; O2SAT 92
[2025-03-14 20:07] LABS: Glucose Point of Care 287 mg/dL (70-110)
[2025-03-14] MEDS: sennosides 8.6 mg Tablet 17.2 MG PO (22:33)
[2025-03-15] VITALS (12 sets, daily range): BP systolic 144–188; BP diastolic 49–76; PULSE 53–63; RESP 8–23; TEMP 36.4–36.9; O2SAT 65–98
[2025-03-15] MEDS: cefTRIAXone 1,000 mg SDV 1000 MG IVP (04:46)
[2025-03-15] MEDS: dilTIAZem 30 mg Tablet PO ×3 (04:46→22:12)
--- NOTE | 2025-03-15 04:52 | PC.NURSE ---
Attempting to give medications to patient. When told about receiving rocephin for her UTI patient became aggravated asking why vesna has told her anything. Patient stating I want to know whats going on. I want to go home. I have a little dog at home to take care of and other resonsibilites . When attempting to educate patient why she was here and what we are doing for her patient again state I wish people would just tell me why I'm here . Patient then stating that the abx going into IV was burning. IV check and found to be patent. Patient still complaining of burning and said Give me a pill, everything makes me sick . When this nurse asked if she wanted me to not give her the abx she stated yes. Attempted to reeducate patient why she is here. Doctor notified about abx refusal. Received orders to change to cefdinir 300 mg bid.
[2025-03-15 05:00] LABS: Basophils # 0.1 10^3/uL (0.0-0.1); Basophils % 0.9 %; Eosinophils % 10.4 %; Hematocrit 33.5 % (36-47); Lymphocytes # 2.4 10^3/uL (0.8-4.8); Lymphocytes % 24.1 %; Mean Corpuscular HGB Conc 33.4 g/dL (30-55); Mean Corpuscular Hemoglobin 29.4 pg (27-33); Mean Corpuscular Volume 87.9 fl (85-98); Mean Platelet Volume 11.2 fL (7.4-10.4); Neutrophils # 5.46 10^3/uL (1.8-7.7); Neutrophils % 54.3 %; Nucleated Red Blood Cells % 0 %; Platelet Count 201 10^3/cmm (157-399); Red Blood Count 3.81 10^6/uL (3.85-5.65); Red Cell Distribution Width 13.5 % (12.1-15.1); White Blood Count 10.04 10^3/uL (3.29-11.43)
[2025-03-15 05:35] LABS: Alanine Aminotransferase < 5 U/L (0-33); Albumin Level 2.9 g/dL (3.5-5.2); Alkaline Phosphatase 114 U/L (35-105); Anion Gap 15.8 (5-19); Aspartate Amino Transferase 10 U/L (0-32); Blood Urea Nitrogen 39 mg/dL (8-23); C Reactive Protein 21.9 mg/L (0.0-4.9); Calcium 8.6 mg/dL (8.5-10.5); Carbon Dioxide 28 mmol/L (22-29); Chloride 95 mmol/L (98-107); Creatinine Clr Calc Pharmacy 12.0358; Globulin 3.5 g/dL (1.3-4.6); Glomerular Filtration Rate 10.5 mL/min (90-130); Glucose 201 mg/dL (65-115); NT Pro B Type Natriuretic Pept 12526 pg/mL (0-125); Osmolality Calculated 295 mOsm/kg (285-295); Potassium 3.8 mmol/L (3.5-5.1); Sodium 135 mmol/L (136-145); Total Bilirubin 0.3 mg/dL (0.15-1.2); Total Protein 6.4 g/dL (6.6-8.7)
[2025-03-15 06:24] LABS: Glucose Point of Care 189 mg/dL (70-110)
[2025-03-15] MEDS: apixaban 5 mg Tablet PO ×2 (08:07→16:54)
[2025-03-15] MEDS: aspirin 81 mg EC Tablet PO (08:07)
[2025-03-15] MEDS: metoprolol tartrate 50 mg Tablet 75 MG PO ×2 (08:07→16:54)
--- NOTE | 2025-03-15 08:10 | PC.NURSE ---
Patient refused antibiotic, insulin and lactulose. stated I know my body and my dr. Didn't have me on any of the before
--- NOTE | 2025-03-15 08:21 | PC.NURSE ---
Dr. Dangelo notified of med refusal, order given to stop lactulose
--- NOTE | 2025-03-15 08:57 | P.PN_ITS ---
Subjective 2 Subjective: continues to have poor PO intake Medications: Reviewed: Yes Vitals/I&O/Wt Last Vital Signs Temp 97.6 F 03/15/25 00:00 Pulse 63 03/15/25 08:00 Resp 23 H 03/15/25 03:43 BP 162/62 03/15/25 08:00 Pulse Ox 91 03/15/25 08:00 O2 Del Method Nasal Cannula 03/15/25 03:43 O2 Flow Rate 2 03/13/25 20:14 03/14/25 03/15/25 03/15/25 22:59 06:59 14:59 Intake Total 1466.667 / 2066.667 240 / 2306.667 Output Total 400 / 800 Balance 1066.667 / 1266.667 240 / 1506.667 Weight last 48 hrs Weight 73.527 kg Weight 71.849 kg Weight 68.538 kg Weight 68.538 kg Weight 66.678 kg Physical Exam 2 Narrative: Awake , alert , N distress On room air S1S2 RRR per report Lungs clear per report Abd soft, non tender , No tenderness per report No edema Data 03/15/25 04:11 03/15/25 04:11 A&P Assessment and plan (1) BYRON (acute kidney injury): 1. Acute on chronic kidney disease stage III: Baseline creatinine 1.2-1.5 range, patient now has BYRON with a peak creatinine of 4.6 likely due to fluctuating blood pressures and prerenal in the setting of decreased p.o. intake in the last few weeks. Has mild metabolic acidosis, volume status stable. - on bicarbonate drip at 50 cc /hr - Switch to NS Creatinine seems to have peaked and improving slowly , , continue to monitor closely and no acute indication for dialysis today. No hydronephrosis on renal ultrasound. UA with positive protein no blood. 2. Hypertension: Blood pressure fluctuating, on metoprolol 3. A-fib with RVR, on beta-blockers 4. Recent history of pancreatitis 5.? UTI, management per primary team 6. Metabolic acidosis: Likely from diarrhea and decreased oral intake, bicarb drip as above for now Patient evaluated using audiovisual cart. Time spent 40 minutes. (2) CKD (chronic kidney disease): PDMP PDMP Reviewed: Not Reviewed Attestations 2 Medical Necessity Statement*: per medicne Coding Level of Care Code Acute Code for Chg Fwd Diagnoses BYRON (acute kidney injury) N17.9 CKD (chronic kidney disease) N18.9
[2025-03-15 09:37] LABS: Erythrocyte Sedimentation Rate 50 mm/hr (0-15)
--- NOTE | 2025-03-15 09:49 | PC.CHAP ---
Pastoral Care Encounter/Spiritual Assessment Type of Contact [] Declined desktop manager visit [] Patient/Family/Request visit [] Outpatient visit [] Follow-up visit [] Physician referral [] Code/Alert [x] Routine visit [] Staff referral [] Actively dying [] Patient sleeping [] Family support [] [] Out of room [] Palliative care [] [] Receiving care in room [] Pre-surgical visit [] Trauma [] Long length of stay [] ICU visit [] Other: Relational/Emotional Strength [] Patient feels connected with others/family/visitors/staff [] Distress [] Loneliness/isolation [] Abandonment Spirituality of Patient [x] Person of [place] [x] Attends Jew of their [place] [x] Believes in Prayer [] Reads Bible or Scientologist materials [] There are Spiritual issues to be addressed Pneumatic Tube Operator Interventions [x] Prayer [x] Active listening [] Non-anxious presence [] Spiritual/emotional support [] Crisis/trauma care [] Spiritual counseling [] Bereavement support [] Provided bereavement packet [x] Provided Bible/devotional materials [] Provided toy/stuffed animal, coloring book to patient or family member [] Provided Communion [] Anointing/[place] [] Salvation [] Completed spiritual assessment [x] Other: (prayer shawl) Impact on Illness or Injury [] Angry [] Fearful [] Anxious [] Often cries [] Exhaustion [] Unable to work [] Unable to attend tenriism [] Unable to walk/stand [] Unable to read [] Unable to drive [] Unable to eat/drink [] Unable to sleep [] Unable to be with family [] Patient intubated [] Other: Summary Time spent with patient 30 min
[2025-03-15 09:53] LABS: Gamma Glutamyl Transferase 43 U/L (5-36); Lipase 115 U/L (13-60)
--- NOTE | 2025-03-15 11:07 | P.PN_ITS ---
Subjective 2 Subjective: Patient was seen this morning, she is alert oriented x 3, following all commands, denies any fevers, no chills, no nausea, no vomiting, no lightheadedness, no dizziness Vitals/I&O/Wt Last Vital Signs Temp 97.6 F 03/15/25 00:00 Pulse 63 03/15/25 08:00 Resp 23 H 03/15/25 03:43 BP 162/62 03/15/25 08:00 Pulse Ox 91 03/15/25 08:00 O2 Del Method Nasal Cannula 03/15/25 03:43 O2 Flow Rate 2 03/13/25 20:14 03/14/25 03/15/25 03/15/25 22:59 06:59 14:59 Intake Total 1466.667 / 2066.667 240 / 2306.667 Output Total 400 / 800 Balance 1066.667 / 1266.667 240 / 1506.667 Weight last 48 hrs Weight 73.527 kg Weight 71.849 kg Weight 68.538 kg Weight 68.538 kg Weight 66.678 kg Physical Exam 2 Const: COMMON NORMALS: no acute distress and patient oriented x3 Resp: COMMON NORMALS: normal respiratory effort, No retractions, No use of accessory muscles and clear to auscultation bilaterally AUSCULTATION: clear to auscultation bilaterally Cardio: COMMON NORMALS: regular rate, regular rhythm, S1 normal heart sound present and S2 normal heart sound present RATE: regular rate RHYTHM: r egular rhythm HEART SOUNDS: S1 normal heart sound present and S2 normal heart sound present GI: COMMON NORMALS: Normal to inspection, nondistended, normoactive bowel sounds present and non-tender Extremity: COMMON NORMALS: no pedal edema Neuro: COMMON NORMALS: patient oriented x3 Psych: COMMON NORMALS: mental status grossly normal Data 03/15/25 04:11 03/15/25 04:11 A&P Assessment and plan (1) Hypertension: (2) Chest pain: (3) Atrial fibrillation with RVR: (4) PAD (peripheral artery disease): (5) Mixed hyperlipidemia: (6) Metabolic acidosis: (7) BYRON (acute kidney injury): (8) Abdominal pain: Plan Paroxysmal atrial fibrillation with rapid ventricular rate - Continue Cardizem drip, p.o. Cardizem - Continuous telemetry monitoring - Monitor electrolytes - Continue home metoprolol - Continue home apixaban for stroke prophylaxis Chest pain: - Recent negative stress testing IMPRESSIONS 1. Normal myocardial perfusion imaging with no evidence of ischemia 2. LV systolic function is normal 3. TID ratio is elevated. In absence of significant perfusion abnormality, significance of this finding is equivocal. - Trend troponins - Telemetry monitoring High anion gap metabolic acidosis Acute kidney injury on CKD stage III, creatinine improving to 4.2 - Patient reports onset of symptoms after contrast exposure, DANAI is within differential - Patient also reports persistent nausea/vomiting, prerenal/ATN also within differential - Patient is MARK was positive, tite 1:640, SSA positive, LIMOUSINE DRIVER antibody positive - Urine electrolytes - Renal ultrasound no acute findings - Renally dose medications -nephrology consulted Nausea/vomiting History of recent pancreatitis reportedly diagnosed at [facility] - Currently denies any abdominal pain - Low-dose IV fluids as above - Antiemetics as needed - CT abdomen and pelvis without contrast no acute findings - Has a history of vasculopathy? Possibly chronic mesenteric ischemia, order lactic acid History of peripheral vascular disease, patient was referred to vascular surgery for bypass graft - No complaints of lower extremity pain - DP PT pulses palpable although diminished bilaterally, no mottling, no overlying skin changes History of liver cirrhosis on CT imaging, evidence of gastric varices Pancreatitis?, Lipase 115, continue to monitor Type 2 diabetes mellitus - Sliding-scale insulin correction Peripheral arterial disease - Continue DOAC DVT ppx: Apixaban Code: Full PDMP PDMP Reviewed: Not Reviewed Attestations 2 Medical Necessity Statement*: Patient requires hospitalization for BYRON requiring IV fluids Diagnoses Essential hypertension I10 Hypertension type: essential hypertension Chest pain R07.89 Chest pain type: other chest pain Atrial fibrillation with RVR I48.91 PAD (peripheral artery disease) I73.9 Mixed hyperlipidemia E78.2 Metabolic acidosis E87.20 BYRON (acute kidney injury) N17.9 Abdominal pain R10.9
[2025-03-15 11:11] LABS: HIV 1 & 2 Antibody Non-Reactive (Non-Reactiv); HIV 1 & 2 Antigen Non-Reactive (Non-Reactiv); Hepatitis A Antibody IgM Non-Reactive (Nonreactive); Hepatitis B Core IgM Non-Reactive (Nonreactive); Hepatitis B Surface Antigen Non-Reactive (Nonreactive); Hepatitis C Virus Antibody Non-Reactive (Nonreactive)
[2025-03-15] MEDS: sodium chloride 0.9% 1,000 ML 75 ML IV (11:47)
[2025-03-15 12:05] LABS: Glucose Point of Care 218 mg/dL (70-110)
[2025-03-15 17:25] LABS: Glucose Point of Care 199 mg/dL (70-110)
[2025-03-15 21:28] LABS: Glucose Point of Care 254 mg/dL (70-110)
[2025-03-15] MEDS: sennosides 8.6 mg Tablet 17.2 MG PO (22:12)
[2025-03-15] MEDS: acetaminophen 325 mg Tablet 650 MG PO (22:19)
[2025-03-16] MEDS: sodium chloride 0.9% 1,000 ML 75 ML IV ×2 (00:52→15:48)
[2025-03-16 03:17] LABS: Basophils # 0.1 10^3/uL (0.0-0.1); Basophils % 0.9 %; Eosinophils # 1.3 10^3/uL (0.0-0.8); Eosinophils % 13.7 %; Lymphocytes # 2.1 10^3/uL (0.8-4.8); Lymphocytes % 21.8 %; Mean Corpuscular Hemoglobin 29.7 pg (27-33); Mean Corpuscular Volume 89.9 fl (85-98); Mean Platelet Volume 10.7 fL (7.4-10.4); Monocytes # 0.9 10^3/uL (0.2-0.9); Monocytes % 9.3 %; Neutrophils # 5.15 10^3/uL (1.8-7.7); Neutrophils % 54.1 %; Nucleated Red Blood Cells % 0 %; Platelet Count 196 10^3/cmm (157-399); Red Blood Count 3.67 10^6/uL (3.85-5.65); Red Cell Distribution Width 13.4 % (12.1-15.1); White Blood Count 9.54 10^3/uL (3.29-11.43)
[2025-03-16 03:44] LABS: Alanine Aminotransferase 8 U/L (0-33); Albumin Level 2.7 g/dL (3.5-5.2); Alkaline Phosphatase 107 U/L (35-105); Anion Gap 14.7 (5-19); Aspartate Amino Transferase 13 U/L (0-32); Blood Urea Nitrogen 34 mg/dL (8-23); C Reactive Protein 12.4 mg/L (0.0-4.9); Calcium 8.4 mg/dL (8.5-10.5); Carbon Dioxide 25 mmol/L (22-29); Chloride 99 mmol/L (98-107); Creatinine Clr Calc Pharmacy 13.6622; Globulin 3.3 g/dL (1.3-4.6); Glomerular Filtration Rate 12.2 mL/min (90-130); Glucose 196 mg/dL (65-115); Osmolality Calculated 293 mOsm/kg (285-295); Potassium 3.7 mmol/L (3.5-5.1); Sodium 135 mmol/L (136-145); Total Bilirubin 0.2 mg/dL (0.15-1.2)
[2025-03-16 03:46] LABS: NT Pro B Type Natriuretic Pept 10298 pg/mL (0-125)
[2025-03-16 04:00] VITALS: BP 158/52; PULSE 64; RESP 18; TEMP 37.1; O2SAT 91
[2025-03-16] MEDS: dilTIAZem 30 mg Tablet PO ×2 (05:22→17:52)
[2025-03-16 06:00] VITALS: BMI 30.6
[2025-03-16 06:42] LABS: Glucose Point of Care 188 mg/dL (70-110)
[2025-03-16] MEDS: prochlorperazine 10 mg/2 mL Inj IVP (06:42)
[2025-03-16 07:34] LABS: EBV IGG TEST >750.00 U/mL; EBV IGM TEST <36.00 U/mL
--- NOTE | 2025-03-16 07:44 | P.PN_ITS ---
Subjective 2 Subjective: poor PO intake Medications: Reviewed: Yes Vitals/I&O/Wt Last Vital Signs Temp 98.8 F 03/16/25 04:00 Pulse 64 03/16/25 04:00 Resp 18 03/16/25 04:00 BP 158/52 03/16/25 04:00 Pulse Ox 91 03/16/25 04:00 O2 Del Method Room Air 03/16/25 04:00 O2 Flow Rate 2 03/13/25 20:14 03/15/25 03/16/25 03/16/25 22:59 06:59 14:59 Intake Total 981.25 / 1221.25 Balance 981.25 / 1221.25 Weight last 48 hrs Weight 75.977 kg Weight 73.527 kg Physical Exam 2 Narrative: Awake , alert , N distress On room air S1S2 RRR per report Lungs clear per report Abd soft, non tender , No tenderness per report No edema Data 03/16/25 02:47 03/16/25 02:47 A&P Assessment and plan (1) BYRON (acute kidney injury): 1. Acute on chronic kidney disease stage III: Baseline creatinine 1.2-1.5 range, patient now has BYRON with a peak creatinine of 4.6 likely due to fluctuating blood pressures and prerenal in the setting of decreased p.o. intake in the last few weeks. Has mild metabolic acidosis, volume status stable. - on bicarbonate drip at 50 cc /hr - Switched to NS Creatinine seems to have peaked and improving slowly , , PO intake remains poor continue to monitor closely and no acute indication for dialysis today. No hydronephrosis on renal ultrasound. UA with positive protein no blood. 2. Hypertension: Blood pressure fluctuating, on metoprolol 3. A-fib with RVR, on beta-blockers 4. Recent history of pancreatitis 5.? UTI, management per primary team 6. Metabolic acidosis: Likely from diarrhea and decreased oral intake, bicarb drip as above for now Patient evaluated using audiovisual cart. Time spent 40 minutes. (2) CKD (chronic kidney disease): PDMP PDMP Reviewed: Not Reviewed Attestations 2 Medical Necessity Statement*: per [facility] Coding Level of Care Code Acute Code for [facility] Diagnoses BYRON (acute kidney injury) N17.9 CKD (chronic kidney disease) N18.9
--- NOTE | 2025-03-16 07:57 | PC.NURSE ---
0442- Patient still complaining of nausea. Per patient she is unable to take zofran, phenergan, and reglan due to they make me more sick . Requesting from Dr. Dillard if there is anything else that can be given. Received orders for compazine 10 IVP once.
[2025-03-16 08:00] VITALS: BP 176/76; PULSE 60; TEMP 36.6; O2SAT 90
[2025-03-16] MEDS: aspirin 81 mg EC Tablet PO (08:37)
[2025-03-16] MEDS: cefdinir 300 MG CAPSULE PO ×2 (08:38→17:52)
[2025-03-16] MEDS: metoprolol tartrate 50 mg Tablet 75 MG PO (08:38)
[2025-03-16] MEDS: apixaban 5 mg Tablet PO ×2 (08:38→17:52)
[2025-03-16 09:04] LABS: Lipase 92 U/L (13-60)
--- NOTE | 2025-03-16 09:35 | PC.SOCIAL ---
IMM Updated Updated pt on IMM. No questions voiced. Provided pt a copy. Initialed, dated, & timed a copy & placed in chart.
[2025-03-16 11:26] LABS: Glucose Point of Care 233 mg/dL (70-110)
[2025-03-16 12:00] VITALS: BP 172/77; PULSE 64; TEMP 36.6; O2SAT 96
--- NOTE | 2025-03-16 13:58 | PC.NURSE ---
Patient has removed telemetry x 2.
[2025-03-16] MEDS: hyDRALAzine 10 mg Tablet PO ×2 (14:54→20:07)
[2025-03-16 16:00] VITALS: BP 173/73; PULSE 67; TEMP 36.7; O2SAT 93
--- NOTE | 2025-03-16 16:21 | P.PN_ITS ---
Subjective 2 Subjective: Patient was seen this morning, she she does report feeling nauseous, her abdominal pain is improving does report poor appetite, no fevers, chills, no cough, no flank pain Vitals/I&O/Wt Last Vital Signs Temp 98.0 F 03/16/25 16:00 Pulse 67 03/16/25 16:00 Resp 18 03/16/25 04:00 BP 173/73 03/16/25 16:00 Pulse Ox 93 03/16/25 16:00 O2 Del Method Room Air 03/16/25 16:00 O2 Flow Rate 2 03/13/25 20:14 03/16/25 03/16/25 03/16/25 06:59 14:59 22:59 Intake Total 981.25 / 1221.25 1000 / 1000 Balance 981.25 / 1221.25 1000 / 1000 Weight last 48 hrs Weight 75.977 kg Weight 73.527 kg Physical Exam 2 Const: COMMON NORMALS: no acute distress and patient oriented x3 Neck/C-Spine: COMMON NORMALS: no JVD Resp: COMMON NORMALS: normal respiratory effort, No retractions, No use of accessory muscles and clear to auscultation bilaterally AUSCULTATION: clear to auscultation bilaterally Cardio: COMMON NORMALS: no JVD, regular rate, regular rhythm, S1 normal heart sound present and S2 normal heart sound present RATE: regular rate RHYTHM: regular rhythm HEART SOUNDS: S1 normal heart sound present and S2 normal heart sound present GI: COMMON NORMALS: Normal to inspection, nondistended, normoactive bowel sounds present and non-tender Extremity: COMMON NORMALS: no pedal edema Neuro: COMMON NORMALS: patient oriented x3 Psych: COMMON NORMALS: mental status grossly normal Data 03/16/25 02:47 03/16/25 02:47 A&P Assessment and plan (1) Hypertension: (2) Chest pain: (3) Atrial fibrillation with RVR: (4) PAD (peripheral artery disease): (5) Mixed hyperlipidemia: (6) Metabolic acidosis: (7) BYRON (acute kidney injury): (8) Abdominal pain: Plan Paroxysmal atrial fibrillation with rapid ventricular rate - p.o. Cardizem - Continuous telemetry monitoring - Monitor electrolytes - Continue home metoprolol - Continue home apixaban for stroke prophylaxis Chest pain: - Recent negative stress testing IMPRESSIONS 1. Normal myocardial perfusion imaging with no evidence of ischemia 2. LV systolic function is normal 3. TID ratio is elevated. In absence of significant perfusion abnormality, significance of this finding is equivocal. 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 Does have lipase elevation at 92 - Currently reports minimal abdominal pain - Low-dose IV fluids as above - Antiemetics as needed - CT abdomen and pelvis without contrast no acute findings - Has a history of vasculopathy? Possibly chronic mesenteric ischemia, recommend small-volume feeds multiple times throughout the day, aspirin, Eliquis as above History of peripheral vascular disease, patient was referred to vascular surgery for bypass graft - No complaints of lower extremity pain - DP PT pulses palpable although diminished bilaterally, no mottling, no overlying skin changes History of liver cirrhosis on CT imaging, evidence of gastric varices Pancreatitis?, Lipase 115, continue to monitor, Type 2 diabetes mellitus - Sliding-scale insulin correction Peripheral arterial disease - Continue DOAC DVT ppx: Apixaban Code: Full PDMP PDMP Reviewed: Not Reviewed Attestations 2 Medical Necessity Statement*: Patient requires hospitalization for acute kidney injury, atrial fibrillation, elevated lipase Diagnoses Essential hypertension I10 Hypertension type: essential hypertension Chest pain R07.89 Chest pain type: other chest pain Atrial fibrillation with RVR I48.91 PAD (peripheral artery disease) I73.9 Mixed hyperlipidemia E78.2 Metabolic acidosis E87.20 BYRON (acute kidney injury) N17.9 Abdominal pain R10.9
[2025-03-16 17:20] LABS: Glucose Point of Care 200 mg/dL (70-110)
[2025-03-16 19:32] VITALS: BP 161/73; PULSE 65; TEMP 36.6; O2SAT 91
[2025-03-16] MEDS: atorvastatin 40 mg Tablet PO (20:07)
[2025-03-16] MEDS: sennosides 8.6 mg Tablet 17.2 MG PO (20:07)
[2025-03-16] MEDS: acetaminophen 325 mg Tablet 650 MG PO (20:10)
[2025-03-16 20:15] LABS: Glucose Point of Care 208 mg/dL (70-110)
[2025-03-16 22:45] VITALS: PULSE 58
[2025-03-16] MEDS: diphenhydrAMINE 25 mg Capsule PO (23:37)
[2025-03-17] VITALS (8 sets, daily range): BP systolic 171–193; BP diastolic 47–89; PULSE 55–64; RESP 19–20; TEMP 36.6–36.7; O2SAT 97–98
--- NOTE | 2025-03-17 01:24 | PC.NURSE ---
patient walked from room 106 to 101 back to 106 at 0123
[2025-03-17] MEDS: hyDRALAzine 10 mg Tablet PO ×2 (01:53→08:00)
[2025-03-17 03:39] LABS: Basophils # 0.1 10^3/uL (0.0-0.1); Basophils % 1.1 %; Hematocrit 35.2 % (36-47); Lymphocytes % 21.3 %; Mean Corpuscular HGB Conc 32.7 g/dL (30-55); Mean Corpuscular Hemoglobin 29.5 pg (27-33); Mean Corpuscular Volume 90.3 fl (85-98); Mean Platelet Volume 11.1 fL (7.4-10.4); Monocytes % 10.6 %; Neutrophils # 5.12 10^3/uL (1.8-7.7); Neutrophils % 55.7 %; Nucleated Red Blood Cells % 0 %; Platelet Count 215 10^3/cmm (157-399); Red Cell Distribution Width 13.6 % (12.1-15.1); White Blood Count 9.19 10^3/uL (3.29-11.43)
[2025-03-17 04:05] LABS: Alanine Aminotransferase 9 U/L (0-33); Albumin Level 2.8 g/dL (3.5-5.2); Alkaline Phosphatase 121 U/L (35-105); Anion Gap 15.5 (5-19); Aspartate Amino Transferase 19 U/L (0-32); Blood Urea Nitrogen 31 mg/dL (8-23); C Reactive Protein 11.5 mg/L (0.0-4.9); Calcium 8.8 mg/dL (8.5-10.5); Carbon Dioxide 22 mmol/L (22-29); Chloride 101 mmol/L (98-107); Creatinine Clr Calc Pharmacy 16.0572; Globulin 3.8 g/dL (1.3-4.6); Glomerular Filtration Rate 14.4 mL/min (90-130); Glucose 203 mg/dL (65-115); Osmolality Calculated 292 mOsm/kg (285-295); Potassium 3.5 mmol/L (3.5-5.1); Sodium 135 mmol/L (136-145); Total Bilirubin 0.3 mg/dL (0.15-1.2); Total Protein 6.6 g/dL (6.6-8.7)
[2025-03-17 04:12] LABS: Lipase 101 U/L (13-60); NT Pro B Type Natriuretic Pept 11591 pg/mL (0-125)
[2025-03-17 06:10] LABS: Glucose Point of Care 166 mg/dL (70-110)
--- NOTE | 2025-03-17 07:42 | P.PN_ITS ---
Subjective 2 Subjective: no new c/o Medications: Reviewed: Yes Vitals/I&O/Wt Last Vital Signs Temp 97.9 F 03/17/25 07:28 Pulse 63 03/17/25 07:28 Resp 20 H 03/17/25 07:28 BP 192/81 03/17/25 07:28 Pulse Ox 97 03/17/25 07:28 O2 Del Method Room Air 03/17/25 07:28 O2 Flow Rate 2 03/13/25 20:14 03/16/25 03/17/25 03/17/25 22:59 06:59 14:59 Intake Total 672.5 / 1672.5 300 / 1972.5 Balance 672.5 / 1672.5 300 / 1971.5 Weight last 48 hrs Weight 66.678 kg Weight 75.977 kg Physical Exam 2 Narrative: Awake , alert , N distress On room air S1S2 RRR per report Lungs clear per report Abd soft, non tender , No tenderness per report No edema Data 03/17/25 02:45 03/17/25 02:45 A&P Assessment and plan (1) BYRON (acute kidney injury): 1. Acute on chronic kidney disease stage III: Baseline creatinine 1.2-1.5 range, patient now has BYRON with a peak creatinine of 4.6 likely due to fluctuating blood pressures and prerenal in the setting of decreased p.o. intake in the last few weeks. Has mild metabolic acidosis, volume status stable. - s/p IVFs Creatinine seems to have peaked and improving slowly , , PO intake remains poor continue to monitor closely and no acute indication for dialysis today. No hydronephrosis on renal ultrasound. UA with positive protein no blood. 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 Hypertension: Blood pressure fluctuating, on metoprolol 3. A-fib with RVR, on beta-blockers 4. Recent history of pancreatitis 5.? UTI, management per primary team 6. Metabolic acidosis: Likely from diarrhea and decreased oral intake, improved Patient evaluated using audiovisual cart. Time spent 40 minutes. (2) CKD (chronic kidney disease): PDMP PDMP Reviewed: Not Reviewed Attestations 2 Medical Necessity Statement*: per [facility] Coding Level of Care Code Acute Code for Chg Fwd Diagnoses BYRON (acute kidney injury) N17.9 CKD (chronic kidney disease) N18.9
[2025-03-17] MEDS: aspirin 81 mg EC Tablet PO (07:59)
[2025-03-17] MEDS: cefdinir 300 MG CAPSULE PO (07:59)
[2025-03-17] MEDS: metoprolol tartrate 50 mg Tablet 75 MG PO (07:59)
[2025-03-17] MEDS: apixaban 5 mg Tablet PO (07:59)
[2025-03-17] MEDS: dilTIAZem 30 mg Tablet PO (08:00)
[2025-03-17] MEDS: hyDRALAzine 25 mg Tablet PO (11:03)
--- NOTE | 2025-03-17 11:07 | P.DS_ITS ---
Discharge Providers Date of Admission: 03/14/25 10:31 Date of Discharge: March 17, 2025 Attending Provider at Admission: Jake Dillard MD Attending Provider at Discharge: Perry Dangelo MD Primary Care Provider: JER Jordan Diagnoses at Discharge Discharge Diagnosis (1) BYRON (acute kidney injury): Status: Acute (2) CKD (chronic kidney disease): Status: Chronic Reason for Visit Reason for Visit: Chest Pain Hospital Course Hospital Course This is a 69-year-old female with past medical history of CKD, pancreatitis, hypertension, peripheral vascular disease, who presents [facility] for chest palpitations Patient was admitted to [facility] for paroxysmal atrial fibrillation with rapid ventricular response, managed on the Cardizem drip, transition to p.o. Cardizem, will be discharged on p.o. 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 Given her history of vasculopathy, there is also the possibility of chronic mesenteric ischemia playing a role, managed with instructions for small- volume feeds, multiple times throughout the day, continue aspirin, Eliquis, statin on discharge For her peripheral vascular disease, follow-up with vascular surgery in [place] For her type 2 diabetes mellitus, discharged on insulin sliding scale Physical Exam Const: COMMON NORMALS: no acute distress and patient oriented x3 Resp: COMMON NORMALS: normal respiratory effort, No retractions, No use of accessory muscles and clear to auscultation bilaterally AUSCULTATION: clear to auscultation bilaterally Cardio: COMMON NORMALS: regular rate, regular rhythm, S1 normal heart sound present and S2 normal heart sound present RATE: regular rate RHYTHM: regular rhythm HEART SOUNDS: S1 normal heart sound present and S2 normal heart sound present GI: COMMON NORMALS: Normal to inspection, nondistended, normoactive bowel sounds present and non-tender Extremity: COMMON NORMALS: no calf tenderness and no pedal edema Neuro: COMMON NORMALS: patient oriented x3 Psych: COMMON NORMALS: mental status grossly normal Discharge Data Studies Completed and Pending Completed Studies During Hospitalization Category Date Time Status CT abdomen pelvis wo con [id number] Routine Cat Scan 03/13/25 20:03 Completed XR chest 1V portable [id number] Stat Exams 03/13/25 18:09 Completed US kidney bilateral [US renal BI* [id number]] Routine Ultrasound 03/13/25 20:03 Completed Radiology Impressions Chest X-Ray 03/13/25 18:09 IMPRESSION: As above Abdomen/Pelvis CT 03/13/25 20:03 IMPRESSION: 1. No small bowel obstruction, abscess or free air. 2. Cannot exclude minimal pancreatitis. Nothing overt or severe on CT. 3. Mild diffuse fluid third-spacing. 4. Numerous chronic/incidental findings above. Markedly vasculopathic patient. Similar to 11/15/2024. Renal Ultrasound 03/13/25 20:03 IMPRESSION: As above. Laboratory Results WBC 9.19 10^3/uL (3.29-11.43) 03/17/25 02:45 RBC 3.90 10^6/uL (3.85-5.65) 03/17/25 02:45 Hgb 11.50 g/dL (11.27-16.99) 03/17/25 02:45 Hct 35.2 % (36-47) L 03/17/25 02:45 MCV 90.3 fl (85-98) 03/17/25 02:45 MCH 29.5 pg (27-33) 03/17/25 02:45 MCHC 32.7 g/dL (30-55) 03/17/25 02:45 RDW 13.6 % (12.1-15.1) 03/17/25 02:45 Plt Count 215 10^3/cmm (157-399) 03/17/25 02:45 MPV 11.1 fL (7.4-10.4) H 03/17/25 02:45 Neut % (Auto) 55.7 % 03/17/25 02:45 Lymph % (Auto) 21.3 % 03/17/25 02:45 [place] % (Auto) 10.6 % 03/17/25 02:45 Eos % (Auto) 11.0 % 03/17/25 02:45 Baso % (Auto) 1.1 % 03/17/25 02:45 Neut # (Auto) 5.12 10^3/uL (1.8-7.7) 03/17/25 02:45 Lymph # (Auto) 2.0 10^3/uL (0.8-4.8) 03/17/25 02:45 [place] # (Auto) 1.0 10^3/uL (0.2-0.9) H 03/17/25 02:45 Eos # (Auto) 1.0 10^3/uL (0.0-0.8) H 03/17/25 02:45 Baso # (Auto) 0.1 10^3/uL (0.0-0.1) 03/17/25 02:45 Nucleated RBC % (auto) 0 % 03/17/25 02:45 Nucleated RBCs # 0.0 /100WBC 03/17/25 02:45 ESR 50 mm/hr (0-15) H 03/15/25 04:11 Sodium 135 mmol/L (136-145) L 03/17/25 02:45 Potassium 3.5 mmol/L (3.5-5.1) 03/17/25 02:45 Chloride 101 mmol/L (98-107) 03/17/25 02:45 Carbon Dioxide 22 mmol/L (22-29) 03/17/25 02:45 Anion Gap 15.5 (5-19) 03/17/25 02:45 BUN 31 mg/dL (8-23) H 03/17/25 02:45 Creatinine 3.2 mg/dL (0.5-0.9) H 03/17/25 02:45 GFR Calculation 14.4 mL/min (90-130) L 03/17/25 02:45 Glucose 203 mg/dL (65-115) H 03/17/25 02:45 POC Glucose 166 mg/dL (70-110) H 03/17/25 06:03 Calculated Osmolality 292 mOsm/kg (285-295) 03/17/25 02:45 Lactate 2.0 mmol/L (0.5-2.2) 03/14/25 14:02 Calcium 8.8 mg/dL (8.5-10.5) 03/17/25 02:45 Phosphorus 5.1 mg/dL (2.5-4.5) H 03/14/25 00:37 Magnesium 2.5 mg/dL (1.7-2.3) H 03/14/25 00:37 Total Bilirubin 0.3 mg/dL (0.15-1.2) 03/17/25 02:45 GGT 43 U/L (5-36) H 03/15/25 04:11 AST 19 U/L (0-32) 03/17/25 02:45 ALT 9 U/L (0-33) 03/17/25 02:45 Alkaline Phosphatase 121 U/L (35-105) H 03/17/25 02:45 Creatine Kinase 17 U/L (26-192) L 03/13/25 20:02 Troponin T Baseline 21 ng/L (0-10) H 03/13/25 18:20 Troponin T 120 Minute 25.86 ng/L (0-10) H 03/13/25 20:02 Delta Troponin T 4.86 ABS# (0-10) 03/13/25 20:02 Troponin T Hi Sens 6Hr 30.78 ng/L (0-10) H 03/14/25 00:37 Troponin T Hi Sens 6Hr Delta 9.78 ng/L (0-12) 03/14/25 00:37 C-Reactive Protein 11.5 mg/L (0.0-4.9) H 03/17/25 02:45 NT-Pro-B Natriuret Pep 36120 pg/mL (0-125) H 03/17/25 02:45 Total Protein 6.6 g/dL (6.6-8.7) 03/17/25 02:45 Albumin 2.8 g/dL (3.5-5.2) L 03/17/25 02:45 Globulin 3.8 g/dL (1.3-4.6) 03/17/25 02:45 Lipase 101 U/L (13-60) H 03/17/25 02:45 25-OH Vitamin D Total 21 ng/mL (30-100) L 03/13/25 20:02 Procalcitonin 0.19 ng/mL (0-0.5) 03/13/25 20:02 Urine Color Yellow (Yellow) 03/13/25 03:42 Urine Appearance Cloudy (CLEAR) A 03/13/25 03:42 Urine pH 5.0 (5-7) 03/13/25 03:42 Ur Specific [place] 1.016 (1.005-1.030) 03/13/25 03:42 Urine Protein 2+ (Negative) A 03/13/25 03:42 Urine Glucose (UA) Negative (Normal) 03/13/25 03:42 Urine Ketones Negative (Negative) 03/13/25 03:42 Urine Blood Non-haemolysed trace (Negative) 03/13/25 03:42 Urine Nitrate Negative (Negative) 03/13/25 03:42 Urine Bilirubin Negative (Negative) 03/13/25 03:42 Urine Urobilinogen 1.0 mg/dL (Negative) 03/13/25 03:42 Ur Leukocyte Esterase 1+ (Negative) A 03/13/25 03:42 Urine RBC 0-2 /hpf (0-2) 03/13/25 03:42 Urine WBC 21-50 /hpf (0-5) H 03/13/25 03:42 Ur Squamous Epith Cells 11-20 /hpf (0-5) H 03/13/25 03:42 Amorphous Sediment Not Reportable 03/13/25 03:42 Urine Bacteria 4+ /hpf (NONE) H 03/13/25 03:42 Hyaline Casts 12.41 /lpf 03/13/25 03:42 Ur Random Sodium 17 mmol/L 03/13/25 03:42 Ur Random Potassium 31 mmol/L 03/13/25 03:42 Ur Random Chloride 13 mmol/L 03/13/25 03:42 Urine Creatinine 136 mg/dL (28-217) 03/13/25 03:42 EBV IgG Ab >750.00 U/mL H 03/13/25 18:20 EBV IgM Ab <36.00 U/mL 03/13/25 18:20 EBV Nuclear Antigen 503.00 U/mL H 03/13/25 18:20 EBV Interpretation See note 03/13/25 18:20 Hepatitis A IgM Ab Non-reactive (Nonreactive) 03/14/25 08:16 Hep Bs Antigen Non-reactive (Nonreactive) 03/14/25 08:16 Hep B Core IgM Ab Non-reactive (Nonreactive) 03/14/25 08:16 Hepatitis C Antibody Non-reactive (Nonreactive) 03/14/25 08:16 HIV 1&2 Ab & HIV 1 Ag Non-reactive (Non-Reactiv) 03/14/25 08:16 HIV 1&2 Antibody Non-reactive (Non-Reactiv) 03/14/25 08:16 Vitals Last Vital Signs Temp 97.9 F 03/17/25 07:28 Pulse 63 03/17/25 07:28 Resp 20 H 03/17/25 07:28 BP 192/81 03/17/25 07:28 Pulse Ox 97 03/17/25 07:28 O2 Del Method Room Air 03/17/25 07:28 O2 Flow Rate 2 03/13/25 20:14 Discharge Plan Discharge Patient Disposition: Home Health Service Condition: Stable Prescriptions: New diltiazem HCl [Cardizem CD] 120 mg capsule,extended release 24hr 120 mg PO DAILY 30 Days Qty: 30 0RF hydralazine 25 mg Tablet 25 mg PO Q8H 30 Days Qty: 90 0RF insulin aspart U-100 [Novolog FlexPen U-100 Insulin] 100 unit/mL (3 mL) insulin pen See Rx Instructions .ROUTE .COMPLEX Qty: 15 0RF Rx Instructions: Inject, subcu, 3 times daily, after meals, based on low-dose sliding scale provided atorvastatin [Lipitor] 40 mg tablet 40 mg PO DAILY 30 Days Qty: 30 0RF Continued metoprolol tartrate 75 mg tablet 75 mg PO BID Qty: 180 3RF aspirin 81 mg Tablet,Delayed Release (Dr/Ec) 81 mg PO DAILY Eliquis 5 mg tablet 5 mg PO BID 30 Days Qty: 60 0RF ondansetron 4 mg tablet,disintegrating 4 mg PO Q6H PRN (Reason: nausea and vomiting) Qty: 14 0RF nitroglycerin 0.4 mg tablet, sublingual See Rx Instructions .ROUTE .COMPLEX Rx Instructions: DISSOLVE 1 TABLET UNDER THE TONGUE EVERY 5 MINUTES NEEDED FOR CHEST PAIN. DO NOT EXCEED A TOTAL OF 3 DOSES IN 15 MINUTES. Nitric Oxide Blood Flow 1 cap PO DAILY Discontinued amlodipine 5 mg tablet 5 mg PO DAILY Qty: 90 3RF No Action (DME) Diabetic shoes Qty: 1 0RF Rx Instructions: As directed (DME) blood-glucose meter [Accu-Chek Guide Glucose Meter] Misc See Rx Instructions .Route Qty: 1 0RF Rx Instructions: please provide insurance preference (DME) lancing device with lancets [Accu-Chek FastClix Lancing Dev] Kit See Rx Instructions .Route Qty: 1 0RF Rx Instructions: please provide insurance preference (DME) Accu-Chek Guide test strips Strip See Rx Instructions .Route Qty: 100 2RF Rx Instructions: check blood sugar tidac and hs (DME) lancets [Accu-Chek Softclix Lancets] Misc See Rx Instructions .Route Qty: 100 0RF Rx Instructions: As directed Discharge Orders: Discharge Order (Routine); Ordered 03/17/25 Ordered By: Perry Dangelo Referrals: [facility] [Outside] [facility] [Outside] Referral Note: Angie Clay NP [Nurse Practitioner, Cardiology] - 03/22/25 3:30 pm Josh Rojas MD [Occupational Therapist, Vascular Surgery] - 1 week Referral Note: pvJuliette Khalil FNP [Primary Care Provider, Nurse Practitioner] - 03/26/25 11:30 am Discharge Diet: Cardiac Discharge Activity: Resume usual activity Patient Instructions: Diltiazem (By mouth) (Cardizem, Cardizem CD, Cardizem LA, Cardizem SR), Hydralazine (By mouth), Insulin Aspart, Recombinant (By injection) (Novolog, Novolog..., A-fib (Atrial Fibrillation) (DC), Opioid Safety, Pancreatitis (DC) Activity Restrictions/Additional Instructions: -Please monitor your blood sugars closely -Monitor your blood sugars 3 times daily as after meals -Please record your blood sugars, and a blood sugar log -For your NovoLog -Please inject insulin for blood sugar after meals based on sliding scale provided -Do not inject insulin if you do not eat as hypoglycemia kills -This is a NovoLog sliding scale -Insulin sliding ?fingerstick? Insulin ?141-180?0 units/sq 181-220?2 units/sq ?221-260?4 units/sq ?261-300 6 units/sq ?301-350?8 units/sq ?351-400 10 units/sq ?401-450?12 units/sq >450? 14units/sq -If your blood sugar is greater than 500 go to the emergency room -If your blood sugar is less than 60 or at anytime you feel lightheaded or dizzy or diaphoretic or have chest palpitations check your blood sugar, and eat a hard candy or drink orange juice and go immediately to the emergency room -Remember hypoglycemia kills, so if his blood sugar is less than 60 we have to increase it by taking in a sugary meal such as a hard candy or orange juice and go to the emergency room -If you have any questions please call us where here to help - Creatinine is 3.2 - Please consume small volume feeds, multiple times throughout the day, avoid fatty meals Discharge Attestations Time Spent in Discharge Care*: greater than 30 min Quality Metrics Clinical Quality Measures [ No reported AMI, CVA or VTE this stay] Coding Level of Care Code 97425 Total time (in minutes) for Discharge: 45 Diagnoses BYRON (acute kidney injury) N17.9 CKD (chronic kidney disease) N18.9
[2025-03-17] MEDS: cloNIDine 0.1 mg Tablet PO (12:32)
--- NOTE | 2025-03-17 14:34 | PC.NURSE ---
Patient discharged to home. Instruction provided regarding follow up needs, new medications with changes, afib, stroke with stoplight. patient verbalized complete understanding. New Rx transmitted to [facility]. Transportation arranged through [employer] with prior auth on 03/16/25. Patient denies pain or needs. No distress observed. Patient taken out by wheelchair.
--- NOTE | 2025-03-19 10:22 | PC.NURSE ---
Patient was d/ruperto on 03/17/25. This person has sennt the appropriate referral paperwork has been faxed to clinic on Wednesday03/19/25 @ 10:10.
== END 2025-03-17 13:45 | disposition home health service (06) | DRG 683 ==
LOC: ER 19:42 → ER IP 19:52 → CSU 20:27
PROVIDERS: Admitting Provider Internal Medicine; Emergency Provider Emergency Medicine; PCP Nurse Practitioner Family; Visit Provider Family Medicine
DX: N17.9 Acute kidney failure, unspecified (principal); E87.20 Acidosis, unspecified; I48.0 Paroxysmal atrial fibrillation; E11.22 Type 2 diabetes mellitus with diabetic chronic kidney disease; I12.9 Hypertensive chronic kidney disease with stage 1 through stage 4 chronic kidney disease, or unspecified chronic kidney disease; N18.30 Chronic kidney disease, stage 3 unspecified; E11.51 Type 2 diabetes mellitus with diabetic peripheral angiopathy without gangrene; E11.42 Type 2 diabetes mellitus with diabetic polyneuropathy; I25.10 Atherosclerotic heart disease of native coronary artery without angina pectoris; K21.9 Gastro-esophageal reflux disease without esophagitis; M35.00 Sjogren syndrome, unspecified; E78.2 Mixed hyperlipidemia; K74.60 Unspecified cirrhosis of liver; Z79.82 Long term (current) use of aspirin; Z79.01 Long term (current) use of anticoagulants
CPT/HCPCS: 36415; 36416; 71045; 74176; 76770; 80048; 80053; 80074; 81001; 82306; 82436; 82550; 82575; 82962; 82977; 83605; 83690; 83735; 83880; 84100; 84133; 84145; 84300; 84484; 85025; 85651; 86140; 86664; 86665; 87806; 93005; 96365; 96366; 96375; 96376; 99285; A9270; G0378; J0696; J0780; J3490; J7030; J7070; J9999

== ENCOUNTER → 2025-03-21 12:30 | Outpatient (BNVA) | payer MEDICARE, OTHER, SELFPAY | PROVIDERS: PCP Nurse Practitioner Family; Visit Provider Nurse Practitioner Family | DX: Z09 Encounter for follow-up examination after completed treatment for conditions other than malignant neoplasm (principal); I25.119 Atherosclerotic heart disease of native coronary artery with unspecified angina pectoris; E78.2 Mixed hyperlipidemia; I10 Essential (primary) hypertension; I65.23 Occlusion and stenosis of bilateral carotid arteries; I70.92 Chronic total occlusion of artery of the extremities; Z79.01 Long term (current) use of anticoagulants; Z79.82 Long term (current) use of aspirin; F17.210 Nicotine dependence, cigarettes, uncomplicated; I73.9 Peripheral vascular disease, unspecified; R06.02 Shortness of breath | CPT/HCPCS: 36415; 80048; 83880; 85025; 99214 ==

== ENCOUNTER 2025-03-25 14:10 | Emergency (ER) | payer MEDICARE, OTHER, SELFPAY ==
--- NOTE | 2025-03-25 14:14 | ECG_ITS ---
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 Measurements Intervals [place] Rate: 47 P: 80 DE: 148 QRS: 89 QRSD: 89 T: 63 QT: 475 QTc: 422 Interpretive Statements SINUS BRADYCARDIA POSSIBLE RIGHT VENTRICULAR CONDUCTION DELAY [RSR (QR) IN V1/V2] Compared to ECG 03/14/2025 03:44:14 Myocardial infarct finding no longer present Electronically Signed On 03-25-2025 19:54:51 CDT by Wilton Reyna M.D. [id number]
--- NOTE | 2025-03-25 14:14 | ECG_ITS ---
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 Measurements Intervals [place] Rate: 47 P: 80 WV: 148 QRS: 89 QRSD: 89 T: 63 QT: 475 QTc: 422 Interpretive Statements SINUS BRADYCARDIA POSSIBLE RIGHT VENTRICULAR CONDUCTION DELAY [RSR (QR) IN V1/V2] Compared to ECG 03/14/2025 03:44:14 Myocardial infarct finding no longer present Electronically Signed On 03-25-2025 19:54:43 CDT by Wilton Reyna M.D. [id number]
[2025-03-25 14:18] VITALS: BP 192/77; PULSE 49; RESP 15; TEMP 36.5; O2SAT 94
[2025-03-25 14:54] LABS: Basophils # 0.1 10^3/uL (0.0-0.1); Basophils % 1.3 %; Eosinophils # 0.9 10^3/uL (0.0-0.8); Eosinophils % 8.6 %; Hematocrit 36.7 % (36-47); Lymphocytes # 2.3 10^3/uL (0.8-4.8); Lymphocytes % 22.8 %; Mean Corpuscular Hemoglobin 29.3 pg (27-33); Mean Corpuscular Volume 88.9 fl (85-98); Mean Platelet Volume 11.4 fL (7.4-10.4); Monocytes % 10.2 %; Neutrophils # 5.68 10^3/uL (1.8-7.7); Neutrophils % 56.8 %; Nucleated Red Blood Cells % 0 %; Platelet Count 289 10^3/cmm (157-399); Red Blood Count 4.13 10^6/uL (3.85-5.65); Red Cell Distribution Width 13.4 % (12.1-15.1)
[2025-03-25 15:04] LABS: Troponin(5th) Baseline 18 ng/L (0-10)
[2025-03-25 15:10] LABS: Alanine Aminotransferase 10 U/L (0-33); Albumin Level 3.6 g/dL (3.5-5.2); Alkaline Phosphatase 155 U/L (35-105); Anion Gap 20.4 (5-19); Aspartate Amino Transferase 16 U/L (0-32); Blood Urea Nitrogen 27 mg/dL (8-23); Calcium 9.4 mg/dL (8.5-10.5); Carbon Dioxide 19 mmol/L (22-29); Chloride 98 mmol/L (98-107); Globulin 3.7 g/dL (1.3-4.6); Glomerular Filtration Rate 16.1 mL/min (90-130); Glucose 156 mg/dL (65-115); Lipase 73 U/L (13-60); Osmolality Calculated 284 mOsm/kg (285-295); Potassium 4.4 mmol/L (3.5-5.1); Sodium 133 mmol/L (136-145); Total Bilirubin 0.5 mg/dL (0.15-1.2); Total Protein 7.3 g/dL (6.6-8.7)
== END 2025-03-25 14:58 | disposition left against medical advice (07) ==
PROVIDERS: Emergency Medicine; Emergency Provider Family Medicine; PCP Nurse Practitioner Family
DX: R00.1 Bradycardia, unspecified (principal); Z53.21 Procedure and treatment not carried out due to patient leaving prior to being seen by health care provider
CPT/HCPCS: 80053; 83690; 84484; 85025; 93005; 99285

== ENCOUNTER → 2025-06-19 07:18 | Outpatient (BNVA) | payer MEDICARE, OTHER, SELFPAY | PROVIDERS: PCP Nurse Practitioner Family; Visit Provider Podiatrist Foot & Ankle Surgery | DX: I70.25 Atherosclerosis of native arteries of other extremities with ulceration (principal); E11.621 Type 2 diabetes mellitus with foot ulcer; L97.528 Non-pressure chronic ulcer of other part of left foot with other specified severity; R09.89 Other specified symptoms and signs involving the circulatory and respiratory systems; E11.42 Type 2 diabetes mellitus with diabetic polyneuropathy; R23.4 Changes in skin texture; Z79.4 Long term (current) use of insulin; M79.672 Pain in left foot | CPT/HCPCS: 73630; 99214 ==

== ENCOUNTER 2025-06-27 08:57 | Outpatient (CLI) | payer MEDICARE, OTHER, SELFPAY ==
--- NOTE | 2025-06-27 09:30 | USR_ITS ---
PROCEDURE INFORMATION: Exam: US Bilateral Noninvasive Physiologic Study of the Lower Extremity Arteries, Limited Exam date and time: 06/27/2025 8:56 AM Age: 70 years old Clinical indication: Other: Decreased pedal pulses TECHNIQUE: Imaging protocol: Bilateral Limited bilateral noninvasive physiologic studies of lower extremity arteries. Waveforms were obtained and evaluated. Images were documented and archived. Exam is limited. Total images: 1 COMPARISON: CT angio abd aorta runof [id number] 11/15/2024 8:40 AM FINDINGS: The following pressures (mm Hg) were reported: Brachial artery: Right: 111 (index) left: 114 (index) Ankle posterior tibial: Right: 121 (MARY = 1.06) left: 116 (MARY = 1.02) Ankle dorsalis pedis: 112 (MARY = 0.98) left: 122 (MARY = 1.07) Digit: Right: 99 (MARY = 0.87) left: 87 (MARY = 0.76) US/CV ankle brachial index [id number] IMPRESSION: Normal bilateral ankle-brachial indices as measured at the posterior tibial and dorsalis pedis arteries.
== END 2025-06-27 08:58 | disposition home or self-care (01) ==
LOC: RAD 08:59
PROVIDERS: PCP Nurse Practitioner Family; Visit Provider Podiatrist Foot & Ankle Surgery
DX: R09.89 Other specified symptoms and signs involving the circulatory and respiratory systems (principal)
CPT/HCPCS: 93922

== ENCOUNTER → 2025-07-03 07:47 | Outpatient (BNVA) | payer MEDICARE, OTHER, SELFPAY | PROVIDERS: PCP Nurse Practitioner Family; Visit Provider Podiatrist Foot & Ankle Surgery | DX: E11.42 Type 2 diabetes mellitus with diabetic polyneuropathy (principal); R09.89 Other specified symptoms and signs involving the circulatory and respiratory systems; R23.4 Changes in skin texture; I70.25 Atherosclerosis of native arteries of other extremities with ulceration; L97.529 Non-pressure chronic ulcer of other part of left foot with unspecified severity; Z79.4 Long term (current) use of insulin | CPT/HCPCS: 99213 ==

== ENCOUNTER 2025-07-05 13:20 | Outpatient (CLI) | payer MEDICARE, OTHER, SELFPAY ==
--- NOTE | 2025-07-05 13:26 | CT_ITS ---
WS: [id number] CT HEAD NONCONTRAST HISTORY: HEADACHE/DIZZINESS GIDDINESS TECHNIQUE: Contiguous axial imaging performed through the brain. Bone and soft tissue windows. Sagittal and coronal reformats reviewed. All CT scans at [facility] use at least one of these dose optimization techniques: automated exposure control; mA and/or kV adjustment per patient size (includes targeted exams where dose is matched to clinical indication); or iterative reconstruction. DLP: 914.48 mGy.cm COMPARISON: 06/21/2019 No acute intracranial hemorrhage, midline shift or mass effect. Moderate atrophy and small vessel disease. Multiple small lacunar infarcts are noted bilaterally. These infarcts are predominantly in the basal ganglia. Largest lacunar infarct external capsule on the LEFT. Ventricles: Normal size with no hydrocephalus. No inferior displacement of the cerebellar tonsils. Paranasal sinuses: As visualized are clear. Mastoid air cells: Well pneumatized. Calvarium and scalp: Skull is intact with no soft tissue edema or swelling. CT/CT head wo con* [id number] IMPRESSION: 1. No acute intracranial hemorrhage or edema. 2. Moderate but significant progression of atrophy, small vessel ischemic gan ges and lacunar infarcts since 2019. Consider additional evaluation by MRI of b rain with and without contrast. Carotid artery ultrasound evaluation may be als o provide additional information.
== END 2025-07-05 13:21 | disposition home or self-care (01) ==
LOC: RAD 13:21
PROVIDERS: PCP Nurse Practitioner Family; Visit Provider Nurse Practitioner Family
DX: R51.9 Headache, unspecified (principal); R42 Dizziness and giddiness
CPT/HCPCS: 70450

== ENCOUNTER 2025-07-18 03:35 | Inpatient (IN) | payer MEDICARE, OTHER, SELFPAY ==
[2025-07-18] VITALS (17 sets, daily range): BP systolic 138–164; BP diastolic 60–98; PULSE 45–97; RESP 12–22; TEMP 35.6–36.6; O2SAT 93–100; BMI 22.1
--- NOTE | 2025-07-18 03:41 | XRR_ITS ---
PROCEDURE INFORMATION: Exam: XR Chest Exam date and time: 07/18/2025 3:42 AM Age: 70 years old Clinical indication: Pain; Angina pectoris; Additional info: Cp TECHNIQUE: Imaging protocol: Radiologic exam of the chest. Views: 1 view. COMPARISON: CR XR chest 1V portable [id number] 03/13/2025 6:11 PM FINDINGS: Lungs: Bilateral lower lobe opacities and pleural effusions. Pleural spaces: See Lungs finding. Heart/Mediastinum: Cardiomegaly. Bones/joints: No acute fracture. XR/XR chest 1V portable [id number] IMPRESSION: Bilateral lower lobe opacities and pleural effusions.
--- NOTE | 2025-07-18 03:42 | ECG_ITS ---
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 Measurements Intervals [place] Rate: 88 P: 0 [place]: 0 QRS: 84 QRSD: 150 T: 51 QT: 379 QTc: 459 Interpretive Statements ATRIAL FIBRILLATION INTRAVENTRICULAR CONDUCTION DELAY [130+ ms QRS DURATION] INTERPRETATION BASED ON A DEFAULT AGE OF [address] DEPRESSION AND T WAVE INVERSIONS CONSISTENT WITH ISCEHMIA Compared to ECG 03/25/2025 14:14:47 A[address] FIBRILLATION IS NEW ST DEPRESSION AND T WAVE INVERSIONS ARE NEW Sinus bradycardia no longer present Electronically Signed On 07-18-2025 21:32:03 CDT by Julito Campoverde M.D. [id number]
--- OUTSIDE RECORDS SUMMARY | 2025-07-18 03:43 | XMS_ITS | Clinical Summary ---
Author Organization [facility] Address [address] [place]: [place] [address] Care Team Providers Care Manager Adobe Name Role Phone Unavailable Primary Care Provider Unavailabl e Allergies Active Allergy Reactions Criticality Noted Date Comments Baclofen Nausea and Vomiting Low 08/11/2017 Codeine Nausea and Vomiting Low 08/24/2012 Propoxyphene N-Acetaminophen Nausea and Vomiting Low 08/24/2012 Medications METOPROLOL TARTRATE ORAL Take 75 mg by mouth 2 times daily. Active furosemide (Lasix) 40 mg tablet Take 1 Tablet (40 mg) by mouth daily. 30 Tablet 5 08/09/20 25 Active cefdinir (OMNICEF) 300 mg capsule Take 1 Capsule (300 mg) by mouth daily for 7 days. 7 Capsule 5 07/07/20 25 Discontinue d(Alternate therapy prescribed) linezolid (ZYVOX) 600 mg tablet Take 1 Tablet (600 mg) by mouth 2 times daily for 10 days. 20 Tablet 5 07/17/20 25 Active Problems Problem Noted Date Diagnosed Date Headache, classical migraine, intractable 2024 Idiopathic acute pancreatitis 03/07/2025 BYRON (acute kidney injury) 03/07/2025 Chronic idiopathic constipation 03/07/2025 Acute cystitis with hematuria 03/07/2025 COPD with exacerbation 10/25/2022 Senile nuclear cataract, bilateral 09/08/2017 Type 2 diabetes mellitus without ophthalmic korey festations 09/08/2017 Dry eyes, bilateral 09/08/2017 Milner's esophagus without dysplasia 04/28/2017 Duodenitis determined by biopsy 04/28/2017 Heartburn 04/20/2017 Non-cardiac chest pain 04/20/2017 Overview (03/06/2021): Patient has seen a Automatic I Threading Machine Feeder, who thought that this pain was cardiac. She reports seeing a Playground Official who does not believe that the pain is cardiac in etiology. Family history of colonic polyps 09/21/2013 Preoperative examination, unspecified 09/21/2013 Tobacco abuse 01/21/2009 HTN (hypertension), benign PAD (peripheral artery disease) Encounters Date Type Department Care Team Description 07/10/2025 1:34 AM CDT - 07/10/2025 3:19 AM CDT Emergency [facility] Emergency Medicine [address] [place] [address] Satnam Abrams MD Hypertensive emergency (Primary Dx) Discharge Disposition: Left Against Medical Advice 07/10/2025 External Device Data STL ABSTRACTION Provider, Abstract 07/10/2025 Travel 07/07/2025 7:35 AM CDT - 07/07/2025 11:59 PM CDT Hospital Encounter [facility] [address] [place] [id number] Ambulance, [facility] Discharge Disposition: Home or Self Care 07/05/2025 Results Follow-Up [facility] Emergency [address] [place] [address] Gracie Goins RN URINE CULTURE 07/04/2025 External Device Data STL ABSTRACTION Provider, Abstract 07/03/2025 12:39 PM CDT - 07/03/2025 2:55 PM CDT Emergency [facility] Emergency Medicine [address] [facility] [address] [place] [address] Enedelia Becker MD Headache, classical migraine, intractable (Primary Dx); Acute cystitis with hematuria Discharge Disposition: Home or Self Care 06/28/2025 10:17 AM CDT - 06/28/2025 11:59 PM CDT Hospital Encounter [facility] [address] [facility] [address] [place] [address] Winchester, Juliette, TAP OUT OPERATOR Discharge Disposition: Home or Self Care 06/28/2025 10:16 AM CDT - 06/28/2025 11:59 PM CDT Hospital Encounter [facility] [address] [place] [address] Winchester, Juliette, TAP OUT OPERATOR Discharge Disposition: Home or Self Care 06/28/2025 Orders Only [facility] Admitting [address] [place] [address] Winchester, Juliette, TAP OUT OPERATOR Left low back pain, unspecified chronicity, unspecified whether sciatica present (Primary Dx); Pain in thoracic spine 06/13/2025 External Device Data STL ABSTRACTION Provider, Abstract 05/08/2025 External Device Data STL ABSTRACTION Provider, Abstract 05/01/2025 External Device Data STL ABSTRACTION Provider, Abstract from Last 3 Months Immunizations Immunization Administration [...] Used Date Smoking Tobacco: Every Day Cigarettes Smokeless Tobacco: Never Tobacco Cessation:Ready to Q uit: Not Asked; Counseling Given: Not Answered Comments:Quit smoking: Currently smokes, 1 ppd, 01/20/18 Alcohol Use Standard Drinks/Week Comments No 0 (1 standard drink = 0.6 oz pur e alcohol) Feeling Safe Answer Date Recorded Are you in a relationship wi th someone who hurts you emotionally and/or physically? 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 Gender Identity Not on file Sexual Orientation Not on file Last Filed Vital Signs Vital Sign Reading Time Taken Comments Blood Pressure 183/85 07/10/2025 2:30 AM CDT Pulse 66 07/10/2025 2:30 AM CDT Temperature 36.4 C (97.5 F) 07/10/2025 1:25 AM CDT Respiratory Rate 13 07/10/2025 2:30 AM CDT Oxygen Saturation 94% 07/10/2025 2:30 AM CDT Inhaled Oxygen Concentration - - Weight 59.8 kg (131 lb 14.4 oz) 07/10/2025 1:25 AM CDT Height 157.5 cm (5' 2 ) 07/10/2025 1:25 AM CDT Body Mass Index 24.12 07/10/2025 1:25 AM CDT Plan of Treatment Health Maintenance [...] exists DIABETES MICROALBUMIN ANNUAL SCREEN 03/23/2024 03/23/2023 DTAP/TDAP/TD VACCINES (2 - T d or Tdap) 08/21/2024 08/21/2014 INFLUENZA VACCINE (#1) 2025 Procedures Procedure Name Priority Date/Time Associated Diagnosis Comments XR CHEST PA OR AP 1 VW Stat 5 2:10 AM CDT EKG 12-LEAD Stat 07/10/2025 2:08 AM CDT BRAIN NATRIURETIC PEPTIDE, BNP OR PROBNP Stat 07/10/2025 1:28 AM CDT TROPONIN BASELINE, 5TH GEN Stat 07/10/2025 1:28 AM CDT COMPREHENSIVE METABOLIC PANEL Stat 07/10/2025 1:28 AM CDT CBC WITH DIFFERENTIAL Stat 07/10/2025 1:28 AM CDT URINALYSIS MICROSCOPY ONLY Stat 07/03/2025 2:20 PM CDT URINALYSIS W/REFLEX MICROSCOPIC Stat 07/03/2025 2:20 PM CDT URINE CULTURE Stat 07/03/2025 2:[address] HEAD WO CONTRAST Stat 07/03/2025 1 :25 PM CDT C-REACTIVE PROTEIN Stat 07/03/2025 12 :40 PM CDT COMPREHENSIVE METABOLIC PANEL Stat 07/03/2025 12:40 PM CDT CBC WITH DIFFERENTIAL Stat 07/03/2025 12:40 PM CDT XR LUMBAR SPINE 4+ VW Routine 06/28/2025 10:42 AM CDT Left low back pain, unspecified chronicity, unspecified whether sciatica present Pain in thoracic spine XR THORACIC SPINE 2 VW Routine 10:42 AM CDT Left low back pain, unspecified chronicity, unspecified whether sciatica present Pain in thoracic spine MICROALBUMIN/CREATININ E RATIO, RANDOM UR Routine 03/23/2023 10:40 AM CDT HEMOGLOBIN A1C Routine 03/23/2023 10:39 AM CDT from Last 3 Months or Most Recently Relevant to Health Maintenance Results * XR CHEST PA OR AP 1 VW (07/10/2025 2:10 AM CDT) Anatomical Region Laterality Modality Chest Computed Radiogr aphy 07/10/2025 2:10 AM CDT Impressions 07/10/2025 3:05 AM CDT IMPRESSION: Acute pulmonary edema versus less likely infection. Narrative 07/10/2025 3:05 AM CDT EXAM: XR CHEST PA OR AP 1 VW DATE/TIME OF EXAM: 07/10/2025 2:10 AM REASON FOR EXAM: Shortness of Breath SOB DIAGNOSIS: See Reason for Exam COMPARISON: Chest x-ray 02/02/2025 FINDINGS: - Lines/tubes: None. - Cardiomediastinal: Contours are within normal limits. - Lungs/pleura: Small right and moderate left pleural effusions with adjacent atelectasis. No pneumothorax. - Bones and soft tissues: No acute abnormalities. - Additional comments: None. Procedure Note Denise Oseguera MD - 07/10/2025 EXAM: XR CHEST PA OR AP 1 VW DATE/TIME OF EXAM: 07/10/2025 2:10 AM REASON FOR EXAM: Shortness of Breath SOB DIAGNOSIS: See Reason for Exam COMPARISON: Chest x-ray 02/02/2025 FINDINGS: - Lines/tubes: None. - Cardiomediastinal: Contours are within normal limits. - Lungs/pleura: Small right and moderate left pleural effusions with adjacent atelectasis. No pneumothorax. - Bones and soft tissues: No acute abnormalities. - Additional comments: None. IMPRESSION: Acute pulmonary edema versus less likely infection. Satnam Abrams MD DIAGNOSTIC IMAGING OR DERABLES Final Result * EKG 12 lead (07/10/2025 2:08 AM CDT) Narrative Satnam Abrams MD - 07/10/2025 2:08 AM CDT Satnam Abrams MD 07/10/2025 2:54 AM EKG 12 lead Date/Time: 07/10/2025 2:08 AM Performed by: Satnam Abrams MD Authorized by: Santam Abrams MD Comments: Normal sinus rhythm by atrial enlargement no signs of ischemia or infarct mild axis deviation no arrhythmias one-to-one ratio of P waves to QRS Satnam Abrams MD ECG ORDERABLES Final Result * (ABNORMAL) TROPONIN BASELINE, 5TH GEN (07/10/2025 1:28 AM CDT) [facility] TROPONIN T, BASELINE 5TH GEN 60(H) <=10 ng/L 07/10/2025 2:02 AM CDT [facility] Blood BLOOD SPECIMEN / Unknown Collection / Unknown 07/10/2025 1:28 AM CDT 07/10/2025 1:42 AM CDT Narrative [facility] - 07/10/2025 2:02 AM CDT Troponin elevated. Satnam Abrams MD CHEMISTRY ORDERABLES Final Result [id number] [address] [place] [phone] * (ABNORMAL) CBC WITH DIFFERENTIAL (07/10/2025 1:28 AM CDT) Only the most recent of2 resultswithin the time period is included. [facility] WBC 10.5(H) 4.0 - 10.0 K/uL 07/10/2025 1:54 AM [facility] RBC 4.73 3.93 - 5.22 M/uL 07/10/2025 1:54 AM [facility] HEMOGLOBIN 12.5 11.2 - 15.7 g/dL 07/10/2025 1:54 AM [facility] HEMATOCRIT 38.5 34.1 - 44.9 % 07/10/2025 1:54 AM [facility] MCV 81.4 79.4 - 94.8 fL 07/10/2025 1:54 AM [facility] MCH 26.4 25.6 - 32.2 pg 07/10/2025 1:54 AM T [facility] MCHC 32.5 32.2 - 35.5 g/dL 07/10/2025 1:54 AM [facility] RDW 17.2(H) 11.0 - 14.5 % 07/10/2025 1:54 AM [facility] RDW-STDEV 49.8 36.9 - 56.9 fL 07/10/2025 1:54 AM [facility] PLATELETS 352(H) 163 - 337 K/uL 07/10/2025 1:54 AM [facility] MPV 11.1 10.0 - 14.8 fL 07/10/2025 1:54 AM [facility] NEUTROPHILS 58 34 - 71 % 07/10/2025 1:54 AM [facility] LYMPHOCYTES 26 19 - 52 % 07/10/2025 1:54 AM [facility] MONOCYTES 6 5 - 13 % 07/10/2025 1:54 AM [facility] EOSINOPHILS 9(H) 1 - 6 % 07/10/2025 1:54 AM [facility] BASOPHILS 2(H) 0 - 1 % 07/10/2025 1:54 AM [facility] IMMATURE GRANULOCYTES 0 % 07/10/2025 1:54 AM [facility] NEUTROPHIL ABSOLUTE 6.08 1.56 - 6.13 K/uL 07/10/2025 1:54 AM [facility] LYMPHOCYTE ABSOLUTE 2.69 1.20 - 3.40 K/uL 07/10/2025 1:54 AM [facility] MONOCYTE ABSOLUTE 0.63(H) 0.24 - 0.36 K/uL 07/10/2025 1:54 AM [facility] EOSINOPHIL ABSOLUTE 0.89(H) 0.04 - 0.36 K/uL 07/10/2025 1:54 AM [facility] BASOPHILS ABSOLUTE 0.20(H) 0.01 - 0.08 K/uL 07/10/2025 1:54 AM [facility] IMMATURE GRANULOCYTES ABSOLUTE 0.03 K/uL 07/10/2025 1:54 AM [facility] Blood BLOOD SPECIMEN / Unknown Collection / Unknown 07/10/2025 1:28 AM CDT 07/10/2025 1:42 AM CDT Result [facility] Satnam Abrams MD HEMATOLOGY ORDERABLES Final Result Performing Organization Address City/[facility] Co de Phone Number [facility] CLIA # [id number] [address] [place] [phone] * (ABNORMAL) BRAIN NATRIURETIC PEPTIDE, BNP OR PROBNP (07/10/2025 1:28 AM CDT) PROBNP, N TERMINAL 35,606(H) 0 - 125 pg/mL 07/10/2025 2:12 AM CDT [facility] Comment: INTERPRETIVE COMMENT based on diagnosis: Diagnostic NT pro-BNP cutoffs for Heart Failure in the absence of renal failure is suggested for the following ranges <75 years: <125 pg/mL >=75 years: <450 pg/mL Exclusionary rule out cut-point for Acute Decompensated Heart Failure(ADHF) All ages: <300 pg/mL Diagnostic NT pro-BNP cutoffs for Acute Decompensated Heart Failure(ADHF) in the absence of renal failure is suggested for the following ages <50 years: > 450 pg/mL 50-75 years: > 900 pg/mL >75 years: >1800 pg/mL Blood BLOOD SPECIMEN / Unknown Collection / Unknown 07/10/2025 1:28 AM CDT 07/10/2025 1:42 AM CDT Satnam Abrams MD CHEMISTRY ORDERABLES Final Result [facility] CLIA # [id number] [address] [place] [phone] * (ABNORMAL) COMPREHENSIVE METABOLIC PANEL (07/10/2025 1:28 AM CDT) Only the most recent of2 resultswithin the time period is included. SODIUM 131(L) 136 - 145 mmol/L 07/10/2025 2:02 AM [facility] POTASSIUM 4.0 3.5 - 5.1 mmol/L 07/10/2025 2:02 AM [facility] CHLORIDE 97(L) 98 - 107 mmol/L 07/10/2025 2:02 AM [facility] CO2 21(L) 22 - 29 mmol/L 07/10/2025 2:02 AM [facility] CALCIUM 9.7 8.8 - 10.2 mg/dL 07/10/2025 2:02 AM [facility] BUN 33(H) 8 - 23 mg/dL 07/10/2025 2:02 AM [facility] CREATININE 1.84(H) 0.51 - 0.95 mg/dL 07/10/2025 2:02 AM [facility] GLUCOSE 167(H) 74 - 99 mg/dL 07/10/2025 2:02 AM [facility] TOTAL PROTEIN 8.2 6.6 - 8.7 g/dL 07/10/2025 2:02 AM [facility] ALBUMIN 3.8 3.5 - 5.2 g/dL 07/10/2025 2:02 AM [facility] BILIRUBIN TOTAL 0.4 0.0 - 1.2 mg/dL 07/10/2025 2:02 AM [facility] ALKALINE PHOSPHATASE 141(H) 35 - 104 U/L 07/10/2025 2:02 AM [facility] AST 19 0 - 35 U/L 07/10/2025 2:02 AM [facility] ALT 8 0 - 35 U/L 07/10/2025 2:02 AM [facility] GFR 29(L) >=60 mL/min/1.7 3 sq meter 07/10/2025 2:02 AM [facility] Comment:eGFR calculated with 2020 CKD-EPI equation. Vegetarian diet, extremely high or low muscle mass, and may affect results. Cystatin C with Glomerular Filtration Rate is a suitable alternative for these patients. ANION GAP 13 5 - 20 mmol/L 07/10/2025 2:02 AM CDT [facility] Blood BLOOD SPECIMEN / Unknown Collection / Unknown 07/10/2025 1:28 AM CDT 07/10/2025 1:42 AM CDT us Satnam Abrams MD CHEMISTRY ORDERABLES Final Result Performing Organization Address [facility]/ZIP Co de Phone Number [facility] CLIA # [id number] [address] [place] [address] * (ABNORMAL) URINALYSIS MICROSCOPY ONLY (07/03/2025 2:20 PM CDT) WBC UA 26-50(A) 0 - 2 /hpf 07/03/2025 2:36 PM CDT [facility] RBC UA 3-5(A) 0 - 2 /hpf 07/03/2025 2:36 PM CDT [facility] BACTERIA UA 1+(A) Negative /hpf 07/03/2025 2:36 PM CDT [facility] EPITHELIAL CELLS, URINE 0-5 0 - 5 /hpf 07/03/2025 2:36 PM CDT [facility] Urine URINE SPECIMEN OBTAINED BY CLEAN CATCH PROCEDURE / Unknown Collection / Unknown 07/03/2025 2:20 PM CDT 07/03/2025 2:27 PM CDT us Enedelia Becker MD URINE ORDERABLES Final Result Performing Organization Address City/[facility]/ZIP Co de Phone Number [facility] CLIA # [id number] [address] [place] [phone] * (ABNORMAL) URINALYSIS WITH REFLEX MICROSCOPIC (07/03/2025 2:20 PM CDT) COLOR UA Yellow Pale to Dark Yellow 07/03/2025 2:36 PM CDT [facility] CLARITY UA Slightly Cloudy(A) Clear 07/03/2025 2:36 PM CDT [facility] SPECIFIC GRAVITY UA 1.020 1.003 - 1.035 07/03/2025 2:36 PM CDT [facility] PH UA 6.5 5.0 - 8.0 07/03/2025 2:36 PM CDT [facility] LEUKOCYTE ESTERASE UA 2+(A) Negative 07/03/2025 2:36 PM CDT [facility] NITRITE UA Negative Negative 07/03/2025 2:36 PM CDT [facility] PROTEIN UA 3+(A) Negative 07/03/2025 2:36 PM CDT [facility] GLUCOSE UA Trace(A) Negative 07/03/2025 2:36 PM CDT [facility] KETONES UA Negative Negative 07/03/2025 2:36 PM CDT [facility] UROBILINOGEN UA 0.2 <2.0 mg/dL 2:36 PM CDT [facility] BILIRUBIN UA Negative Negative 07/03/2025 2:36 PM CDT [facility] BLOOD UA Trace(A) Negative 07/03/2025 2:36 PM CDT [facility] Urine URINE SPECIMEN OBTAINED BY CLEAN CATCH PROCEDURE / Unknown Collection / Unknown 07/03/2025 2:20 PM CDT 07/03/2025 2:27 PM CDT Enedelia Becker MD URINE ORDERABLES Final Result [facility] [id number] [address] [place] [phone] * (ABNORMAL) URINE CULTURE (07/03/2025 2:20 PM CDT) CULTURE VANCOMYCIN RESISTANT ENTEROCOCCUS(A ) ZOEY MCG/ML 07/07/2025 7:42 AM CDT [facility] Urine URINE SPECIMEN OBTAINED BY CLEAN CATCH PROCEDURE / Unknown Collection / Unknown 07/03/2025 2:20 PM CDT 07/03/2025 2:55 PM CDT Narrative Organism Antibiotic Method Susceptibility Enterococcus faecium VRE AMPICILLIN ZOEY MCG/ML >=32 mcg/mL: Resistant Enterococcus faecium VRE VANCOMYCIN ZOEY MCG/ML >=32 mcg/mL: Resistant Enterococcus faecium VRE CIPROFLOXACIN ZOEY MCG/ML >=8 mcg/mL: Resistant Enterococcus faecium VRE LEVOFLOXACIN ZOEY MCG/ML >=8 mcg/mL: Resistant Enterococcus faecium VRE NITROFURANTOIN ZOEY MCG/ML 64 mcg/mL: Intermediate Enterococcus faecium VRE LINEZOLID ZOEY MCG/ML 2 mcg/mL: Susceptible Enterococcus faecium VRE DAPTOMYCIN E TEST 1.0 mcg/mL: S-DD Comment:The breakpoi nt for SDD is based on a dosage regimen of 8-12 mg/kg administered every 24 h and is intended for serious infections due to E.faecium. Comment:If Inpatient, place patient in Contact Precautions - Gown and gloves for every entry into patient rooms. us Enedelia Becker MD MICROBIOLOGY - GENERAL ORDERABL ES Final Result [facility] # [id number] [address] [place] [phone] * CT HEAD WO CONTRAST (07/03/2025 1:25 PM CDT) Anatomical Region Laterality Modality Head Computed Tomogra phy 07/03/2025 1:12 PM CDT Impressions 07/03/2025 1:41 PM CDT IMPRESSION: Please see below. Exam: CT HEAD WO CONTRAST Date/Time of Exam: 07/03/2025 1:25 PM Reason For Exam: Headache, new or worsening (Age >= 50y). Diagnosis: See Reason for Exam. Technique: CT of the head was performed without the administration of intravenous contrast. Comparison: CT head without contrast 05/17/2017. Findings: Mild atrophy. No evidence of an acute cortical infarct or hemorrhage. Mild bifrontal periventricular and subinsular white matter low attenuating chronic small vessel ischemic changes. Small chronic lacunar infarct at the head of the left caudate nucleus. No abnormal extra-axial fluid. Intact calvarium. No fluid in the middle ear cavities or mastoid air cells. Bilateral lens replacement surgery. The visualized paranasal sinuses are clear. IMPRESSION: 1. No acute intracranial abnormality. Narrative Procedure Note Satnam Alcala MD - 07/03/2025 IMPRESSION: Please see below. Exam: CT HEAD WO CONTRAST Date/Time of Exam: 07/03/2025 1:25 PM Reason For Exam: Headache, new or worsening (Age >= 50y). Diagnosis: See Reason for Exam. Technique: CT of the head was performed without the administration of intravenous contrast. Comparison: CT head without contrast 05/17/2017. Findings: Mild atrophy. No evidence of an acute cortical infarct or hemorrhage. Mild bifrontal periventricular and subinsular white matter low attenuating chronic small vessel ischemic changes. Small chronic lacunar infarct at the head of the left caudate nucleus. No abnormal extra-axial fluid. Intact calvarium. No fluid in the middle ear cavities or mastoid air cells. Bilateral lens replacement surgery. The visualized paranasal sinuses are clear. IMPRESSION: 1. No acute intracranial abnormality. us Enedelia Becker MD CT ORDERABLES Final Result * (ABNORMAL) C-REACTIVE PROTEIN (07/03/2025 12:40 PM CDT) CRP 16.1(H) <5.0 mg/L 07/03/2025 1:19 PM CDT [facility] Blood BLOOD SPECIMEN / Unknown Collection / Unknown 07/03/2025 12:40 PM CDT 07/03/2025 1:03 PM CDT us Enedelia Becker MD CHEMISTRY ORDERABLES Final Resu lt [facility] CLIA # [id number] [address] [place] [address] [phone] * XR LUMBAR SPINE 4+ VW (06/28/2025 10:42 AM CDT) Anatomical Region Laterality Modality Spine Computed Radiogr aphy 06/28/2025 10:4 3 AM CDT Impressions 06/28/2025 2:34 PM CDT IMPRESSION: Please see below. EXAM: XR LUMBAR SPINE 4+ VW DATE/TIME OF EXAM: 06/28/2025 10:42 AM REASON FOR STUDY: See Diagnosis DIAGNOSIS: Left low back pain, unspecified chronicity, unspecified whether sciatica present; Pain in thoracic spine COMPARISON: None FINDINGS: Bones: No evidence of an acute fracture. No appreciable pars defect. Mineralization: Demineralization. Alignment: Grade 1 anterolisthesis L4 on L5. Degenerative Changes: Multilevel intervertebral disc space narrowing and facet arthropathy. Soft Tissue: No acute abnormality. Retained colonic stool. IMPRESSION: No acute bony finding. Narrative 06/28/2025 2:34 PM CDT Procedure Note Christina Euceda MD - 06/28/2025 IMPRESSION: Please see below. EXAM: XR LUMBAR SPINE 4+ VW DATE/TIME OF EXAM: 06/28/2025 10:42 AM REASON FOR STUDY: See Diagnosis DIAGNOSIS: Left low back pain, unspecified chronicity, unspecified whether sciatica present; Pain in thoracic spine COMPARISON: None FINDINGS: Bones: No evidence of an acute fracture. No appreciable pars defect. Mineralization: Demineralization. Alignment: Grade 1 anterolisthesis L4 on L5. Degenerative Changes: Multilevel intervertebral disc space narrowing and facet arthropathy. Soft Tissue: No acute abnormality. Retained colonic stool. IMPRESSION: No acute bony finding. [facility] DIAGNOSTIC IMAGING ORDERABLES Fi nal Result * XR THORACIC SPINE 2 VW (06/28/2025 10:42 AM CDT) Anatomical Region Laterality Modality Spine Computed Radiogr aphy 06/28/2025 10:4 2 AM CDT Impressions 06/28/2025 2:32 PM CDT IMPRESSION: Please see below. EXAM: XR THORACIC SPINE 2 VW DATE/TIME OF EXAM: 06/28/2025 10:42 AM REASON FOR STUDY: See Diagnosis DIAGNOSIS: Left low back pain, unspecified chronicity, unspecified whether sciatica present; Pain in thoracic spine COMPARISON: None FINDINGS: Bones: No evidence of an acute fracture. Mineralization: Demineralization. Alignment: Increased kyphosis. Degenerative Changes: Multilevel intervertebral disc space narrowing and facet arthropathy. Soft Tissue: No acute abnormality. Surgical clips overlie the right upper abdominal quadrant. IMPRESSION: No acute bony finding. Narrative 06/28/2025 2:32 PM CDT Procedure Note Christina Euceda MD - 06/28/2025 IMPRESSION: Please see below. EXAM: XR THORACIC SPINE 2 VW DATE/TIME OF EXAM: 06/28/2025 10:42 AM REASON FOR STUDY: See Diagnosis DIAGNOSIS: Left low back pain, unspecified chronicity, unspecified whether sciatica present; Pain in thoracic spine COMPARISON: None FINDINGS: Bones: No evidence of an acute fracture. Mineralization: Demineralization. Alignment: Increased kyphosis. Degenerative Changes: Multilevel intervertebral disc space narrowing and facet arthropathy. Soft Tissue: No acute abnormality. Surgical clips overlie the right upper abdominal quadrant. IMPRESSION: No acute bony finding. us [facility] DIAGNOSTIC IMAGING ORDERABLES Fi nal Result * MICROALBUMIN/CREATININE RATIO, RANDOM UR (03/23/2023 10:40 [...] or Most Recently Relevant to Health Maintenance Additional Health Concerns Infection Onset Date Last Indicated VRE 07/03/2025 07/03/[address] [employer] [place] [id number]
--- OUTSIDE RECORDS SUMMARY | 2025-07-18 03:43 | XMS_ITS | Clinical Summary ---
Author Organization [facility] Facility Address [address] [place] [address] Care Team Providers Care Car Tracer Name Role Phone Winchester, [facility] Provider [phone] Allergies Active Allergy Reactions Criticality Noted Date Comments Codeine Nausea And Vomiting Low 08/24/2012 Propoxyphene 10/26/2022 Medications amLODIPine (NORVASC) 5 MG tablet Take 5 mg by mouth in the morning. Active aspirin (ST ALEXANDREA) 81 MG EC tablet Take 81 mg by mouth in the morning. Active carvedilol (COREG) 25 MG tablet Take 12.5 mg by mouth 8 Active glipiZIDE (GLUCOTROL XL) 10 MG 24 hr tablet Take 10 mg by mouth in the morning and 10 mg in the evening. Active lisinopril 10 MG tablet Take 10 mg by mouth in the morning. Active rosuvastatin (CRESTOR) 10 MG tablet Take 10 mg by mouth in the morning. Active hyoscyamine (Symax-SR) 0.375 MG 12 hr tablet Take 1 tablet by mouth 8 Active Dulaglutide (Trulicity) 0.75 MG/0.5ML solution pen-injector Inject 0.75 mg under the skin Active ALPRAZolam (XANAX) 0.25 MG tablet Take 0.25 mg by mouth Active cholecalciferol (VITAMIN D-3) 1.25 MG (47516 UT) capsule Take 50,000 Units by mouth 1 (one) time per week Active pantoprazole (PROTONIX) 40 MG EC tablet Take 40 mg by mouth 1 (one) time each day before breakfast Do not crush, chew, or split. Active metoclopramide (REGLAN) 5 MG tablet Take 5 mg by mouth in the morning and 5 mg at noon and 5 mg in the evening and 5 mg before bedtime. Active cetirizine (ZyrTEC) 10 MG tablet Take 10 mg by mouth 1 (one) time each day Active Encounters Date Type Department Care Team Description 05/09/2025 Documentation Only [facility] [address] [place] [phone] Elinor Maier MA from Last 3 Months Family History Medical History Relation Comments Cancer Father Heart disease Father Cancer Maternal Grandmother Hypertension Mother Kidney disease Mother Relation Status Comments Father Maternal Grandmother Mother Social History Tobacco Use Types Packs/Day Years Used Date Smoking Tobacco: Every Day Cigarettes Tobacco Cessation:Ready to Q uit: Not Asked; Counseling Given: Not Answered Comments Unknown Sex and Gender Information Value Date Recorded Sex Assigned at Not on file Legal Sex Female 1:50 PM EST Gender Identity Not on file Sexual Orientation Not on file Plan of Treatment Health Maintenance Due Date Last Done Comments Breast Cancer Screening 1955 Pneumococcal Vaccine: 50+ Ye ars (1 of 2 - PCV) 1975 Colorectal Cancer Screening: Annual FOBT 2005 Colorectal Cancer Screening: Colonoscopy 2005 Colorectal Cancer Screening: Sigmoidoscopy 2005 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
--- OUTSIDE RECORDS SUMMARY | 2025-07-18 03:43 | XMS_ITS | Encounter Summary ---
Author Organization [facility] Address [address] [place] [address] Care Team Providers Care Crime Scene Specialist Name Role Phone Unavailable Primary Care Provider Unavailabl e Encounter Details Date Type Department Care Team (Late st Contact Info) Description 07/05/2025 Results Follow-Up [facility] Emergency Medicine [address] [place] [address] Gracie Goins, RN URINE CULTURE Social History Tobacco Use Types Packs/Day Years Used Date Smoking Tobacco: Some Days Cigarettes Smokeless Tobacco: Never Comments:Quit smoking: Curre ntly smokes, 1 ppd, 01/20/18 Alcohol Use Standard Drinks/Week Comments No 0 (1 standard drink = 0.6 oz pur e alcohol) Feeling Safe Answer Date Recorded Are you in a relationship wi th someone who hurts you emotionally and/or physically? 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
--- OUTSIDE RECORDS SUMMARY | 2025-07-18 03:43 | XMS_ITS | Encounter Summary ---
Author Organization [facility] Address [address] [place] [address] Care Team Providers Care Painter Railroad Car Name Role Phone JER Berg Sr., Alvaro Tierney Primary Care Pro vider Encounter Details Date Type Department Care Team (Late st Contact Info) Description 03/07/2016 Nurse Triage Report [id number] ABSTRACTION Therese Matson, RN [address] [place] [address] Social History Tobacco Use Types Packs/Day Years Used Date Smoking Tobacco: Every Day Cigarettes 1.5 40 Smokeless Tobacco: Never Alcohol Use Standard Drinks/Week Comments No 0 (1 standard drink = 0.6 oz pur e alcohol) Comments No Sex and Gender Information Value Date Recorded Sex Assigned at Not on file Legal Sex Female 4:25 AM SALES OPERATIONS SPECIALIST Gender Identity Not on file [...] medications. <<<<<<<< TRIAGE NOTE >>>>>>>> Triage Note: External Grinder Bonnie Matson added this note on Mar [...] on filedocumented in this encounter Care Teams Painter Railroad Car Relationship Specialty Start Date End Date [place], JER Mendenhall [address] [place] [address] PCP - General NURSE PRACTITIONER 08/24/12 documented as of this encounter
--- OUTSIDE RECORDS SUMMARY | 2025-07-18 03:43 | XMS_ITS | Encounter Summary ---
Author Organization [facility] Address [address] [place] [address] Care Team Providers Care Medical Sales Associate Name Role Phone Unavailable Primary Care Provider Unavailabl e Encounter Details Date Type Department Care Team (Late st Contact Info) Description 07/10/2025 External Device Data [facility] ABSTRACTION Provider, Abstract NO ADDRESS ON FILE Social History Tobacco Use Types Packs/Day Years Used Date Smoking Tobacco: Every Day Cigarettes Smokeless Tobacco: Never Comments:Quit smoking: Curre [...] on file Legal Sex Female 1:05 PM CELLULAR EQUIPMENT INSTALLER Gender Identity Not on file Sexual Orientation Not on file documented as of this encounter Plan of Treatment Not on file documented as of this encounter Visit Diagnoses Not on filedocumented in this encounter Additional Health Concerns Infection Onset Date Last Indicated 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
--- OUTSIDE RECORDS SUMMARY | 2025-07-18 03:44 | XMS_ITS | Encounter Summary ---
Author Organization [facility] Address [address] [place] [address] Care Team Providers Care Clinical Associate Name Role Phone JER Berg Sr., Michael Dave Primary Care Pro vider Encounter Details Date Type Department Care Team (Latest Contact Info) Description 11/24/2000 Outpatient Historical [facility] Family Medicine- [place] [address] [place] [address] Ronnie Prasad MD [address] [address] Vaginitis and vulvovaginitis, unspecified (Primary Dx); Acute sinusitis, unspecified; Symptomatic menopausal or female climacteric states; Screening for malignant neoplasm of the rectum Social History Tobacco Use Types Packs/Day Years Used Date Smoking Tobacco: Never Assessed Comments Unknown Sex and Gender Information Value Date Recorded Sex Assigned at Not on file Legal Sex Female 4:25 AM CHILD NEUROLOGIST Gender Identity Not on file Sexual Orientation Not on file documented as of this encounter Plan of Treatment Not on file documented as of this encounter Visit Diagnoses Diagnosis Vaginitis and vulvovaginitis, unspecified- Primary Acute sinusitis, unspecified Symptomatic menopausal or female climacteric states Screening for malignant neoplasm of the rectum documented in this encounter Care Teams Clinical Associate Relationship Specialty Start Date End Date Alvaro Berg Sr., FNP [address] [place] [address] PCP - General NURSE PRACTITIONER 08/24/12 documented as of this encounter
--- OUTSIDE RECORDS SUMMARY | 2025-07-18 03:44 | XMS_ITS | Encounter Summary ---
Author Organization [facility] Address [address] [place] [address] Care Team Providers Care Director Fraud Name Role Phone JER Berg Sr., Alvaro Tierney Primary Care Pro vider Reason for Referral * Outpatient Services (Routine) - Closed Specialty Diagnoses / Procedures Referred By Contac t Referred To Contact Radiology Diagnoses Swelling Mass of neck Procedures CT SOFT TISSUE NECK W CONTRAST Neo Casper MD [address] [place] [address] Phone: tel: fax: [facility] CT Scan [place] [address] [facility] [address] [place] [address] Phone: tel: fax: Referral ID Status Reason Start Date Expiration Date V isits Requested Visits Authorized [id number] Closed [facility] View CTS to Schedule (SGF) 11/17/2013 12/18/2014 1 1 OELECTRIC MACHINERY MECHANIC Encounter Details Date Type Department Care Team (Late st Contact Info) Description 11/17/2013 Ancillary Orders [facility] CT Scan [place] [address] [facility] [address] [place] [phone] Neo Casper MD [address] [place] [address] Swelling (Primary Dx); Mass of neck Social History Tobacco Use Types Packs/Day Years Used Date Smoking Tobacco: Every Day Cigarettes Alcohol Use Standard Drinks/Week Comments No 0 (1 standard drink = 0.6 oz pur e alcohol) Comments No Sex and Gender Information Value Date Recorded Sex Assigned at Not on file Legal Sex Female 4:25 AM HYDROELECTRIC MACHINERY MECHANIC Gender Identity Not on file Sexual Orientation [...] TISSUE NECK W CONTRAST (11/20/2013 1:17 PM HYDROELECTRIC MACHINERY MECHANIC) Anatomical Region Laterality Modality Neck Computed Tomogra phy 11/20/2013 1:11 PM HYDROELECTRIC MACHINERY MECHANIC Narrative 11/20/2013 3:06 PM HYDROELECTRIC MACHINERY MECHANIC PROCEDURE CT SOFT TISSUE NECK, IV contrast-enhanced, [...] neck documented in this encounter Care Teams Director Fraud Relationship Specialty Start Date End Date [place], JER Mendenh[address] [place] [address] PCP - General NURSE PRACTITIONER 08/24/12 documented as of this encounter
--- OUTSIDE RECORDS SUMMARY | 2025-07-18 03:44 | XMS_ITS | Encounter Summary ---
Author Organization [facility] Address [address] [place] [address] Care Team Providers Care Clipper Counters Name Role Phone JER Berg Sr., Michael Dave Primary Care Pro vider Encounter Details Date Type Department Care Team (Latest Contact Info) Description 04/07/2001 Outpatient Historical [facility] Medicine [facility] [place] [address] [facility] [address] [place] [address] Josh King, DO NO ADDRESS ON FILE Other specified menopausal and postmenopausal disorder (Primary Dx) Social History Tobacco Use Types Packs/Day Years Used Date Smoking Tobacco: Never Assessed Comments Unknown Sex and Gender Information Value Date Recorded Sex Assigned at Not on file Legal Sex Female 4:25 AM UTILITY DRIVER Gender Identity Not on file Sexual Orientation Not on file documented as of this encounter Plan of Treatment Not on file documented as of this encounter Visit Diagnoses Diagnosis Other specified menopausal and postmenopausal disorder- Primary documented in this encounter Care Teams Clipper Counters Relationship Specialty Start Date End Date Alvaro Berg Sr., FNP [address] [place] [address] PCP - General NURSE PRACTITIONER 08/24/12 documented as of this encounter
--- OUTSIDE RECORDS SUMMARY | 2025-07-18 03:44 | XMS_ITS | Clinical Summary ---
Author Organization [facility] Address [address] [place] [address] Care Team Providers Care Manager Actuarial Name Role Phone JER Berg Sr., Michael [...] 04/20/2017 Overview (04/20/2017): Patient has seen a Tile Setter, who thought that this pain was cardiac. She reports seeing a Assistant Professor In Family Studies who does not believe that the pain [...] on file Legal Sex Female 4:25 AM NEONATAL PEDIATRIC NURSE Gender Identity Not on file Sexual Orientation [...] 64 05/02/2019 10:34 AM CDT Temperature 36.2 C (97.2 F) 05/02/2019 10:30 AM CDT Respiratory Rate 15 05/02/2019 10:34 AM CDT [...] 05/02/2019, 1 11/09/2016, 04/20/2017, Additional history exists DTAP/TDAP/TD VACCINES (2 - T d or Tdap) 08/21/2024 08/21/2014 INFLUENZA VACCINE (#1) 2025 RSV VACCINE (60+ or ) (1 - 1-dose 75+ series) 2031 Insurance MEDICARE PART A AND B FOR LIFE MEDICARE PART A AND B FOR LIFE Advance Directives For more information, please contact: [phone] Documents on File Type Date Recorded Patient Summons Server Expl anation Advance Directive Living Will 11/07/2013 [...] 11:00 AM 04/20/2017 11:47 AM Care Teams Manager Actuarial Relationship Specialty Start Date End Date [place], JER Mendenh[address] [place] [address] PCP - General NURSE PRACTITIONER 08/24/12
--- OUTSIDE RECORDS SUMMARY | 2025-07-18 03:44 | XMS_ITS | Encounter Summary ---
Author Organization [facility] Address [address] [place] [address] Care Team Providers Care Public Health Sanitarian Name Role Phone JER Berg Sr., Michael Dave Primary Care Pro vider Reason for Referral * Outpatient Services (Routine) - Closed Specialty Diagnoses / Procedures Referred By Contac t Referred To Contact Radiology Diagnoses PAD (peripheral artery disease) Procedures US DUPLEX ARTERIAL LEGS BILATERAL Alvaro Berg Sr., FNP [address] [place] [address] Phone: tel: fax: [facility] [address] [place] [address] Phone: tel: fax: Referral ID Status Reason Start Date Expiration Date V isits Requested Visits Authorized [id number] Closed [facility] CTS to Schedule (SGF) 02/20/2014 03/23/2015 1 1 Encounter Details Date Type Department Care Team (Latest Contact Info) Description 02/20/2014 Ancillary Orders [facility] Centralized Scheduling [address] [facility] [address] [place] [phone] Alvaro Berg Sr., FNP [address] [place] [address] PAD (peripheral artery disease) (Primary Dx); Renal artery stenosis Social History Tobacco Use Types Packs/Day Years Used Date Smoking Tobacco: Every Day Cigarettes Alcohol Use Standard Drinks/Week Comments No 0 (1 standard drink = 0.6 oz pur e alcohol) Comments No Sex and Gender Information Value Date Recorded Sex Assigned at Not on file Legal Sex Female 4:25 AM LEASE ANALYST Gender Identity Not on file Sexual Orientation [...] arterioles documented in this encounter Care Teams Public Health Sanitarian Relationship Specialty Start Date End Date [place], JER Mendenhall [address] [place] [address] PCP - General NURSE PRACTITIONER 08/24/12 documented as of this encounter
--- OUTSIDE RECORDS SUMMARY | 2025-07-18 03:44 | XMS_ITS | Encounter Summary ---
Author Organization [facility] Address [address] [place] [address] Care Team Providers Care Casino Dealer Name Role Phone JER Berg Sr., Michael Dave Primary Care Pro vider Encounter Details Date Type Department Care Team (Latest Contact Info) Description 02/09/2001 Outpatient Historical [facility] Medicine [place] [address] [place] [phone] Josh King, DO NO ADDRESS ON FILE Contusion of lower leg (Primary Dx) Social History Tobacco Use Types Packs/Day Years Used Date Smoking Tobacco: Never Assessed Comments Unknown Sex and Gender Information Value Date Recorded Sex Assigned at Not on file Legal Sex Female 4:25 AM SYSTEMS DEVELOPMENT CONSULTANT Gender Identity Not on file Sexual Orientation Not on file documented as of this encounter Plan of Treatment Not on file documented as of this encounter Visit Diagnoses Diagnosis Contusion of lower leg- Primary documented in this encounter Care Teams Casino Dealer Relationship Specialty Start Date End Date Alvaro Berg Sr., FNP [address] [place] [address] PCP - General NURSE PRACTITIONER 08/24/12 documented as of this encounter
--- OUTSIDE RECORDS SUMMARY | 2025-07-18 03:44 | XMS_ITS | Encounter Summary ---
Author Organization [facility] Address [address] [place] [address] Care Team Providers Care Group Cio Name Role Phone JER Berg Sr., Michael Dave Primary Care Pro vider Encounter Details Date Type Department Care Team (Latest Contact Info) Description 02/22/[address] [facility] Medicine [place] [address] [facility] [address] [place] [phone] Ronnie Prasad MD [address] [facility] [address] [place] [address] Acute sinusitis, unspecified (Primary Dx); Cramp of limb Social History Tobacco Use Types Packs/Day Years Used Date Smoking Tobacco: Never Assessed Comments Unknown Sex and Gender Information Value Date Recorded Sex Assigned at Not on file Legal Sex Female 4:25 AM SECRETARIAL TEACHER Gender Identity Not on file Sexual Orientation Not on file documented as of this encounter Plan of Treatment Not on file documented as of this encounter Visit Diagnoses Diagnosis Acute sinusitis, unspecified- Primary Cramp of limb documented in this encounter Care Teams Group Cio Relationship Specialty Start Date End Date Alvaro Berg Sr., FNP [address] [place], [place] [address] PCP - General NURSE PRACTITIONER 08/24/12 documented as of this encounter
--- OUTSIDE RECORDS SUMMARY | 2025-07-18 03:44 | XMS_ITS | Encounter Summary ---
Author Organization [employer] [facility] Address [address] [place] [address] Care Team Providers Care Drosophere Operator Name Role Phone JER Berg Sr., Alvaro Tierney Primary Care Pro vider Encounter Details Date Type Department Care Team (Latest Contact Info) Description 12/20/2014 Ancillary Orders [facility] [address] [place] [address] Elijah Hunter MD [facility] [place] [address] Displacement of cervical intervertebral disc [...] on file Legal Sex Female 4:25 AM WAVE GUIDE ASSEMBLER Gender Identity Not on file Sexual Orientation [...] 4 OR 5 VIEWS (12/18/2014 1:45 PM WAVE GUIDE ASSEMBLER) Anatomical Region Laterality Modality Spine Computed Radiogr aphy 12/18/2014 1:38 PM WAVE GUIDE ASSEMBLER Addenda Addendum by Christopher Franco MD on 12/21/2014 10:35 AM WAVE GUIDE ASSEMBLER ATTENTION: This replaces accession number [id number]. jaw - transcribed in Epic - Impressions 12/21/2014 8:43 AM WAVE GUIDE ASSEMBLER normal cervical spine series with flexion and extension views Narrative 12/21/2014 8:43 AM WAVE GUIDE ASSEMBLER PROCEDURE CERVICAL SPINE SERIES, five views, 18 December 2014 DESCRIPTION AP, lateral, flexion and extension lateral, and open-mouth odontoid views of the cervical spine were obtained. Alignment is maintained. Vertebral body and disc space heights appear normal. No abnormal translation is appreciated on flexion and extension imaging. On the open-mouth odontoid view, no loss of alignment is seen. 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
--- OUTSIDE RECORDS SUMMARY | 2025-07-18 03:44 | XMS_ITS | Encounter Summary ---
Author Organization [facility] Address [address] [place] [address] Care Team Providers Care Licensing Coordinator Name Role Phone JER Berg Sr., Michael Dave Primary Care Pro vider Encounter Details Date Type Department Care Team (Latest Contact Info) Description 06/04/2003 Outpatient Historical [facility] [address] [place] [address] AMBULANCE, [facility] NEUROTIC DISORDER NOS (Primary Dx) Social History Tobacco Use Types Packs/Day Years Used Date Smoking Tobacco: Never Assessed Comments Unknown Sex and Gender Information Value Date Recorded Sex Assigned at Not on file Legal Sex Female 4:25 AM WELDER METAL FAB Gender Identity Not on file Sexual Orientation Not on file documented as of this encounter Plan of Treatment Not on file documented as of this encounter Visit Diagnoses Diagnosis Unspecified nonpsychotic mental disorder- Primary documented in this encounter Care Teams Licensing Coordinator Relationship Specialty Start Date End Date Alvaro Berg Sr., FNP [address] [place] [address] PCP - General NURSE PRACTITIONER 08/24/12 documented as of this encounter
--- OUTSIDE RECORDS SUMMARY | 2025-07-18 03:44 | XMS_ITS | Encounter Summary ---
Author Organization [facility] Address [address] [place] [address] Care Team Providers Care Foxpro Developer Name Role Phone JER Berg Sr., Michael Dave Primary Care Pro vider Encounter Details Date Type Department Care Team (Latest Contact Info) Description 02/07/2001 Outpatient [facility] Medicine [place] [address] [facility] [address] [place] [phone] Ronnie Prasad MD [address] [facility] [address] [place] [phone] Other specified menopausal and postmenopausal disorder (Primary Dx) Social History Tobacco Use Types Packs/Day Years Used Date Smoking Tobacco: Never Assessed Comments Unknown Sex and Gender Information Value Date Recorded Sex Assigned at Not on file Legal Sex Female 4:25 AM SEAL DELIVERY VEHICLE TEAM TECHNICIAN Gender Identity Not on file Sexual Orientation Not on file documented as of this encounter Plan of Treatment Not on file documented as of this encounter Visit Diagnoses Diagnosis Other specified menopausal and postmenopausal disorder- Primary documented in this encounter Care Teams Foxpro Developer Relationship Specialty Start Date End Date Alvaro Berg Sr., FNP [address] [place] [address] PCP - General NURSE PRACTITIONER 08/24/12 documented as of this encounter
--- OUTSIDE RECORDS SUMMARY | 2025-07-18 03:44 | XMS_ITS | Encounter Summary ---
Author Organization [facility] Address [address] [facility] [address] [place] [address] Phone Care Team Providers Care Outcomes Analyst Name Role Phone Juliette Winchester Primary Care Provider [phone] Encounter Details Date Type Department Care Team (Late st Contact Info) Description 10/13/2022 Orders Only [facility], [facility] [address] [facility] [address] [place] [address] Stage 3 chronic kidney disease, not otherwise specified (HCC) Social History Tobacco Use Types Packs/Day Years Used Date Smoking Tobacco: Never Assessed Comments Unknown Sex and Gender Information Value Date Recorded Sex Assigned at Not on file Legal Sex Female 1:50 PM EST Gender Identity Not on file Sexual Orientation Not on file documented as of this encounter Plan of Treatment Not on file documented as of this encounter Visit Diagnoses Diagnosis Stage 3 chronic kidney disease, not otherwise specified (HCC) documented in this encounter Care Teams Outcomes Analyst Relationship Specialty Start Date End Date Juliette Winchester FNP [address] [place] [address] PCP - General 03/20/25 documented as of this encounter
--- OUTSIDE RECORDS SUMMARY | 2025-07-18 03:44 | XMS_ITS | Encounter Summary ---
Author Organization [facility] Address [address] [place] [address] Care Team Providers Care Hot Punch Press Operator Name Role Phone JER Berg Sr., Michael Dave Primary Care Pro vider Encounter Details Date Type Department Care Team (Latest Contact Info) Description 12/15/2000 Outpatient [facility] [place] [address] [place] [phone] Josh King, DO NO ADDRESS ON FILE Other specified menopausal and postmenopausal disorder (Primary Dx); Other and unspecified hyperlipidemia; Other specified anemias Social History Tobacco Use Types Packs/Day Years Used Date Smoking Tobacco: Never Assessed Comments Unknown Sex and Gender Information Value Date Recorded Sex Assigned at Not on file Legal Sex Female 4:25 AM DEPARTMENT CHAIR Gender Identity Not on file Sexual Orientation Not on file documented as of this encounter Plan of Treatment Not on file documented as of this encounter Visit Diagnoses Diagnosis Other specified menopausal and postmenopausal disorder- Primary Other and unspecified hyperlipidemia Other specified anemias documented in this encounter Care Teams Hot Punch Press Operator Relationship Specialty Start Date End Date Alvaro Berg Sr., FNP [address] [place] [address] PCP - General NURSE PRACTITIONER 08/24/12 documented as of this encounter
--- OUTSIDE RECORDS SUMMARY | 2025-07-18 03:44 | XMS_ITS | Encounter Summary ---
Author Organization [facility] Address [address] [place] [address] Care Team Providers Care Children'S Court Magistrate Name Role Phone JER Berg Sr., Michael Dave Primary Care Pro vider Encounter Details Date Type Department Care Team (Latest Contact Info) Description 12/29/2000 Outpatient Historical [facility]- [place] [address] [place] [address] Josh King DO NO ADDRESS ON FILE Headache(784.0) (Primary Dx); Allergic rhinitis, cause unspecified Social History Tobacco Use Types Packs/Day Years Used Date Smoking Tobacco: Never Assessed Comments Unknown Sex and Gender Information Value Date Recorded Sex Assigned at Not on file Legal Sex Female 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
--- OUTSIDE RECORDS SUMMARY | 2025-07-18 03:44 | XMS_ITS | Encounter Summary ---
Author Organization [facility] Address [address] [place]: [place] [address] Care Team Providers Care Clay Mixer Name Role Phone [place], JER, [...] on file Legal Sex Female 4:25 AM PARIMUTUEL CASHIER Gender Identity Not on file Sexual Orientation Not on file documented as of this encounter Plan of Treatment Not on file documented as of this encounter Visit Diagnoses Not on filedocumented in this encounter Care Teams Clay Mixer Relationship Specialty Start Date End Date Alvaro Berg Sr., FNP [address] [place] [address] PCP - General NURSE PRACTITIONER 08/24/12 documented as of this encounter
--- OUTSIDE RECORDS SUMMARY | 2025-07-18 03:44 | XMS_ITS | Encounter Summary ---
Author Organization [facility] Address [address] [place] [address] Care Team Providers Care Antisqueak Worker Name Role Phone JER Berg Sr., Michael Dave Primary Care Pro vider Reason for Referral * Outpatient Services (Routine) - Closed Specialty Diagnoses / Procedures Referred By Contac t Referred To Contact Radiology Diagnoses Dyspnea on effort Procedures CT CHEST WO CONTRAST Alvaro Berg Sr., FNP [address] [place] [address] Phone: tel: fax: [facility] CT Scan [place] [address] [place] [address] Phone: tel: fax: Referral ID Status Reason Start Date Expiration Date V isits Requested Visits Authorized [id number] Closed [facility] View CTS to Schedule (SGF) 10/28/2015 11/27/2016 1 1 WEIGHER Encounter Details Date Type Department Care Team (Latest Contact Info) Description 10/28/2015 Ancillary Orders [facility] Centralized Scheduling [address] [facility] [address] [place] [address] Alvaro Berg Sr., FNP [address] [place] [address] Dyspnea on effort (Primary Dx) Social History Tobacco Use Types Packs/Day Years Used Date Smoking Tobacco: Every Day Cigarettes 1.5 40 Smokeless Tobacco: Never Alcohol Use Standard Drinks/Week Comments No 0 (1 standard drink = 0.6 oz pur e alcohol) Comments No Sex and Gender Information Value Date Recorded Sex Assigned at Not on file Legal Sex Female 4:25 AM FEED WEIGHER Gender Identity Not on file Sexual Orientation [...] CT CHEST WO CONTRAST (10/30/2015 8:29 AM FEED WEIGHER) Anatomical Region Laterality Modality Chest Computed Tomogra phy 10/30/2015 7:44 AM FEED WEIGHER Narrative 10/30/2015 8:47 AM FEED WEIGHER PROCEDURE CHEST CT, IV noncontrast, 30 October [...] pulmonary or mediastinal masses or adenopathy seen Alvaro Berg Sr., JER CT ORDERABLES F inal Result documented in this encounter Visit Diagnoses Diagnosis Dyspnea on effort- Primary Other dyspnea and respiratory abnormality Dyspnea on effort Other dyspnea and respiratory abnormality documented in this encounter Care Teams Antisqueak Worker Relationship Specialty Start Date End Date [place], JER [place] [address] [place] [address] PCP - General NURSE PRACTITIONER 08/24/12 documented as of this encounter
--- OUTSIDE RECORDS SUMMARY | 2025-07-18 03:44 | XMS_ITS | Encounter Summary ---
Author Organization [facility] Address [address] [place] [address] Care Team Providers Care High Value Associate Name Role Phone JER Berg Sr., Michael Dave Primary Care Pro vider Encounter Details Date Type Department Care Team (Latest Contact Info) Description 03/02/2001 Outpatient Historical [facility] [place] [address] [facility] [address] [place] [phone] Josh King, DO NO ADDRESS ON FILE Other specified menopausal and postmenopausal disorder (Primary Dx) Social History Tobacco Use Types Packs/Day Years Used Date Smoking Tobacco: Never Assessed Comments Unknown Sex and Gender Information Value Date Recorded Sex Assigned at Not on file Legal Sex Female 4:25 AM CUSTOMER ACQUISITION SPECIALIST Gender Identity Not on file Sexual Orientation Not on file documented as of this encounter Plan of Treatment Not on file documented as of this encounter Visit Diagnoses Diagnosis Other specified menopausal and postmenopausal disorder- Primary documented in this encounter Care Teams High Value Associate Relationship Specialty Start Date End Date Alvaro Berg Sr., FNP [address] [place] [address] PCP - General NURSE PRACTITIONER 08/24/12 documented as of this encounter
--- OUTSIDE RECORDS SUMMARY | 2025-07-18 03:44 | XMS_ITS | Encounter Summary ---
Author Organization [facility] Address [address] [place] [address] Care Team Providers Care Member Service Specialist Name Role Phone JER Berg Sr., Michael Dave Primary Care Pro vider Encounter Details Date Type Department Care Team (Late st Contact Info) Description 05/24/2015 Ancillary Orders [facility] Admitting [address] [place] [address] Odilon Martins, RAJ [address], [place] [address] Foot pain (Primary Dx) Social History Tobacco Use Types Packs/Day Years Used Date Smoking Tobacco: Every Day Cigarettes 1.5 40 Smokeless Tobacco: Never Alcohol Use Standard Drinks/Week Comments No 0 (1 standard drink = 0.6 oz pur e alcohol) Comments No Sex and Gender Information Value Date Recorded Sex Assigned at Not on file Legal Sex Female 4:25 AM FRONTEND ENGINEER Gender Identity Not on file Sexual Orientation [...] CDT The views are repeated with weight-bearing. Repeat AP, oblique, and lateral weight-bearing views show flattening of the plantar arch on weight bearing lateral projection. No dislocation is seen. IMPRESSION 1. flattening of the plantar arch with weight-bearing 2. no acute changes seen LIAM Narrative 05/24/2015 9:50 AM CDT PROCEDURE XR RIGHT FOOT, 3 views, 24 May 2015 DESCRIPTION AP, oblique, and lateral views of the right foot show no acute fracture, dislocation, or deformity. No soft tissue gas or radiopaque foreign body is seen. IMPRESSION normal right foot views Procedure Note [...] limb documented in this encounter Care Teams Member Service Specialist Relationship Specialty Start Date End Date [place], JER [address] [place] [address] PCP - General NURSE PRACTITIONER 08/24/12 documented as of this encounter
--- OUTSIDE RECORDS SUMMARY | 2025-07-18 03:44 | XMS_ITS | Encounter Summary ---
Author Organization [facility] Address [address] [place] [address] Care Team Providers Care Porcelain Waxer Name Role Phone JER Berg Sr., Michael Dave Primary Care Pro vider Encounter Details Date Type Department Care Team (Latest Contact Info) Description 02/08/2001 Outpatient Historical [facility] [place] [address] [place] [phone] Josh King DO NO ADDRESS ON FILE Allergic rhinitis due to other allergen (Primary Dx); Sleep disturbance, unspecified Social History Tobacco Use Types Packs/Day Years Used Date Smoking Tobacco: Never Assessed Comments Unknown Sex and Gender Information Value Date Recorded Sex Assigned at Not on file Legal Sex Female 4:25 AM COPIER OPERATOR Gender Identity Not on file Sexual Orientation Not on file documented as of this encounter Plan of Treatment Not on file documented as of this encounter Visit Diagnoses Diagnosis Allergic rhinitis due to other allergen- Primary Sleep disturbance, unspecified documented in this encounter Care Teams Porcelain Waxer Relationship Specialty Start Date End Date Alvaro Berg Sr., FNP [address] [place] [address] PCP - General NURSE PRACTITIONER 08/24/12 documented as of this encounter
--- OUTSIDE RECORDS SUMMARY | 2025-07-18 03:44 | XMS_ITS | Encounter Summary ---
Author Organization [facility] Address [address] [place] [address] Care Team Providers Care Quiller Runner Name Role Phone JER Berg Sr., Michael Dave Primary Care Pro vider Encounter Details Date Type Department Care Team (Latest Contact Info) Description 01/11/2001 Outpatient [facility] [place] [address] [facility] [address] [place] [phone] Ronnie Prasad MD [address] [facility] [address] [place] [phone] Need for prophylactic hormone replacement therapy (postmenopausal) (Primary Dx) Social History Tobacco Use Types Packs/Day Years Used Date Smoking Tobacco: Never Assessed Comments Unknown Sex and Gender Information Value Date Recorded Sex Assigned at Not on file Legal Sex Female 4:25 AM WHARF ATTENDANT Gender Identity Not on file Sexual Orientation Not on file documented as of this encounter Plan of Treatment Not on file documented as of this encounter Visit Diagnoses Diagnosis Need for prophylactic hormone replacement therapy (postmenopausal)- Primary documented in this encounter Care Teams Quiller Runner Relationship Specialty Start Date End Date Alvaro Berg Sr., FNP [address] [place], [place] [address] PCP - General NURSE PRACTITIONER 08/24/12 documented as of this encounter
--- OUTSIDE RECORDS SUMMARY | 2025-07-18 03:44 | XMS_ITS | Encounter Summary ---
Author Organization [facility] Address [address] [place] [address] Care Team Providers Care Repair Operator Name Role Phone JER Berg Sr., [...] on file Legal Sex Female 4:25 AM PRECISION LENS GRINDER Gender Identity Not on file Sexual Orientation Not on file documented as of this encounter Plan of Treatment Not on file documented as of this encounter Visit Diagnoses Diagnosis Female stress incontinence- Primary Unspecified menopausal and postmenopausal disorder documented in this encounter Care Teams Repair Operator Relationship Specialty Start Date End Date Alvaro Berg Sr., FNP [address] [place] [address] PCP - General NURSE PRACTITIONER 08/24/12 documented as of this encounter
--- OUTSIDE RECORDS SUMMARY | 2025-07-18 03:44 | XMS_ITS | Encounter Summary ---
Author Organization [facility] Address [address] [place] [address] Care Team Providers Care Ed Physicians Name Role Phone JER Berg Sr., Michael Dave Primary Care Pro vider Reason for Referral * Outpatient Services (Routine) - Closed Specialty Diagnoses / Procedures Referred By Controsaura t Referred To Contact Diagnoses Neck pain on right side Procedures US HEAD NECK TISSUES Alvaro Berg Sr., FNP [address] [place] [address] Phone: tel: fax: Referral ID Status Reason Start Date Expiration Date Visits Re quested Visits Authorized [id number] Closed 11/07/2013 12/08/2014 1 1 A PROFESSOR Encounter Details Date Type Department Care Team (Late st Contact Info) Description 11/07/2013 Ancillary Orders [facility] Admitting [address] [place] [phone] Alvaro Berg Sr., FNP [address] [place] [address] Neck pain on right side (Primary Dx) Social History Tobacco Use Types Packs/Day Years Used Date Smoking Tobacco: Every Day Cigarettes Alcohol Use Standard Drinks/Week Comments No 0 (1 standard drink = 0.6 oz pur e alcohol) Comments No Sex and Gender Information Value Date Recorded Sex Assigned at Not on file Legal Sex Female 4:25 AM DRAMA PROFESSOR Gender Identity Not on file Sexual Orientation [...] US HEAD NECK TISSUES (11/07/2013 3:50 PM DRAMA PROFESSOR) Anatomical Region Laterality Modality Head Ultrasound 11/07/2013 3:30 PM DRAMA PROFESSOR Narrative 11/09/2013 8:44 AM DRAMA PROFESSOR PROCEDURE US SOFT TISSUE NECK, 07 November [...] Cervicalgia documented in this encounter Care Teams Ed Physicians Relationship Specialty Start Date End Date [place], JER [address] [place] [address] PCP - General NURSE PRACTITIONER 08/24/12 documented as of this encounter
--- NOTE | 2025-07-18 03:51 | ED_ITS ---
HPI - Chest Pain 2 General: Chief Complaint: Chest Pain Stated Complaint: Chest Pain Time Seen by Provider: 07/18/25 03:40 Source: patient and EMS Mode of arrival: EMS Limitations: no limitations History of Present Illness: 70-year-old female is here with multiple complaints she has a history of chronic neck and back pain states that she has been having increasing neck pain for months states she is also having some chest pain that started yesterday that is since improved does have a history of A-fib EMS states she was in A-fib with RVR that given her 20 mg of Cardizem heart rates now in the 80s. She states she has been also been having increasing shortness of breath over the last 1 to 2 weeks she has had some lower extremity swelling. Patient does not wear oxygen at home is requiring 2 L here Associated symptoms: Reports dyspnea; Deny abdominal pain, fever(s), nausea or vomiting Related Data Home Medications ?Medication ?Instructions ?Recorded ?Confirmed aspirin 81 mg tablet,delayed 81 mg PO DAILY 02/03/25 0 07/03/25 release Nitric Oxide Blood Flow 1 cap PO DAILY 03/14/25 0805/02 nitroglycerin 0.4 mg sublingual See Rx Instructions .R oute .COMPLEX 03/14/25 07/03/25 tablet Previous Rx's ?Medication ?Instructions ?Recorded Diabetic shoes #1 ea 12/11/19 blood-glucose meter (Accu-Chek #1 ea 07/12/24 Guide Glucose Meter) lancing device with lancets kit #1 ea 07/12/24 (Accu-Chek FastClix Lancing Device kit) blood sugar diagnostic (Accu-Chek #100 ea 07/14/24 Guide test strips) lancets (Accu-Chek Softclix #100 ea 08/20/24 Lancets) metoprolol tartrate 75 mg tablet 75 mg PO BID #180 tab s 01/03/25 apixaban 5 mg tablet (Eliquis) 5 mg PO BID 30 days #60 tabs 02/05/25 ondansetron 4 mg disintegrating 4 mg PO Q6H PRN nausea and 03/10/25 tablet vomiting #14 tabs insulin aspart U-100 100 unit/mL See Rx Instructions . Route 03/17/25 (3 mL) subcutaneous pen (Novolog .COMPLEX #15 mL FlexPen U-100 Insulin aspart) atorvastatin 40 mg tablet (Lipitor) 40 mg PO DAILY 30 days #30 tabs 03/21/25 diltiazem HCl 120 mg 120 mg PO DAILY #90 caps capsule,extended release 24 hr (Cardizem CD) hydralazine 25 mg tablet 25 mg PO Q8H #90 tabs Diabetic shoes #1 ea 06/19/25 mupirocin 2 % topical ointment 1 applic topical TID #1 5 grams 06/19/25 Allergies Allergy/AdvReac Type Severity Reaction Status Date / Time codeine AdvReac nausea Verified 07/03/25 06:40 propoxyphene (From AdvReac Nausea Verified 07/03/25 06:40 Darvocet-N) Review of Systems 2 Const: Denies: fever(s), chills, body aches or change in appetite ENMT: Denies: throat pain or dental pain Card: Reports: chest pain Resp: Reports: dyspnea GI: Denies: abdominal pain, nausea, vomiting or diarrhea Musc: Denies: neck pain or back pain Skin/Breast: Denies: rash Neuro: Denies: headache(s) PFSH ED 2 PFSH: Medical History CKD (chronic kidney disease) stage 3, GFR 30-59 ml/min Diabetes History of colon polyps Atherosclerotic heart disease of [place] coronary artery without angina pectoris Carotid artery stenosis, asymptomatic Chronic distal aortic occlusion Chronic headache Hypertension Degeneration of cervical disc without myelopathy Tailor's bunion of both feet Diabetic peripheral neuropathy associated with type 2 diabetes mellitus GERD (gastroesophageal reflux disease) PAD (peripheral artery disease) Sjogren's syndrome with keratoconjunctivitis sicca Mixed hyperlipidemia Surgical History History of esophagogastroduodenoscopy History of appendectomy History of cholecystectomy History of total abdominal hysterectomy and bilateral salpingo-oophorectomy History of colonoscopy with polypectomy History of arterial bypass of lower extremity History of tonsillectomy and adenoidectomy Family History Father Lung disease Cancer lung cancer (smoker) Mother Heart disease Family/Other Diabetes Stroke Grandmother Cancer stomach Other Crohn's disease Denies family history of Colon cancer Ovarian cancer Hypercholesteremia Breast cancer Hypertension Uterine cancer Thyroid disease Social History Smoking and tobacco/nicotine status: current every day tobacco/nicotine user cigarettes Packs smoked per day: 1 [ Other cigarette details: previously 2 ppd] Quit status (tobacco/nicotine): has tried quititng Alcohol intake: never Substance/Drug Use: never Household members: other Details: grandson Marital status: / Number of children: 1 Number of grandchildren: 3 Current occupational status: unemployed 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/Adventist: Jewish Special ninoska needs: No Agree to transfusion: Yes Physical Exam 2 Const: COMMON NORMALS: patient oriented x3 HENMT: COMMON NORMALS: normocephalic and atraumatic HEAD & SCALP: n ormocephalic and atraumatic Eye: COMMON NORMALS: conjunctivae normal CONJUNCTIVA: Yes conjunctivae normal Neck/C-Spine: COMMON NORMALS: full ROM and supple Chest: COMMONS NORMALS: normal inspection of the chest Resp: COMMON NORMALS: No retractions and No use of accessory muscles A USCULTATION: rales Cardio: COMMON NORMALS: regular rate and No murmurs present (Cardio) RATE: regular rate RHYTHM: abnormal rhythm irregularly irregular GI: COMMON NORMALS: Normal to inspection, nondistended, normoactive bowel sounds present, Soft to palpation, non-tender and no masses PALPATION: Yes Soft to palpation Extremity: COMMON NORMALS: full ROM NARRATIVE EXTREMITY EXAM: 2+ edema to LE Neuro: COMMON NORMALS: patient oriented x3, moves all extremities and no focal motor deficits Psych: COMMON NORMALS: mental status grossly normal, Normal thought process present and cooperative THOUGHT PROCESS: Normal thought process present Skin: COMMON NORMALS: no rashes or lesions noted and no wounds GENERAL SKIN EXAM: no rashes or lesions noted Course 2 Vital Signs: Vital signs: Vital Signs Temperature 96.0 F L 07/18/25 03:37 Pulse Rate 97 07/18/25 04:44 Respiratory Rate 16 07/18/25 04:44 Blood Pressure 147/82 07/18/25 04:44 Pulse Oximetry 94 07/18/25 04:44 Oxygen Delivery Me thod Room Air 07/18/25 04:44 MDM - Chest Pain Medical Decision Making Patient presents here with shortness of breath she is also in A-fib with RVR did start her on a Cardizem drip she is requiring 2 L of oxygen here x-ray shows pulmonary edema will give Jayceix spoke to hospitalist will admit. Medical Records I reviewed the patient's medical records. Lab Data I reviewed the patient's lab results. 07/18/25 03:45 07/18/25 03:45 Radiology Impressions Chest X-Ray 07/18/25 03:41 IMPRESSION: Bilateral lower lobe opacities and pleural effusions. Laboratory Results WBC 9.10 10^3/uL (3.29-11.43) 07/18/25 03:45 RBC 4.57 10^6/uL (3.85-5.65) 07/18/25 03:45 Hgb 12.40 g/dL (11.27-16.99) 07/18/25 03:45 Hct 37.9 % (36-47) 07/18/25 03:45 MCV 82.9 fl (85-98) L 07/18/25 03:45 MCH 27.1 pg (27-33) 07/18/25 03:45 MCHC 32.7 g/dL (30-55) 07/18/25 03:45 RDW 17.6 % (12.1-15.1) H 07/18/25 03:45 Plt Count 310 10^3/cmm (157-399) 07/18/25 03:45 MPV 11.0 fL (7.4-10.4) H 07/18/25 03:45 Neut % (Auto) 56.7 % 07/18/25 03:45 Lymph % (Auto) 24.0 % 07/18/25 03:45 Foster % (Auto) 8.9 % 07/18/25 03:45 Eos % (Auto) 8.4 % 07/18/25 03:45 Baso % (Auto) 1.9 % 07/18/25 03:45 Neut # (Auto) 5.17 10^3/uL (1.8-7.7) 07/18/25 03:45 Lymph # (Auto) 2.2 10^3/uL (0.8-4.8) 07/18/25 03:45 Foster # (Auto) 0.8 10^3/uL (0.2-0.9) 07/18/25 03:45 Eos # (Auto) 0.8 10^3/uL (0.0-0.8) 07/18/25 03:45 Baso # (Auto) 0.2 10^3/uL (0.0-0.1) H 07/18/25 03:45 Nucleated RBC % (auto) 0 % 07/18/25 03:45 Nucleated RBCs # 0.0 /100WBC 07/18/25 03:45 Sodium 131 mmol/L (136-145) L 07/18/25 03:45 Potassium 3.2 mmol/L (3.5-5.1) L 07/18/25 03:45 Chloride 97 mmol/L (98-107) L 07/18/25 03:45 Carbon Dioxide 20 mmol/L (22-29) L 07/18/25 03:45 Anion Gap 17.2 (5-19) 07/18/25 03:45 BUN 27 mg/dL (8-23) H 07/18/25 03:45 Creatinine 1.6 mg/dL (0.5-0.9) H 07/18/25 03:45 GFR Calculation 32.0 mL/min (90-130) L 07/18/25 03:45 Glucose 166 mg/dL (65-115) H 07/18/25 03:45 Calculated Osmolality 281 mOsm/kg (285-295) L 07/18/25 03:45 Calcium 8.9 mg/dL (8.5-10.5) 07/18/25 03:45 Total Bilirubin 0.6 mg/dL (0.15-1.2) 07/18/25 03:45 AST 14 U/L (0-32) 07/18/25 03:45 ALT 7 U/L (0-33) 07/18/25 03:45 Alkaline Phosphatase 114 U/L (35-105) H 07/18/25 03:45 Troponin T Baseline 43 ng/L (0-10) H 07/18/25 03:45 NT-Pro-B Natriuret Pep 24145 pg/mL (0-125) H 07/18/25 03:45 Total Protein 7.1 g/dL (6.6-8.7) 07/18/25 03:45 Albumin 3.3 g/dL (3.5-5.2) L 07/18/25 03:45 Globulin 3.8 g/dL (1.3-4.6) 07/18/25 03:45 Lipase 56 U/L (13-60) 07/18/25 03:45 All radiology interpretation(s) finalized by discharge EKG Data EKG 1: I personally reviewed and interpreted this EKG as follows: EKG interpretation date: 07/18/25 EKG interpretation time: 03:42 Interpretation: afib hr [address] elevation qrs 150 qtc 424 Discharge Plan Discharge Patient Disposition: Admitted As Inpatient Clinical Impression: Atrial fibrillation with RVR, Acute exacerbation of CHF (congestive heart failure) Condition: Stable Coding Level of Care Code ED Varnisher for Swapna Oconnor
[2025-07-18] MEDS: morphine 4 mg/mL SDV 1 mL IVP (03:55)
[2025-07-18] MEDS: ondansetron 2 mg/ML SDV 2 mL 4 MG IVP (03:55)
[2025-07-18 03:59] LABS: Hematocrit 37.9 % (36-47); Hemoglobin 12.40 g/dL (11.27-16.99); Mean Corpuscular HGB Conc 32.7 g/dL (30-55); Mean Corpuscular Hemoglobin 27.1 pg (27-33); Mean Corpuscular Volume 82.9 fl (85-98); Nucleated Red Blood Cells % 0 %; Platelet Count 310 10^3/cmm (157-399); Red Blood Count 4.57 10^6/uL (3.85-5.65); White Blood Count 9.10 10^3/uL (3.29-11.43)
[2025-07-18 04:23] LABS: Alanine Aminotransferase 7 U/L (0-33); Albumin Level 3.3 g/dL (3.5-5.2); Alkaline Phosphatase 114 U/L (35-105); Anion Gap 17.2 (5-19); Aspartate Amino Transferase 14 U/L (0-32); Blood Urea Nitrogen 27 mg/dL (8-23); Calcium 8.9 mg/dL (8.5-10.5); Carbon Dioxide 20 mmol/L (22-29); Chloride 97 mmol/L (98-107); Creatinine Clr Calc Pharmacy 27.2487; Globulin 3.8 g/dL (1.3-4.6); Glucose 166 mg/dL (65-115); Lipase 56 U/L (13-60); Osmolality Calculated 281 mOsm/kg (285-295); Potassium 3.2 mmol/L (3.5-5.1); Sodium 131 mmol/L (136-145); Total Protein 7.1 g/dL (6.6-8.7)
[2025-07-18 04:25] LABS: Troponin(5th) Baseline 43 ng/L (0-10)
[2025-07-18 04:34] LABS: NT Pro B Type Natriuretic Pept 25061 pg/mL (0-125)
[2025-07-18] MEDS: FUROsemide 10 mg/mL SDV 10mL 60 MG IVP (05:15)
[2025-07-18] MEDS: dilTIAZem 100 MG in sodium chloride 0.9% (add-van) 100 ML IV (05:15)
--- NOTE | 2025-07-18 05:41 | ECG_ITS ---
[facility] Test Date: 2025-07-18 Pat Name: Gregoria King Department: Room: 101 Gender: Female Cosmetology Teacher: : 1955 Requested By: Garret Trujillo Order Number: [id number] Silvina MD: Julito Campoverde M.D. Measurements Intervals [place] Rate: 89 P: 0 [place]: 0 QRS: 71 QRSD: 94 T: 36 QT: 379 QTc: 461 Interpretive Statements ATRIAL FIBRILLATION SEPTAL MYOCARDIAL INFARCTION , OF INDETERMINATE AGE [40+ ms Q WAVE IN V1/V2] ST DEVIATION AND MODERATE T-WAVE ABNORMALITY, CONSIDER LATERAL ISCHEMIA [-0.1+ mV T-WAVE IN I/aVL/V5/V6] Compared to ECG 07/18/2025 03:42:39 No significant change Electronically Signed On 07-18-2025 23:29:21 CDT by Julito Campoverde M.D. [email or web address] [id number]
--- NOTE | 2025-07-18 05:45 | USCV_ITS ---
Gregoria King Age: 70 Gender: F : 1955 Exam Date: 07/18/2025 10:52 Ordering Phys: Ciera Kirby MD Technologist: Exam Location: [facility] Indication: chf BP: 130 / 75 HR: 56 Rhythm: Sinus Technical Quality: Adequate MEASUREMENTS (Male / Female) Normal Values 2D ECHO LV Diastolic Diameter PLAX 4.6 cm 4.2 - 5.9 / 3.9 - 5.3 cm IVS Diastolic Thickness 1.3 cm 0.6 - 1.0 / 0.6 - 0.9 cm IVS Systolic Thickness 1.7 cm LVPW Diastolic Thickness 1.3 cm 0.6 - 1.0 / 0.6 - 0.9 cm LVPW Systolic Thickness 1.4 cm LVOT Diameter 2.3 cm LV Ejection Fraction 2D Teich 70.2 % LV Ejection Fraction MOD 4C 63.1 % LV Ejection Fraction MOD 2C 70.3 % LV Ejection Fraction 2C AL 73.2 % LA Diameter 4.2 cm RA Systolic Volume 4C AL 43.0 ml RA Systolic Volume 4C MOD 41.2 ml Aorta at Sinotubular Diameter 2.6 cm IVC Diameter 1.8 cm M-MODE LA Ao Ratio MM 1.4 AV Cusp Separation MM 1.5 cm DOPPLER AV Peak Velocity 189.0 cm/s LVOT Peak Velocity 83.0 cm/s AV Area Cont Eq vti 2.6 cm squared AV Area Cont Eq pk 1.8 cm squared MV Area PHT 2.3 cm squared Mitral E to A Ratio 2.5 TV Peak Velocity 307.0 cm/s TR Peak Velocity 520.0 cm/s TR Peak Gradient 108.2 mmHg TV Peak E Velocity 159.0 cm/s Right Atrial Pressure 3.0 mmHg Pulmonary Artery Systolic Pressu 111.2 mmHg PV Peak Velocity 82.0 cm/s FINDINGS Left Ventricle Normal left ventricular cavity size. Normal left ventricular systolic function. Left ventricular ejection fraction is estimated at 63%. Mild left ventricular hypertrophy. Indeterminate distolic function due to severe mitral annular calcification. Right Ventricle Normal right ventricular size and systolic function. Mild pulmonary hypertension, RVSP 43 mmHg. Right Atrium Normal right atrial size. Left Atrium Mildly increased left atrial size. Mitral Valve Mildly thickened mitral valve leaflets. Severe mitral annular calcification. Moderate mitral valve regurgitation. Mild mitral valve stenosis. Aortic Valve Mild aortic valve calcification. No stenosis. Mild to moderate aortic valve regurgitation. Tricuspid Valve Mild tricuspid valve regurgitation. Pulmonic Valve No pulmonary valve stenosis. Mild pulmonary valve regurgitation. Pericardium No pericardial effusion. Aorta Normal size aortic root and proximal ascending aorta. IVC Normal inferior vena cava. CONCLUSIONS 1. Normal biventricular systolic function. LV EF 63%. 2. Moderate mitral regurgitation and mild mitral stenosis 3. Mild to moderate aortic valve regurgitation 4. Mild pulmonary hypertension 5. Mild LVH Julito Campoverde MD, FACC (Electronically Signed) Final Date: 18 July 2025 17:17 S
--- NOTE | 2025-07-18 05:46 | PM.HP ---
Providers/Chief Complaint Admitting Physician: CIERA KIRBY DO--- patient seen and evaluated after 12th mid night Primary Care Provider: JER Jordan Chief Complaint: Chest Pain History of Present Illness Gregoria King is a 70 year old female who reviewed looks older than the stated age presenting with chest pain. Patient has a history of atrial fibrillation and at presentation patient had A-fib with RVR in the 150s. Patient was started on Cardizem drip and a heart rate had come down to 60s to 120s. Blood pressure is stable. Patient outside of this does have shortness of breath and chest x-ray with significant for CHF and patient BNP is elevated at 25,000. Patient had received 60 mg of IV Lasix in the emergency room. I will follow-up with 40 mill he gram of IV Lasix twice daily. Patient does have much congestive cough does have underlying COPD I have initiated on azithromycin and nebulizing treatment to help for associated bronchitis. Patient at this time is being admitted for COPD and CHF exacerbation. Review of Systems Narrative: System review upon 10 organ review is significant for cardiovascular failure regarding pulmonary and cardiac. Otherwise unremarkable. Medications/Allergies Home Medications ?Medication ?Instructions ?Recorded ?Confirmed ?Last Taken ?Type Diabetic shoes #1 ea 12/11/19 07/03/25 Unknown Rx blood-glucose meter (Accu-Chek #1 ea 07/12/24 07/03/25 Unknown Rx Guide Glucose Meter) lancing device with lancets kit #1 ea 07/12/24 07/03/25 Unknown Rx (Accu-Chek FastClix Lancing Device kit) blood sugar diagnostic (Accu-Chek #100 ea 07/14/24 07/03/25 Unknown Rx Guide test strips) lancets (Accu-Chek Softclix #100 ea 08/20/24 07/03/25 Unknown Rx Lancets) metoprolol tartrate 75 mg tablet 75 mg PO BID #180 tabs 01/03/25 07/03/25 03/13/25 Rx aspirin 81 mg tablet,delayed 81 mg PO DAILY 02/03/25 07/03/25 03/13/25 History release apixaban 5 mg tablet (Eliquis) 5 mg PO BID 30 days #60 tabs 02/05/25 07/03/25 03/13/25 Rx ondansetron 4 mg disintegrating 4 mg PO Q6H PRN nausea and 03/10/25 07/03/25 Unknown Rx tablet vomiting #14 tabs Nitric Oxide Blood Flow 1 cap PO DAILY 03/14/25 07/03/25 03/13/25 History nitroglycerin 0.4 mg sublingual See Rx Instructions .Route .COMPLEX 03/14/25 07/03/25 Unknown History tablet insulin aspart U-100 100 unit/mL See Rx Instructions .Route 03/17/25 07/03/25 Unknown Rx (3 mL) subcutaneous pen (Novolog .COMPLEX #15 mL FlexPen U-100 Insulin aspart) atorvastatin 40 mg tablet (Lipitor) 40 mg PO DAILY 30 days #30 tabs 03/21/25 07/03/25 Unknown Rx diltiazem HCl 120 mg 120 mg PO DAILY #90 caps 03/21/25 07/03/25 Unknown Rx capsule,extended release 24 hr (Cardizem CD) hydralazine 25 mg tablet 25 mg PO Q8H #90 tabs 03/21/25 07/03/25 Unknown Rx Diabetic shoes #1 ea 06/19/25 07/03/25 Unknown Rx mupirocin 2 % topical ointment 1 applic topical TID #15 grams 06/19/25 07/03/25 Unknown Rx Allergies Allergy/AdvReac Type Severity Reaction Status Date / Time codeine AdvReac nausea Verified 07/03/25 06:40 propoxyphene (From AdvReac Nausea Verified 07/03/25 06:40 Darvocet-N) PFSH Acute PFSH: Medical History CKD (chronic kidney disease) stage 3, GFR 30-59 ml/min Diabetes History of colon polyps Atherosclerotic heart disease of [place] coronary artery without angina pectoris Carotid artery stenosis, asymptomatic Chronic distal aortic occlusion Chronic headache Hypertension Degeneration of cervical disc without myelopathy Tailor's bunion of both feet Diabetic peripheral neuropathy associated with type 2 diabetes mellitus GERD (gastroesophageal reflux disease) PAD (peripheral artery disease) Sjogren's syndrome with keratoconjunctivitis sicca Mixed hyperlipidemia Surgical History History of esophagogastroduodenoscopy History of appendectomy History of cholecystectomy History of total abdominal hysterectomy and bilateral salpingo-oophorectomy History of colonoscopy with polypectomy History of arterial bypass of lower extremity History of tonsillectomy and adenoidectomy Family History Father Lung disease Cancer lung cancer (smoker) Mother Heart disease Family/Other Diabetes Stroke Grandmother Cancer stomach Other Crohn's disease Denies family history of Colon cancer Ovarian cancer Hypercholesteremia Breast cancer Hypertension Uterine cancer Thyroid disease Social History Smoking and tobacco/nicotine status: current every day tobacco/nicotine user cigarettes Packs smoked per day: 1 [ Other cigarette details: previously 2 ppd] Quit status (tobacco/nicotine): has tried quititng Alcohol intake: never Substance/Drug Use: never Household members: other Details: grandson Marital status: / Number of children: 1 Number of grandchildren: 3 Current occupational status: unemployed 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/Pentecostal: Anabaptism Special ninoska needs: No Agree to transfusion: Yes Vitals/I&O/Wt Last Vital Signs Temp 96.0 F L 07/18/25 03:37 Pulse 97 07/18/25 04:44 Resp 16 07/18/25 04:44 BP 147/82 07/18/25 04:44 Pulse Ox 94 07/18/25 04:44 O2 Del Method Room Air 07/18/25 04:44 Weight last 48 hrs Weight 54.885 kg Physical Exam Narrative: Currently patient is ill appearing looks older than the stated age with much wrinkled facial presence HEENT normocephalic atraumatic neck neck is supple cardiovascular heart rate is regular lungs are pretty much clear abdomen soft nontender nondistended unremarkable extremities are intact no edema has good pulses neurology no focality lab studies lab studies reviewed and noted. Data 07/18/25 03:45 07/18/25 03:45 A&P Assessment and plan 1. Acute exacerbation of CHF (congestive heart failure): 2. Atrial fibrillation with RVR: 3. Shortness of breath: 4. CKD (chronic kidney disease): 5. Diabetes: 6. COPD exacerbation: Plan: #1 CHF exacerbation with a BNP of 25,000 - Admit to stepdown unit - Initiate diuresis - Patient had received 60 mg IV Lasix in the emergency room - Continue diuresis with 40 mg IV twice daily - Continue with nebulizing treatments to loosen out the airways that are congested - Continue to treat and optimize - Strict I and O's, patient with Chung to gravity - Follow-up with echocardiogram for EF and wall motion abnormality #2 COPD exacerbation - Patient is with much congestive cough - Will initiate Mucinex to loosen up the mucus - Continue with azithromycin for associated bronchitis - Continue nebulizing treatments - Will not add steroid as patient does not have much wheezes #3 Atrial fibrillation with RVR - Patient initiated on Cardizem drip - Continue and patient is responding - Heart rate in the 150s had come down to 60s to 120 - Patient is trying to cough back to normal sinus with visible P waves - Continue Cardizem drip #4 Shortness of breath is multifactorial - These are all secondary to COPD exacerbation, CHF exacerbation, associated bronchitis atrial fibrillation with RVR-continue to optimize with nebulizing treatment antibiotics for associated bronchitis and diuresis #5 Diabetes type 2/blood pressure - Keep patient euglycemic and normotensive using home medication for chronic medical problem #6 GI and DVT prophylaxis in place PDMP PDMP Reviewed: Not Reviewed Attestations Medical Necessity Statement*: Patient with COPD and CHF exacerbation with much bother of respiratory failure will need at least 2 midnights for optimization of care patient is inpatient and meets the criteria patient is 70 years old. Coding Level of Care Code Acute Code for g Fwd Diagnoses Acute exacerbation of CHF (congestive heart failure) I50.9 Atrial fibrillation with RVR I48.91 Shortness of breath R06.02 CKD (chronic kidney disease) N18.9 Diabetes E11.9 COPD exacerbation J44.1 Time Spent (min) 60
[2025-07-18 06:00] LABS: Troponin 5 2HR 48.01 ng/L (0-10); Troponin 5 2HR Delta 5.01 ABS# (0-10)
--- NOTE | 2025-07-18 06:50 | PC.NURSE ---
Received patient from ED. Patient moaning in pain complaining of a 500/10 headache that is worsening with lights and sound. Currently patient is bouncing between bradycardia in the 40's and AF in the 110's.
--- NOTE | 2025-07-18 07:03 | PC.NURSE ---
Notified Dr. Kirby about HR converting into sinus [place] down to 40's and had paused cardizem gtt. Dr. Kirby okay that cardizem gtt was paused and received orders to keep on standby. Also notified about severe headaache and received orders for 650 mg tylenol PO PRN Q4hrs.
[2025-07-18] MEDS: heparin 5,000 unit/mL INJ 1 mL 5000 UNIT SUBCUT (07:52)
--- NOTE | 2025-07-18 08:51 | PHA.FALL ---
A Pharmacy Consult Was Conducted For Gregoria King Due To: Montes Fall Scale Risk Level: High Fall Risk On 07/18/25 03:37 And A Medication Fall Risk Score Greater Than 10. The Recommendations Are As Follows:
--- NOTE | 2025-07-18 08:52 | PC.PHAR ---
Pt states she no longer takes anything BUT: Lasix 40mg, Metoprolol tartrate 75mg, Ntg 0.4, Zofran 4mg odt, and Tizanidine 4mg. Removed from pt med list: Aspirin 81mg, Lipitor 40mg, Cardizem cd 120mg, Eliquis 5mg, Hydralazine 25mg Novolog Flex Pen, and Mupirocin 2%.
[2025-07-18] MEDS: FUROsemide 10 mg/mL SDV 4mL 40 MG IVP ×2 (09:12→17:14)
--- NOTE | 2025-07-18 09:29 | ECG_ITS ---
[facility] Date: 2025-07-18 Pat Name: Gregoria King Department: Room: 101 Gender: Female Frame Assembler: : 1955 Requested By: Perry Dangelo Order Number: [id number] MD: Julito Campoverde M.D. Measurements Intervals [place] Rate: 46 P: 66 ND: 148 QRS: 55 QRSD: 92 T: 130 QT: 488 QTc: 431 Interpretive Statements SINUS BRADYCARDIA ST DEVIATION AND MODERATE T-WAVE ABNORMALITY, CONSIDER ANTEROLATERAL ISCHEMIA [-0.1+ mV T-WAVE IN I/aVL/V5/V6] Compared to ECG 07/18/2025 06:26:24 Atrial fibrillation no longer present Electronically Signed On 07-18-2025 23:31:59 CDT by Julito Campoverde M.D. [email or web address] [id number]
--- NOTE | 2025-07-18 10:18 | CT_ITS ---
WS: [id number] CT HEAD TECHNIQUE: Noncontrast CT of the head obtained from the skullbase to the vertex. CLINICAL INFORMATION: headache COMPARISON: 07/05/2025 DLP: 935.[address] scans at [facility] use at least one of these dose optimization techniques: automated exposure control; mA and/or kV adjustment per patient size (includes targeted exams where dose is matched to clinical indication); or iterative reconstruction. FINDINGS: No evidence of intracranial hemorrhage or mass effect. Ventricular system and basal cisterns are patent. Moderate small vessel changes with moderate parenchymal volume loss. Tiny chronic lacunar infarcts LEFT caudate. Chronic lacunar infarcts along the LEFT external capsule. Vascular calcification. Paranasal sinuses and mastoid air cells are well aerated. .Normal visualized soft tissues. CT/CT head wo con* [id number] IMPRESSION: 1. No evidence of intracranial hemorrhage or mass effect. 2. No changes since 06/27/2025 3. No acute intracranial findings.
[2025-07-18 10:28] LABS: Troponin 5 6HR 134.5 ng/L (0-10)
[2025-07-18 10:29] LABS: Troponin 5 6HR Delta 91.5 ng/L (0-12)
--- NOTE | 2025-07-18 10:41 | P.CONIM_ITS ---
<Statement entered by Julito Campoverde MD - 07/18/25 14:39> Patient was evaluated and cared for in conjunction with an advanced practice practitioner. I personally examined the patient and reviewed the chart and all pertinent data including imaging, telemetry, and laboratory results. I discussed the patient in detail with the advanced practice practitioner. Please see their note for complete consult note, testing results and agreed upon plan of care for the patient. GENERAL: Patient is alert, awake and oriented x3. NECK: No JVD or carotid bruit HEART: Regular S1 and S2, no murmur LUNGS: Clear to auscultation bilaterally. EXTREMITIES: Lower extremities with out edema bilaterally. Chest pain PAD NSTEMI We need to clarify Hospice history in the chart to know how aggressive treatment plan should be. If patient wants everything done, will recommend LHC. Echo pending. Continue IV heparin. Providers/Reason For Consult 2 Consulting Physician/Specialty*: Dr Campoverde, cardiology Reason for Consult*: Chest pain Requesting Physician: Perry Dangelo MD Attending Physician: Perry Dangelo MD Primary Care Provider: JER Jordan History of Present Illness History of Present Illness Gregoria King is a 70 year old female with past medical history of PAD (peripheral angiogram 02/12/25 revealing mid segment aorta 100% chronic occlusion, previous referral to vascular surgery), diabetes, paroxysmal atrial fibrillation, pancreatitis, BYRON on CKD, positive MARK. She presented to the emergency room earlier this morning due to chronic neck and back pain with headache, also reported chest pain described as heaviness in the center of the chest, intermittent. She is quite vague about how the symptoms feel, it has been present for about 2 months. In reviewing her medical record, it seems she was on hospice for time in April, but it does not appear she is receiving care now. She was in atrial fibrillation with RVR, EMS administered diltiazem, and she was started on diltiazem infusion here in the ER. She did convert to sinus rhythm, noted sinus bradycardia heart rate 46 bpm on the twelve-lead EKG obtained at 9 this morning. Noted T wave inversions in the anterior lateral leads. Troponin series 43-> 48-> 134. She is chest pain-free currently. She was volume overloaded, BNP 25,061, has been diuresed and appears euvolemic currently. She has a history of CKD, during her admission in March for palpitations she had notable bump in creatinine, as high as 4.6. Previously has declined any possibility of dialysis treatment. On admission creatinine was 1.6, this afternoon up to 1.7. Chest x-ray consistent with bilateral pleural effusions. Due to persistent headaches she had head CT this morning which did not show any acute intracranial abnormality. Echocardiogram is pending read. Medications/Allergies Home Medications ?Medication ?Instructions ?Recorded ?Confirmed ?Last Taken ?Type Diabetic shoes #1 ea 12/11/19 07/18/25 Unkn own Rx blood-glucose meter (Accu-Chek #1 ea 07/12/24 07/18/25 Unknown Rx Guide Glucose Meter) lancing device with lancets kit #1 ea 07/12/24 5 Unknown Rx (Accu-Chek FastClix Lancing Device kit) blood sugar diagnostic (Accu-Chek #100 ea 07/14/2409/01 Unknown Rx Guide test strips) lancets (Accu-Chek Softclix #100 ea 08/20/24 07/18/25 Unknown Rx Lancets) metoprolol tartrate 75 mg tablet 75 mg PO BID #180 tab s 01/03/25 07/18/25 07/17/25 Rx ondansetron 4 mg disintegrating 4 mg PO Q6H PRN nausea and 03/10/25 07/18/25 Unknown Rx tablet vomiting #14 tabs nitroglycerin 0.4 mg sublingual See Rx Instructions .R oute .COMPLEX 03/14/25 07/18/25 Unknown History tablet Diabetic shoes #1 ea 06/19/25 07/18/25 Unkn own Rx furosemide 40 mg tablet 40 mg PO DAILY 07/18/2507/0907/17/25 History linezolid 600 mg tablet 600 mg PO BID x10d 07/18/25 07/18/25 Unknown History tizanidine 4 mg tablet 4 mg PO TID PRN Spasms 07/1807/18/25 Unknown History Allergies Allergy/AdvReac Type Severity Reaction Status Date / Time codeine AdvReac nausea Verified 07/03/25 06:40 propoxyphene (From AdvReac Nausea Verified 07/03/25 06:40 Darvocet-N) Current Medications Generic Name Dose Route Start Last Admin Trade Name Freq PRN Reason Stop Dose Admin Albuterol/Ipratropium 3 ml 07/18/25 08:00 07/18/25 07:43 Ipratropium-Albuterol 3 Ml Neb INHALATION 3 ml QID.RESPIRATORY AURELIO Administration Docusate Sodium 100 mg 07/18/25 09:00 07/18/25 07:53 Docusate Sodium 100 Mg Capsule PO 100 mg BID AURELIO Administration Guaifenesin 1,200 mg 07/18/25 09:00 07/18/25 07:53 Guaifenesin 600 Mg Tablet PO 1,200 mg BID AURELIO Administration Insulin Human Lispro 0 unit 07/18/25 08:00 07/18/25 07:53 Insulin Lispro 100 Unit/1 Ml SUBCUT 2 unit WM&BEDTIME AURELIO Administration Protocol Pantoprazole Sodium 40 mg 07/18/25 09:00 07/18/25 07:[address] 40 Mg Tablet PO 40 mg DAILY AURELIO Administration PFSH Acute 2 PFSH: Medical History CKD (chronic kidney disease) stage 3, GFR 30-59 ml/min Diabetes History of colon polyps Atherosclerotic heart disease of [place] coronary artery without angina pectoris Carotid artery stenosis, asymptomatic Chronic distal aortic occlusion Chronic headache Hypertension Degeneration of cervical disc without myelopathy Tailor's bunion of both feet Diabetic peripheral neuropathy associated with type 2 diabetes mellitus GERD (gastroesophageal reflux disease) PAD (peripheral artery disease) Sjogren's syndrome with keratoconjunctivitis sicca Mixed hyperlipidemia Surgical History History of esophagogastroduodenoscopy History of appendectomy History of cholecystectomy History of total abdominal hysterectomy and bilateral salpingo-oophorectomy History of colonoscopy with polypectomy History of arterial bypass of lower extremity History of tonsillectomy and adenoidectomy Family History Father Lung disease Cancer lung cancer (smoker) Mother Heart disease Family/Other Diabetes Stroke Grandmother Cancer stomach Other Crohn's disease Denies family history of Colon cancer Ovarian cancer Hypercholesteremia Breast cancer Hypertension Uterine cancer Thyroid disease Social History (Reviewed 07/18/25 @ 12:34 by GARRISON Capps Smoking and tobacco/nicotine status: current every day tobacco/nicotine user cigarettes Packs smoked per day: 1 [ Other cigarette details: previously 2 ppd] Quit status (tobacco/nicotine): has tried quititng Alcohol intake: never Substance/Drug Use: never Household members: other Details: grandson Marital status: / Number of children: 1 Number of grandchildren: 3 Current occupational status: unemployed 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/Scientology: Scientology Special ninoska needs: No Agree to transfusion: Yes Vitals/I&O/Wt Last Vital Signs Temp 97.1 F L 07/18/25 07:24 Pulse 45 L 07/18/25 07:48 Resp 16 07/18/25 07:44 BP 157/67 07/18/25 07:24 Pulse Ox 95 07/18/25 07:44 O2 Del Method Nasal Cannula 07/18/25 07:44 O2 Flow Rate 2 07/18/25 07:44 07/17/25 07/18/25 07/18/25 22:59 06:59 14:59 Intake Total 8.167 / 8.167 0.458 / 0.458 Balance 8.167 / 8.167 0.458 / 0.458 Weight last 48 hrs Weight 121 lb Physical Exam 2 Const: COMMON NORMALS: no acute distress and patient oriented x3 GENERAL APPEARANCE: cooperative and frail appearing ORIENTATION/CONSCIOUSNESS: Yes awake, Yes oriented to person, Yes oriented to place and Yes oriented to time Chest: COMMONS NORMALS: normal inspection of the chest and normal palpation of entire chest wall CHEST: Yes Symmetrical chest wall rise Resp: COMMON NORMALS: normal respiratory effort, No retractions, No use of accessory muscles and clear to auscultation bilaterally EFFORT & INSPECTION: Yes symmetric chest movement AUSCULTATION: clear to auscultation bilaterally Cardio: COMMON NORMALS: regular rate, regular rhythm, S1 normal heart sound present, S2 normal heart sound present, No gallops present (Cardio), No clicks present (Cardio) and No rub (Cardio) RATE: regular rate RHYTHM: regular rhythm HEART SOUNDS: S1 normal heart sound present, S2 normal heart sound present and Murmur heart sound present systolic Intensity: II/ PERIPHERAL PULSES: radial pulses present OTHER: Bilateral lower extremities slightly dusky in appearance right above the ankle, cool to touch but not cold. Extremity: COMMON NORMALS: no pedal edema Neuro: COMMON NORMALS: patient oriented x3 and moves all extremities S ENSORIUM/ORIENTATION: Yes oriented to person, Yes oriented to place and Yes oriented to time Urinary Catheter Management: Chung: Cath Placed During This Visit: yes Urinary Catheter Date of Insertion: 07/18/25 Urinary Catheter Time of Insertion: 06:00 Data 07/18/25 03:45 07/18/25 03:45 A&P Assessment and plan 1. Atrial fibrillation with RVR: 2. PAD (peripheral artery disease): 3. Chronic distal aortic occlusion: 4. Atherosclerotic heart disease [place] coronary artery w/angina pectoris: 5. Tobacco dependence: 6. Diabetes: 7. CKD (chronic kidney disease) stage 3, GFR 30-59 ml/min: Plan: She has history of severe PAD, she had peripheral angiogram in February through left radial access, finding chronic midsegment aortic occlusion, also including iliacs, common femoral, profundofemoral, SFA bilaterally. She was referred to vacular surgery, however patient states she has not seen a vascular surgeon in 20 years. MARY performed in June was normal (right: PT 1.06, DP 0.98, left: PT 1.02, DP 1.07). She maintains she has not had any surgery or intervention. Lexiscan stress test in January of this year negative for ischemia. With report of chest pain and elevated tropnin, with history of severe PAD, coronary angiogram has been recommended. With history of CKD, creatinine 1.7 currently, she has risk of contrast induced nephropathy. Awaiting read on echocardiogram, will plan for IV hydration if LVEF allows, and coronary angiogram Wednesday if creatinine improved. PDMP PDMP Reviewed: Not Reviewed Coding Level of Care Code Acute Code for Chg Fwd Diagnoses Atrial fibrillation with RVR I48.91 PAD (peripheral artery disease) I73.9 Chronic distal aortic occlusion I74.09 Atherosclerotic heart disease [place] coronary artery w/angina pectoris I25.119 Tobacco dependence F17.200 Diabetes E11.9 CKD (chronic kidney disease) stage 3, GFR 30-59 ml/min N18.30
[2025-07-18 10:56] LABS: Procalcitonin 0.04 ng/mL (0-0.5)
[2025-07-18] MEDS: heparin drip 25,000 UNIT/500 ML PREMIX 15 UNIT IV (11:30)
--- NOTE | 2025-07-18 13:37 | P.PN_ITS ---
Subjective 2 Subjective: Patient was seen this morning, currently alert oriented x 3, following commands, complaining of chest pain, no nausea, vomiting, abdominal pain, does report a headache, does report shortness of breath, does report orthopnea Vitals/I&O/Wt Last Vital Signs Temp 97.1 F L 07/18/25 07:24 Pulse 52 L 07/18/25 11:22 Resp 16 07/18/25 11:22 BP 157/67 07/18/25 07:24 Pulse Ox 100 07/18/25 11:22 O2 Del Method Nasal Cannula 07/18/25 11:22 O2 Flow Rate 2 07/18/25 11:22 07/17/25 07/18/25 07/18/25 22:59 06:59 14:59 Intake Total 8.167 / 8.167 360.458 / 360.458 Balance 8.167 / 8.167 360.458 / 360.458 Weight last 48 hrs Weight 54.885 kg Physical Exam 2 Const: COMMON NORMALS: no acute distress and patient oriented x3 Resp: COMMON NORMALS: normal respiratory effort, No retractions and No use of accessory muscles AUSCULTATION: crackles and wheezes Cardio: COMMON NORMALS: regular rate, regular rhythm, S1 normal heart sound present and S2 normal heart sound present RATE: regular rate RHYTHM: r egular rhythm HEART SOUNDS: S1 normal heart sound present and S2 normal heart sound present GI: COMMON NORMALS: Normal to inspection, nondistended, normoactive bowel sounds present and non-tender Extremity: COMMON NORMALS: no pedal edema Neuro: COMMON NORMALS: patient oriented x3 Psych: COMMON NORMALS: mental status grossly normal Urinary Catheter Management: Chung: Cath Placed During This Visit: yes Urinary Catheter Date of Insertion: 07/18/25 Urinary Catheter Time of Insertion: 06:00 Data 07/18/25 03:45 07/18/25 03:45 A&P Assessment and plan 1. Hypertension: 2. Chest pain: 3. Atrial fibrillation with RVR: 4. PAD (peripheral artery disease): 5. Mixed hyperlipidemia: 6. Metabolic acidosis: 7. BYRON (acute kidney injury): 8. Abdominal pain: 9. Acute exacerbation of CHF (congestive heart failure): 10. Atrial fibrillation with RVR: 11. Shortness of breath: 12. CKD (chronic kidney disease): 13. Diabetes: 14. COPD exacerbation: Plan: Chest pain -NSTEMI -Recent history of stress testing February 05, 2025, low probability -Continues to complain of chest pain -Serial EKGs, start troponins, telemetry monitoring -Aspirin, statin -Heparin drip -Cardiac echo -Cardiology consulted Acute on chronic systolic CHF exacerbation -Chest x-ray showing bilateral pleural effusions, pulmonary vascular congestion, BNP over 25,000 Plan -Fluid restrictions of 1000 cc -Monitor urine output, monitor creatinine -Lasix 40 IV twice daily Hyponatremia, will monitor closely Acute kidney injury on chronic kidney disease, -Monitor renal function Increased anion gap metabolic acidosis -Will monitor closely Headache, head CT History of peripheral vascular disease, needs to follow-up with vascular surgery as an outpatient Full code Heparin drip for DVT prophylaxis PDMP PDMP Reviewed: Not Reviewed Attestations 2 Medical Necessity Statement*: Patient requires hospitalization, for NSTEMI, chest pain, shortness of breath, systolic CHF exacerbation Diagnoses Essential hypertension I10 Hypertension type: essential hypertension Chest pain R07.89 Chest pain type: other chest pain Atrial fibrillation with RVR I48.91 PAD (peripheral artery disease) I73.9 Mixed hyperlipidemia E78.2 Metabolic acidosis E87.20 BYRON (acute kidney injury) N17.9 Abdominal pain R10.9 Acute exacerbation of CHF (congestive heart failure) I50.9 Shortness of breath R06.02 CKD (chronic kidney disease) N18.9 Diabetes E11.9 COPD exacerbation J44.1
[2025-07-18 14:28] LABS: Anion Gap 13.7 (5-19); Blood Urea Nitrogen 29 mg/dL (8-23); Calcium 8.7 mg/dL (8.5-10.5); Carbon Dioxide 22 mmol/L (22-29); Chloride 99 mmol/L (98-107); Creatinine Clr Calc Pharmacy 25.6458; Glucose 255 mg/dL (65-115); Osmolality Calculated 287 mOsm/kg (285-295); Potassium 3.7 mmol/L (3.5-5.1); Sodium 131 mmol/L (136-145)
[2025-07-18 17:59] LABS: Partial Thromboplastin Time 124.5 SECONDS (23.9-36.7)
[2025-07-18 23:56] LABS: Partial Thromboplastin Time 102.9 SECONDS (23.9-36.7)
[2025-07-19] VITALS (13 sets, daily range): BP systolic 148–194; BP diastolic 58–87; PULSE 54–156; RESP 12–24; TEMP 36.6–37.2; O2SAT 91–100
[2025-07-19] MEDS: FUROsemide 10 mg/mL SDV 4mL 40 MG IVP ×2 (05:18→15:51)
[2025-07-19 06:00] LABS: Hematocrit 34.2 % (36-47); Hemoglobin 11.00 g/dL (11.27-16.99); Mean Corpuscular HGB Conc 32.2 g/dL (30-55); Mean Corpuscular Hemoglobin 27.0 pg (27-33); Mean Corpuscular Volume 83.8 fl (85-98); Nucleated Red Blood Cells % 0 %; Platelet Count 253 10^3/cmm (157-399); Red Blood Count 4.08 10^6/uL (3.85-5.65); White Blood Count 9.71 10^3/uL (3.29-11.43)
[2025-07-19 06:06] LABS: Partial Thromboplastin Time 63.0 SECONDS (23.9-36.7)
[2025-07-19 06:13] LABS: Alanine Aminotransferase 7 U/L (0-33); Albumin Level 3.0 g/dL (3.5-5.2); Alkaline Phosphatase 112 U/L (35-105); Anion Gap 16.8 (5-19); Aspartate Amino Transferase 24 U/L (0-32); Blood Urea Nitrogen 28 mg/dL (8-23); Calcium 8.7 mg/dL (8.5-10.5); Carbon Dioxide 21 mmol/L (22-29); Chloride 102 mmol/L (98-107); Creatinine Clr Calc Pharmacy 23.1303; Globulin 3.9 g/dL (1.3-4.6); Glucose 109 mg/dL (65-115); Magnesium 1.8 mg/dL (1.7-2.3); Osmolality Calculated 288 mOsm/kg (285-295); Potassium 3.8 mmol/L (3.5-5.1); Sodium 136 mmol/L (136-145); Total Protein 6.9 g/dL (6.6-8.7)
--- NOTE | 2025-07-19 08:38 | P.PN_ITS ---
<Statement entered by Julito Campoverde MD - 07/19/25 17:05> Patient was evaluated and cared for in conjunction with an advanced practice practitioner. I personally saw the patient and reviewed the chart and all pertinent data. I discussed the patient in detail with the advanced practice practitioner. Please see their note for complete assessment and agreed upon plan of care for the patient. Subjective 2 Subjective: No chest pain today, creatinine increased to 1.9. Vitals/I&O/Wt Last Vital Signs Temp 98.3 F 07/19/25 07:52 Pulse 58 L 07/19/25 07:52 Resp 18 07/19/25 07:52 BP 160/59 07/19/25 07:52 Pulse Ox 100 07/19/25 07:52 O2 Del Method Room Air 07/19/25 07:52 O2 Flow Rate 1 07/18/25 15:02 07/18/25 07/19/25 07/19/25 22:59 06:59 14:59 Intake Total 699.25 / 1943.158 883.45 / 1943.158 Output Total 1075 / 1325 250 / 1325 Balance -375.75 / 618.158 633.45 / 618.158 Weight last 48 hrs Weight 123 lb 4.8 oz Weight 121 lb Weight 121 lb Physical Exam 2 Const: COMMON NORMALS: no acute distress and patient oriented x3 GENERAL APPEARANCE: cooperative and comfortable ORIENTATION/CONSCIOUSNESS: Yes awake, Yes oriented to person, Yes oriented to place and Yes oriented to time Chest: COMMONS NORMALS: normal inspection of the chest and normal palpation of entire chest wall CHEST: Yes Symmetrical chest wall rise Resp: COMMON NORMALS: normal respiratory effort, No retractions, No use of accessory muscles and clear to auscultation bilaterally EFFORT & INSPECTION: Yes symmetric chest movement AUSCULTATION: clear to auscultation bilaterally Cardio: COMMON NORMALS: regular rate, regular rhythm, S1 normal heart sound present, S2 normal heart sound present, No gallops present (Cardio), No clicks present (Cardio) and No rub (Cardio) RATE: regular rate RHYTHM: regular rhythm HEART SOUNDS: S1 normal heart sound present, S2 normal heart sound present and Murmur heart sound present systolic Location: left sternal border and right sternal border Intensity: II/ PERIPHERAL PULSES: radial pulses present Extremity: COMMON NORMALS: no pedal edema Neuro: COMMON NORMALS: patient oriented x3 and moves all extremities S ENSORIUM/ORIENTATION: Yes oriented to person, Yes oriented to place and Yes oriented to time Urinary Catheter Management: Chung: Cath Placed During This Visit: yes Reason for Continuing Indwelling Catheter: Accurate Measurement of Urinary Output in Critically Ill Patients Urinary Catheter Date of Insertion: 07/18/25 Urinary Catheter Time of Insertion: 06:00 Data 07/19/25 05:47 07/19/25 05:47 A&P Assessment and plan 1. Chronic distal aortic occlusion: 2. Tobacco dependence: 3. Hypertension: 4. Mixed hyperlipidemia: 5. PAD (peripheral artery disease): 6. Diabetes: 7. CKD (chronic kidney disease) stage 3, GFR 30-59 ml/min: Plan: She is chest pain-free, will defer coronary angiogram for now due to rising creatinine. Hospitalist service plans to consult nephrology for management of BYRON on CKD. For now we will continue medical management of troponin elevation, continue heparin infusion, aspirin, Lasix, statin. PDMP PDMP Reviewed: Not Reviewed Attestations 2 Medical Necessity Statement*: Ischemic workup for chest pain, troponin elevation Coding Level of Care Code Acute Code for Chg Fwd Diagnoses Chronic distal aortic occlusion I74.09 Tobacco dependence F17.200 Hypertension I10 Mixed hyperlipidemia E78.2 PAD (peripheral artery disease) I73.9 Diabetes E11.9 CKD (chronic kidney disease) stage 3, GFR 30-59 ml/min N18.30
[2025-07-19 12:28] LABS: Partial Thromboplastin Time 40.8 SECONDS (23.9-36.7)
--- NOTE | 2025-07-19 14:14 | P.PN_ITS ---
Subjective 2 Subjective: - Patient was examined this morning - Nursing staff at bedside - No chest pain during the night, denies any shortness of breath - Patient reports that she was on hospic e a few months ago, - The nature of this is that she has sev ere peripheral vascular disease, per she had an occluded aorta distal to renal arteries, occluded aortoiliac bypass graft, she had an attempt at revascularization in March - She was referred to vascular surgery a [facility] - Vascular surgery at [facility] told her that there is nothing that could be done, and they gave her 7 to 10 days to live - Associated essentially she went home o n hospice, and she was off most of her medications - She tells me that she survived, and alexander s been doing well in her opinion, so she stopped hospice, - She has not been on medications for th e last few weeks and what brought her in was chest pain and shortness of breath - I had a detailed discussion with [place] mathis - About her severe peripheral vascular d isease, she tells me she does not want to have any procedures, she does not want to have any interventions, understands morbidity mortality - She also discussed abdominal pain, brenda ecially with eating, that she lost 20 pounds over the last few months - Discussed that it is likely from chron ic mesenteric ischemia, chronic mesenteric ischemia that is resulting in her complaints of nausea, vomiting, bloating especially after meals, unfortunately given her peripheral vascular disease, and likely she has significant vascular disease supplying her gut, she tells that she has been told that, and that there is no interventions and she does not want to have any interventions - Discussed interventions of small-volum e feeds, multiple small-volume feeds throughout the day she tells me that she is doing this -Discussed with her that given her signi ficant vasculopath he she likely has intracranial vasculopathy, with her smoking history she has a very high risk of strokes, and morbidity and mortality associated -However patient tells me that she has b een smoking for her whole life and she cannot quit smoking - Then discussed that given her severe p eripheral vascular disease, chronic mesenteric ischemia and now with her chest pain complaints, it is only fairly likely that she has coronary artery disease - With the limiting factor with the neto nary artery disease is that she has BYRON she has had contrast-induced nephropathy past that she has an increased risk of contrast-induced nephropathy - I discussed with her back on her overa ll goals of care - Certainly we could explore the idea of trying to perform a coronary angiogram to help with her CAD - However she already has severe periphe ral vascular disease, that was at some point life ending, she has significant mesenteric ischemia, she has CKD - So we could potentially intervene on h er CAD but her other significant and critical findings of PAD, remain and there is no significant and interventions that she wants, and she has been told by [facility] in the past she does not have very long to live - She tells me that she does not want to have any other procedures done, she tells me and repeats that she is done with procedures, she just wants to try the medications - Her goal is to go home to her dog, and be with her dog - She does not want to go home on hospic e, although it talked her about hospice multiple times she declines - I was honest with Gregoria that given h er risk factors with her CKD and her continued smoking she has a very high risk of CAD, high risk of sudden cardiac , high risk of myocardial infarction, and morbidity mortality associated - However she does not want to undergo a ny more procedures, she just wants to pursue medical interventions, she wants to go home to be with her dog, does not want hospice - I asked Gregoria what happens when she goes into cardiac arrest, which is a very high likelihood of happening - She wants to remain a full code, she w ants a trial of CPR and intubation - I was honest with Gregoria that given h er risk factors, her CKD, her PAD and her continued smoking, she has a high risk of morbidity and and mortality if she were to be resuscitated, high likelihood of remaining on mechanical ventilation, high likelihood of poor outcome given her multiple risk factors, her PAD mesenteric ischemia, CKD, continue smoking, COPD, CHF - However she wants to remain a full cod e for now - Discussed goals of care discussed anti coagulant therapy, monitoring her renal function, will hold off on diuresis as her shortness of breath is improved, plan on discharging based upon her renal function Vitals/I&O/Wt Last Vital Signs Temp 98.4 F 07/19/25 11:04 Pulse 64 07/19/25 13:01 Resp 18 07/19/25 13:01 BP 194/63 07/19/25 11:04 Pulse Ox 98 09/11/25 13:01 O2 Del Method Room Air 07/19/25 13:01 O2 Flow Rate 1 07/18/25 15:02 07/18/25 07/19/25 07/19/25 22:59 06:59 14:59 Intake Total 699.25 / 1059.708 883.45 / 1943.158 535.8 / 535.8 Output Total 1075 / 1075 250 / 1325 1570 / 1570 Balance -375.75 / -15.292 633.45 / 618.158 -1034.2 / -1034.2 Weight last 48 hrs Weight 55.928 kg Weight 54.885 kg Weight 54.885 kg Physical Exam 2 Const: COMMON NORMALS: no acute distress and patient oriented x3 Resp: COMMON NORMALS: normal respiratory effort, No retractions, No use of accessory muscles and clear to auscultation bilaterally AUSCULTATION: clear to auscultation bilaterally Cardio: COMMON NORMALS: regular rate, regular rhythm, S1 normal heart sound present and S2 normal heart sound present RATE: regular rate RHYTHM: r egular rhythm HEART SOUNDS: S1 normal heart sound present and S2 normal heart sound present GI: COMMON NORMALS: Normal to inspection, nondistended, normoactive bowel sounds present, Soft to palpation, non-tender, No hepatosplenomegaly present, no masses and no bruits PALPATION: Yes Soft to palpation and Yes No hepatosplenomegaly present Extremity: COMMON NORMALS: no pedal edema NARRATIVE EXTREMITY EXAM: DP PT pulses bilateral lower extremities, not palpable, no mottling of bilateral extremities Neuro: COMMON NORMALS: patient oriented x3 Psych: COMMON NORMALS: mental status grossly normal Urinary Catheter Management: Chung: Cath Placed During This Visit: yes Reason for Continuing Indwelling Catheter: Accurate Measurement of Urinary Output in Critically Ill Patients Urinary Catheter Date of Insertion: 07/18/25 Urinary Catheter Time of Insertion: 06:00 Data 07/19/25 05:47 07/19/25 05:47 A&P Assessment and plan 1. Hypertension: 2. Chest pain: 3. Atrial fibrillation with RVR: 4. PAD (peripheral artery disease): 5. Mixed hyperlipidemia: 6. Metabolic acidosis: 7. BYRON (acute kidney injury): 8. Abdominal pain: 9. Acute exacerbation of CHF (congestive heart failure): 10. Atrial fibrillation with RVR: 11. Shortness of breath: 12. CKD (chronic kidney disease): 13. Diabetes: 14. COPD exacerbation: Plan: Chest pain -NSTEMI -Plan on medically managing for now, patient declines any interventions such as coronary angiography -Recent history of stress testing February 05, 2025, low probability -Continues to complain of chest pain -Serial EKGs, start troponins, telemetry monitoring -Aspirin, statin -Heparin drip -Cardiac echo CONCLUSIONS 1. Normal biventricular systolic function. LV EF 63%. 2. Moderate mitral regurgitation and mild mitral stenosis 3. Mild to moderate aortic valve regurgitation 4. Mild pulmonary hypertension 5. Mild LVH -Cardiology consulted Hospice - Patient was on hospice due to severe peripheral vascular disease - She came off hospice a few months ago, has not been on any medications Chronic mesenteric ischemia - Will discharge on anticoagulant therapy - Aspirin, statin - Small-volume feeds, multiple times throughout the day Severe peripheral vascular disease History of abdominal aortogram 11/15/2024 CT/CT angio abd aorta runof [id number] IMPRESSION: 1. 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 There also appears to be an occluded aorto iliac bypass graft. Recommend clinical correlation as to prior surgeries performed. Fem-fem bypass graft is also occluded. 2. Atherosclerosis. Particulars are detailed above. 3. Slightly nodular contour to the liver suspicious for cirrhosis. There are multiple small focal areas of arterial enhancement within the liver a number of which likely represent vascular stents. There are multiple additional areas of enhancement which are indeterminate. Recommend clinical correlation. MRI with without IV contrast hepatic protocol may add additional information if desired. 4. Cortical scarring involving both kidneys worse on the left. -History of peripheral angiogram History of peripheral angiogram 02/12/2025 Conclusions Indication for peripheral angiogram: Bilateral lifestyle limiting claudication Catheters used: Radial 6 Cambodian short sheath. Pigtail catheterAbdominal aortogram: Through left radial approach long pigtail catheter was parked at the level of renal arteries peripheral angiogram was performed via abdominal aortogram and runoff Abdominal aorta: 100% chronically occluded in the midsegment soon after giving right and left renal arteriesRight renal artery: Patent Left renal artery: PatentRight common iliac: Chronically occluded Right external iliac: Chronically occluded Right internal iliac: Chronically occluded Right common femoral artery: Chronically occluded Right profundofemoral artery: Chronically occluded Right SFA: Not well-visualized due to running out of contrast Right popliteal artery: Not well-visualized: Not evaluated Right tibioperoneal trunk: Normal valvular Right anterior tibial artery: Not very Right anterior tibial artery: Not well-visualized Right peroneal artery: Not well-visualized due to running out of contrast Please refer to CT angiogram with abdominal runoff for further detailLeft common iliac artery: Chronically occluded Left external iliac artery: Chronically Left internal iliac artery: Chronically Left common femoral artery: Chronically occluded Left profundofemoral artery: Patent Left SFA artery: Patent proximal to mid segment beyond that due to running out of contrast may not be visualized Left popliteal artery: Not well-visualized Left tibioperoneal artery: Not measured Left anterior tibial artery: Not readily Left posterior tibial artery: Not well-visualized Left peroneal arteryFor iliac common femoral femoral profundofemoral popliteal and below the knee arteries review CT angiogram with runoff in the StudyBlue. Recommendations 1-Return to recovery for close monitoring and routine PCI care 2-Refer to vascular surgery to consider bypass graft 3-Statin with LDL goal of 70 mg/dl, aspirin 81 mg p.o. daily for life long 4-CTA with runoff in the StudyBlue to assess the anatomy in both legs and below the knee should be considered since timing out of contrast from radial to abdominal aorta may have not revealed accurate angiogram in both lower extremity 5-Optimal medical management for CA - Patient followed up with vascular surgery at [facility], vascular surgeon told patient that there is nothing that they can do for her, that she has 7 to 10 days to live -She has been on hospice for about 2 to 3 months - But came off of it as she was doing okay and declines going back on hospice -She declines any other further interventions - Will likely discharge on aspirin, statin, Eliquis Acute on chronic systolic CHF exacerbation -Chest x-ray showing bilateral pleural effusions, pulmonary vascular congestion, BNP over 25,000 Plan -Fluid restrictions of 1000 cc -Monitor urine output, monitor creatinine -Lasix 40 IV twice daily currently on hold due to BYRON Hyponatremia, will monitor closely Acute kidney injury on chronic kidney disease, creatinine 1.9 -Monitor renal function Increased anion gap metabolic acidosis -Will monitor closely Headache, head CT no acute findings History of peripheral vascular disease, needs to follow-up with vascular surgery as an outpatient Full code Heparin drip for DVT prophylaxis PDMP PDMP Reviewed: Not Reviewed Attestations 2 Medical Necessity Statement*: Patient requires hospitalization for CHF, CAD, NSTEMI, BYRON Diagnoses Essential hypertension I10 Hypertension type: essential hypertension Chest pain R07.89 Chest pain type: other chest pain Atrial fibrillation with RVR I48.91 PAD (peripheral artery disease) I73.9 Mixed hyperlipidemia E78.2 Metabolic acidosis E87.20 BYRON (acute kidney injury) N17.9 Abdominal pain R10.9 Acute exacerbation of CHF (congestive heart failure) I50.9 Shortness of breath R06.02 CKD (chronic kidney disease) N18.9 Diabetes E11.9 COPD exacerbation J44.1
--- NOTE | 2025-07-19 15:14 | PC.NURSE ---
Provider called with patient's heart rate running 120-150. She is feeling short of breath and can feel her heart racing. Provider ordered amio 150mg bolus and then amio drip.
[2025-07-19] MEDS: amiodarone 150 MG/100 ML PREMIX 400 MG IV ×2 (15:20→16:01)
--- NOTE | 2025-07-19 15:31 | ECG_ITS ---
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[id number] Requested By: Perry Dangelo Order Number: [id number] Reading MD: JOSEPH PETER Measurements Intervals Metaline Rate: 133 P: 0 ME: 0 QRS: 67 QRSD: 100 T: -28 QT: 244 QTc: 363 Interpretive Statements ATRIAL FLUTTER/TACHYCARDIA WITH RAPID VENTRICULAR RESPONSE NONSPECIFIC ST & T-WAVE ABNORMALITY INTERPRETATION BASED ON A DEFAULT AGE OF 40 YEARS Compared to ECG 07/18/2025 09:29:38 Sinus bradycardia no longer present Possible ischemia no longer present T-wave abnormality still present Electronically Signed On 07-20-2025 20:13:00 CDT by JOSEPH PETER [id number]
--- NOTE | 2025-07-19 15:40 | XRR_ITS ---
PROCEDURE INFORMATION: Exam: XR Chest Exam date and time: 07/19/2025 3:44 PM Age: 70 years old Clinical indication: Pain; Chest pressure; Additional info: Chest pain TECHNIQUE: Imaging protocol: Radiologic exam of the chest. Views: 1 view. COMPARISON: CR (CHEST, ) 07/18/2025 3:42 AM FINDINGS: Lungs: Persistent bibasilar opacities. Pleural spaces: Small left pleural effusion appears to have decreased slightly in the interval. Similar small right pleural effusion. Heart/Mediastinum: Stable cardiomegaly. Vasculature: Atherosclerotic aortic calcifications. Bones/joints: Unremarkable. XR/XR chest 1V [id number] IMPRESSION: Ongoing small bilateral pleural effusions and bibasilar opacities.
[2025-07-19] MEDS: HYDROmorphone 0.5 MG/0.5 ML INJ 1 MG IVP (15:50)
[2025-07-19 16:11] LABS: Anion Gap 18.0 (5-19); Blood Urea Nitrogen 27 mg/dL (8-23); Calcium 8.7 mg/dL (8.5-10.5); Carbon Dioxide 20 mmol/L (22-29); Chloride 99 mmol/L (98-107); Creatinine Clr Calc Pharmacy 21.9738; Glucose 86 mg/dL (65-115); Osmolality Calculated 282 mOsm/kg (285-295); Potassium 3.0 mmol/L (3.5-5.1); Sodium 134 mmol/L (136-145)
[2025-07-19 16:29] LABS: Troponin T (5th) Once 380 ng/L (0-10)
--- NOTE | 2025-07-19 16:52 | PC.NURSE ---
patient began to report complaints of chest pain. Nurse was in another patient room at that time. Nurse called to patient's room where patient was moaning in pain and saying her arms felt very heavy. Pulse was in the 160s. Dr Dangelo notified of situation and he gave a verbal order for 1mg of dilaudid, 40 mg IVP lasix push, 150 bolus of amiodarone, and start a amiodarone drip. Patient still had no relief after the 150 bolus, so Dr Dangelo ordered a second amio bolus. Patient is not leaving her arm still and the amio is not going into her IV properly. New IV to be started so amio can run.
--- NOTE | 2025-07-19 17:00 | PC.RESP ---
Pts HR 156
[2025-07-19] MEDS: AMIODARONE HCL/D5W 900 MG/500 ML BAG 33.33 MG IV (17:46)
[2025-07-19 18:24] LABS: Partial Thromboplastin Time 37.2 SECONDS (23.9-36.7)
--- NOTE | 2025-07-19 18:29 | PC.NURSE ---
Nurse mistakenly put 7 in the MAR but pump was increased to 11 at the 1200 ptt of 40. After 1800 ptt, patient's heparin increased to 13.
[2025-07-20] VITALS (10 sets, daily range): BP systolic 154–204; BP diastolic 51–77; PULSE 66–86; RESP 13–22; TEMP 36.1–36.9; O2SAT 93–98
[2025-07-20 01:02] LABS: Platelet Count 258 10^3/cmm (157-399)
[2025-07-20 01:15] LABS: Partial Thromboplastin Time 61.2 SECONDS (23.9-36.7)
[2025-07-20 06:54] LABS: Partial Thromboplastin Time 66.2 SECONDS (23.9-36.7)
[2025-07-20] MEDS: heparin drip 25,000 UNIT/500 ML PREMIX 13 UNIT IV (07:42)
[2025-07-20 08:35] LABS: Hematocrit 34.9 % (36-47); Hemoglobin 11.00 g/dL (11.27-16.99); Mean Corpuscular HGB Conc 31.5 g/dL (30-55); Mean Corpuscular Hemoglobin 26.4 pg (27-33); Mean Corpuscular Volume 83.9 fl (85-98); Nucleated Red Blood Cells % 0 %; Platelet Count 261 10^3/cmm (157-399); Red Blood Count 4.16 10^6/uL (3.85-5.65); White Blood Count 8.40 10^3/uL (3.29-11.43)
[2025-07-20 08:56] LABS: Alanine Aminotransferase 9 U/L (0-33); Albumin Level 3.1 g/dL (3.5-5.2); Alkaline Phosphatase 117 U/L (35-105); Anion Gap 18.6 (5-19); Aspartate Amino Transferase 45 U/L (0-32); Blood Urea Nitrogen 23 mg/dL (8-23); Calcium 9.0 mg/dL (8.5-10.5); Carbon Dioxide 22 mmol/L (22-29); Chloride 97 mmol/L (98-107); Creatinine Clr Calc Pharmacy 23.1303; Globulin 4.0 g/dL (1.3-4.6); Glucose 130 mg/dL (65-115); Osmolality Calculated 283 mOsm/kg (285-295); Potassium 3.6 mmol/L (3.5-5.1); Sodium 134 mmol/L (136-145); Total Protein 7.1 g/dL (6.6-8.7)
[2025-07-20 08:59] LABS: Troponin T (5th) Once 1068 ng/L (0-10)
--- NOTE | 2025-07-20 10:02 | PC.CHAP ---
Pastoral Care Encounter/Spiritual Assessment Type of Contact [] Declined straw hat washer operator visit [] Patient/Family/Request visit [] Outpatient visit [] Follow-up visit [] Physician referral [] Code/Alert [x] Routine visit [] Staff referral [] Actively dying [] Patient sleeping [] Family support [] [] Out of room [] Palliative care [] [] Receiving care in room [] Pre-surgical visit [] Trauma [] Long length of stay [] ICU visit [] Other: Relational/Emotional Strength [x] Patient feels connected with others/family/visitors/staff [] Distress [] Loneliness/isolation [] Abandonment Spirituality of Patient [x] Person of [place] [] Attends Temple of their [place] [x] Believes in Prayer [] Reads Bible or Congregation materials [] There are Spiritual issues to be addressed Telecommunications Project Manager Interventions [x] Prayer [x] Active listening [x] Non-anxious presence [x] Spiritual/emotional support [] Crisis/trauma care [] Spiritual counseling [] Bereavement support [] Provided bereavement packet [] Provided Bible/devotional materials [] Provided toy/stuffed animal, coloring book to patient or family member [] Provided Communion [] Anointing/[place] [] Salvation [x] Completed spiritual assessment [] Other: Impact on Illness or Injury [] Angry [] Fearful [] Anxious [] Often cries [] Exhaustion [] Unable to work [] Unable to attend taoism [] Unable to walk/stand [] Unable to read [] Unable to drive [] Unable to eat/drink [] Unable to sleep [] Unable to be with family [] Patient intubated [] Other: Summary Time spent with patient 5 min
--- NOTE | 2025-07-20 11:04 | P.PN_ITS ---
Subjective 2 Subjective: - Yesterday patient had episodes of ches t pain radiating down her left arm, she also had A-fib with RVR - Currently on amiodarone drip for A-fib with RVR - Overnight chest pain has resolved - Discussed her troponin is 1068, she is currently chest pain-free, her EKG does not show any acute ST-T wave changes, her heart rates in the 70s, atrial fibrillation - Currently her creatinine is 1.9 - Discussed with Gregoria the options are available to her - We could medically manage her NSTEMI, the risks and benefits of this was discussed, she would prefer this as, she is worried about any further complications such as as specially after her peripheral angiogram -We discussed the high probability that given her creatinine, CKD, she has a high risk of dialysis - She adamantly declines being put on di alysis - We then discussed the possibility of c oronary interventions, we could certainly try to do a coronary angiogram, discussed the possibility of stent placement, her dependence on antiplatelet therapy for a prolonged period of time, increased risk of stroke/heart attack/dialysis -She tells me that she wants to avoid an y significant coronary intervention, she is worried about the side effects, but wants to talk to cardiology - I did discuss, with Gregoria that with her NSTEMI, she has high risk of sudden cardiac , high risk of coronary event, high risk of cardiac arrhythmia, and with her underlying risk factors, she would have a high risk of morbidity or mortality, high risk of poor outcome - She understands this, but she does not want to go home on hospice, and she wants to remain a full code - Discitis continue medical intervention s for now, conservative interventions, after discussing with risks and benefits, she voiced understanding, all questions answered, agreed to proceed Vitals/I&O/Wt Last Vital Signs Temp 97.6 F 07/20/25 07:33 Pulse 76 07/20/25 07:43 Resp 18 07/20/25 07:43 BP 169/77 07/20/25 07:33 Pulse Ox 94 07/20/25 07:43 O2 Del Method Room Air 07/20/25 07:43 O2 Flow Rate 2 07/19/25 21:13 07/19/25 07/20/25 07/20/25 22:59 06:59 14:59 Intake Total 240.833 / 776.633 370.474 / 1147.107 489.75 / 489.75 Output Total 1200 / 2770 925 / 3695 750 / 750 Balance -959.167 / -1993.367 -554.526 / -2547.893 -260.25 / -260.25 Weight last 48 hrs Weight 55.928 kg Physical Exam 2 Const: COMMON NORMALS: no acute distress and patient oriented x3 Resp: COMMON NORMALS: normal respiratory effort, No retractions, No use of accessory muscles and clear to auscultation bilaterally AUSCULTATION: clear to auscultation bilaterally Cardio: COMMON NORMALS: regular rate, regular rhythm, S1 normal heart sound present and S2 normal heart sound present RATE: regular rate RHYTHM: r egular rhythm HEART SOUNDS: S1 normal heart sound present and S2 normal heart sound present GI: COMMON NORMALS: Normal to inspection, nondistended, normoactive bowel sounds present and non-tender Extremity: COMMON NORMALS: no pedal edema Neuro: COMMON NORMALS: patient oriented x3 Psych: COMMON NORMALS: mental status grossly normal Urinary Catheter Management: Chung: Cath Placed During This Visit: yes Reason for Continuing Indwelling Catheter: Accurate Measurement of Urinary Output in Critically Ill Patients Urinary Catheter Date of Insertion: 07/18/25 Urinary Catheter Time of Insertion: 06:00 Data 07/20/25 08:19 07/20/25 08:19 A&P Assessment and plan 1. Hypertension: 2. Chest pain: 3. Atrial fibrillation with RVR: 4. PAD (peripheral artery disease): 5. Mixed hyperlipidemia: 6. Metabolic acidosis: 7. BYRON (acute kidney injury): 8. Abdominal pain: 9. Acute exacerbation of CHF (congestive heart failure): 10. Atrial fibrillation with RVR: 11. Shortness of breath: 12. CKD (chronic kidney disease): 13. Diabetes: 14. COPD exacerbation: Plan: Chest pain -NSTEMI -Plan on medically managing for now, patient declines any interventions such as coronary angiography, but we will await cardiology's discussion with patient -Recent history of stress testing February 05, 2025, low probability -Continues to complain of chest pain -Serial EKGs, start troponins, telemetry monitoring -Aspirin, statin -Heparin drip -Cardiac echo CONCLUSIONS 1. Normal biventricular systolic function. LV EF 63%. 2. Moderate mitral regurgitation and mild mitral stenosis 3. Mild to moderate aortic valve regurgitation 4. Mild pulmonary hypertension 5. Mild LVH -Cardiology consulted Atrial fibrillation with rapid ventricular response, currently on amiodarone drip, transition to p.o. amiodarone this afternoon Hospice - Patient was on hospice due to severe peripheral vascular disease - She came off hospice a few months ago, has not been on any medications Chronic mesenteric ischemia - Will discharge on anticoagulant therapy - Aspirin, statin - Small-volume feeds, multiple times throughout the day Severe peripheral vascular disease History of abdominal aortogram 11/15/2024 CT/CT angio abd aorta runof [id number] IMPRESSION: 1. 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 There also appears to be an occluded aorto iliac bypass graft. Recommend clinical correlation as to prior surgeries performed. Fem-fem bypass graft is also occluded. 2. Atherosclerosis. Particulars are detailed above. 3. Slightly nodular contour to the liver suspicious for cirrhosis. There are multiple small focal areas of arterial enhancement within the liver a number of which likely represent vascular stents. There are multiple additional areas of enhancement which are indeterminate. Recommend clinical correlation. MRI with without IV contrast hepatic protocol may add additional information if desired. 4. Cortical scarring involving both kidneys worse on the left. -History of peripheral angiogram History of peripheral angiogram 02/12/2025 Conclusions Indication for peripheral angiogram: Bilateral lifestyle limiting claudication Catheters used: Radial 6 Tajik short sheath. Pigtail catheterAbdominal aortogram: Through left radial approach long pigtail catheter was parked at the level of renal arteries peripheral angiogram was performed via abdominal aortogram and runoff Abdominal aorta: 100% chronically occluded in the midsegment soon after giving right and left renal arteriesRight renal artery: Patent Left renal artery: PatentRight common iliac: Chronically occluded Right external iliac: Chronically occluded Right internal iliac: Chronically occluded Right common femoral artery: Chronically occluded Right profundofemoral artery: Chronically occluded Right SFA: Not well-visualized due to running out of contrast Right popliteal artery: Not well-visualized: Not evaluated Right tibioperoneal trunk: Normal valvular Right anterior tibial artery: Not very Right anterior tibial artery: Not well-visualized Right peroneal artery: Not well-visualized due to running out of contrast Please refer to CT angiogram with abdominal runoff for further detailLeft common iliac artery: Chronically occluded Left external iliac artery: Chronically Left internal iliac artery: Chronically Left common femoral artery: Chronically occluded Left profundofemoral artery: Patent Left SFA artery: Patent proximal to mid segment beyond that due to running out of contrast may not be visualized Left popliteal artery: Not well-visualized Left tibioperoneal artery: Not measured Left anterior tibial artery: Not readily Left posterior tibial artery: Not well-visualized Left peroneal arteryFor iliac common femoral femoral profundofemoral popliteal and below the knee arteries review CT angiogram with [facility]off [facility]. Recommendations 1-Return to recovery for close monitoring and routine PCI care 2-Refer to vascular surgery to consider bypass graft 3-Statin with LDL goal of 70 mg/dl, aspirin 81 mg p.o. daily for life long 4-CTA with runoff in the [facility] to assess the anatomy in both legs and below the knee should be considered since timing out of contrast from radial to abdominal aorta may have not revealed accurate angiogram in both lower extremity 5-Optimal medical management for OR - Patient followed up with vascular surgery at [facility], vascular surgeon told patient that there is nothing that they can do for her, that she has 7 to 10 days to live -She has been on hospice for about 2 to 3 months - But came off of it as she was doing okay and declines going back on hospice -She declines any other further interventions - Will likely discharge on aspirin, statin, Eliquis Acute on chronic systolic CHF exacerbation -Chest x-ray showing bilateral pleural effusions, pulmonary vascular congestion, BNP over 25,000 Plan -Fluid restrictions of 1000 cc -Monitor urine output, monitor creatinine -Lasix 40 IV once Hyponatremia, will monitor closely Acute kidney injury on chronic kidney disease, creatinine 1.9 -Monitor renal function Increased anion gap metabolic acidosis -Will monitor closely Headache, head CT no acute findings History of peripheral vascular disease, needs to follow-up with vascular surgery as an outpatient Full code Heparin drip for DVT prophylaxis PDMP PDMP Reviewed: Not Reviewed Attestations 2 Medical Necessity Statement*: Patient requires hospitalization for A-fib with RVR, chest pain, NSTEMI Diagnoses Essential hypertension I10 Hypertension type: essential hypertension Chest pain R07.89 Chest pain type: other chest pain Atrial fibrillation with RVR I48.91 PAD (peripheral artery disease) I73.9 Mixed hyperlipidemia E78.2 Metabolic acidosis E87.20 BYRON (acute kidney injury) N17.9 Abdominal pain R10.9 Acute exacerbation of CHF (congestive heart failure) I50.9 Shortness of breath R06.02 CKD (chronic kidney disease) N18.9 Diabetes E11.9 COPD exacerbation J44.1
--- NOTE | 2025-07-20 12:53 | P.PN_ITS ---
<Statement entered by Julito Campoverde MD - 07/20/25 14:06> Patient was evaluated and cared for in conjunction with an advanced practice practitioner. I personally saw the patient and reviewed the chart and all pertinent data. I discussed the patient in detail with the advanced practice practitioner. Please see their note for complete assessment and agreed upon plan of care for the patient. Documented by User: Jolene Mendieta, [employer] 07/20/25 16:43 Subjective 2 Subjective: Patient developed atrial fibrillation with RVR yesterday, and was started on amiodarone infusion, random troponin drawn around 4 PM yesterday was 380, repeat troponin this morning was 1068. She is adamant that she does not want any further procedures. She is well aware of the risks of medical management of NSTEMI without PCI. Her creatinine increased to 2.0 today as well, which would put her at high risk for contrast-induced nephropathy even if she did want coronary angiography. She wants to avoid dialysis at all cost. Vitals/I&O/Wt Last Vital Signs Temp 97.8 F 07/20/25 11:45 Pulse 77 07/20/25 12:47 Resp 18 07/20/25 12:47 BP 178/69 07/20/25 11:45 Pulse Ox 98 07/20/25 12:47 O2 Del Method Room Air 07/20/25 12:47 O2 Flow Rate 2 07/19/25 21:13 07/19/25 07/20/25 07/20/25 22:59 06:59 14:59 Intake Total 240.833 / 1147.107 370.474 / 1147.107 489.75 / 489.75 Output Total 1200 / 3695 925 / 3695 750 / 750 Balance -959.167 / -2547.893 -554.526 / -2547.893 -260.25 / -260.25 Weight last 48 hrs Weight 123 lb 4.8 oz Physical Exam 2 Const: COMMON NORMALS: no acute distress and patient oriented x3 Chest: COMMONS NORMALS: normal inspection of the chest and normal palpation of entire chest wall CHEST: Yes Symmetrical chest wall rise Resp: COMMON NORMALS: normal respiratory effort, No retractions, No use of accessory muscles and clear to auscultation bilaterally EFFORT & INSPECTION: Yes symmetric chest movement AUSCULTATION: clear to auscultation bilaterally Cardio: COMMON NORMALS: S1 normal heart sound present, S2 normal heart sound present, No gallops present (Cardio), No clicks present (Cardio), No murmurs present (Cardio) and No rub (Cardio) RHYTHM: abnormal rhythm irregularly irregular HEART SOUNDS: S1 normal heart sound present and S2 normal heart sound present PERIPHERAL PULSES: radial pulses present Neuro: COMMON NORMALS: patient oriented x3 and moves all extremities Psych: COMMON NORMALS: mental status grossly normal and cooperative Urinary Catheter Management: Chung: Cath Placed During This Visit: yes Reason for Continuing Indwelling Catheter: Accurate Measurement of Urinary Output in Critically Ill Patients Urinary Catheter Date of Insertion: 07/18/25 Urinary Catheter Time of Insertion: 06:00 Data 07/20/25 08:19 07/20/25 08:19 A&P Assessment and plan 1. Chronic distal aortic occlusion: 2. PAD (peripheral artery disease): 3. Mixed hyperlipidemia: 4. Hypertension: 5. Tobacco dependence: 6. Diabetes: 7. CKD (chronic kidney disease) stage 3, GFR 30-59 ml/min: Plan: Given the severity of her PAD, the fact that she was on hospice related to her significant arterial disease, multivessel CAD is highly likely. Patient does not want any further invasive procedures at this time, and is well aware of the risks and possible consequences. She does not want hospice but would like to go home. We can continue medical management of NSTEMI/PAD as well as atrial fibrillation, switching her to oral amiodarone for control of atrial fibrillation along with metoprolol tartrate. PDMP PDMP Reviewed: Not Reviewed Attestations 2 Medical Necessity Statement*: medical management of NSTEMI Coding Level of Care Code Acute Code for [facility] Fwd Diagnoses Chronic distal aortic occlusion I74.09 PAD (peripheral artery disease) I73.9 Mixed hyperlipidemia E78.2 Hypertension I10 Tobacco dependence F17.200 Diabetes E11.9 CKD (chronic kidney disease) stage 3, GFR 30-59 ml/min N18.30 Documented by User: Julito Campovered MD 07/20/25 14:06 Physical Exam 2 Urinary Catheter Management: Chung: Cath Placed During This Visit: yes Data 07/20/25 08:19 07/20/25 08:19 A&P Assessment and plan 1. Chronic distal aortic occlusion: 2. PAD (peripheral artery disease): 3. Mixed hyperlipidemia: 4. Hypertension: 5. Tobacco dependence: 6. Diabetes: 7. CKD (chronic kidney disease) stage 3, GFR 30-59 ml/min: PDMP PDMP Reviewed: Not Reviewed Coding Level of Care Code Acute Code for [facility] Fwd Diagnoses Chronic distal aortic occlusion I74.09 PAD (peripheral artery disease) I73.9 Mixed hyperlipidemia E78.2 Hypertension I10 Tobacco dependence F17.200 Diabetes E11.9 CKD (chronic kidney disease) stage 3, GFR 30-59 ml/min N18.30
[2025-07-20 13:27] LABS: Partial Thromboplastin Time 59.3 SECONDS (23.9-36.7)
--- NOTE | 2025-07-20 15:15 | PC.NURSE ---
Addendum entered by Avis Calderon RN 07/20/25 15:16: no new orders from provider. Original Note: Provider is updated about Gregoria King, I walked in her room to check on her and she had turned off her IV pumps. (Heparin and amio) I turned them back on and educated her on why they need to be on. She said that she had turned them off just a couple of minutes before I got in there. So, I am not sure how long they were off.
[2025-07-20] MEDS: FUROsemide 10 mg/mL SDV 4mL 40 MG IVP (15:29)
--- NOTE | 2025-07-20 15:56 | PC.SOCIAL ---
*IMM* Patient received Important Message from [employer], Pt Received a copy. Initialed and dated in the chart.
[2025-07-20] MEDS: MELATONIN 3 MG TABLET 6 MG PO (21:10)
[2025-07-21 03:15] VITALS: BP 150/58; PULSE 82; RESP 18; TEMP 35.8; O2SAT 98
[2025-07-21 04:51] LABS: Partial Thromboplastin Time 95.4 SECONDS (23.9-36.7)
[2025-07-21 05:12] VITALS: BMI 24.5
[2025-07-21 07:44] VITALS: BP 175/72; PULSE 80; RESP 24; TEMP 36.9; O2SAT 97
[2025-07-21 09:09] VITALS: PULSE 80; RESP 20; O2SAT 95
[2025-07-21] MEDS: FUROsemide 10 mg/mL SDV 4mL 40 MG IVP (09:15)
[2025-07-21 09:49] LABS: Hematocrit 36.6 % (36-47); Hemoglobin 11.50 g/dL (11.27-16.99); Mean Corpuscular HGB Conc 31.4 g/dL (30-55); Mean Corpuscular Hemoglobin 26.6 pg (27-33); Mean Corpuscular Volume 84.7 fl (85-98); Nucleated Red Blood Cells % 0 %; Platelet Count 281 10^3/cmm (157-399); Red Blood Count 4.32 10^6/uL (3.85-5.65); White Blood Count 7.19 10^3/uL (3.29-11.43)
[2025-07-21 10:14] LABS: Alanine Aminotransferase 8 U/L (0-33); Albumin Level 3.0 g/dL (3.5-5.2); Alkaline Phosphatase 116 U/L (35-105); Anion Gap 16.1 (5-19); Aspartate Amino Transferase 28 U/L (0-32); Blood Urea Nitrogen 20 mg/dL (8-23); Calcium 9.1 mg/dL (8.5-10.5); Carbon Dioxide 23 mmol/L (22-29); Chloride 100 mmol/L (98-107); Creatinine Clr Calc Pharmacy 23.9787; Globulin 4.0 g/dL (1.3-4.6); Glucose 174 mg/dL (65-115); NT Pro B Type Natriuretic Pept 20383 pg/mL (0-125); Osmolality Calculated 287 mOsm/kg (285-295); Potassium 4.1 mmol/L (3.5-5.1); Sodium 135 mmol/L (136-145); Total Protein 7.0 g/dL (6.6-8.7)
--- NOTE | 2025-07-21 11:51 | P.DS_ITS ---
Discharge Providers Date of Admission: 07/18/25 06:03 Date of Discharge: July 21, 2025 Attending Provider at Admission: Ciera Kibry MD Attending Provider at Discharge: Perry Dangelo MD Primary Care Provider: JER Jordan Diagnoses at Discharge Discharge Diagnosis 1. Chronic distal aortic occlusion: 2. PAD (peripheral artery disease): 3. Mixed hyperlipidemia: 4. Essential hypertension: 5. Tobacco dependence: 6. Type 2 diabetes mellitus without complication, without long-term current use of insulin: 7. Stage 3a chronic kidney disease: 8. Abdominal pain: 9. BYRON (acute kidney injury): 10. Atrial fibrillation with RVR: 11. Chest pain: 12. Metabolic acidosis: 13. CKD (chronic kidney disease): 14. Shortness of breath: 15. Acute exacerbation of CHF (congestive heart failure): 16. COPD exacerbation: Reason for Visit Reason for Visit: Chest Pain Hospital Course Hospital Course This is a 70-year-old female with severe peripheral vascular disease, she was on hospice, has come off of hospice as per her request, COPD, CAD, CKD, atrial fibrillation who presents to chest pain, chest palpitations, shortness of breath Patient had a prolonged hospitalization please look at my last progress note for further detail Patient was admitted to [facility] for chest pain, NSTEMI, medically managed as per patient's request, cardiology consulted, cardiac echo showed EF of 63%, managed on aspirin, statin, heparin drip, she did have episodes of chest pain and worsening NSTEMI with troponins over a thousand during hospitalization; requiring discussion of goals of care. Complicating her care is her CKD with a creatinine of 1.9, with increased risk of dialysis with coronary angiography, her severe end-stage peripheral vascular disease, continued smoking, COPD, CHF. Gregoria declined coronary angiography, declined the risk of being put on dialysis. After discussion with her about her goals of care, she declines dialysis, she declines coronary intervention, she wants to pursue medical management. She was monitored as inpatient with medical management, the morning of 07/21/2025 she remains chest pain-free and shortness of breath free. Will be discharged on aspirin, statin, Eliquis, nitro as needed chest pain with close follow-up with cardiology as outpatient. Gregoria is well aware that she has a high risk of coronary event, high risk of cardiac arrest, high risk of cardiac arrhythmia, high risk of morbidity and mortality with her NSTEMI and her CAD, she voices understanding, all question answered, but for now she wants to pursue only conservative medical intervention. She declines being discharged on hospice. I did discuss with Gregoria that my worry is is that she comes in through the ER with a myocardial infarction or cardiac arrest or significant arrhythmia, what we do at that point?As She has a high risk of poor outcome, high risk of morbidity and mortality, high risk of suffering. Knowing that she has multiple risk factors, with her CAD, her severe end-stage peripheral vascular disease, COPD, CHF, continued smoking, her prognosis is poor. Unfortunately Gregoria did not have a good answer for me, the best I could get from her is what we can try coronary angiography if it is that or . But if she reaches that point again I have emphasized that her prognosis would be ultimately poor, she would likely need dialysis, she would likely require very aggressive inventions. She did not really give me a clear answer, except for now Gregoria wants to remain a full code, wants a trial of resuscitation, declines hospice,she does tell me that if there is low likelihood of recovery, if she is going be dependent on life support she wants life-sustaining measures to be stopped. I also discussed patient's poor prognosis, with the patient's nephew, he is well aware of her prognosis and her condition. For acute on chronic systolic CHF exacerbation, BNP over 25,000, received IV diuresis as inpatient, overall clinically proved with IV diuresis discharged on p.o. Lasix as outpatient For BYRON on CKD, creatinine was monitored with diuresis, creatinine 1.9 on discharge Severe peripheral vascular disease History of abdominal aortogram 11/15/2024 CT/CT angio abd aorta runof [id number] IMPRESSION: 1. 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 There also appears to be an occluded aorto iliac bypass graft. Recommend clinical correlation as to prior surgeries performed. Fem-fem bypass graft is also occluded. 2. Atherosclerosis. Particulars are detailed above. 3. Slightly nodular contour to the liver suspicious for cirrhosis. There are multiple small focal areas of arterial enhancement within the liver a number of which likely represent vascular stents. There are multiple additional areas of enhancement which are indeterminate. Recommend clinical correlation. MRI with without IV contrast hepatic protocol may add additional information if desired. 4. Cortical scarring involving both kidneys worse on the left. -History of peripheral angiogram History of peripheral angiogram 02/12/2025 Conclusions Indication for peripheral angiogram: Bilateral lifestyle limiting claudication Catheters used: Radial 6 [place] short sheath. Pigtail catheterAbdominal aortogram: Through left radial approach long pigtail catheter was parked at the level of renal arteries peripheral angiogram was performed via abdominal aortogram and runoff Abdominal aorta: 100% chronically occluded in the midsegment soon after giving right and left renal arteriesRight renal artery: Patent Left renal artery: PatentRight common iliac: Chronically occluded Right external iliac: Chronically occluded Right internal iliac: Chronically occluded Right common femoral artery: Chronically occluded Right profundofemoral artery: Chronically occluded Right SFA: Not well-visualized due to running out of contrast Right popliteal artery: Not well-visualized: Not evaluated Right tibioperoneal trunk: Normal valvular Right anterior tibial artery: Not very Right anterior tibial artery: Not well-visualized Right peroneal artery: Not well-visualized due to running out of contrast Please refer to CT angiogram with abdominal runoff for further detailLeft common iliac artery: Chronically occluded Left external iliac artery: Chronically Left internal iliac artery: Chronically Left common femoral artery: Chronically occluded Left profundofemoral artery: Patent Left SFA artery: Patent proximal to mid segment beyond that due to running out of contrast may not be visualized Left popliteal artery: Not well-visualized Left tibioperoneal artery: Not measured Left anterior tibial artery: Not readily Left posterior tibial artery: Not well-visualized Left peroneal arteryFor iliac common femoral femoral profundofemoral popliteal and below the knee arteries review CT angiogram with runoff in the [place]. Recommendations 1-Return to recovery for close monitoring and routine PCI care 2-Refer to vascular surgery to consider bypass graft 3-Statin with LDL goal of 70 mg/dl, aspirin 81 mg p.o. daily for life long 4-CTA with runoff in the [place] to assess the anatomy in both legs and below the knee should be considered since timing out of contrast from radial to abdominal aorta may have not revealed accurate angiogram in both lower extremity 5-Optimal medical management for AL - Patient followed up with vascular surgery at [facility], vascular surgeon told patient that there is nothing that they can do for her, that she has 7 to 10 days to live -She has been on hospice for about 2 to 3 months - But came off of it as she was doing okay and declines going back on hospice -She declines any other further interventions - Will discharge on aspirin, statin, Eliquis She had atrial fibrillation with rapid ventricular response during hospitalizati on requiring amiodarone drip, heparin drip - Will transition her to p.o. amiodarone discharge - Given her creatinine at 1.9, her weight of 60 kg, discussed the risk and benefits of full dose versus low-dose Eliquis therapy - She would prefer low-dose Eliquis therapy, due to risk of bleeding - After discussing the risks and benefits, she voiced understanding, questions answered, agreed to proceed For chronic mesenteric ischemia, discussed lifestyle modifications, discharged on Eliquis, aspirin, statin, discussed small-volume feeds multiple times throughout the day -Please monitor your blood sugars closely -Monitor your blood sugars 3 times daily as after meals -Please record your blood sugars, and a blood sugar log -For your NovoLog -Please inject blood sugar after meals based on sliding scale provided -Do not inject insulin if you do not eat as hypoglycemia kills -This is a NovoLog sliding scale -Insulin sliding ?fingerstick? Insulin ?141-180?0 units/sq 181-220?2 units/sq ?221-260?4 units/sq ?261-300 6 units/sq ?301-350?8 units/sq ?351-400 10 units/sq ?401-450?12 units/sq >450? 14units/sq -If your blood sugar is greater than 500 go to the emergency room -If your blood sugar is less than 60 or at anytime you feel lightheaded or dizzy or diaphoretic or have chest palpitations check your blood sugar, and eat a hard candy or drink orange juice and go immediately to the emergency room -Remember hypoglycemia kills, so if his blood sugar is less than 60 we have to increase it by taking in a sugary meal such as a hard candy or orange juice and go to the emergency room -If you have any questions please call us where here to help Physical Exam Const: COMMON NORMALS: no acute distress and patient oriented x3 Resp: COMMON NORMALS: normal respiratory effort, No retractions, No use of accessory muscles and clear to auscultation bilaterally AUSCULTATION: clear to auscultation bilaterally Cardio: COMMON NORMALS: regular rate, regular rhythm, S1 normal heart sound present and S2 normal heart sound present RATE: regular rate RHYTHM: regular rhythm HEART SOUNDS: S1 normal heart sound present and S2 normal heart sound present GI: COMMON NORMALS: Normal to inspection, nondistended, normoactive bowel sounds present and non-tender Extremity: COMMON NORMALS: no pedal edema Neuro: COMMON NORMALS: patient oriented x3 Psych: COMMON NORMALS: mental status grossly normal Urinary Catheter Management: Chung: Cath Placed During This Visit: yes, but has since been removed by the nurse Reason for Continuing Indwelling Catheter: Accurate Measurement of Urinary Output in Critically Ill Patients Urinary Catheter Date of Insertion: 07/18/25 Urinary Catheter Time of Insertion: 06:00 Date Urinary Catheter Removed: 07/21/25 Time Urinary Catheter Discontinued: 11:31 Discharge Data Studies Completed and Pending Completed Studies During Hospitalization Category Date Time Status CT head wo con* [id number] Routine Cat Scan 07/18/25 10:18 Completed XR chest 1V [id number] Stat Exams 07/19/25 15:40 Completed XR chest 1V portable [id number] Stat Exams 07/18/25 03:41 Completed CV. echo complete* [id number] Routine Ultrasound 07/18/25 05:45 Completed Pending at discharge Category Date Time Status PTT [Partial Thromboplastin Time] Timed Lab 07/21/25 11:28 Received Radiology Impressions Head CT 07/18/25 10:18 IMPRESSION: 1. No evidence of intracranial hemorrhage or mass effect. 2. No changes since 06/27/2025 3. No acute intracranial findings. Chest X-Ray 07/19/25 15:40 IMPRESSION: Ongoing small bilateral pleural effusions and bibasilar opacities. Laboratory Results WBC 7.19 10^3/uL (3.29-11.43) 07/21/25 09:42 RBC 4.32 10^6/uL (3.85-5.65) 07/21/25 09:42 Hgb 11.50 g/dL (11.27-16.99) 07/21/25 09:42 Hct 36.6 % (36-47) 07/21/25 09:42 MCV 84.7 fl (85-98) L 07/21/25 09:42 MCH 26.6 pg (27-33) L 07/21/25 09:42 MCHC 31.4 g/dL (30-55) 07/21/25 09:42 RDW 18.0 % (12.1-15.1) H 07/21/25 09:42 Plt Count 281 10^3/cmm (157-399) 07/21/25 09:42 MPV 10.2 fL (7.4-10.4) 07/21/25 09:42 Neut % (Auto) 56.0 % 07/21/25 09:42 Lymph % (Auto) 22.8 % 07/21/25 09:42 [place] % (Auto) 9.5 % 07/21/25 09:42 Eos % (Auto) 9.5 % 07/21/25 09:42 Baso % (Auto) 1.9 % 07/21/25 09:42 Neut # (Auto) 4.03 10^3/uL (1.8-7.7) 07/21/25 09:42 Lymph # (Auto) 1.6 10^3/uL (0.8-4.8) 07/21/25 09:42 [place] # (Auto) 0.7 10^3/uL (0.2-0.9) 07/21/25 09:42 Eos # (Auto) 0.7 10^3/uL (0.0-0.8) 07/21/25 09:42 Baso # (Auto) 0.1 10^3/uL (0.0-0.1) 07/21/25 09:42 Nucleated RBC % (auto) 0 % 07/21/25 09:42 Nucleated RBCs # 0.0 /100WBC 07/21/25 09:42 APTT 95.4 SECONDS (23.9-36.7) H D 07/21/25 04:15 Sodium 135 mmol/L (136-145) L 07/21/25 09:42 Potassium 4.1 mmol/L (3.5-5.1) 07/21/25 09:42 Chloride 100 mmol/L (98-107) 07/21/25 09:42 Carbon Dioxide 23 mmol/L (22-29) 07/21/25 09:42 Anion Gap 16.1 (5-19) 07/21/25 09:42 BUN 20 mg/dL (8-23) 07/21/25 09:42 Creatinine 1.9 mg/dL (0.5-0.9) H 07/21/25 09:42 GFR Calculation 26.2 mL/min (90-130) L 07/21/25 09:42 Glucose 174 mg/dL (65-115) H 07/21/25 09:42 POC Glucose 159 mg/dL (70-110) H 07/21/25 11:13 Calculated Osmolality 287 mOsm/kg (285-295) 07/21/25 09:42 Calcium 9.1 mg/dL (8.5-10.5) 07/21/25 09:42 Phosphorus 4.2 mg/dL (2.5-4.5) 07/19/25 05:47 Magnesium 1.8 mg/dL (1.7-2.3) 07/19/25 05:47 Total Bilirubin 0.5 mg/dL (0.15-1.2) 07/21/25 09:42 AST 28 U/L (0-32) 07/21/25 09:42 ALT 8 U/L (0-33) 07/21/25 09:42 Alkaline Phosphatase 116 U/L (35-105) H 07/21/25 09:42 Troponin T 5th Gen ng/L 1068 ng/L (0-10) H* 07/20/25 08:19 Troponin T Baseline 43 ng/L (0-10) H 07/18/25 03:45 Troponin T 120 Minute 48.01 ng/L (0-10) H 07/18/25 05:34 Delta Troponin T 5.01 ABS# (0-10) 07/18/25 05:34 Troponin T Hi Sens 6Hr 134.5 ng/L (0-10) H 07/18/25 09:35 Troponin T Hi Sens 6Hr Delta 91.5 ng/L (0-12) H* 07/18/25 09:35 C-Reactive Protein 4.4 mg/L (0.0-4.9) 07/18/25 03:45 NT-Pro-B Natriuret Pep 95674 pg/mL (0-125) H 07/21/25 09:42 Total Protein 7.0 g/dL (6.6-8.7) 07/21/25 09:42 Albumin 3.0 g/dL (3.5-5.2) L 07/21/25 09:42 Globulin 4.0 g/dL (1.3-4.6) 07/21/25 09:42 Lipase 56 U/L (13-60) 07/18/25 03:45 Procalcitonin 0.04 ng/mL (0-0.5) 07/18/25 03:45 Vitals Last Vital Signs Temp 98.4 F 07/21/25 07:44 Pulse 80 07/21/25 09:09 Resp 20 H 07/21/25 09:09 BP 175/72 07/21/25 07:44 Pulse Ox 95 07/21/25 09:09 O2 Del Method Room Air 07/21/25 09:09 O2 Flow Rate 2 07/19/25 21:13 Discharge Plan Discharge Patient Disposition: Home Condition: Stable Prescriptions: New atorvastatin 40 mg Tablet 40 mg PO BEDTIME 30 Days Qty: 30 0RF insulin aspart U-100 [Novolog FlexPen U-100 Insulin] 100 unit/mL (3 mL) insulin pen See Rx Instructions .ROUTE .COMPLEX MDD 20 Qty: 15 0RF Rx Instructions: Inject, subcut, 3 times daily, after meals, based on low-dose sliding scale potassium chloride [Klor-Con M10] 10 mEq tablet,ER particles/crystals 10 meq PO DAILY 30 Days Qty: 30 0RF guaifenesin [Mucinex] 600 mg Tablet Extended Release 12hr 600 mg PO BID PRN (Reason: congestion) 30 Days Qty: 60 0RF aspirin 81 mg Tablet,Delayed Release (Dr/Ec) 81 mg PO DAILY 30 Days Qty: 30 0RF amiodarone [Pacerone] 200 mg Tablet See Rx Instructions .ROUTE .COMPLEX Qty: 60 0RF Rx Instructions: 2tabs(400mg) bid for 5 day, 1 tab bid for 5 days,then 1 tab daily Eliquis 2.5 mg tablet 2.5 mg PO BID 30 Days Qty: 60 0RF amlodipine 10 mg tablet 10 mg PO DAILY 30 Days Qty: 30 0RF Continued nitroglycerin 0.4 mg tablet, sublingual See Rx Instructions .ROUTE .COMPLEX 30 Days Qty: 30 0RF Rx Instructions: DISSOLVE 1 TABLET UNDER THE TONGUE EVERY 5 MINUTES NEEDED FOR CHEST PAIN. DO NOT EXCEED A TOTAL OF 3 DOSES IN 15 MINUTES. furosemide 40 mg tablet 40 mg PO DAILY 30 Days Qty: 30 0RF Discontinued metoprolol tartrate 75 mg tablet 75 mg PO BID Qty: 180 3RF ondansetron 4 mg tablet,disintegrating 4 mg PO Q6H PRN (Reason: nausea and vomiting) Qty: 14 0RF tizanidine 4 mg tablet 4 mg PO TID PRN (Reason: Spasms) linezolid 600 mg tablet 600 mg PO BID No Action (DME) Diabetic shoes Qty: 1 0RF Rx Instructions: As directed (DME) Diabetic shoes See Rx Instructions .ROUTE .MEDSUPPLY Qty: 1 0RF Rx Instructions: With 3 pairs of inserts (DME) blood-glucose meter [Accu-Chek Guide Glucose Meter] Misc See Rx Instructions .Route Qty: 1 0RF Rx Instructions: please provide insurance preference (DME) lancing device with lancets [Accu-Chek FastClix Lancing Dev] Kit See Rx Instructions .Route Qty: 1 0RF Rx Instructions: please provide insurance preference (DME) Accu-Chek Guide test strips Strip See Rx Instructions .Route Qty: 100 2RF Rx Instructions: check blood sugar tidac and hs (DME) lancets [Accu-Chek Softclix Lancets] Misc See Rx Instructions .Route Qty: 100 0RF Rx Instructions: As directed Discharge Order = DC NOW: Discharge Order (Routine); Ordered 07/21/25 Ordered By: Perry Dangelo Referrals: Julito Campoverde MD [Physician, Cardiology] - 2 weeks Referral Note: We have notified your physician's clinic of the need for a follow-up appointment to be scheduled. If you have not heard from them within the next 2 business days, please call them directly. Juliette Winchester FNP [Primary Care Provider, Nurse Practitioner] Referral Note: Patient will need to call office Wednesday to arrange a follow up appt in the next 7-10 days Discharge Diet: Cardiac Discharge Activity: Resume usual activity Patient Instructions: Atrial Fibrillation, COPD, Potassium Chloride (By mouth), Aspirin (By mouth), Guaifenesin (By mouth), Amiodarone (By mouth), Amlodipine (By mouth), Atorvastatin (By mouth), Insulin Regular (By injection), Apixaban (By mouth), Heart Failure (DC), Opioid Safety, Patient Portal & Jacob Instructions Activity Restrictions/Additional Instructions: -Please monitor your blood sugars closely -Monitor your blood sugars 3 times daily as after meals -Please record your blood sugars, and a blood sugar log -For your NovoLog -Please inject blood sugar after meals based on sliding scale provided -Do not inject insulin if you do not eat as hypoglycemia kills -This is a NovoLog sliding scale -Insulin sliding ?fingerstick? Insulin ?141-180?0 units/sq 181-220?2 units/sq ?221-260?4 units/sq ?261-300 6 units/sq ?301-350?8 units/sq ?351-400 10 units/sq ?401-450?12 units/sq >450? 14units/sq -If your blood sugar is greater than 500 go to the emergency room -If your blood sugar is less than 60 or at anytime you feel lightheaded or dizzy or diaphoretic or have chest palpitations check your blood sugar, and eat a hard candy or drink orange juice and go immediately to the emergency room -Remember hypoglycemia kills, so if his blood sugar is less than 60 we have to increase it by taking in a sugary meal such as a hard candy or orange juice and go to the emergency room -If you have any questions please call us where here to help Discharge Attestations Time Spent in Discharge Care*: greater than 30 min Quality Metrics Clinical Quality Measures [ No reported AMI, CVA or VTE this stay] Coding Level of Care Code 78857 Total time (in minutes) for Discharge: 45 Diagnoses Chronic distal aortic occlusion I74.09 PAD (peripheral artery disease) I73.9 Mixed hyperlipidemia E78.2 Essential hypertension I10 Hypertension type: essential hypertension Tobacco dependence F17.200 Type 2 diabetes mellitus without complication, without long-term current use of insulin E11.9 Diabetes mellitus type: type 2 Diabetes mellitus group home insulin use: without extermination supervisor use Diabetes mellitus complication status: without complication Stage 3a chronic kidney disease N18.31 Chronic kidney disease stage 3 subtype: stage 3a (GFR 45-59) Abdominal pain R10.9 BYRON (acute kidney injury) N17.9 Atrial fibrillation with RVR I48.91 Chest pain R07.89 Chest pain type: other chest pain Metabolic acidosis E87.20 CKD (chronic kidney disease) N18.9 Shortness of breath R06.02 Acute exacerbation of CHF (congestive heart failure) I50.9 COPD exacerbation J44.1
[2025-07-21] MEDS: APIXABAN 2.5 MG TABLET PO (11:54)
[2025-07-21 11:55] LABS: Partial Thromboplastin Time 57.5 SECONDS (23.9-36.7)
[2025-07-21 12:00] VITALS: BP 178/80; PULSE 82; RESP 22; TEMP 36.8; O2SAT 95
[2025-07-21 12:17] VITALS: BP 178/80; PULSE 72; RESP 18; O2SAT 93
--- NOTE | 2025-07-21 13:30 | P.PN_ITS ---
Subjective 2 Subjective: Just wants to go home. Denies CP this am. Vitals/I&O/Wt Last Vital Signs Temp 98.2 F 07/21/25 12:00 Pulse 72 07/21/25 12:17 Resp 18 07/21/25 12:17 BP 178/80 07/21/25 12:17 Pulse Ox 93 07/21/25 12:17 O2 Del Method Room Air 07/21/25 09:09 O2 Flow Rate 2 07/19/25 21:13 07/20/25 07/21/25 07/21/25 22:59 06:59 14:59 Intake Total 532.243 / 1103.026 204.533 / 1307.559 298.333 / 298.333 Output Total 1300 / 2050 2400 / 4450 800 / 800 Balance -767.757 / -946.974 -2195.467 / -3142.441 -501.667 / -501.667 Weight last 48 hrs Weight 133 lb 14.4 oz Physical Exam 2 Const: COMMON NORMALS: no acute distress and patient oriented x3 Chest: COMMONS NORMALS: normal inspection of the chest and normal palpation of entire chest wall CHEST: Yes Symmetrical chest wall rise Resp: COMMON NORMALS: normal respiratory effort, No retractions, No use of accessory muscles and clear to auscultation bilaterally EFFORT & INSPECTION: Yes symmetric chest movement AUSCULTATION: clear to auscultation bilaterally Cardio: COMMON NORMALS: S1 normal heart sound present, S2 normal heart sound present, No gallops present (Cardio), No clicks present (Cardio), No murmurs present (Cardio) and No rub (Cardio) RHYTHM: abnormal rhythm irregularly irregular HEART SOUNDS: S1 normal heart sound present and S2 normal heart sound present PERIPHERAL PULSES: radial pulses present Neuro: COMMON NORMALS: patient oriented x3 and moves all extremities Psych: COMMON NORMALS: mental status grossly normal and cooperative Urinary Catheter Management: Chung: Cath Placed During This Visit: yes, but has since been removed by the nurse Reason for Continuing Indwelling Catheter: Accurate Measurement of Urinary Output in Critically Ill Patients Urinary Catheter Date of Insertion: 07/18/25 Urinary Catheter Time of Insertion: 06:00 Date Urinary Catheter Removed: 07/21/25 Time Urinary Catheter Discontinued: 11:31 Data 07/21/25 09:42 07/21/25 09:42 A&P Assessment and plan 1. Chronic distal aortic occlusion: 2. PAD (peripheral artery disease): 3. Mixed hyperlipidemia: 4. Hypertension: 5. Tobacco dependence: Still planning on smoking 6. Diabetes: 7. CKD (chronic kidney disease) stage 3, GFR 30-59 ml/min: 8. Atrial fibrillation with RVR: Plan: Patient does not want any further invasive procedures and is aware of the risks of heart attack and possible cardiac . She declines cardiac catheterization. She does not want hospice but would like to go home with medications only. Afib is rate controlled with medication. Medical regimen discussed with Hospitalist Dr. Melvin. Patient may follow up with me in the Cardiology office in 2 weeks. PDMP PDMP Reviewed: Not Reviewed Attestations 2 Medical Necessity Statement*: Being discharged Coding Level of Care Code 45123 Diagnoses Chronic distal aortic occlusion I74.09 PAD (peripheral artery disease) I73.9 Mixed hyperlipidemia E78.2 Hypertension I10 Tobacco dependence F17.200 Diabetes E11.9 CKD (chronic kidney disease) stage 3, GFR 30-59 ml/min N18.30 Atrial fibrillation with RVR I48.91
--- NOTE | 2025-07-21 14:12 | PC.NURSE ---
New medications were called into [facility] pharmacy in [place], [place] per patient request because [facility] was closed for the weekend.
== END 2025-07-21 12:52 | disposition home or self-care (01) | DRG 280 ==
LOC: ER 05:11 → CSU 06:03
PROVIDERS: Admitting Provider Internal Medicine; Emergency Provider Emergency Medicine; PCP Nurse Practitioner Family; Visit Provider Family Medicine
DX: I13.0 Hypertensive heart and chronic kidney disease with heart failure and stage 1 through stage 4 chronic kidney disease, or unspecified chronic kidney disease (principal); I50.23 Acute on chronic systolic (congestive) heart failure; I21.4 Non-ST elevation (NSTEMI) myocardial infarction; E87.1 Hypo-osmolality and hyponatremia; E87.20 Acidosis, unspecified; N17.9 Acute kidney failure, unspecified; J44.1 Chronic obstructive pulmonary disease with (acute) exacerbation; K55.1 Chronic vascular disorders of intestine; E11.22 Type 2 diabetes mellitus with diabetic chronic kidney disease; I70.0 Atherosclerosis of aorta; E78.2 Mixed hyperlipidemia; F17.210 Nicotine dependence, cigarettes, uncomplicated; G89.29 Other chronic pain; I25.10 Atherosclerotic heart disease of native coronary artery without angina pectoris; K21.9 Gastro-esophageal reflux disease without esophagitis; Z90.49 Acquired absence of other specified parts of digestive tract; Z90.710 Acquired absence of both cervix and uterus; Z90.79 Acquired absence of other genital organ(s); Z90.722 Acquired absence of ovaries, bilateral; Z82.49 Family history of ischemic heart disease and other diseases of the circulatory system; Z80.1 Family history of malignant neoplasm of trachea, bronchus and lung; Z80.8 Family history of malignant neoplasm of other organs or systems; Z83.3 Family history of diabetes mellitus; Z82.3 Family history of stroke; Z83.49 Family history of other endocrine, nutritional and metabolic diseases; R51.9 Headache, unspecified; Z91.148 Patient's other noncompliance with medication regimen for other reason; N14.11 Contrast-induced nephropathy; I27.20 Pulmonary hypertension, unspecified; N18.31 Chronic kidney disease, stage 3a; E11.51 Type 2 diabetes mellitus with diabetic peripheral angiopathy without gangrene; I48.0 Paroxysmal atrial fibrillation; Z53.29 Procedure and treatment not carried out because of patient's decision for other reasons; R63.4 Abnormal weight loss; R00.1 Bradycardia, unspecified; E11.42 Type 2 diabetes mellitus with diabetic polyneuropathy
CPT/HCPCS: 36415; 36416; 51702; 70450; 71045; 80048; 80053; 82962; 83690; 83735; 83880; 84100; 84145; 84484; 85025; 85049; 85730; 86140; 93005; 93306; 94640; 96365; 96372; 96375; 99285; A4222; J0282; J0283; J1171; J1644; J1815; J1938; J2270; J2405; J3490; J9999; Q0144

== ENCOUNTER 2025-07-25 07:06 | Outpatient (CLI) | payer MEDICARE, OTHER, SELFPAY ==
--- NOTE | 2025-07-25 07:11 | USCV_ITS ---
Fernando Gregoria Age: 70 Gender: F : 1955 Exam Date: 07/25/2025 07:23 Ordering Phys: Juliette Winchester [employer] Technologist: [place] [facility] [place]: Risk Factors: Previous Vascular Surgery: Right Brachial BP: / Left Brachial BP: / Right Left Velocity (cm/s) Spectral Plaque Velocity (cm/s) Spectral Plaque Syst/Diast Broadening Syst/Diast Broadening 51.60/ 6.50 Prox CCA 56.40 / 7.60 53.40/ 10.20 Mid CCA 54.90 / 7.10 29.10/ 5.50 Distal CCA 52.10 / 10.90 153.50/23.20 Prox ICA 151.40/ 32.40 141.50/15.20 Mid ICA 79.00 / 11.80 53.30/ 12.30 Distal ICA 54.30 / 14.90 79.00 ECA 73.60 5.30 ICA/CCA 2.90 Antegrade Vertebral Antegrade 33.80/ 7.00 cm/s 57.50/ 17.10 cm/s Bi Subclavian Bi 72.00 70.90 FINDINGS Comparison:. 05/07/23 Increasing calcified plaque and ICA/CCA ratios since the prior exam. No significant elevation of velocity. Ratios are elevated due to low systolic velocity in the CCA. Antegrade vertebral arteries. CONCLUSIONS Left ICA stenosis 50-69%. Right ICA stenosis 50-69%. Increasing plaque and velocities in the ICA's. Recommend CTA carotid arteries. Dr. Leyda Cui DO (Electronically Signed) Final Date: 25 July 2025 07:53 S
== END 2025-07-25 07:07 | disposition home or self-care (01) ==
LOC: RAD 07:07
PROVIDERS: PCP Nurse Practitioner Family; Visit Provider Nurse Practitioner Family
DX: R42 Dizziness and giddiness (principal); I65.23 Occlusion and stenosis of bilateral carotid arteries
CPT/HCPCS: 93880

== ENCOUNTER → 2025-08-07 07:34 | Outpatient (BNVA) | payer MEDICARE, OTHER, SELFPAY | PROVIDERS: PCP Nurse Practitioner Family; Visit Provider Podiatrist Foot & Ankle Surgery | DX: I48.91 Unspecified atrial fibrillation (principal); Z79.01 Long term (current) use of anticoagulants; Z79.82 Long term (current) use of aspirin; I25.10 Atherosclerotic heart disease of native coronary artery without angina pectoris; E78.2 Mixed hyperlipidemia; I10 Essential (primary) hypertension; I70.92 Chronic total occlusion of artery of the extremities; I65.29 Occlusion and stenosis of unspecified carotid artery; R63.4 Abnormal weight loss; Z68.21 Body mass index [BMI] 21.0-21.9, adult; F17.210 Nicotine dependence, cigarettes, uncomplicated; Z91.141 Patient's other noncompliance with medication regimen due to financial hardship; R07.9 Chest pain, unspecified | CPT/HCPCS: 93005; 99213; 99214 ==

== ENCOUNTER 2025-08-10 08:15 | Outpatient (CLI) | payer MEDICARE, OTHER, SELFPAY ==
--- NOTE | 2025-08-10 08:24 | MR_ITS ---
WS: [id number] MRI HEAD WITH CONTRAST TECHNIQUE: Sagittal T1, T2 axial, T2 axial FLAIR, axial susceptibility weighted imaging, axial diffusion weighted images, and coronal T2 images were obtained. Pre and post-T1 axial and post T1 coronal images. ADC and FSPGR images. CLINICAL INFORMATION: DIZZINESS/GIDDINESS/HEADACHE COMPARISON: MRI 2013 and 2009 FINDINGS: 7 mm focus of restricted diffusion in the LEFT cerebellum compatible with acute ischemia. No other foci of restricted diffusion. Moderate to advanced small vessel changes with moderate parenchymal volume loss. Small chronic lacunar infarcts in the LEFT external capsule. Normal vascular flow voids at the skull base. No hemosiderin on susceptibility-weighted images. No abnormal gadolinium enhancement. MR/MR head wo/w con [id number] IMPRESSION: 1. Small acute appearing lacunar infarct LEFT cerebellum measuring 7 mm. 2. No other foci of acute ischemia. 3. Moderate to advanced small vessel changes with moderate parenchymal volume loss progressed compared to the prior studies. 4. Small chronic lacunar infarcts LEFT external capsule. 5. No other acute findings.
[2025-08-10] MEDS: gadobenate dimeglumine 20 mL vial 12 ML IV (09:27)
== END 2025-08-10 08:16 | disposition home or self-care (01) ==
LOC: RAD 08:16
PROVIDERS: PCP Nurse Practitioner Family; Visit Provider Nurse Practitioner Family
DX: I67.82 Cerebral ischemia (principal); G31.89 Other specified degenerative diseases of nervous system; I63.81 Other cerebral infarction due to occlusion or stenosis of small artery
CPT/HCPCS: 70553; A9577

== ENCOUNTER → 2025-09-25 13:07 | Outpatient (BNVA) | payer MEDICARE, OTHER, SELFPAY | PROVIDERS: PCP Nurse Practitioner Family; Visit Provider Podiatrist Foot & Ankle Surgery | DX: E11.42 Type 2 diabetes mellitus with diabetic polyneuropathy (principal); R09.89 Other specified symptoms and signs involving the circulatory and respiratory systems; I10 Essential (primary) hypertension; Z79.4 Long term (current) use of insulin | CPT/HCPCS: 99213 ==